=== PATIENT | female | born 1945 ===

== ENCOUNTER 2020-07-15 07:07 | Day surgery (SDC) | payer MEDICARE ==
[~2020-07-15 07:07] MED LIST: ceFAZolin/Water 2 GM/20 ML 2 GM/20 ML SYRINGE IV NR
[2020-07-15] MEDS ORDERED: PROTAMINE SULFATE 50 MG/5 ML INJ ONE (07:39)
[2020-07-15] MEDS ORDERED: SODIUM CHLORIDE 0.9% 250ML 250 ML ONE (07:39)
[2020-07-15] MEDS ORDERED: BUPIVACAINE/PF (0.5%) 5 MG/1 ML 30 ML VIAL INFILTRATI ONE ×2 (07:39→10:08)
[2020-07-15] MEDS ORDERED: HEPARIN 10,000 UNITS/10 ML VIAL ONE (07:39)
[2020-07-15] MEDS ORDERED: rifAMPin 600 MG VIAL ONE (07:39)
[2020-07-15] MEDS ORDERED: SODIUM CHLORIDE 0.9% 500 ML 500 ML ONE (07:40)
[2020-07-15] MEDS ORDERED: ONDANSETRON 4 MG/2 ML INJ ONE (07:44)
[2020-07-15] MEDS ORDERED: dexAMETHasone 20 MG/5 ML VIAL ONE (07:44)
[2020-07-15] MEDS ORDERED: PHENYLEPHRINE/NS 1,000 MCG/10 ML SYRINGE (OR USE) IV ONE (07:44)
[2020-07-15] MEDS ORDERED: SUCCINYLCHOLINE CHLORIDE 200 MG/10 ML INJ MDV ONE (07:44)
[2020-07-15] MEDS ORDERED: fentaNYL 100 MCG/2 ML INJ ONE (07:44)
[2020-07-15] MEDS ORDERED: GLYCOPYRROLATE 0.4 MG/2 ML INJ ONE (07:44)
[2020-07-15] MEDS ORDERED: LIDOCAINE MPF (2%) 20 MG/1 ML VIAL 5 ML ONE (07:44)
[2020-07-15] MEDS ORDERED: SODIUM CHLORIDE 0.9% 1000 ML 1,000 ML IV SCH (07:45)
[2020-07-15] MEDS ORDERED: propofoL 200 MG/20 ML VIAL IV ONE (07:45)
--- NOTE | 2020-07-15 08:11 | Anesthesia Consultation ---
Anesthesia Consult and Med Hx Date of service: 07/15/20 - Airway Anesthetic Teeth Evaluation: Good ROM Head & Neck: Adequate Mental/Hyoid Distance: Adequate Mallampati Class: Class II Intubation Access Assessment: Probably Good - Pre-Operative Health Status ASA Pre-Surgery Classification: ASA3 Proposed Anesthetic Plan: General - Pulmonary Hx Smoking: No Hx Asthma: No Hx Respiratory Symptoms: No SOB: No COPD: No Home Oxygen Therapy: No Hx Pneumonia: No Hx Sleep Apnea: No - Cardiovascular System Hx Hypertension: Yes Hx Coronary Artery Disease: No Hx Heart Attack/AMI: No Hx Angina: No Hx Percutaneous Transluminal Coronary Angioplasty (PTCA): No Hx Cardia Arrhythmia: No Hx Pacemaker: No Hx Internal Defibrillator: No Hx Valvular Heart Disease: No Hx Heart Murmur: No Hx Peripheral Vascular Disease: No - Central Nervous System Hx Neuromuscular Disorder: No Hx Seizures: No CVA: No Hx Back Pain: No Hx Psychiatric Problems: No - Gastrointestinal Hx Ulcer: No Hx Gastroesophageal Reflux Disease: No - Endocrine Hx Renal Disease: Yes Hx End Stage Renal Disease: Yes Hx Cirrhosis: No Hx Liver Disease: No Hx Insulin Dependent Diabetes: No Hx Non-Insulin Dependent Diabetes: No (states "was diabetic due to medication") Hx Thyroid Disease: No Hx Hypothyroidism: No Hx Hyperthyroidism: No - Hematic Hx Anemia: Yes Hx Sickle Cell Disease: No - Other Systems Hx Alcohol Use: No Hx Substance Use: No Hx Cancer: No Hx Obesity: No
--- NOTE | 2020-07-15 08:12 | Anesthesia Day of Surgery ---
Anesthesia Day of Surgery - Day of Surgery Patient Examined: Yes Patient H&P Reviewed: Yes Patient is NPO: Yes
[2020-07-15] MEDS ORDERED: MIDAZOLAM 2 MG/2 ML INJ IV SCH (08:33)
[2020-07-15] MEDS ORDERED: MIDAZOLAM 2 MG/2 ML INJ ONE (08:33)
[2020-07-15 08:40] LABS: Hematocrit 39.3 % (30.3-42.9); Hemoglobin 12.7 gm/dl (10.1-14.3); Mean Corpuscular HGB Conc 32 % (30-34); Mean Corpuscular Volume 90 fl (79-97); Platelet Count 256 K/mm3 (140-440); Red Blood Count 4.36 M/mm3 (3.65-5.03); Red Cell Distribution Width 15.4 % (13.2-15.2)
[2020-07-15] MEDS ORDERED: HEPARIN 10,000 UNITS/10 ML VIAL IV ONE ×2 (10:06)
[2020-07-15] MEDS ORDERED: rifAMPin 600 MG VIAL IV ONE (10:07)
[2020-07-15] MEDS ORDERED: SODIUM CHLORIDE 0.9% 500 ML IVPB IRRIGATION ONE (10:08)
[2020-07-15] MEDS ORDERED: SODIUM CHLORIDE 0.9% 250 ML IVPB IRRIGATION ONE (10:09)
[2020-07-15] MEDS ORDERED: SODIUM CHLORIDE 0.9% IRR 1,500 ML BOTTLE IR ONE (10:10)
--- NOTE | 2020-07-15 11:00 | Short Stay Summary ---
Short Stay Documentation Date of service: 07/15/20 Narrative H&P: See H&P - History H&P: obtained from office - Allergies and Medications Current Medications: Allergies No Known Allergies Allergy (Unverified 07/09/20 12:47) Home Medications Medication Instructions Recorded Confirmed Last Taken Type Amlodipine Besylate 5 mg PO DAILY 07/15/20 07/15/20 07/15/20 06:30 History carvediloL 6.25 mg PO BID 07/15/20 07/15/20 07/15/20 06:30 History Active Medications Cefazolin Sodium (Ancef/Sterile Water 2 Gm/20 Ml) 2 gm in 20 mls @ 80 mls/hr IV PREOP NR; Protocol Stop: 07/15/20 20:00 Sodium Chloride (Nacl 0.9% 1000 Ml) 1,000 mls @ 42 mls/hr IV DIRECT BALAJI Last Admin: 07/15/20 08:30 Dose: 42 mls/hr Documented by: Midazolam HCl (Midazolam 2 Mg/2 Ml Inj) 0.5 mg IV ONCE BALAJI Stop: 07/15/20 12:00 Last Admin: 07/15/20 08:40 Dose: 0.5 mg Documented by: - Brief post op/procedure progress note Date of procedure: 07/15/20 Pre-op diagnosis: End-Stage Renal Disease Post-op diagnosis: same Procedure: Creation of Left Brachial Artery to Left Axillary Vein Arteriovenous Graft with 5 mm Bovine Artegraft Anesthesia: GETA Surgeon: EZE GARCIA Estimated blood loss: minimal Pathology: none Condition: stable - Disposition Condition at discharge: Good Disposition: DC-01 TO HOME OR SELFCARE Short Stay Discharge Plan Activity: other (No heavy lifting with left arm for 2 weeks.) Wound: open to air, keep clean and dry, other (Okay to wash the wound with soap and water but do not soak in water for 2 weeks.) Follow up with: EZE GARCIA MD [Staff Physician] - 14 Days Prescriptions: HYDROcodone/APAP 5-325 [[place] 5/325] 1 each PO Q4HR PRN #30 tablet PRN Reason: Pain
--- NOTE | 2020-07-15 11:01 | Operative Report ---
Operative Report Operative Report: Date of procedure: 07/15/2010 Pre-operative diagnosis: End-Stage Renal Disease Post-operative diagnosis: Same Procedure(s): 1. Creation of Left Brachial Artery to Axillary Vein AV Graft with 5 mm Bovine Graft Artergraft Surgeon: Darron Gifford MD Net Sorter: None Anesthesia: General Endotracheal Anesthesia EBL: Minimal Counts: Correct Complications: None Condition: Stable Findings: Successful Creation of Left Arm AV Graft with Palpable Thrill and Palpable Radial Pulse at the Completion of the Case. Specimen: None Indication: The patient is a 74-year-old female with history of end-stage renal disease who is currently on hemodialysis through a right internal jugular permacath. She is in need of long-term dialysis access and does not have adequate vein for creation of an arteriovenous fistula so she requires creation of an arteriovenous graft. She and her son were given the risk, benefits, and alternative procedures and consented to the procedure. Description of Procedure: The patient was brought to the operating room and laid in supine position. After general endotracheal anesthesia was achieved the patient's left arm was prepped and draped in normal sterile fashion. A longitudinal incision was made on the medial aspect of the arm just proximal to the antecubital crease and carried down to the brachial artery using sharp dissection. The brachial artery was dissected out circumferentially both proximally and distally and controlled with vessel loops. A second incision was created in longitudinal fashion on the medial aspect of the arm just distal to the axillary crease and carried down to the axillary vein using sharp dissection. Axillary vein was dissected out circumferentially and controlled with a vessel loop. I then used a Isabella-Wick tunneler to tunnel from the brachial artery incision to the axillary vein incision and then put an 5 mm bovine through the tunnel. I infused with heparinized saline to ensure that it was not twisted or kinked. I put the brachial artery vessel loops on tension controlling the flow and then created an arteriotomy using an 11 blade and Hernández scissors. I beveled the graft and created an end-to-side anastomosis using 6-0 Prolene running fashion. I clamped the graft just proximal to the anastomosis and then released the vessel loops restoring flow in the brachial artery. I placed quick clot in incision to achieve hemostasis. I cut the proximal end of the graft to the appropriate length and beveled the graft in preparation for a venous anastomosis. I controlled the axillary vein a Satinsky clamp and created a venotomy using an 11 blade and Hernández scissors. I created an end to side anastomosis using a 6-0 P rolene in running fashion. Prior to completing the anastomosis I flushed the graft to ensure there was no thrombus and then completed the anastamosis. I released all clamps allowing flow into the AV graft which had an excellent thrill. I packed the wound with quick clot to achieve hemostasis. I anesthetized both wounds with 0.5% Marcaine and then closed both wounds in 2 layers using 3-0 Vicryl in running fashion in the deep dermal layer and 4-0 Monocryl in running fashion the subcuticular layer. I dressed both wounds with Dermabond. The patient tolerated the procedure well all sponge, needle, and instrument counts were correct. The patient was taken to recovery in stable condition.
--- NOTE | 2020-07-15 18:41 | Post Anesthesia Evaluation ---
- Post Anesthesia Evaluation Patient Participated: Yes Airway Patent: Yes Stable Respiratory Function: Yes Nausea/Vomiting: No Temp > 96.8F: Yes Pain Manageable: Yes Adequeate Hydration: Yes Anesthesia Complications: No Block Receding Appropriately: Not Applicable Patient on Ventilator: No
[2020-07-15 19:39] VITALS: BP 142/76
== END 2020-07-15 07:08 | disposition home or self-care (01) ==
LOC: OR 07:07
PROVIDERS: ATTEND Surgery Vascular Surgery
DX: I12.0 Hypertensive chronic kidney disease with stage 5 chronic kidney disease or end stage renal disease (principal); E11.22 Type 2 diabetes mellitus with diabetic chronic kidney disease; N18.6 End stage renal disease; E78.00 Pure hypercholesterolemia, unspecified; D64.9 Anemia, unspecified; Z94.0 Kidney transplant status; Z98.890 Other specified postprocedural states; Z79.899 Other long term (current) drug therapy
CPT/HCPCS: 36415; 36830; 80048; 82962; 85027; C1768; J0330; J0690; J1100; J1644; J2250; J2370; J2405; J2704; J3010; J3490; J7030; J7040; J7050; J2720

== ENCOUNTER 2020-11-10 04:04 | Inpatient (IN) | payer MEDICARE ==
--- NOTE | 2020-11-10 04:47 | XRay Report ---
CHEST 1 VIEW INDICATION: sob. COMPARISON: None. FINDINGS: Support devices: None. Heart: Enlarged. Lungs/Pleura: There is interstitial edema. No pleural effusion or pneumothorax. IMPRESSION: 1. Cardiomegaly with interstitial edema. Signer Name: Sharan Jamison MD Signed: 11/10/2020 4:43 AM Workstation Name: [id number]
[2020-11-10 04:53] LABS: Basophils # (Auto) 0.1 K/mm3 (0.0-0.1); Basophils % (Auto) 0.5 % (0.0-1.8); Eosinophils # (Auto) 0.5 K/mm3 (0.0-0.4); Eosinophils % (Auto) 3.6 % (0.0-4.3); Hematocrit 32.3 % (30.3-42.9); Hemoglobin 10.7 gm/dl (10.1-14.3); Lymphocytes # (Auto) 1.8 K/mm3 (1.2-5.4); Lymphocytes % (Auto) 13.4 % (13.4-35.0); Mean Corpuscular HGB Conc 33 % (30-34); Mean Corpuscular Volume 89 fl (79-97); Monocytes # (Auto) 0.9 K/mm3 (0.0-0.8); Monocytes % (Auto) 6.7 % (0.0-7.3); Platelet Count 324 K/mm3 (140-440); Red Blood Count 3.63 M/mm3 (3.65-5.03); Red Cell Distribution Width 15.7 % (13.2-15.2)
[2020-11-10 05:04] LABS: INR 1.05 (0.87-1.13)
[2020-11-10 05:05] LABS: Partial Thromboplastin Time 34.9 Sec. (24.2-36.6)
--- NOTE | 2020-11-10 05:14 | Event Note ---
ED Screening Note Date of service: 11/10/20 Time: 05:14 ED Screening Note: 75-year-old female, history of diabetes, hypertension, kidney transplant, end- stage renal disease (MWF dialysis), presents to ED with shortness of breath since 8 PM last night. Patient was recently started on dialysis in April 2020. Patient had an admission last month at [facility] for pulmonary edema. Covid test at that time was negative. Patient denies any fever, cough, known exposure to anyone who is tested positive for COVID-19. Patient was last dialyzed 3 days ago, due for dialysis again today. Patient follows with [facility]. EMS reports patient had O2 sats of 80% on room air upon their arrival. On exam, patient is tachypneic, lung auscultation reveals rales. This initial assessment/diagnostic orders/clinical plan/treatment(s) is/are subject to change based on patients health status, clinical progression and re- assessment by fellow clinical providers in the ED. Further treatment and workup at subsequent clinical providers discretion. Patient/guardian urged not to elope from the ED as their condition may be serious if not clinically assessed and managed. Initial orders include: Labs, EKG, chest x-ray, BiPAP
[2020-11-10 06:14] LABS: Chol/HDL Ratio 3.82 %
--- NOTE | 2020-11-10 07:01 | Emergency Department Report ---
ED General Adult HPI - General Chief complaint: Dyspnea/Respdistress Stated complaint: MONIQUE PUI?: No Time Seen by Provider: 11/10/20 06:22 Source: patient, family, EMS, RN notes reviewed Mode of arrival: Stretcher Limitations: Language Barrier - History of Present Illness Initial comments: The patient was evaluated in the emergency department for symptoms described in the history of present illness. He/she was evaluated in the context of the global COVID-19 pandemic, which necessitated consideration that the patient might be at risk for infection with the virus that causes COVID-19. Institutional protocols and algorithms that pertain to the evaluation of patients at risk for COVID-19 are in a state of rapid change based on information released by regulatory bodies including the CDC and federal and state organizations. These policies and algorithms were followed during the patient's care in the emergency department. Please note that these policies, procedures and recommendations changed on a rapid basis. The entire history was obtained by speaking to the patient's daughter: Naheed ([phone]) This is a 75-year-old female. She is not known to myself. Her primary manager education is Dr. Luis. She typically gets hemodialysis Tuesday, Tuesday, Tuesday. She last received hemodialysis this past Tuesday. Her daughter states that she has been compliant with her medications, and she denies diet and lifes tyle indiscretions, and also endorses medication compliance. The patient's daughter states that the patient started to have shortness of breath this morning, and thus EMS was activated. As per her daughter, no fever, no loss of taste or smell, no vomiting or diarrhea, and no exposure to Covid. The patient was admitted to [facility] few weeks ago for similar symptoms, likely secondary to patient missing hemodialysis. The patient was started on BiPAP in this emergency room, prior to my personal evaluation. The patient is currently on BiPAP, moving 4 extremities, and does not appear to be in any acute distress. -: This morning - Related Data Home Medications Medication Instructions Recorded Confirmed Last Taken Amlodipine Besylate 5 mg PO DAILY 07/15/20 11/10/20 07/15/20 06:30 carvediloL 6.25 mg PO BID 07/15/20 11/10/20 07/15/20 06:30 Previous Rx's Medication Instructions Recorded Last Taken Type HYDROcodone/APAP 5-325 [[place] 1 each PO Q4HR PRN #30 tablet 07/15/20 Unknown Rx 5/325] Allergies Allergy/AdvReac Type Severity Reaction Status Date / Time No Known Allergies Allergy Unverified 07/09/20 12:47 ED Review of Systems ROS: Stated complaint: MONIQUE Other details as noted in HPI Comment: per family Constitutional: weakness. denies: fever Respiratory: shortness of breath Cardiovascular: edema Gastrointestinal: denies: nausea, vomiting, diarrhea ED Past Medical Hx - Past Medical History Hx Hypertension: Yes Hx Heart Attack/AMI: No Hx Congestive Heart Failure: No Hx Diabetes: Yes (BORDERLINE) Hx GERD: No Hx Liver Disease: No Hx Renal Disease: Yes (Hemodialysis MWF) Hx Sickle Cell Disease: No Hx Arthritis: No Hx Headaches / Migraines: No Hx Seizures: No Hx Kidney Stones: No Hx Asthma: No Hx COPD: No Hx Tuberculosis: No Hx Dementia: No Hx HIV: No - Surgical History Hx Pacemaker: No Hx Internal Defibrillator: No - Social History Smoking Status: Never Smoker Substance Use Type: None - Medications Home Medications: Home Medications Medication Instructions Recorded Confirmed Last Taken Type Amlodipine Besylate 5 mg PO DAILY 07/15/20 11/10/20 07/15/20 06:30 History HYDROcodone/APAP 5-325 [[place] 1 each PO Q4HR PRN #30 tablet 07/15/20 11/10/20 Unknown Rx 5/325] carvediloL 6.25 mg PO BID 07/15/20 11/10/20 07/15/20 06:30 History ED Physical Exam - General Limitations: Language Barrier General appearance: alert, anxious - Head Head exam: Present: atraumatic, normocephalic - Eye Eye exam: Present: normal appearance, EOMI. Absent: nystagmus - ENT ENT exam: Present: normal exam, normal orophraynx, mucous membranes moist, normal external ear exam - Neck Neck exam: Present: normal inspection, full ROM. Absent: tenderness, meningismus - Respiratory Respiratory exam: Present: respiratory distress, rales - Cardiovascular Cardiovascular Exam: Present: regular rate, normal rhythm, normal heart sounds. Absent: bradycardia, tachycardia, irregular rhythm, systolic murmur, diastolic murmur, rubs, gallop - GI/Abdominal GI/Abdominal exam: Present: soft, normal bowel sounds. Absent: distended, tenderness, guarding, rebound, rigid, pulsatile mass - Extremities Exam Extremities exam: Present: normal inspection, full ROM, other (2+ pulses noted in the bilateral upper and lower extremities. There is no palpable cord. negative Homans sign. Muscular compartments are soft. The pelvis is stable.). Absent: pedal edema, calf tenderness - Back Exam Back exam: Present: normal inspection, full ROM. Absent: tenderness, CVA tenderness (R), CVA tenderness (L), paraspinal tenderness, vertebral tenderness - Neurological Exam Neurological exam: Present: alert, other (No facial droop. Tongue midline. Extraocular movements intact bilaterally. Facial sensation intact to light touch in V1, V2, V3 distribution bilaterally. 5 and a 5 strength in 4 extremities. Sensation intact to light touch in 4 extremities.) - Psychiatric Psychiatric exam: Present: anxious - Skin Skin exam: Present: warm, dry, intact, normal color. Absent: rash ED Course Vital Signs 11/10/20 11/10/20 11/10/20 04:19 05:13 05:28 Temperature 97.9 F Pulse Rate 85 88 86 Respiratory 22 27 H 23 Rate Blood Pressure 190/90 206/91 [Right] O2 Sat by Pulse 92 98 98 Oximetry 11/10/20 06:00 Temperature Pulse Rate 88 Respiratory 21 Rate Blood Pressure 173/142 [Right] O2 Sat by Pulse 98 Oximetry - Consultations Consultation #1: 11/10/20 10:09 I have discussed the patient's history, physical, pertinent laboratory studies and imaging findings with nephrology on-call, Dr. Fabian. He agrees with the plan of care, and his group will see the patient in consultation to follow along. We will arrange for urgent hemodialysis this morning. ED Medical Decision Making - Lab Data Result diagrams: 11/10/20 04:21 11/10/20 04:21 Vital Signs 11/10/20 11/10/20 11/10/20 04:19 05:13 05:28 Temperature 97.9 F Pulse Rate 85 88 86 Respiratory 22 27 H 23 Rate Blood Pressure 190/90 206/91 [Right] O2 Sat by Pulse 92 98 98 Oximetry 11/10/20 06:00 Temperature Pulse Rate 88 Respiratory 21 Rate Blood Pressure 173/142 [Right] O2 Sat by Pulse 98 Oximetry Lab Results 11/10/20 11/10/20 11/10/20 Range/Units 04:21 04:21 04:21 WBC 13.6 H (4.5-11.0) K/mm3 RBC 3.63 L (3.65-5.03) M/mm3 Hgb 10.7 (10.1-14.3) gm/dl Hct 32.3 (30.3-42.9) % MCV 89 (79-97) fl MCH 30 (28-32) pg MCHC 33 (30-34) % RDW 15.7 H (13.2-15.2) % Plt Count 324 (140-440) K/mm3 Lymph % (Auto) 13.4 (13.4-35.0) % [place] % (Auto) 6.7 (0.0-7.3) % Eos % (Auto) 3.6 (0.0-4.3) % Baso % (Auto) 0.5 (0.0-1.8) % Lymph # (Auto) 1.8 (1.2-5.4) K/mm3 [place] # (Auto) 0.9 H (0.0-0.8) K/mm3 Eos # (Auto) 0.5 H (0.0-0.4) K/mm3 Baso # (Auto) 0.1 (0.0-0.1) K/mm3 Seg Neutrophils % 75.8 H (40.0-70.0) % Seg Neutrophils # 10.3 H (1.8-7.7) K/mm3 PT 13.6 (12.2-14.9) Sec. INR 1.05 (0.87-1.13) APTT 34.9 (24.2-36.6) Sec. Sodium 130 L (137-145) mmol/L Potassium 5.6 H (3.6-5.0) mmol/L Chloride 89.4 L (98-107) mmol/L Carbon Dioxide 23 (22-30) mmol/L Anion Gap 23 mmol/L BUN 54 H (7-17) mg/dL Creatinine 8.4 H (0.6-1.2) mg/dL Estimated GFR 5 ml/min BUN/Creatinine Ratio 6 % Glucose 147 H (65-100) mg/dL Calcium 9.0 (8.4-10.2) mg/dL Troponin T 0.110 H* (0.00-0.029) ng/mL NT-Pro-B Natriuret Pep 63383 H (0-900) pg/mL Triglycerides 97 (2-149) mg/dL Cholesterol 180 (50-199) mg/dL LDL Cholesterol Direct 113 (50-130) mg/dL HDL Cholesterol 47 (40-59) mg/dL Cholesterol/HDL Ratio 3.82 % - EKG Data -: EKG Interpreted by Oh EKG shows normal: sinus rhythm - EKG Data When compared to previous EKG there are: previous EKG unavailable 11/10/20 07:00 EKG interpreted at 5: 00 a.m. Sinus rhythm, 88 bpm. Left axis deviation. Left anterior fascicular block. Poor R wave progression. Motion artifact. QTC prolonged, 473 ms. This is an abnormal EKG. There is no prior for comparison. This is not a STEMI - Radiology Data Radiology results: report reviewed, image reviewed CHEST 1 VIEW INDICATION: sob. COMPARISON: None. FINDINGS: Support devices: None. Heart: Enlarged. Lungs/Pleura: There is interstitial edema. No pleural effusion or pneumothorax. IMPRESSION: 1. Cardiomegaly with interstitial yovani gaines. Signer Name: Sharan Jamison MD Signed: 11/10/2020 3:43 AM Workstation Name: [id number] - Medical Decision Making Differential diagnosis, including but not limited to: Hyperkalemia, azotemia, uremia, metabolic acidosis, hypervolemic hyponatremia, hypertensive urgency/kate gency, end-stage renal disease Assessment and plan: 75-year-old female, found to be hypoxic, and rather hypertensive, appears to be presenting with acute hypervolemic hyponatremia, fluid overload, pulmonary edema, hyperkalemia, metabolic acidosis, uremia and azotemia, all which require urgent/emergent hemodialysis. She is clinically doing well on BiPAP. Have contacted nephrology on-call, Dr. Fabian, have discussed the patient's history, physical, pertinent laboratory studies and imaging findings. His group will see the patient, and arrange for urgent hemodialysis. Patient will be admitted to the medical service under the care of Dr. Amadou Billings I had extensive discussion with the patient's daughter, who denied the possibility of Covid, and/or Covid contacts. I have also discussed this plan of care with the patient's daughter, who has verbalized understanding, and who is amenable to this plan of care. Patient currently on BiPAP, clinically doing well. Critical Care Time: Yes Critical care time in (mins) excluding proc time.: 35 Critical care attestation.: If time is entered above; I have spent that time in minutes in the direct care of this critically ill patient, excluding procedure time. ED Disposition Clinical Impression: ESRD on hemodialysis, Acute pulmonary edema, Hyperkalemia, Hypertensive urgency, Metabolic acidosis, Hyponatremia Disposition: 09 OP ADMIT IP TO THIS HOSP Is pt being admited?: Yes Does the pt Need Aspirin: No Condition: Serious
[2020-11-10] MEDS ORDERED: FUROSEMIDE 40 MG/4 ML INJ IV ONE ×2 (07:09→11:00)
[2020-11-10] MEDS ORDERED: INSULIN REGULAR, HUMAN 100 UNITS/1 ML IV ONE ×2 (07:09→10:01)
[2020-11-10] MEDS ORDERED: SODIUM BICARB 8.4% 50 MEQ/50 ML SYRINGE IV ONE ×2 (07:09→09:59)
[2020-11-10] MEDS ORDERED: hydrALAZINE 20 MG/1 ML INJ IV ONE ×2 (07:09→10:02)
[2020-11-10] MEDS ORDERED: DEXTROSE 50% IN WATER (25GM) 50 ML SYRINGE IV PRN (07:09)
[2020-11-10] MEDS ORDERED: hydrALAZINE 20 MG/1 ML INJ IV PRN (07:26)
[2020-11-10] MEDS ORDERED: CALCIUM GLUCONATE 1,000 MG in SODIUM CHLORIDE 0.9% 100 ML IV ONE (07:30)
--- NOTE | 2020-11-10 07:32 | History and Physical Report ---
History of Present Illness Date of examination: 11/10/20 Date of admission: 11/10/2020 Chief complaint: Worsening shortness of breath/missed hemodialysis History of present illness: I have seen and examined the patient at the bedside in ER Patient is a poor historian, most of the history is taken from ER medical records As per ER note 75-year-old female patient with history of end-stage renal disease on hemodialysis hypertension, medical noncompliance Was brought to the emergency room with worsening shortness of breath since today morning Patient also was admitted few weeks ago with similar complaints of noncompliance with dialysis In ER patient is noted to be severely hypoxemic requiring BiPAP, with mild improvement. Initial evaluation in the ED is consistent with hyperkalemia, leukocytosis, hyponatremia Elevated BNP, chest x-ray with cardiomegaly and pulmonary edema ER physician consulted veterans contact representative Past History Past Medical History: dialysis, ESRD, hypertension, other (Malnutrition) Past Surgical History: Other (AV fistula) Social history: denies: smoking, alcohol abuse, prescription drug abuse Family history: no significant family history Medications and Allergies Allergies Allergy/AdvReac Type Severity Reaction Status Date / Time No Known Allergies Allergy Unverified 07/09/20 12:47 Home Medications Medication Instructions Recorded Confirmed Last Taken Type Amlodipine Besylate 5 mg PO DAILY 07/15/20 11/10/20 07/15/20 06:30 History HYDROcodone/APAP 5-325 [[place] 1 each PO Q4HR PRN #30 tablet 07/15/20 11/10/20 Unknown Rx 5/325] carvediloL 6.25 mg PO BID 07/15/20 11/10/20 07/15/20 06:30 History Active Meds: Active Medications Dextrose (Dextrose 50% In Water (25gm) 50 Ml Syringe) 50 ml IV Q30MIN PRN; Protocol PRN Reason: Hypoglycemia Hydralazine HCl (Hydralazine 25 Mg Tab) 50 mg PO Q8HR BALAJI Hydralazine HCl (Hydralazine 20 Mg/1 Ml Inj) 10 mg IV Q4HR PRN PRN Reason: Hypertension Calcium Gluconate 1,000 mg/ (Sodium Chloride) 110 mls @ 330 mls/hr IV ONCE ONE Stop: 11/10/20 07:49 Miscellaneous Medication (Amlodipine Besylate) 5 mg PO DAILY BALAJI Miscellaneous Medication (Carvedilol) 6.25 mg PO BID BALAJI Review of Systems ROS unobtainable: due to mental status Exam - Constitutional Vitals: Temp Pulse Resp BP Pulse Ox 97.9 F 88 21 173/142 98 11/10/20 04:19 11/10/20 06:00 11/10/20 06:00 11/10/20 06:00 11/10/20 06:00 General appearance: Present: mild distress, cachectic, other (Macerated) - EENT Eyes: Present: PERRL, EOM intact - Neck Neck: Present: supple, normal ROM - Respiratory Respiratory effort: normal Respiratory: bilateral: diminished, rales, negative: rhonchi, wheezing - Cardiovascular Rhythm: regular Heart Sounds: Present: S1 & S2 - Extremities Extremities: no ischemia, No edema - Abdominal General gastrointestinal: Present: soft, non-tender, non-distended, normal bowel sounds - Integumentary Integumentary: Present: clear, warm - Musculoskeletal Musculoskeletal: strength equal bilaterally, generalized weakness - Psychiatric Psychiatric: cooperative, other (Minimally communicative) - Neurologic Neurologic: moves all extremities, other (Minimally communicative) HEART Score - HEART Score Troponin: Troponin T 0.110 ng/mL (0.00-0.029) H* 11/10/20 04:21 Results - Labs CBC & Chem 7: 11/10/20 04:21 11/10/20 04:21 Labs: Abnormal lab results 11/10/20 11/10/20 Range/Units 04:21 04:21 WBC 13.6 H (4.5-11.0) K/mm3 RBC 3.63 L (3.65-5.03) M/mm3 RDW 15.7 H (13.2-15.2) % [place] # (Auto) 0.9 H (0.0-0.8) K/mm3 Eos # (Auto) 0.5 H (0.0-0.4) K/mm3 Seg Neutrophils % 75.8 H (40.0-70.0) % Seg Neutrophils # 10.3 H (1.8-7.7) K/mm3 Sodium 130 L (137-145) mmol/L Potassium 5.6 H (3.6-5.0) mmol/L Chloride 89.4 L (98-107) mmol/L BUN 54 H (7-17) mg/dL Creatinine 8.4 H (0.6-1.2) mg/dL Glucose 147 H (65-100) mg/dL Troponin T 0.110 H* (0.00-0.029) ng/mL NT-Pro-B Natriuret Pep 90596 H (0-900) pg/mL Assessment and Plan --Acute hypoxemic respiratory failure; requiring BiPAP Secondary to severe pulmonary edema, due to fluid overload, due to missed hemodialysis Oxygen titrate O2 sat to more than 90%,BiPAP as needed Treat the underlying cause, HD stat --Acute pulmonary edema; Secondary to fluid overload, due to end-stage renal disease Hemodialysis, diuresis, supportive care --Fluid overload; secondary to ESRD Missed hemodialysis, treat the underlying cause Nephrology consulted, HD per schedule --Hyperkalemia; Patient received calcium gluconate and Kayexalate Hemodialysis per schedule, monitor electrolytes --Hyponatremia; Due to fluid overload, HD per schedule Monitor electrolytes --Hypertension; moderate control Continue current antihypertensives, as needed medications --NSTEMI type II Probably secondary to ESRD, closely monitor If patient has chest pain or other cardiac symptoms Consult cardiology --Severe malnutrition; BMI 18.6 Nutrition supplements, nutrition consult Supportive care --DVT prophylaxis; Heparin renal dose --Full CODE STATUS Closely monitor the patient and adjust management as needed Plan of care reviewed with the patient's nurse We will try to call the family
[2020-11-10] MEDS ORDERED: NON-FORMULARY EACH (Amlodipine Besylate 5 MG) PO SCH (10:00)
[2020-11-10] MEDS ORDERED: NON-FORMULARY EACH (Carvedilol 6.25 MG) PO SCH (10:00)
[2020-11-10] MEDS ORDERED: amLODIPine 5 MG TAB PO SCH ×2 (10:00)
[2020-11-10] MEDS ORDERED: FUROSEMIDE 100 MG/10 ML INJ IV ONE (10:00)
[2020-11-10] MEDS ORDERED: DEXTROSE 50% IN WATER (25GM) 50 ML SYRINGE IV ONE (10:04)
--- NOTE | 2020-11-10 11:41 | Consultation ---
History of Present Illness - Reason for Consult Consult date: 11/10/20 end stage renal disease Requesting physician: JOSE VAZ - History of Present Illness This is a 75 yo F with past medical history of Hypertension, ESRD on MWF schedule, who presents to ER with complaints of progressive shortness of breath. In Pt was found to be hypoxic, requiring BIPAP. CXR showed cardiomegaly and evidence of pulmonary edema. Labs showed elevated BUN/Cr at 54/8.4mg/dl along with hyponatremia 130 and mild hyperkalemia with K at 5.6. Renal consult is requested for management of ESRD/HD. Past History Past Medical History: anemia, ESRD, hypertension Past Surgical History: Other (AVF) Social history: denies: smoking, alcohol abuse, prescription drug abuse, IV drug use Medications and Allergies Allergies Allergy/AdvReac Type Severity Reaction Status Date / Time No Known Allergies Allergy Unverified 07/09/20 12:47 Home Medications Medication Instructions Recorded Confirmed Last Taken Type Amlodipine Besylate 5 mg PO DAILY 07/15/20 11/10/20 07/15/20 06:30 History HYDROcodone/APAP 5-325 [[place] 1 each PO Q4HR PRN #30 tablet 07/15/20 11/10/20 Unknown Rx 5/325] carvediloL 6.25 mg PO BID 07/15/20 11/10/20 07/15/20 06:30 History Active Meds: Active Medications Amlodipine Besylate (Amlodipine 5 Mg Tab) 5 mg PO QDAY BALAJI Carvedilol (Carvedilol 6.25 Mg Tab) 6.25 mg PO BID BALAJI Dextrose (Dextrose 50% In Water (25gm) 50 Ml Syringe) 50 ml IV Q30MIN PRN; Protocol PRN Reason: Hypoglycemia Heparin Sodium (Porcine) (Heparin 5,000 Unit/1 Ml Vial) 5,000 unit SUB-Q Q12HR BALAJI Hydralazine HCl (Hydralazine 25 Mg Tab) 50 mg PO Q8HR BALAJI Hydralazine HCl (Hydralazine 20 Mg/1 Ml Inj) 10 mg IV Q4HR PRN PRN Reason: Hypertension Review of Systems All systems: negative Constitutional: fatigue, weakness, malaise Respiratory: shortness of breath, dyspnea on exertion Exam - Vital Signs Vital signs: Vital Signs Temp Pulse Resp BP Pulse Ox 97.9 F 85 22 190/90 92 11/10/20 04:19 11/10/20 04:19 11/10/20 04:19 11/10/20 04:19 11/10/20 04:19 - General Appearance General appearance: well-developed, well-nourished, appears stated age EENT: ATNC, PERRL, mucous membranes moist Neck: Present: neck supple Respiratory: Decreased Breath Sounds Heart: regular, S1S2 Gastrointestinal: Present: normoactive bowel sounds Integumentary: no rash, other (edema ) Neurologic: no focal deficit, alert and oriented x3, strength 5/5, CN 3-12 intact Psychiatric: mood/affect appropriate, cooperative Results - Lab Results 11/10/20 04:21 11/10/20 04:21 Most recent lab results Calcium 9.0 mg/dL (8.4-10.2) 11/10/20 04:21 Assessment and Plan - Patient Problems (1) Hyperkalemia Current Visit: Yes Status: Acute Plan to address problem: HD arranged for correction of hyperkalemia (2) ESRD on hemodialysis Current Visit: Yes Status: Acute Plan to address problem: Arranged HD for MWF, target UF 3L as needed for volume/BP control (3) Acute pulmonary edema Current Visit: Yes Status: Acute Plan to address problem: cont BIPAP as per ICU attending, volume control with HD. (4) Hypertensive urgency Current Visit: Yes Status: Acute Plan to address problem: resume home BP meds, target UF 3L with HD for volume and BP control. (5) Hyponatremia Current Visit: Yes Status: Acute Plan to address problem: likely 2/2 hypervolemia, expect to be corrected with HD. cont fluid restriction to 1L/day (6) Metabolic acidosis Current Visit: Yes Status: Acute Plan to address problem: to be corrected with HD
[2020-11-10 12:06] LABS: Hepatitis B Surface Antigen Non-Reactive (Negative); Hepatitis C Virus Antibody Non-Reactive (NonReactive)
--- NOTE | 2020-11-10 17:36 | Electrocardiograph Report ---
[facility] Test Date: 2020-11-10 Test Time: 04:57:56 Pat Name: LUISITO VENEGAS Department: Room: [facility] Gender: F Clinical Data Associate: FILIPE : 1945 Requested By: DANIEL MORALES Order Number: [id number] Reading MD: Arnulfo Campbell Measurements Intervals Roundup Rate: 88 P: 46 KS: 133 QRS: -21 QRSD: 86 T: 33 QT: 391 QTc: 473 Interpretive Statements Sinus rhythm Probable left atrial enlargement Left ventricular hypertrophy Anterior infarct, old No previous ECG available for comparison Electronically Signed On 11-10-2020 17:36:20 EDT by Arnulfo Campbell
[2020-11-10] MEDS: carvediloL 6.25 MG TAB PO SCH (22:50)
[2020-11-10] MEDS: HEPARIN 5,000 UNIT/1 ML VIAL SUB-Q SCH (22:50)
[2020-11-10] MEDS: hydrALAZINE 25 MG TAB PO SCH ×2 (22:50)
[2020-11-10] MEDS: NIFEdipine XL 30 MG TAB PO SCH (22:55)
[2020-11-11] MEDS: hydrALAZINE 25 MG TAB PO SCH ×3 (06:12→22:55)
[2020-11-11] MEDS: carvediloL 6.25 MG TAB PO SCH ×2 (09:19→22:55)
[2020-11-11] MEDS: NIFEdipine XL 30 MG TAB PO SCH ×2 (09:19→22:55)
[2020-11-11] MEDS: HEPARIN 5,000 UNIT/1 ML VIAL SUB-Q SCH ×2 (09:19→22:55)
--- NOTE | 2020-11-11 11:15 | Progress Note ---
Assessment and Plan Assessment and plan: --Acute hypoxemic respiratory failure; requiring BiPAP Secondary to severe pulmonary edema, due to fluid overload, due to missed hemodialysis Oxygen titrate O2 sat to more than 90%,BiPAP as needed Treat the underlying cause, HD stat --Acute pulmonary edema; Secondary to fluid overload, due to end-stage renal disease Hemodialysis, diuresis, supportive care --Fluid overload; secondary to ESRD Missed hemodialysis, treat the underlying cause Nephrology consulted, HD per schedule --Hyperkalemia; Patient received calcium gluconate and Kayexalate Hemodialysis per schedule, monitor electrolytes --Hyponatremia; Due to fluid overload, HD per schedule Monitor electrolytes --Hypertension; moderate control Continue current antihypertensives, as needed medications --NSTEMI type II Probably secondary to ESRD, closely monitor If patient has chest pain or other cardiac symptoms Consult cardiology --Severe malnutrition; BMI 18.6 Nutrition supplements, nutrition consult Supportive care --DVT prophylaxis;Heparin renal dose --Full CODE STATUS Closely monitor the patient and adjust management as needed Plan of care reviewed with the patient's nurse 11/10/2020; patient was admitted with acute pulmonary edema, acute hypoxic respiratory failure Fluid overload secondary to ESRD, received hemodialysis symptoms significantly improved 11/11/2020; patient is more alert and awake responding appropriately, no new complaints Continue hemodialysis per schedule, DC planning in 1 to 2 days Home with home health History Interval history: I have seen and examined the patient at the bedside Patient's chart and medications reviewed Patient feels slightly better today Blood pressures well controlled Patient denies any chest pain or shortness of breath Vital signs noted Hospitalist Physical - Constitutional Vitals: Temp Pulse Resp BP Pulse Ox 98.5 F 62 18 124/70 96 11/11/20 07:32 11/11/20 09:19 11/11/20 07:32 11/11/20 09:19 11/11/20 08:12 General appearance: Present: no acute distress, well-nourished - EENT Eyes: Present: PERRL, EOM intact - Neck Neck: Present: supple, normal ROM - Respiratory Respiratory effort: normal Respiratory: bilateral: diminished, negative: rales, rhonchi, wheezing - Cardiovascular Rhythm: regular Heart Sounds: Present: S1 & S2 - Extremities Extremities: no ischemia, No edema - Abdominal General gastrointestinal: soft, non-tender, non-distended, normal bowel sounds - Integumentary Integumentary: Present: clear, warm - Psychiatric Psychiatric: appropriate mood/affect, cooperative - Neurologic Neurologic: CNII-XII intact, moves all extremities HEART Score - HEART Score Troponin: Troponin T 0.110 ng/mL (0.00-0.029) H* 11/10/20 04:21 Results - Labs CBC & Chem 7: 11/10/20 04:21 11/11/20 15:05 Labs: Laboratory Last Values WBC 13.6 K/mm3 (4.5-11.0) H 11/10/20 04:21 RBC 3.63 M/mm3 (3.65-5.03) L 11/10/20 04:21 Hgb 10.7 gm/dl (10.1-14.3) 11/10/20 04:21 Hct 32.3 % (30.3-42.9) 11/10/20 04:21 MCV 89 fl (79-97) 11/10/20 04:21 MCH 30 pg (28-32) 11/10/20 04:21 MCHC 33 % (30-34) 11/10/20 04:21 RDW 15.7 % (13.2-15.2) H 11/10/20 04:21 Plt Count 324 K/mm3 (140-440) 11/10/20 04:21 Lymph % (Auto) 13.4 % (13.4-35.0) 11/10/20 04:21 [place] % (Auto) 6.7 % (0.0-7.3) 11/10/20 04:21 Eos % (Auto) 3.6 % (0.0-4.3) 11/10/20 04:21 Baso % (Auto) 0.5 % (0.0-1.8) 11/10/20 04:21 Lymph # (Auto) 1.8 K/mm3 (1.2-5.4) 11/10/20 04:21 [place] # (Auto) 0.9 K/mm3 (0.0-0.8) H 11/10/20 04:21 Eos # (Auto) 0.5 K/mm3 (0.0-0.4) H 11/10/20 04:21 Baso # (Auto) 0.1 K/mm3 (0.0-0.1) 11/10/20 04:21 Seg Neutrophils % 75.8 % (40.0-70.0) H 11/10/20 04:21 Seg Neutrophils # 10.3 K/mm3 (1.8-7.7) H 11/10/20 04:21 PT 13.6 Sec. (12.2-14.9) 11/10/20 04: INR 1.05 (0.87-1.13) 11/10/20 04:21 APTT 34.9 Sec. (24.2-36.6) 11/10/20 04:21 Sodium 130 mmol/L (137-145) L 11/10/20 04:21 Potassium 5.6 mmol/L (3.6-5.0) H 11/10/20 04:21 Chloride 89.4 mmol/L (98-107) L 11/10/20 04:21 Carbon Dioxide 23 mmol/L (22-30) 11/10/20 04: Anion Gap 23 mmol/L 11/10/20 04:21 BUN 54 mg/dL (7-17) H 11/10/20 04:21 Creatinine 8.4 mg/dL (0.6-1.2) H 11/10/20 04:21 Estimated GFR 5 ml/min 11/10/20 04: BUN/Creatinine Ratio 6 % 11/10/20 04:21 Glucose 147 mg/dL (65-100) H 11/10/20 04:21 POC Glucose 117 mg/dL (70-105) H 11/10/20 22:17 Calcium 9.0 mg/dL (8.4-10.2) 11/10/20 04:21 Troponin T 0.110 ng/mL (0.00-0.029) H* 11/10/20 04:21 NT-Pro-B Natriuret Pep 39096 pg/mL (0-900) H 11/10/20 04:21 Triglycerides 97 mg/dL (2-149) 11/10/20 04:21 Cholesterol 180 mg/dL (50-199) 11/10/20 04:21 LDL Cholesterol Direct 113 mg/dL (50-130) 11/10/20 04: HDL Cholesterol 47 mg/dL (40-59) 11/10/20 04:21 Cholesterol/HDL Ratio 3.82 % 11/10/20 04:21 Hepatitis A IgM Ab Non-reactive (NonReactive) 11/10/20 10:02 Hep Bs Antigen Non-reactive (Negative) 11/10/20 10:02 Hep B Core IgM Ab Non-reactive (NonReactive) 11/10/20 10:02 Hepatitis C Antibody Non-reactive (NonReactive) 11/10/20 10:02 Persaud/IV: Voiding Method Toilet Active Medications - Current Medications Current Medications: Generic Name Dose Route Start Last Admin Trade Name Freq PRN Reason Stop Dose Admin Carvedilol 6.25 mg 11/10/20 10:00 11/11/20 09:19 Carvedilol 6.25 Mg Tab PO 6.25 mg BID BALAJI Administration Dextrose 50 ml 11/10/20 07:09 Dextrose 50% In Water (25gm) 50 Ml Syringe IV Q30MIN PRN Hypoglycemia Protocol Heparin Sodium (Porcine) 5,000 unit 11/10/20 22:00 11/11/20 09:19 Heparin 5,000 Unit/1 Ml Vial SUB-Q 5,000 unit Q12HR BALAJI Administration Hydralazine HCl 50 mg 11/10/20 14:00 11/11/20 06:12 Hydralazine 25 Mg Tab PO 50 mg Q8HR BALAJI Administration Hydralazine HCl 10 mg 11/10/20 07:26 11/10/20 17:28 Hydralazine 20 Mg/1 Ml Inj IV 10 mg Q4HR PRN Administration Hypertension Nifedipine 30 mg 11/10/20 22:00 11/11/20 09:19 Nifedipine Xl 30 Mg Tab PO 30 mg Q12HR BALAJI Administration
--- NOTE | 2020-11-11 11:16 | Progress Note ---
Assessment and Plan - Patient Problems (1) Hyperkalemia Current Visit: Yes Status: Acute Plan to address problem: s/p HD using 2K bath yesterday for correction of hyperkalemia. repeat BMP pending, cont 2 g K renal diet (2) ESRD on hemodialysis Current Visit: Yes Status: Acute Plan to address problem: cont HD on MWF schedule (3) Acute pulmonary edema Current Visit: Yes Status: Acute Plan to address problem: cont BIPAP prn as per Pulm/CCM, volume control with HD. (4) Hypertensive urgency Current Visit: Yes Status: Acute Plan to address problem: BP improved, monitor on current meds. (5) Hyponatremia Current Visit: Yes Status: Acute Plan to address problem: likely 2/2 hypervolemia, expect to be corrected with HD. cont fluid restriction to 1L/day (6) Metabolic acidosis Current Visit: Yes Status: Acute Plan to address problem: to be corrected with HD Subjective Date of service: 11/11/20 Principal diagnosis: ESRD Interval history: Pt awake, alert, in no acute respiratory distress, currently on 2L NC, discussed with patient and daughter over the phone Objective - Vital Signs Vital signs: Vital Signs - 12hr 11/10/20 11/11/20 11/11/20 23:53 04:15 06:12 Temperature 97.8 F 99.3 F Pulse Rate 87 84 84 Respiratory 16 16 Rate Blood Pressure 158/75 137/61 132/61 O2 Sat by Pulse 96 96 Oximetry 11/11/20 11/11/20 11/11/20 07:32 08:12 09:19 Temperature 98.5 F Pulse Rate 86 62 Respiratory 18 Rate Blood Pressure 127/60 124/70 O2 Sat by Pulse 98 96 Oximetry - General Appearance General appearance: well-developed, appears stated age, chronically ill EENT: ATNC, PERRL, mucous membranes moist Neck: no JVD Respiratory: Present: Decreased Breath Sounds Cardiology: regular, S1S2 Gastrointestinal: normoactive bowel sounds Integumentary: no rash Neurologic: no focal deficit, alert and oriented x3, strength 5/5, CN 3-[address] Psychiatric: mood/affect appropriate, cooperative - Lab 11/10/20 04:21 11/10/20 04:21 Most recent lab results Calcium 9.0 mg/dL (8.4-10.2) 11/10/20 04:21 Medications & Allergies - Medications Allergies/Adverse Reactions: Allergies No Known Allergies Allergy (Unverified 07/09/20 12:47) Home Medications: Home Medications Medication Instructions Recorded Confirmed Last Taken Type Amlodipine Besylate 5 mg PO DAILY 07/15/20 11/10/20 07/15/20 06:30 History HYDROcodone/APAP 5-325 [[place] 1 each PO Q4HR PRN #30 tablet 07/15/20 11/10/20 Unknown Rx 5/325] carvediloL 6.25 mg PO BID 07/15/20 11/10/20 07/15/20 06:30 History Active Medications: Generic Name Dose Route Start Last Admin Trade Name Freq PRN Reason Stop Dose Admin Carvedilol 6.25 mg 11/10/20 10:00 11/11/20 09:19 Carvedilol 6.25 Mg Tab PO 6.25 mg BID BALAJI Administration Dextrose 50 ml 11/10/20 07:09 Dextrose 50% In Water (25gm) 50 Ml Syringe IV Q30MIN PRN Hypoglycemia Protocol Heparin Sodium (Porcine) 5,000 unit 11/10/20 22:00 11/11/20 09:19 Heparin 5,000 Unit/1 Ml Vial SUB-Q 5,000 unit Q12HR BALAJI Administration Hydralazine HCl 50 mg 11/10/20 14:00 11/11/20 06:12 Hydralazine 25 Mg Tab PO 50 mg Q8HR BALAJI Administration Hydralazine HCl 10 mg 11/10/20 07:26 11/10/20 17:28 Hydralazine 20 Mg/1 Ml Inj IV 10 mg Q4HR PRN Administration Hypertension Nifedipine 30 mg 11/10/20 22:00 11/11/20 09:19 Nifedipine Xl 30 Mg Tab PO 30 mg Q12HR BALAJI Administration
[2020-11-11 16:04] LABS: Calcium 8.6 mg/dL (8.4-10.2)
[2020-11-12] MEDS: hydrALAZINE 25 MG TAB PO SCH (06:47)
--- NOTE | 2020-11-12 10:34 | Progress Note ---
Assessment and Plan Assessment and plan: --Acute hypoxemic respiratory failure; requiring BiPAP Secondary to severe pulmonary edema, due to fluid overload, due to missed hemodialysis Oxygen titrate O2 sat to more than 90%,BiPAP as needed Treat the underlying cause, HD stat --Acute pulmonary edema; Secondary to fluid overload, due to end-stage renal disease Hemodialysis, diuresis, supportive care --Fluid overload; secondary to ESRD Missed hemodialysis, treat the underlying cause Nephrology consulted, HD per schedule --Hyperkalemia; Patient received calcium gluconate and Kayexalate Hemodialysis per schedule, monitor electrolytes --Hyponatremia; Due to fluid overload, HD per schedule Monitor electrolytes --Hypertension; moderate control Continue current antihypertensives, as needed medications --NSTEMI type II Probably secondary to ESRD, closely monitor If patient has chest pain or other cardiac symptoms Consult cardiology --Severe malnutrition; BMI 18.6 Nutrition supplements, nutrition consult Supportive care --DVT prophylaxis;Heparin renal dose --Full CODE STATUS Closely monitor the patient and adjust management as needed Plan of care reviewed with the patient's nurse 11/10/2020; patient was admitted with acute pulmonary edema, acute hypoxic respiratory failure Fluid overload secondary to ESRD, received hemodialysis symptoms significantly improved 11/11/2020; patient is more alert and awake responding appropriately, no new complaints Continue hemodialysis per schedule, DC planning in 1 to 2 days Home with home health Hospitalist Physical - Constitutional Vitals: Temp Pulse Resp BP Pulse Ox 98.4 F 91 H 18 124/53 97 11/12/20 08:14 11/12/20 08:14 11/12/20 08:14 11/12/20 08:14 11/12/20 08:14 General appearance: Present: no acute distress, well-nourished HEART Score - HEART Score Troponin: Troponin T 0.122 ng/mL (0.00-0.029) H* 11/11/20 15:05 Results - Labs CBC & Chem 7: 11/10/20 04:21 11/12/20 04:40 Labs: Laboratory Last Values WBC 13.6 K/mm3 (4.5-11.0) H 11/10/20 04:21 RBC 3.63 M/mm3 (3.65-5.03) L 11/10/20 04:21 Hgb 10.7 gm/dl (10.1-14.3) 11/10/20 04:21 Hct 32.3 % (30.3-42.9) 11/10/20 04:21 MCV 89 fl (79-97) 11/10/20 04:21 MCH 30 pg (28-32) 11/10/20 04:21 MCHC 33 % (30-34) 11/10/20 04:21 RDW 15.7 % (13.2-15.2) H 11/10/20 04:21 Plt Count 324 K/mm3 (140-440) 11/10/20 04:21 Lymph % (Auto) 13.4 % (13.4-35.0) 11/10/20 04:21 [place] % (Auto) 6.7 % (0.0-7.3) 11/10/20 04:21 Eos % (Auto) 3.6 % (0.0-4.3) 11/10/20 04:21 Baso % (Auto) 0.5 % (0.0-1.8) 11/10/20 04:21 Lymph # (Auto) 1.8 K/mm3 (1.2-5.4) 11/10/20 04:21 [place] # (Auto) 0.9 K/mm3 (0.0-0.8) H 11/10/20 04:21 Eos # (Auto) 0.5 K/mm3 (0.0-0.4) H 11/10/20 04:21 Baso # (Auto) 0.1 K/mm3 (0.0-0.1) 11/10/20 04:21 Seg Neutrophils % 75.8 % (40.0-70.0) H 11/10/20 04:21 Seg Neutrophils # 10.3 K/mm3 (1.8-7.7) H 11/10/20 04:21 PT 13.6 Sec. (12.2-14.9) 11/10/20 04:21 INR 1.05 (0.87-1.13) 11/10/20 04:21 APTT 34.9 Sec. (24.2-36.6) 11/10/20 04:21 Sodium 135 mmol/L (137-145) L 11/12/20 04:40 Potassium 4.5 mmol/L (3.6-5.0) 11/12/20 04:40 Chloride 92.3 mmol/L (98-107) L 11/12/20 04:40 Carbon Dioxide 26 mmol/L (22-30) 11/12/20 04:40 Anion Gap 21 mmol/L 11/12/20 04:40 BUN 44 mg/dL (7-17) H 11/12/20 04:40 Creatinine 7.1 mg/dL (0.6-1.2) H 11/12/20 04:40 Estimated GFR 6 ml/min 11/12/20 04:40 BUN/Creatinine Ratio 6 % 11/12/20 04:40 Glucose 63 mg/dL (65-100) L 11/12/20 04:40 POC Glucose 103 mg/dL (70-105) 11/11/20 21:46 Calcium 9.0 mg/dL (8.4-10.2) 11/12/20 04:40 Troponin T 0.122 ng/mL (0.00-0.029) H* 11/11/20 15:05 NT-Pro-B Natriuret Pep 43844 pg/mL (0-900) H 11/10/20 04:21 Triglycerides 97 mg/dL (2-149) 11/10/20 04:21 Cholesterol 180 mg/dL (50-199) 11/10/20 04:21 LDL Cholesterol Direct 113 mg/dL (50-130) 11/10/20 04:21 HDL Cholesterol 47 mg/dL (40-59) 11/10/20 04:21 Cholesterol/HDL Ratio 3.82 % 11/10/20 04:21 Nasal Screen MRSA (PCR) Negative (Negative) 11/11/20 12:21 Hepatitis A IgM Ab Non-reactive (NonReactive) 11/10/20 10:02 Hep Bs Antigen Non-reactive (Negative) 11/10/20 10:02 Hep B Core IgM Ab Non-reactive (NonReactive) 11/10/20 10:02 Hepatitis C Antibody Non-reactive (NonReactive) 11/10/20 10:02 Persaud/IV: Voiding Method Toilet Active Medications - Current Medications Current Medications: Generic Name Dose Route Start Last Admin Trade Name Freq PRN Reason Stop Dose Admin Carvedilol 6.25 mg 11/10/20 10:00 11/11/20 22:55 Carvedilol 6.25 Mg Tab PO 6.25 mg BID BALAJI Administration Dextrose 50 ml 11/10/20 07:09 Dextrose 50% In Water (25gm) 50 Ml Syringe IV Q30MIN PRN Hypoglycemia Protocol Heparin Sodium (Porcine) 5,000 unit 11/10/20 22:00 11/11/20 22:55 Heparin 5,000 Unit/1 Ml Vial SUB-Q 5,000 unit Q12HR BALAJI Administration Hydralazine HCl 50 mg 11/10/20 14:00 11/12/20 06:47 Hydralazine 25 Mg Tab PO 50 mg Q8HR BALAJI Administration Hydralazine HCl 10 mg 11/10/20 07:26 11/10/20 17:28 Hydralazine 20 Mg/1 Ml Inj IV 10 mg Q4HR PRN Administration Hypertension Nifedipine 30 mg 11/10/20 22:00 11/11/20 22:55 Nifedipine Xl 30 Mg Tab PO 30 mg Q12HR BALAJI Administration
--- NOTE | 2020-11-12 10:48 | Progress Note ---
Assessment and Plan - Patient Problems (1) Hyperkalemia Current Visit: Yes Status: Acute Plan to address problem: K corrected with HD, cont 2 g K renal diet (2) ESRD on hemodialysis Current Visit: Yes Status: Acute Plan to address problem: cont HD on MWF schedule. stable for discharge from renal stand point after HD today (3) Acute pulmonary edema Current Visit: Yes Status: Acute Plan to address problem: cont BIPAP prn as per Pulm/CCM, volume control with HD. (4) Hypertensive urgency Current Visit: Yes Status: Acute Plan to address problem: BP improved, monitor on current meds. (5) Hyponatremia Current Visit: Yes Status: Acute Plan to address problem: likely 2/2 hypervolemia, improved with HD. cont fluid restriction to 1L/day (6) Metabolic acidosis Current Visit: Yes Status: Acute Plan to address problem: corrected with HD Subjective Date of service: 11/12/20 Principal diagnosis: ESRD Interval history: Pt awake, alert, in no acute respiratory distress Objective - Vital Signs Vital signs: Vital Signs - 12hr 11/11/20 11/11/20 11/12/20 22:55 23:07 03:42 Temperature 98.6 F 98.8 F Pulse Rate 82 84 84 Respiratory 14 14 Rate Blood Pressure 132/64 138/64 140/70 O2 Sat by Pulse 98 97 Oximetry 11/12/20 11/12/20 11/12/20 03:44 06:47 08:14 Temperature 98.4 F Pulse Rate 82 82 91 H Respiratory 18 Rate Blood Pressure 140/70 124/53 O2 Sat by Pulse 97 Oximetry - General Appearance General appearance: well-developed, well-nourished, appears stated age EENT: ATNC, PERRL, mucous membranes moist Neck: no JVD Respiratory: Present: Clear to Ascultation Cardiology: regular, S1S2 Gastrointestinal: normoactive bowel sounds Integumentary: no rash, other (no edema ) Neurologic: no focal deficit, alert and oriented x3, strength 5/5, CN 3-12 intact Psychiatric: mood/affect appropriate, cooperative - Lab 11/10/20 04:21 11/12/20 04:40 Most recent lab results Calcium 9.0 mg/dL (8.4-10.2) 11/12/20 04:40 Medications & Allergies - Medications Allergies/Adverse Reactions: Allergies No Known Allergies Allergy (Unverified 12/09/20 12:47) Home Medications: Home Medications Medication Instructions Recorded Confirmed Last Taken Type Amlodipine Besylate 5 mg PO DAILY 07/15/20 11/10/20 07/15/20 06:30 History HYDROcodone/APAP 5-325 [[place] 1 each PO Q4HR PRN #30 tablet 07/15/20 11/10/20 Unknown Rx 5/325] carvediloL 6.25 mg PO BID 07/15/20 11/10/20 07/15/20 06:30 History Active Medications: Generic Name Dose Route Start Last Admin Trade Name Freq PRN Reason Stop Dose Admin Carvedilol 6.25 mg 11/10/20 10:00 11/11/20 22:55 Carvedilol 6.25 Mg Tab PO 6.25 mg BID BALAJI Administration Dextrose 50 ml 11/10/20 07:09 Dextrose 50% In Water (25gm) 50 Ml Syringe IV Q30MIN PRN Hypoglycemia Protocol Heparin Sodium (Porcine) 5,000 unit 11/10/20 22:00 11/11/20 22:55 Heparin 5,000 Unit/1 Ml Vial SUB-Q 5,000 unit Q12HR BALAJI Administration Hydralazine HCl 50 mg 11/10/20 14:00 11/12/20 06:47 Hydralazine 25 Mg Tab PO 50 mg Q8HR BALAJI Administration Hydralazine HCl 10 mg 11/10/20 07:26 11/10/20 17:28 Hydralazine 20 Mg/1 Ml Inj IV 10 mg Q4HR PRN Administration Hypertension Nifedipine 30 mg 11/10/20 22:00 11/11/20 22:55 Nifedipine Xl 30 Mg Tab PO 30 mg Q12HR BALAJI Administration
[2020-11-12] MEDS: carvediloL 6.25 MG TAB PO SCH (10:56)
[2020-11-12] MEDS: NIFEdipine XL 30 MG TAB PO SCH (10:56)
[2020-11-12] MEDS: HEPARIN 5,000 UNIT/1 ML VIAL SUB-Q SCH (10:57)
--- NOTE | 2020-11-12 12:07 | Discharge Summary ---
Providers - Providers Date of Admission: 11/10/20 11:18 Date of discharge: 11/12/20 Attending physician: MIGUEL RODRIGUEZ 11/10/20 07:09 Consult to Physician [CONS] Urgent Comment: Consulting Provider: PADMINI PORTILLO Physician Instructions: Reason For Exam: esrd Primary care physician: [employer] Hospitalization Condition: Stable Pertinent studies: Chest x-ray Hospital course: --Acute hypoxemic respiratory failure; requiring BiPAP Secondary to severe pulmonary edema, due to fluid overload, due to missed hemodialysis Oxygen titrate O2 sat to more than 90%,BiPAP as needed Treat the underlying cause, HD stat --Acute pulmonary edema; Secondary to fluid overload, due to end-stage renal disease Hemodialysis, diuresis, supportive care --Fluid overload; secondary to ESRD Missed hemodialysis, treat the underlying cause Nephrology consulted, HD per schedule --Hyperkalemia; Patient received calcium gluconate and Kayexalate Hemodialysis per schedule, monitor electrolytes --Hyponatremia; Due to fluid overload, HD per schedule Monitor electrolytes --Hypertension; moderate control Continue current antihypertensives, as needed medications --NSTEMI type II Probably secondary to ESRD, closely monitor If patient has chest pain or other cardiac symptoms Consult cardiology --Severe malnutrition; BMI 18.6 Nutrition supplements, nutrition consult Supportive care --DVT prophylaxis;Heparin renal dose --Full CODE STATUS Disposition: [id number] HOME UNDER HOME [facility] Final Discharge Diagnosis (Prints w/discharge instructions): Acute hypoxemic respiratory failure. Acute pulmonary edema. Fluid overload. Hyperkalemia. Hyponatremia. Hypertension. Non-ST elevation [place] type II. Severe malnutrition Time spent for discharge: 35 min Core Measure Documentation - Palliative Care Palliative Care/ Comfort Measures: Not Applicable - Core Measures Any of the following diagnoses?: none Exam - Constitutional Vitals: Temp Pulse Resp BP Pulse Ox 98.4 F 91 H 18 124/53 97 11/12/20 08:14 11/12/20 10:56 11/12/20 08:14 11/12/20 10:56 11/12/20 08:14 General appearance: Present: no acute distress, well-nourished - EENT Eyes: Present: PERRL, EOM intact - Neck Neck: Present: supple, normal ROM - Respiratory Respiratory effort: normal - Cardiovascular Rhythm: regular Heart Sounds: Present: S1 & S2 - Extremities Extremities: no ischemia, No edema - Abdominal General gastrointestinal: Present: soft, non-tender, non-distended, normal bowel sounds - Integumentary Integumentary: Present: clear, warm - Musculoskeletal Musculoskeletal: strength equal bilaterally - Psychiatric Psychiatric: appropriate mood/affect, cooperative - Neurologic Neurologic: CNII-XII intact, moves all extremities Plan Activity: advance as tolerated, fall precautions Diet: renal Additional Instructions: Follow renal, hemodialysis per schedule MWF. If you have worsening symptoms contact MD or go to the nearest emergency room [facility] Follow up with: PRIMARY MD EDU [Primary Care Provider] - 3-5 Days PADMINI PORTILLO MD [Staff Physician] - 7 Days Prescriptions: hydrALAZINE [Apresoline TAB] 25 mg PO Q8HR #90 tab carvediloL [Coreg] 6.25 mg PO BID #60 tablet NIFEdipine XL [Procardia Xl] 30 mg PO QDAY #30 tablet
[2020-11-13 00:26] VITALS: BP 155/74
== END 2020-11-12 18:47 | disposition home or self-care (01) | DRG 640 ==
LOC: ED 04:04 → IMCU 07:16 → OBSVTOIN 11:18 → 4A 20:05
PROVIDERS: ADMIT Internal Medicine; ATTEND Internal Medicine
PROC: 5A09357 Assistance with Respiratory Ventilation, Less than 24 Consecutive Hours, Continuous Positive Airway Pressure (ICD-10-PCS; principal; 2020-11-10)
PROC: 5A1D70Z Performance of Urinary Filtration, Intermittent, Less than 6 Hours Per Day (ICD-10-PCS; 2020-11-10)
PROC: 5A1D70Z Performance of Urinary Filtration, Intermittent, Less than 6 Hours Per Day (ICD-10-PCS; 2020-11-12)
DX: E87.70 Fluid overload, unspecified (principal); I21.A1 Myocardial infarction type 2; J96.01 Acute respiratory failure with hypoxia; J81.0 Acute pulmonary edema; E43 Unspecified severe protein-calorie malnutrition; I12.0 Hypertensive chronic kidney disease with stage 5 chronic kidney disease or end stage renal disease; Z68.1 Body mass index [BMI] 19.9 or less, adult; E87.1 Hypo-osmolality and hyponatremia; E87.2 Acidosis; I16.0 Hypertensive urgency; E11.22 Type 2 diabetes mellitus with diabetic chronic kidney disease; E86.1 Hypovolemia; D72.829 Elevated white blood cell count, unspecified; E87.5 Hyperkalemia; Z99.2 Dependence on renal dialysis; Z79.899 Other long term (current) drug therapy; Z79.891 Long term (current) use of opiate analgesic; Z79.01 Long term (current) use of anticoagulants; Z91.15 Patient's noncompliance with renal dialysis
CPT/HCPCS: 36415; 71045; 80048; 80061; 80074; 82962; 83880; 84484; 85025; 85610; 85730; 87641; 93005; 96374; G0378; J0360; J0610; J1644; J1815; J1940

== ENCOUNTER 2021-02-25 15:59 | Emergency (ER) | payer MEDICARE ==
--- NOTE | 2021-02-25 16:42 | Emergency Department Report ---
ED General Adult HPI - General Stated complaint: FISTULA BLEEDING Time Seen by Provider: 02/25/21 16:28 Source: EMS - History of Present Illness Initial comments: Patient is 75 years old female with history of end-stage renal disease. Patient brought to the emergency room via EMS from her dialysis center after patient started bleeding from her left arm fistula. According to the EMS report patient finished her dialysis. Patient denied any dizziness, chest pain or shortness of breath. - Related Data Previous Rx's Medication Instructions Recorded Last Taken Type HYDROcodone/APAP 5-325 [[place] 1 each PO Q4HR PRN #30 tablet 07/15/20 Unknown Rx 5-325 mg TAB] NIFEdipine XL [Procardia Xl] 30 mg PO QDAY #30 tablet 11/12/20 Unknown Rx carvediloL [Coreg] 6.25 mg PO BID #60 tablet 11/12/20 Unknown Rx hydrALAZINE [Apresoline TAB] 25 mg PO Q8HR #90 tab 11/12/20 Unknown Rx Allergies Allergy/AdvReac Type Severity Reaction Status Date / Time No Known Allergies Allergy Unverified 07/09/20 12:47 ED Review of Systems ROS: Stated complaint: FISTULA BLEEDING Other details as noted in HPI Comment: All other systems reviewed and negative Constitutional: denies: chills, fever Respiratory: denies: cough, shortness of breath Cardiovascular: denies: chest pain Gastrointestinal: denies: abdominal pain, nausea, vomiting Musculoskeletal: denies: back pain ED Past Medical Hx - Past Medical History Hx Hypertension: Yes Hx Heart Attack/AMI: No Hx Congestive Heart Failure: No Hx Diabetes: Yes (BORDERLINE) Hx GERD: No Hx Liver Disease: No Hx Renal Disease: Yes (Hemodialysis MWF) Hx Sickle Cell Disease: No Hx Arthritis: No Hx Headaches / Migraines: No Hx Seizures: No Hx Kidney Stones: No Hx Asthma: No Hx COPD: No Hx Tuberculosis: No Hx Dementia: No Hx HIV: No - Surgical History Hx Pacemaker: No Hx Internal Defibrillator: No - Social History Smoking Status: Never Smoker - Medications Home Medications: Home Medications Medication Instructions Recorded Confirmed Last Taken Type HYDROcodone/APAP 5-325 [[place] 1 each PO Q4HR PRN #30 tablet 07/15/20 11/10/20 Unknown Rx 5-325 mg TAB] NIFEdipine XL [Procardia Xl] 30 mg PO QDAY #30 tablet 11/12/20 Unknown Rx carvediloL [Coreg] 6.25 mg PO BID #60 tablet 11/12/20 Unknown Rx hydrALAZINE [Apresoline TAB] 25 mg PO Q8HR #90 tab 11/12/20 Unknown Rx ED Physical Exam - General General appearance: alert, in no apparent distress - Head Head exam: Present: atraumatic, normocephalic, normal inspection - Eye Eye exam: Present: normal appearance, PERRL - ENT ENT exam: Present: normal exam, normal orophraynx, mucous membranes moist - Neck Neck exam: Present: normal inspection, full ROM. Absent: tenderness, meningismus - Respiratory Respiratory exam: Present: normal lung sounds bilaterally - Cardiovascular Cardiovascular Exam: Present: regular rate, normal rhythm, normal heart sounds - GI/Abdominal GI/Abdominal exam: Present: soft, normal bowel sounds. Absent: distended, tenderness, guarding, rebound, rigid, organomegaly, mass, bruit, pulsatile mass - Extremities Exam Extremities exam: Present: other (Left arm fistula bleeding. Pressure dressing applied.) - Back Exam Back exam: Present: normal inspection, full ROM. Absent: CVA tenderness (R), CVA tenderness (L) - Neurological Exam Neurological exam: Present: alert, oriented X3, CN II-XII intact - Psychiatric Psychiatric exam: Present: normal mood - Skin Skin exam: Present: warm, intact, normal color (For the people already vaccinated) ED Course Vital Signs 02/25/21 02/25/21 16:53 17:16 Temperature 98 F Pulse Rate 85 Respiratory 18 Rate Blood Pressure 182/89 [Right] O2 Sat by Pulse 97 98 Oximetry - Reevaluation(s) Reevaluation #1: 02/25/21 17:22 Pressure dressing applied. We will continue to monitor. Reevaluation #2: 02/25/21 19:33 Pressure dressing removed, no bleeding. We will continue to monitor and obser ve. Reevaluation #3: 02/25/21 20:59 Patient remained stable. No bleeding or observed. ED Medical Decision Making - Lab Data Result diagrams: 02/25/21 16:44 02/25/21 16:44 - Medical Decision Making Patient is 75 years old female with history of end-stage renal disease. Patient brought to the emergency room via EMS from her dialysis center after patient started bleeding from her left arm fistula. According to the EMS report patient finished her dialysis. Patient denied any dizziness, chest pain or shortness of breath. Labs reviewed and is unremarkable except for chronic elevation of creatinine and BUN. Pressure dressing applied for approximately 2 hours and then removed and patient observed for another 2 hours and there is no bleeding. Patient advised to follow-up with her primary care physician in the next 2 to 3 days and to return to the ER if she started bleeding again or if she develop any new symptoms. Critical Care Time: Yes Critical care time in (mins) excluding proc time.: 30 Critical care attestation.: If time is entered above; I have spent that time in minutes in the direct care of this critically ill patient, excluding procedure time. ED Disposition Clinical Impression: ESRD on hemodialysis, Hemorrhage of arteriovenous fistula Disposition: - TO HOME OR SELFCARE Is pt being admited?: No Condition: Stable Instructions: Dialysis Vascular Access Malfunction Referrals: PADMINI PORTILLO MD [Staff Physician] - 3-5 Days
[2021-02-25 16:55] VITALS: BP 182/89
[2021-02-25 17:04] LABS: Hemoglobin 12.6 gm/dl (10.1-14.3); Mean Corpuscular HGB Conc 33 % (30-34); Mean Corpuscular Volume 87 fl (79-97); Platelet Count 208 K/mm3 (140-440); Red Blood Count 4.35 M/mm3 (3.65-5.03); Red Cell Distribution Width 16.5 % (13.2-15.2)
[2021-02-25 17:10] LABS: Basophils % (Auto) 0.7 % (0.0-1.8); Eosinophils % (Auto) 3.2 % (0.0-4.3); Lymphocytes # (Auto) 1.9 K/mm3 (1.2-5.4); Lymphocytes % (Auto) 24.5 % (13.4-35.0); Monocytes # (Auto) 1.1 K/mm3 (0.0-0.8); Monocytes % (Auto) 14.9 % (0.0-7.3)
[2021-02-25 17:11] LABS: Basophils # (Auto) 0.1 K/mm3 (0.0-0.1); Eosinophils # (Auto) 0.2 K/mm3 (0.0-0.4)
[2021-02-25 17:14] LABS: INR 0.87 (0.87-1.13)
[2021-02-25 17:16] LABS: Partial Thromboplastin Time 41.1 Sec. (24.2-36.6)
[2021-02-25 17:17] LABS: Calcium 8.8 mg/dL (8.4-10.2)
== END 2021-02-25 21:47 | disposition home or self-care (01) ==
LOC: ED 15:59
DX: T82.838A Hemorrhage due to vascular prosthetic devices, implants and grafts, initial encounter (principal); I12.0 Hypertensive chronic kidney disease with stage 5 chronic kidney disease or end stage renal disease; N18.6 End stage renal disease; Z79.899 Other long term (current) drug therapy; Y92.89 Other specified places as the place of occurrence of the external cause
CPT/HCPCS: 36415; 80048; 85025; 85610; 85730

== ENCOUNTER 2021-03-09 03:02 | Inpatient (IN) | payer MEDICARE ==
[2021-03-09] MEDS ORDERED: NITROGLYCERIN DRIP 50 MG/250 ML BOTTLE IV ONE (03:25)
--- NOTE | 2021-03-09 03:48 | Emergency Department Report ---
ED Shortness of Breath HPI - General Stated Complaint: SOB Time Seen by Provider: 03/09/21 03:13 Source: family, EMS, RN notes reviewed, old records reviewed Mode of arrival: Stretcher Limitations: Language Barrier - History of Present Illness Initial Comments: 75-year-old [place] female with a past medical history of end-stage renal disease currently on dialysis Tuesday, Tuesday, and Tuesday status post failed renal transplant presents to the hospital with complaints of shortness of breath. Daughter expressed that patient might not have had enough fluid taken off on Tuesday dialysis. EMS reports a O2 sat of 68% on room air at the scene with improvement of O2 sat to 98% on nonrebreather. As per medical record her food and beverage lead is Dr. Luis. Patient has a history of fluid overload/pulmonary edema requiring BiPAP in the past as per medical record review. Collateral information obtained from patient's daughter. Patient shortness of breath began around dinnertime around 6 PM. Patient has had similar symptoms in the past despite compliance with dialysis however, when additional fluid is taken off during dialysis she tends to have less admissions. Daughter denies acute complaints of loss of sense of taste or smell, fever, cough, and denies Covid contacts. - Related Data Previous Rx's Medication Instructions Recorded Last Taken Type HYDROcodone/APAP 5-325 [[place] 1 each PO Q4HR PRN #30 tablet 07/15/20 Unknown Rx 5-325 mg TAB] NIFEdipine XL [Procardia Xl] 30 mg PO QDAY #30 tablet 11/12/20 Unknown Rx carvediloL [Coreg] 6.25 mg PO BID #60 tablet 11/12/20 Unknown Rx hydrALAZINE [Apresoline TAB] 25 mg PO Q8HR #90 tab 11/12/20 Unknown Rx Allergies Allergy/AdvReac Type Severity Reaction Status Date / Time No Known Allergies Allergy Unverified 07/09/20 12:47 ED Review of Systems ROS: Stated complaint: SOB Other details as noted in HPI ED Past Medical Hx - Past Medical History Hx Hypertension: Yes Hx Heart Attack/AMI: No Hx Congestive Heart Failure: No Hx Diabetes: Yes (BORDERLINE) Hx GERD: No Hx Liver Disease: No Hx Renal Disease: Yes (Hemodialysis MWF) Hx Sickle Cell Disease: No Hx Arthritis: No Hx Headaches / Migraines: No Hx Seizures: No Hx Kidney Stones: No Hx Asthma: No Hx COPD: No Hx Tuberculosis: No Hx Dementia: No Hx HIV: No - Surgical History Hx Pacemaker: No Hx Internal Defibrillator: No - Social History Smoking Status: Never Smoker - Medications Home Medications: Home Medications Medication Instructions Recorded Confirmed Last Taken Type HYDROcodone/APAP 5-325 [[place] 1 each PO Q4HR PRN #30 tablet 07/15/20 11/10/20 Unknown Rx 5-325 mg TAB] NIFEdipine XL [Procardia Xl] 30 mg PO QDAY #30 tablet 11/12/20 Unknown Rx carvediloL [Coreg] 6.25 mg PO BID #60 tablet 11/12/20 Unknown Rx hydrALAZINE [Apresoline TAB] 25 mg PO Q8HR #90 tab 11/12/20 Unknown Rx ED Physical Exam - Other Other exam information: General: No respiratory distress Head: Atraumatic Eyes: normal appearance ENT: Moist mucous membranes Neck: Normal appearance, no midline tenderness Chest: Tachypnea, mild excessive muscle use, bilateral crackles CV: Regular rate and rhythm Abdomen: Soft, normal bowel sounds, nontender, nondistended, no rebound or guarding Back: Normal inspection Extremity: Mild lower extremity edema Neuro: Alert, no facial asymmetry, no gross motor sensory deficit Psych: Appropriate behavior Skin: No rash ED Course Vital Signs 03/09/21 03/09/21 03/09/21 03:05 03:16 03:30 Temperature 98.5 F Pulse Rate 101 H 101 H Pulse Rate [ Bilateral] Respiratory 24 25 H Rate Respiratory Rate [Bilateral ] Blood Pressure 199/108 Blood Pressure 221/107 [Right] O2 Sat by Pulse 99 98 98 Oximetry O2 Sat by Pulse Oximetry [ Bilateral] 03/09/21 03/09/21 03/09/21 03:46 03:49 04:00 Temperature Pulse Rate 96 H 95 H 98 H Pulse Rate [ Bilateral] Respiratory 19 25 H 22 Rate Respiratory Rate [Bilateral ] Blood Pressure 207/101 205/105 198/100 Blood Pressure [Right] O2 Sat by Pulse 97 97 98 Oximetry O2 Sat by Pulse Oximetry [ Bilateral] 03/09/21 03/09/21 03/09/21 04:16 04:20 04:26 Temperature Pulse Rate 97 H 91 H 94 H Pulse Rate [ Bilateral] Respiratory 15 24 17 Rate Respiratory Rate [Bilateral ] Blood Pressure 206/101 198/101 202/102 Blood Pressure [Right] O2 Sat by Pulse 98 98 98 Oximetry O2 Sat by Pulse Oximetry [ Bilateral] 03/09/21 03/09/21 03/09/21 04:30 04:36 04:40 Temperature Pulse Rate 87 95 H 94 H Pulse Rate [ Bilateral] Respiratory 15 22 20 Rate Respiratory Rate [Bilateral ] Blood Pressure 195/99 204/102 204/102 Blood Pressure [Right] O2 Sat by Pulse 98 97 97 Oximetry O2 Sat by Pulse Oximetry [ Bilateral] 03/09/21 03/09/21 03/09/21 04:46 04:50 04:55 Temperature Pulse Rate 92 H 94 H 90 Pulse Rate [ Bilateral] Respiratory 18 18 18 Rate Respiratory Rate [Bilateral ] Blood Pressure 204/102 204/102 209/109 Blood Pressure [Right] O2 Sat by Pulse 97 98 98 Oximetry O2 Sat by Pulse Oximetry [ Bilateral] 03/09/21 03/09/21 03/09/21 05:00 05:06 05:10 Temperature Pulse Rate 92 H 89 92 H Pulse Rate [ Bilateral] Respiratory 15 19 17 Rate Respiratory Rate [Bilateral ] Blood Pressure 209/109 209/109 209/109 Blood Pressure [Right] O2 Sat by Pulse 99 99 99 Oximetry O2 Sat by Pulse Oximetry [ Bilateral] 03/09/21 03/09/21 03/09/21 05:11 05:16 05:20 Temperature Pulse Rate 91 H 92 H Pulse Rate [ 90 Bilateral] Respiratory 20 19 Rate Respiratory 20 Rate [Bilateral ] Blood Pressure 209/109 195/97 Blood Pressure [Right] O2 Sat by Pulse 99 99 Oximetry O2 Sat by Pulse Oximetry [ Bilateral] 03/09/21 03/09/21 03/09/21 05:26 05:30 05:36 Temperature Pulse Rate 95 H 99 H 101 H Pulse Rate [ Bilateral] Respiratory 13 15 Rate Respiratory Rate [Bilateral ] Blood Pressure 195/93 201/99 198/98 Blood Pressure [Right] O2 Sat by Pulse 98 99 100 Oximetry O2 Sat by Pulse Oximetry [ Bilateral] 03/09/21 03/09/21 03/09/21 05:40 05:46 05:50 Temperature Pulse Rate 109 H 105 H 104 H Pulse Rate [ Bilateral] Respiratory 15 13 11 L Rate Respiratory Rate [Bilateral ] Blood Pressure 201/101 205/101 197/99 Blood Pressure [Right] O2 Sat by Pulse 98 99 100 Oximetry O2 Sat by Pulse Oximetry [ Bilateral] 03/09/21 03/09/21 03/09/21 05:56 06:00 06:06 Temperature Pulse Rate 105 H 105 H 105 H Pulse Rate [ Bilateral] Respiratory 18 17 12 Rate Respiratory Rate [Bilateral ] Blood Pressure 190/92 181/94 185/88 Blood Pressure [Right] O2 Sat by Pulse 100 100 100 Oximetry O2 Sat by Pulse Oximetry [ Bilateral] 03/09/21 03/09/21 03/09/21 06:10 06:16 06:20 Temperature Pulse Rate 108 H 104 H 96 H Pulse Rate [ Bilateral] Respiratory 12 14 13 Rate Respiratory Rate [Bilateral ] Blood Pressure 191/96 187/95 174/86 Blood Pressure [Right] O2 Sat by Pulse 100 100 100 Oximetry O2 Sat by Pulse Oximetry [ Bilateral] 03/09/21 03/09/21 03/09/21 06:26 06:30 06:45 Temperature 98.5 F Pulse Rate 97 H 101 H 101 H Pulse Rate [ Bilateral] Respiratory 12 14 16 Rate Respiratory Rate [Bilateral ] Blood Pressure 168/89 179/86 186/93 Blood Pressure [Right] O2 Sat by Pulse 100 100 Oximetry O2 Sat by Pulse 100 Oximetry [ Bilateral] 03/09/21 03/09/21 03/09/21 06:50 07:00 07:15 Temperature Pulse Rate 94 H 93 H 87 Pulse Rate [ Bilateral] Respiratory Rate Respiratory Rate [Bilateral ] Blood Pressure 192/89 189/91 181/86 Blood Pressure [Right] O2 Sat by Pulse Oximetry O2 Sat by Pulse Oximetry [ Bilateral] 03/09/21 03/09/21 03/09/21 07:28 07:30 07:45 Temperature Pulse Rate 89 89 94 H Pulse Rate [ Bilateral] Respiratory 19 18 Rate Respiratory Rate [Bilateral ] Blood Pressure 158/86 158/86 Blood Pressure 180/88 [Right] O2 Sat by Pulse 99 100 Oximetry O2 Sat by Pulse Oximetry [ Bilateral] 03/09/21 03/09/21 03/09/21 08:00 08:15 08:30 Temperature Pulse Rate 100 H 99 H 96 H Pulse Rate [ Bilateral] Respiratory Rate Respiratory Rate [Bilateral ] Blood Pressure 151/82 138/83 149/87 Blood Pressure [Right] O2 Sat by Pulse Oximetry O2 Sat by Pulse Oximetry [ Bilateral] 03/09/21 03/09/21 03/09/21 08:45 09:00 09:15 Temperature Pulse Rate 99 H 99 H 97 H Pulse Rate [ Bilateral] Respiratory Rate Respiratory Rate [Bilateral ] Blood Pressure 172/89 155/88 169/94 Blood Pressure [Right] O2 Sat by Pulse Oximetry O2 Sat by Pulse Oximetry [ Bilateral] 03/09/21 03/09/21 03/09/21 09:30 09:50 10:25 Temperature Pulse Rate 108 H 106 H 99 H Pulse Rate [ Bilateral] Respiratory 19 Rate Respiratory Rate [Bilateral ] Blood Pressure 132/86 129/87 Blood Pressure 145/84 [Right] O2 Sat by Pulse 99 Oximetry O2 Sat by Pulse Oximetry [ Bilateral] 03/09/21 03/09/21 03/09/21 10:30 11:12 11:19 Temperature 98.5 F Pulse Rate 95 H 99 H Pulse Rate [ Bilateral] Respiratory 16 19 Rate Respiratory Rate [Bilateral ] Blood Pressure 145/84 150/89 Blood Pressure [Right] O2 Sat by Pulse 99 Oximetry O2 Sat by Pulse 100 Oximetry [ Bilateral] 03/09/21 03/09/21 03/09/21 11:22 12:21 14:03 Temperature 98.8 F Pulse Rate 97 H 89 Pulse Rate [ Bilateral] Respiratory 19 19 Rate Respiratory Rate [Bilateral ] Blood Pressure Blood Pressure 160/90 155/91 [Right] O2 Sat by Pulse 99 100 99 Oximetry O2 Sat by Pulse Oximetry [ Bilateral] 03/09/21 03/09/21 03/09/21 14:49 16:52 19:50 Temperature 99.2 F Pulse Rate 89 89 98 H Pulse Rate [ Bilateral] Respiratory 19 15 Rate Respiratory Rate [Bilateral ] Blood Pressure 162/87 Blood Pressure 155/99 162/87 [Right] O2 Sat by Pulse 97 98 Oximetry O2 Sat by Pulse Oximetry [ Bilateral] - Consultations Consultation #1: 03/09/21 4:30 AM Case discussed with Dr. Perez on-call food and beverage lead who will manage patient's dialysis and call and dialysis nurse. - EJ/Peripheral Line Neck R Time Out Performed: Yes Indications: nurses unable to establis Skin Cleansed in Sterile Fashion: Yes Size: 20 Dressing Placed: Tegaderm Patient Tolerated Procedure: well, no complications ED Medical Decision Making - Lab Data Result diagrams: 03/09/21 03:34 03/09/21 14:21 Lab Results 08/04/2103/09/21 03/09/21 Range/Units 03:34 03:34 03:34 WBC 20.7 H (4.5-11.0) K/mm3 RBC 3.57 L (3.65-5.03) M/mm3 Hgb 10.5 (10.1-14.3) gm/dl Hct 31.8 (30.3-42.9) % MCV 89 (79-97) fl MCH 30 (28-32) pg MCHC 33 (30-34) % RDW 16.5 H (13.2-15.2) % Plt Count 207 (140-440) K/mm3 PT 12.9 (12.2-14.9) Sec. INR 0.92 (0.87-1.13) APTT 33.2 (24.2-36.6) Sec. Sodium 133 L (137-145) mmol/L Potassium 6.1 H* (3.6-5.0) mmol/L Chloride 93.6 L (98-107) mmol/L Carbon Dioxide 25 (22-30) mmol/L Anion Gap 21 mmol/L BUN 62 H (7-17) mg/dL Creatinine 8.2 H (0.6-1.2) mg/dL Estimated GFR 5 ml/min BUN/Creatinine Ratio 8 % Glucose 137 H (65-100) mg/dL Calcium 9.6 (8.4-10.2) mg/dL Troponin T (0.00-0.029) ng/mL Triglycerides (2-149) mg/dL Cholesterol (50-199) mg/dL LDL Cholesterol Direct (50-130) mg/dL HDL Cholesterol (40-59) mg/dL Cholesterol/HDL Ratio % 03/09/21 Range/Units 03:34 WBC (4.5-11.0) K/mm3 RBC (3.65-5.03) M/mm3 Hgb (10.1-14.3) gm/dl Hct (30.3-42.9) % MCV (79-97) fl MCH (28-32) pg MCHC (30-34) % RDW (13.2-15.2) % Plt Count (140-440) K/mm3 PT (12.2-14.9) Sec. INR (0.87-1.13) APTT (24.2-36.6) Sec. Sodium (137-145) mmol/L Potassium (3.6-5.0) mmol/L Chloride (98-107) mmol/L Carbon Dioxide (22-30) mmol/L Anion Gap mmol/L BUN (7-17) mg/dL Creatinine (0.6-1.2) mg/dL Estimated GFR ml/min BUN/Creatinine Ratio % Glucose (65-100) mg/dL Calcium (8.4-10.2) mg/dL Troponin T 0.123 H* (0.00-0.029) ng/mL Triglycerides 133 (2-149) mg/dL Cholesterol 158 (50-199) mg/dL LDL Cholesterol Direct 105 (50-130) mg/dL HDL Cholesterol 37 L (40-59) mg/dL Cholesterol/HDL Ratio 4.27 % - EKG Data -: EKG Interpreted by Wy EKG shows normal: sinus rhythm, ST-T waves (No STEMI) Rate: normal (99) - EKG Data When compared to previous EKG there are: no significant change - Radiology Data Radiology results: report reviewed CHEST 1 VIEW INDICATION: sob. COMPARISON: 11/10/2020 FINDINGS: SUPPORT DEVICES: None. HEART: Mild cardiomegaly. LUNGS/PLEURA: Mild patchy multifocal airspace disease. ADDITIONAL FINDINGS: None. IMPRESSION: 1. Pulmonary findings as above. - Medical Decision Making 75-year-old female with shortness of breath likely secondary to pulmonary edema. X-ray read as multifocal disease therefore cannot rule out pneumonia especially in the setting of leukocytosis. Patient meets sepsis criteria and therefore sepsis protocol initiated. Patient also placed in isolation until Covid can be ruled out and Decadron provided. Patient did not receive 30 mL/kg bolus of normal saline due to symptoms of volume overload. Patient is due for dialysis today and emergent dialysis will be performed given current symptoms and hyperkalemia. Patient received IV medications and albuterol for hyperkalemia, place a nitroglycerin drip for uncontrolled hypertension/pulmonary edema, and received IV Lasix. Elevated troponin noted and is unchanged from previous and EKG is unchanged. Hospitalist to admit Critical Care Time: Yes Critical care time in (mins) excluding proc time.: 35 Critical care attestation.: If time is entered above; I have spent that time in minutes in the direct care of this critically ill patient, excluding procedure time. ED Disposition Clinical Impression: Acute pulmonary edema, Sepsis, Hypertensive emergency, Hyperkalemia, ESRD needing dialysis Disposition: OP ADMIT IP TO THIS HOSP Is pt being admited?: Yes Condition: Stable Time of Disposition: 05:24 (Dr Potter, hospitalist)
[2021-03-09 04:10] LABS: Hematocrit 31.8 % (30.3-42.9); Hemoglobin 10.5 gm/dl (10.1-14.3); Mean Corpuscular HGB Conc 33 % (30-34); Mean Corpuscular Volume 89 fl (79-97); Platelet Count 207 K/mm3 (140-440); Red Blood Count 3.57 M/mm3 (3.65-5.03); Red Cell Distribution Width 16.5 % (13.2-15.2)
[2021-03-09 04:17] LABS: Calcium 9.6 mg/dL (8.4-10.2)
[2021-03-09] MEDS ORDERED: FUROSEMIDE 40 MG/4 ML INJ IV ONE (04:22)
[2021-03-09] MEDS ORDERED: ALBUTEROL 2.5 MG/3 ML NEBU IH ONE (04:36)
[2021-03-09] MEDS ORDERED: DEXTROSE 50% IN WATER (25GM) 50 ML SYRINGE IV ONE (04:37)
[2021-03-09] MEDS ORDERED: INSULIN REGULAR, HUMAN 100 UNITS/1 ML IV ONE (04:37)
[2021-03-09] MEDS ORDERED: SODIUM BICARB 8.4% 50 MEQ/50 ML SYRINGE IV ONE (04:38)
[2021-03-09 04:40] LABS: Chol/HDL Ratio 4.27 %
--- NOTE | 2021-03-09 04:42 | XRay Report ---
CHEST 1 VIEW INDICATION: sob. COMPARISON: 11/10/2020 FINDINGS: SUPPORT DEVICES: None. HEART: Mild cardiomegaly. LUNGS/PLEURA: Mild patchy multifocal airspace disease. ADDITIONAL FINDINGS: None. IMPRESSION: 1. Pulmonary findings as above. Signer Name: Danilo Marshall MD Signed: 03/09/2021 4:38 AM Workstation Name: [id number]
[2021-03-09] MEDS ORDERED: VANCOMYCIN 1,000 MG in SODIUM CHLORIDE 0.9% 500 ML 500 ML IV ONE (04:47)
[2021-03-09] MEDS ORDERED: CEFEPIME/NS 2 GM/100 ML 2 GM/100 ML BAG IV ONE (04:47)
[2021-03-09] MEDS ORDERED: SODIUM CHLORIDE 0.9% 100 ML IV PRN (04:50)
--- NOTE | 2021-03-09 04:55 | Event Note ---
Date: 03/09/[address] Kaur Patient is in pulmonary edema and respiratory distress . Currently on BIPAP mask K is 6.1 . She has a functional AVG Needs urgent dialysis . Stat dialysis orders written freight caller dialysis nurse to be notified by the ER
[2021-03-09] MEDS ORDERED: CALCIUM GLUCONATE 1,000 MG in SODIUM CHLORIDE 0.9% 100 ML IV ONE (04:56)
[2021-03-09 05:03] LABS: INR 0.92 (0.87-1.13)
[2021-03-09 05:04] LABS: Partial Thromboplastin Time 33.2 Sec. (24.2-36.6)
[2021-03-09] MEDS ORDERED: dexAMETHasone 4 MG/ML VIAL IV ONE (05:43)
[2021-03-09] MEDS ORDERED: MORPHINE 4 MG/1 ML INJ IV PRN (05:56)
[2021-03-09] MEDS ORDERED: MAGNESIUM HYDROXIDE (MOM) ORAL LIQD UDC PO PRN (05:56)
[2021-03-09] MEDS ORDERED: MORPHINE 2 MG/1 ML INJ IV PRN (05:56)
[2021-03-09] MEDS ORDERED: ACETAMINOPHEN 325 MG TAB PO PRN (05:56)
[2021-03-09] MEDS ORDERED: VANCOMYCIN/NS 1 GM/250 ML 1 GM/250 ML BAG IV ONE (06:00)
[2021-03-09] MEDS ORDERED: VANCOMYCIN PHARMACY TO DOSE IV SCH (06:00)
--- NOTE | 2021-03-09 06:21 | History and Physical Report ---
History of Present Illness Date of examination: 03/09/21 Date of admission: 03/09/21 05:25 Chief complaint: Shortness of breath History of present illness: 75-year-old female with known history of hypertension, end-stage renal disease on dialysis Mondays, Wednesdays and Fridays and also status post field renal transplant presents to the emergency room via EMS today complaining of shortness of breath. Daughter indicates that patient may not have had enough fluid taken off during dialysis on Tuesday. There has been no fever or chills, no nausea or vomiting, no abdominal pain, no headache or dizziness, no loss of taste or smell, no recent travel, no sick contacts and no contact with anyone with COVID-19. Upon arrival of EMS patient oxygen saturation was about 68% on room air and patient was placed on nonrebreather on the scene with improvement of oxygen sa turation to about 98%. Patient follows up with Dr. Luis with her water quality specialist. She has been admitted in the past before for fluid overload requiring BiPAP. Most of the history has been gotten from daughter as patient does not speak Greek. Upon arrival in the emergency room patient was quite hypertensive with systolic in the 200s and diastolic in the low 100s. Patient subsequently started on a nitroglycerin drip. Work-up in the emergency room today, chest x-ray shows mild patchy multifocal airspace disease. Labs reveals leukocytosis of 20.7, hyperkalemia of 6.1. Troponin was slightly elevated at 0.123 Import Dispatcher on-call Dr. Peerz was consulted by the ER physician. Patient will be promptly given dialysis. Patient has had nebulizer treatment, insulin and glucose for the hyperkalemia. She is also started on empiric IV antibiotics for sepsis. Past History Past Medical History: diabetes (Borderline), dialysis, ESRD, hypertension Past Surgical History: No surgical history Social history: no significant social history Family history: no significant family history Medications and Allergies Allergies Allergy/AdvReac Type Severity Reaction Status Date / Time No Known Allergies Allergy Unverified 07/09/20 12:47 Home Medications Medication Instructions Recorded Confirmed Last Taken Type HYDROcodone/APAP 5-325 [[place] 1 each PO Q4HR PRN #30 tablet 07/15/20 11/10/20 Unknown Rx 5-325 mg TAB] NIFEdipine XL [Procardia Xl] 30 mg PO QDAY #30 tablet 11/12/20 Unknown Rx carvediloL [Coreg] 6.25 mg PO BID #60 tablet 11/12/20 Unknown Rx hydrALAZINE [Apresoline TAB] 25 mg PO Q8HR #90 tab 11/12/20 Unknown Rx Active Meds: Active Medications Acetaminophen (Acetaminophen 325 Mg Tab) 650 mg PO Q6H PRN PRN Reason: Pain MILD(1-3)/Fever >100.5/ALMODOVAR Dexamethasone (Dexamethasone 4 Mg/Ml Vial) 6 mg IV Q24HR BALAJI Heparin Sodium (Porcine) (Heparin 5,000 Unit/1 Ml Vial) 5,000 unit SUB-Q Q8HR BALAJI Nitroglycerin/Dextrose (Tridil Drip 50mg/250ml) 50 mg in 250 mls @ 3 mls/hr IV TITR ONE; Protocol Stop: 03/12/21 14:44 Last Titration: 03/09/21 06:00 Dose: 70 mcg/min, 21 mls/hr Documented by: Sodium Chloride (Nacl 0.9%) 100 mls @ 999 mls/hr IV FLAKO PRN PRN Reason: Hypotension Vancomycin HCl (Vancomycin/Ns 1 Gm/250 Ml) 1 gm in 250 mls @ 250 mls/hr IV ONCE ONE Stop: 03/09/21 06:59 Last Admin: 03/09/21 05:55 Dose: 250 mls/hr Documented by: Cefepime HCl (Cefepime/Ns 2 Gm/100 Ml) 2 gm in 100 mls @ 200 mls/hr IV Q8H BALAJI; Protocol Magnesium Hydroxide (Magnesium Hydroxide (Mom) Oral Liqd Udc) 30 ml PO Q4H PRN PRN Reason: Constipation Morphine Sulfate (Morphine 2 Mg/1 Ml Inj) 2 mg IV Q4H PRN PRN Reason: Pain, Moderate (4-6) Morphine Sulfate (Morphine 4 Mg/1 Ml Inj) 4 mg IV Q4H PRN PRN Reason: Pain , Severe (7-10) Sodium Chloride (Sodium Chloride 0.9% 10 Ml Flush Syringe) 10 ml IV BID BALAJI Sodium Chloride (Sodium Chloride 0.9% 10 Ml Flush Syringe) 10 ml IV PRN PRN PRN Reason: LINE FLUSH Review of Systems Constitutional: no fever, no chills Ears, nose, mouth and throat: no nasal congestion, no sore throat Cardiovascular: no chest pain, no palpitations Respiratory: shortness of breath, no cough Gastrointestinal: no abdominal pain, no nausea, no vomiting, no diarrhea Genitourinary Female: no pelvic pain, no flank pain, no dysuria, no hematuria Musculoskeletal: no neck pain, no low back pain Integumentary: no rash, no pruritis Neurological: no headaches, no confusion Psychiatric: no anxiety, no depression Endocrine: no polyphagia, no polydipsia, no polyuria, no nocturia Exam - Constitutional Vitals: Temp Pulse Resp BP Pulse Ox 98.5 F 105 H 18 190/92 100 03/09/21 03:05 03/09/21 05:56 03/09/21 05:56 03/09/21 05:56 03/09/21 05:56 General appearance: Present: mild distress, well-nourished - EENT Eyes: Present: PERRL, EOM intact. Absent: scleral icterus ENT: hearing intact, clear oral mucosa, dentition normal - Neck Neck: Present: supple, normal ROM - Respiratory Respiratory effort: labored Respiratory: bilateral: rales - Cardiovascular Rhythm: regular Heart Sounds: Present: S1 & S2. Absent: gallop, systolic murmur, diastolic murmur, rub - Extremities Extremities: no ischemia, pulses intact, pulses symmetrical, No edema, normal temperature, normal color, Full ROM Peripheral Pulses: within normal limits - Abdominal General gastrointestinal: Present: soft, non-tender, non-distended, normal bowel sounds. Absent: mass - Integumentary Integumentary: Present: clear, warm, dry. Absent: rash - Musculoskeletal Musculoskeletal: strength equal bilaterally - Psychiatric Psychiatric: appropriate mood/affect, intact judgment & insight, memory intact, cooperative - Neurologic Neurologic: CNII-XII intact, no focal deficits, moves all extremities HEART Score - HEART Score Troponin: Troponin T 0.123 ng/mL (0.00-0.029) H* 03/09/21 03:34 Results - Labs CBC & Chem 7: 03/09/21 03:34 03/09/21 03:34 Labs: Abnormal lab results 03/09/21 03/09/21 03/09/21 Range/Units 03:34 03:34 03:34 WBC 20.7 H (4.5-11.0) K/mm3 RBC 3.57 L (3.65-5.03) M/mm3 RDW 16.5 H (13.2-15.2) % D-Dimer (0-234) ng/mlDDU Sodium 133 L (137-145) mmol/L Potassium 6.1 H* (3.6-5.0) mmol/L Chloride 93.6 L (98-107) mmol/L BUN 62 H (7-17) mg/dL Creatinine 8.2 H (0.6-1.2) mg/dL Glucose 137 H (65-100) mg/dL Troponin T 0.123 H* (0.00-0.029) ng/mL HDL Cholesterol 37 L (40-59) mg/dL 03/09/21 Range/Units 05:17 WBC (4.5-11.0) K/mm3 RBC (3.65-5.03) M/mm3 RDW (13.2-15.2) % D-Dimer 1098.77 H (0-234) ng/mlDDU Sodium (137-145) mmol/L Potassium (3.6-5.0) mmol/L Chloride (98-107) mmol/L BUN (7-17) mg/dL Creatinine (0.6-1.2) mg/dL Glucose (65-100) mg/dL Troponin T (0.00-0.029) ng/mL HDL Cholesterol (40-59) mg/dL Assessment and Plan - Patient Problems (1) Hypertensive emergency Current Visit: Yes Status: Acute Plan to address problem: Patient has been admitted into the intensive care unit and started on nitro drip. We will monitor vital signs closely. (2) Acute pulmonary edema Current Visit: Yes Status: Acute Plan to address problem: Patient is being scheduled for immediate dialysis. She had a dose of IV Lasix in the emergency room. (3) ESRD needing dialysis Current Visit: Yes Status: Acute Plan to address problem: Import Dispatcher Dr. Perez has been consulted by the ER physician. Patient will be undergoing urgent dialysis. (4) Hyperkalemia Current Visit: Yes Status: Acute Plan to address problem: Patient has received insulin and glucose, calcium chloride, sodium bicarbonate has been given in the emergency room. Will monitor potassium levels. (5) Sepsis Current Visit: Yes Status: Acute Plan to address problem: Possibly from an underlying pneumonia. . Consult placed to infectious disease for evaluation. We will await culture results. (6) Person under investigation for COVID-19 Current Visit: Yes Status: Acute Plan to address problem: Patient placed on isolation precautions. Will await COVID-19 testing. Meanwhile patient placed on IV steroid. Will request infectious disease evaluation. (7) DVT prophylaxis Current Visit: Yes Status: Acute Plan to address problem: Patient placed on subcutaneous heparin. (8) Full code status Current Visit: Yes Status: Acute Plan to address problem: Patient is full code.
[2021-03-09 06:26] LABS: C-Reactive Protein 1.1 mg/dL (0.00-1.30)
[2021-03-09 07:46] LABS: Anisocytosis Few; Band Neutrophils # (Manual) 0.8 K/mm3; Hypochromasia 1+; Platelet Estimate Consistent w Auto; Total Cells Counted 100
[2021-03-09 08:18] LABS: Hepatitis C Virus Antibody Non-Reactive (NonReactive)
[2021-03-09 08:21] LABS: Hepatitis B Surface Antigen Nonreactive (Negative)
[2021-03-09] MEDS ORDERED: dexAMETHasone 4 MG/ML VIAL IV SCH (10:00)
[2021-03-09] MEDS ORDERED: CEFEPIME/NS 2 GM/100 ML 2 GM/100 ML BAG IV SCH (10:00)
[2021-03-09] MEDS: carvediloL 6.25 MG TAB PO SCH ×2 (11:12→22:10)
[2021-03-09] MEDS: NIFEdipine XL 30 MG TAB PO SCH (11:13)
[2021-03-09 11:42] LABS: Creatine Kinase MB 2.3 ng/mL (0.0-4.0)
--- NOTE | 2021-03-09 11:44 | Consultation ---
History of Present Illness Consult date: 03/09/21 History of present illness: PULMONARY/CCM CONSULT NOTE (Full dictation # ) Please see dictated notes for full details Past History Past Medical History: diabetes (Borderline), dialysis, ESRD, hypertension Past Surgical History: No surgical history Social history: no significant social history Family history: no significant family history Medications and Allergies Allergies Allergy/AdvReac Type Severity Reaction Status Date / Time No Known Allergies Allergy Unverified 07/09/20 12:47 Home Medications Medication Instructions Recorded Confirmed Last Taken Type HYDROcodone/APAP 5-325 [[place] 1 each PO Q4HR PRN #30 tablet 07/15/20 11/10/20 Unknown Rx 5-325 mg TAB] NIFEdipine XL [Procardia Xl] 30 mg PO QDAY #30 tablet 11/12/20 Unknown Rx carvediloL [Coreg] 6.25 mg PO BID #60 tablet 11/12/20 Unknown Rx hydrALAZINE [Apresoline TAB] 25 mg PO Q8HR #90 tab 11/12/20 Unknown Rx Active Meds: Active Medications Acetaminophen (Acetaminophen 325 Mg Tab) 650 mg PO Q6H PRN PRN Reason: Pain MILD(1-3)/Fever >100.5/ALMODOVAR Carvedilol (Carvedilol 6.25 Mg Tab) 6.25 mg PO BID [facility] Last Admin: 03/09/21 11:12 Dose: 6.25 mg Documented by: Dexamethasone (Dexamethasone 4 Mg/Ml Vial) 6 mg IV Q24HR [facility]AJI Last Admin: 03/09/21 11:12 Dose: 6 mg Documented by: Heparin Sodium (Porcine) (Heparin 5,000 Unit/1 Ml Vial) 5,000 unit SUB-Q Q8HR [facility] Hydralazine HCl (Hydralazine 25 Mg Tab) 25 mg PO Q8HR [facility] Sodium Chloride (Nacl 0.9%) 100 mls @ 999 mls/hr IV FLAKO PRN PRN Reason: Hypotension Cefepime HCl (Cefepime/Ns 2 Gm/100 Ml) 2 gm in 100 mls @ 200 mls/hr IV Q24HR [facility]; Protocol Last Admin: 03/09/21 11:12 Dose: 200 mls/hr Documented by: Magnesium Hydroxide (Magnesium Hydroxide (Mom) Oral Liqd Udc) 30 ml PO Q4H PRN PRN Reason: Constipation Morphine Sulfate (Morphine 2 Mg/1 Ml Inj) 2 mg IV Q4H PRN PRN Reason: Pain, Moderate (4-6) Morphine Sulfate (Morphine 4 Mg/1 Ml Inj) 4 mg IV Q4H PRN PRN Reason: Pain , Severe (7-10) Nifedipine (Nifedipine Xl 30 Mg Tab) 30 mg PO QDAY [facility] Last Admin: 03/09/21 11:13 Dose: 30 mg Documented by: Sodium Chloride (Sodium Chloride 0.9% 10 Ml Flush Syringe) 10 ml IV BID [facility] Last Admin: 03/09/21 11:13 Dose: 10 ml Documented by: Sodium Chloride (Sodium Chloride 0.9% 10 Ml Flush Syringe) 10 ml IV PRN PRN PRN Reason: LINE FLUSH Physical Examination Vital signs: Vital Signs Temp Pulse Resp BP Pulse Ox 98.5 F 101 H 24 221/107 98 03/09/21 03:05 03/09/21 03:05 03/09/21 03:05 03/09/21 03:05 03/09/21 03:05 Results - Laboratory Findings CBC and BMP: 03/09/21 03:34 03/09/21 05:17 PT/INR, D-dimer PT 12.9 Sec. (12.2-14.9) 03/09/21 03:34 INR 0.92 (0.87-1.13) 03/09/21 03:34 D-Dimer 1098.77 ng/mlDDU (0-234) H 03/09/21 05:17 Abnormal lab findings: Abnormal Labs 03/09/21 03/09/21 03/09/21 03:34 03:34 03:34 WBC 20.7 H RBC 3.57 L RDW 16.5 H Seg Neuts % (Manual) 84.0 H Lymphocytes % (Manual) 6.0 L Seg Neutrophils # Man 17.4 H D-Dimer Sodium 133 L Potassium 6.1 H* Chloride 93.6 L BUN 62 H Creatinine 8.2 H Glucose 137 H Ferritin Lactate Dehydrogenase Troponin T 0.123 H* HDL Cholesterol 37 L 03/09/21 03/09/21 03/09/21 05:17 05:17 05:17 WBC RBC RDW Seg Neuts % (Manual) Lymphocytes % (Manual) Seg Neutrophils # Man D-Dimer 1098.77 H Sodium Potassium Chloride BUN Creatinine Glucose 123 H Ferritin Lactate Dehydrogenase 300 H Troponin T 0.129 H* HDL Cholesterol 03/09/21 05:17 WBC RBC RDW Seg Neuts % (Manual) Lymphocytes % (Manual) Seg Neutrophils # Man D-Dimer Sodium Potassium Chloride BUN Creatinine Glucose Ferritin 2210.0 H Lactate Dehydrogenase Troponin T HDL Cholesterol
--- NOTE | 2021-03-09 12:42 | Vascular Lab Report ---
DUPLEX DOPPLER LOWER EXTREMITY VEINS, BILATERAL INDICATION: r/o dvt. TECHNIQUE: Duplex doppler imaging was performed through the veins of both lower extremities using ve nous compression and other maneuvers. COMPARISON: No relevant prior imaging study available. FINDINGS: Right Common femoral vein: Negative. Right Superficial femoral vein: Negative. Right Popliteal vein: Negative. Right Calf veins: Negative. Left Common femoral vein: Negative. Left Superficial femoral vein: Negative. Left Popliteal vein: Negative. Left Calf veins: Negative. Additional findings: None. IMPRESSION: No sonographic evidence for DVT in either lower extremity. Signer Name: Robert Oneil Jr, MD Signed: 03/09/2021 12:37 PM Workstation Name: [id number]
--- NOTE | 2021-03-09 12:51 | Consultation ---
History of Present Illness - Reason for Consult Consult date: 03/09/21 end stage renal disease - History of Present Illness 75-year-old woman with known history of hypertension, end-stage renal disease on dialysis Mondays, Wednesdays and Fridays and also status post renal transplant presents to the emergency room via EMS complaining of shortness of breath. Daughter indicates that patient may not have had enough fluid taken off during dialysis on Tuesday. There has been no fever or chills, no nausea or vomiting, no abdominal pain, no headache or dizziness, no loss of taste or smell, no re cent travel, no sick contacts and no contact with anyone with COVID-[address]. [address] Luis as her guest services officer, with last HD on Tuesday 03/06. Due to respiratory distress in ED, she was placed on Bipap and noted to have high BPs requiring nitro gtt. K also 6.1, so stat HD orders placed. At time of consult, patient remains on Bipap but oxygenation improving with HD and fluid removal. Past History Past Medical History: diabetes (Borderline), dialysis, ESRD, hypertension Past Surgical History: No surgical history Social history: no significant social history Family history: no significant family history Medications and Allergies Allergies Allergy/AdvReac Type Severity Reaction Status Date / Time No Known Allergies Allergy Unverified 07/09/20 12:47 Home Medications Medication Instructions Recorded Confirmed Last Taken Type HYDROcodone/APAP 5-325 [[place] 1 each PO Q4HR PRN #30 tablet 07/15/20 11/10/20 Unknown Rx 5-325 mg TAB] NIFEdipine XL [Procardia Xl] 30 mg PO QDAY #30 tablet 11/12/20 Unknown Rx carvediloL [Coreg] 6.25 mg PO BID #60 tablet 11/12/20 Unknown Rx hydrALAZINE [Apresoline TAB] 25 mg PO Q8HR #90 tab 11/12/20 Unknown Rx Active Meds: Active Medications Acetaminophen (Acetaminophen 325 Mg Tab) 650 mg PO Q6H PRN PRN Reason: Pain MILD(1-3)/Fever >100.5/ALMODOVAR Carvedilol (Carvedilol 6.25 Mg Tab) 6.25 mg PO BID [facility] Last Admin: 03/09/21 11:12 Dose: 6.25 mg Documented by: Dexamethasone (Dexamethasone 4 Mg/Ml Vial) 6 mg IV Q24HR [facility] Last Admin: 03/09/21 11:12 Dose: 6 mg Documented by: Heparin Sodium (Porcine) (Heparin 5,000 Unit/1 Ml Vial) 5,000 unit SUB-Q Q8HR [facility] Hydralazine HCl (Hydralazine 25 Mg Tab) 25 mg PO Q8HR [facility] Sodium Chloride (Nacl 0.9%) 100 mls @ 999 mls/hr IV FLAKO PRN PRN Reason: Hypotension Cefepime HCl (Cefepime/Ns 2 Gm/100 Ml) 2 gm in 100 mls @ 200 mls/hr IV Q24HR [facility]; Protocol Last Admin: 03/09/21 11:12 Dose: 200 mls/hr Documented by: Magnesium Hydroxide (Magnesium Hydroxide (Mom) Oral Liqd Udc) 30 ml PO Q4H PRN PRN Reason: Constipation Morphine Sulfate (Morphine 2 Mg/1 Ml Inj) 2 mg IV Q4H PRN PRN Reason: Pain, Moderate (4-6) Morphine Sulfate (Morphine 4 Mg/1 Ml Inj) 4 mg IV Q4H PRN PRN Reason: Pain , Severe (7-10) Nifedipine (Nifedipine Xl 30 Mg Tab) 30 mg PO QDAY [facility] Last Admin: 03/09/21 11:13 Dose: 30 mg Documented by: Sodium Chloride (Sodium Chloride 0.9% 10 Ml Flush Syringe) 10 ml IV BID [facility] Last Admin: 03/09/21 11:13 Dose: 10 ml Documented by: Sodium Chloride (Sodium Chloride 0.9% 10 Ml Flush Syringe) 10 ml IV PRN PRN PRN Reason: LINE FLUSH Review of Systems ROS unobtainable: due to endotracheal tube (on Bipap) Exam - Vital Signs Vital signs: Vital Signs Temp Pulse Resp BP Pulse Ox 98.5 F 101 H 24 221/107 98 03/09/21 03:05 03/09/21 03:05 03/09/21 03:05 03/09/21 03:05 03/09/21 03:05 - General Appearance General appearance: moderate distress, other (on bipap) EENT: ATNC, PERRL Neck: Present: neck supple Respiratory: Decreased Breath Sounds Heart: regular, S1S2 Gastrointestinal: Present: normoactive bowel sounds Integumentary: no rash, warm and dry Neurologic: no focal deficit Results - Lab Results 03/09/21 03:34 03/09/21 05:17 Most recent lab results Calcium 9.6 mg/dL (8.4-10.2) 03/09/21 03:34 Assessment and Plan # ESRD: HD stat today for volume overload with patient needing Bipap, and hyperkalemia - continue HD MWF or prn - avoid nephrotoxins - renally dose meds - daily renal labs # HTN: BP very high initially, s/p nitro gtt with improvement. UF as tolerated with HD, back on home antihypertensives now # Anemia in CKD: hemoglobin at goal for ESRD, no indication for ESAs acutely # Secondary Hyperparathyroidism: continue home phos binders if applicable # Respiratory Distress: improving, likely due to pulmonary edema for ESRD. COVID-19 rule out pending
--- NOTE | 2021-03-09 13:06 | Event Note ---
Date: 03/09/21 This is a 75-year-old female with ESRD on HD (MWF) s/p failed renal transplant, HTN, volume overload, pulmonary edema, DM who presented to emergency department on 03/09 with complaints of shortness of breath and per EMS report SPO2 of 68% on room air with improvement to SPO2 to 98% on nonrebreather. Upon presentation emergency department patient was tachycardic to 101, hypertensive to 221/107, CXR showed multifocal disease, patient has leukocytosis meeting criteria for sepsis. Patient received Lasix, albuterol, calcium gluconate, D50, bicarb and insulin for hyperkalemia. She received empiric antibiotics in the ED. Patient was admitted to the hospital service with consult to nephrology, CCM, infectious disease as a COVID-19 PUI with electrolyte imbalances. 03/09: Received hemodialysis today and was able to be weaned off of BiPAP to nasal cannula. Patient has been downgraded from ICU to the medical floor as a COVID- 19 PUI. Patient has been titrated off of nitroglycerin drip and started on home p.o. antihypertensives. Neuro: NAD -Reorientation as needed -Aspiration/fall precautions -Avoid delirium using nursing intervention to maintain sleep/ wake schedule Cardio: Hypertensive emergency, elevated troponins -S/p nitroglycerin drip, restarted home Coreg, hydralazine, Procardia -Hydralazine as needed -Blood pressure monitoring per protocol -CC/renal diet -Echocardiogram pending -CK-MB within normal limits -Remote telemetry Respiratory: Acute hypoxic respiratory failure, acute pulmonary edema -S/p Lasix in the ED -S/p emergent dialysis -S/p BiPAP and now weaned to nasal cannula -Pulmonary hygiene -CCM consulted, appreciate recommendations GI: NAD -CC cardiac renal diet -Senokot : Hyperkalemia ESRD on HD, hyponatremia, hypochloremia -Nephrology consulted, appreciate recommendations -Hyperkalemia treated medically in ED with insulin/glucose/calcium/sodium bicarbonate -HD 03/09 -HD per nephrology -Daily weights -Avoid nephrotoxic medications -Renally dose medications Endo: " Borderline" diabetes -Hemoglobin A1c pending -Accu-Cheks AC -SSI if needed -Avoid hypoglycemia Heme: Elevated D-dimer -Presented with H/H of 10.5/31.8 -Transfuse for hemoglobin less than 7 -Heparin subcu -Bilateral lower extremity Doppler ultrasound shows no evidence of DVT -SCDs to bilateral lower extremities while in bed ID: Sepsis, COVID-19 PUI, leukocytosis -Presented with acute hypoxic respiratory failure, leukocytosis, tachycardia possible pneumonia on CXR -Infectious disease consulted, appreciate recommendations -CXR shows multifocal airspace disease -Steroids 03/09-03/19 -COVID-19 PCR pending -Cefepime -Contact/droplet isolation -Pulmonary hygiene -Trend COVID inflammatory markers -Anticoagulation per protocol -Bilateral lower extremity Dopplers are pending The high probability of a clinically significant, sudden or life threatening deterioration of the [resp/cardio] system(s) required my full and direct attenti on, intervention and personal management. The aggregate critical care time was [60] minutes. This time is in addition to time spent performing reported procedures but includes the following: [x] Data Review and interpretation [x] Patient assessment and monitoring of vital signs [x] Documentation [x] Medication orders and management
--- NOTE | 2021-03-09 13:22 | Progress Note ---
Assessment and Plan - Patient Problems (1) Acute pulmonary edema Current Visit: Yes Status: Acute (2) ESRD needing dialysis Current Visit: Yes Status: Acute (3) Hypertensive emergency Current Visit: Yes Status: Acute (4) Person under investigation for COVID-19 Current Visit: Yes Status: Acute (5) Sepsis Current Visit: Yes Status: Acute (6) Hemorrhage of arteriovenous fistula Current Visit: No Status: Acute (7) Hyponatremia Current Visit: No Status: Acute (8) Metabolic acidosis Current Visit: No Status: Acute Subjective Date of service: 03/09/21 Objective Vital Signs - 12hr 03/09/21 03/09/21 03/09/21 03:05 03:16 03:30 Temperature 98.5 F Pulse Rate 101 H 101 H Pulse Rate [ Bilateral] Respiratory 24 25 H Rate Respiratory Rate [Bilateral ] Blood Pressure 199/108 Blood Pressure 221/107 [Right] O2 Sat by Pulse 99 98 98 Oximetry O2 Sat by Pulse Oximetry [ Bilateral] 03/09/21 03/09/21 03/09/21 03:46 03:49 04:00 Temperature Pulse Rate 96 H 95 H 98 H Pulse Rate [ Bilateral] Respiratory 19 25 H 22 Rate Respiratory Rate [Bilateral ] Blood Pressure 207/101 205/105 198/100 Blood Pressure [Right] O2 Sat by Pulse 97 97 98 Oximetry O2 Sat by Pulse Oximetry [ Bilateral] 03/09/21 03/09/21 03/09/21 04:16 04:20 04:26 Temperature Pulse Rate 97 H 91 H 94 H Pulse Rate [ Bilateral] Respiratory 15 24 17 Rate Respiratory Rate [Bilateral ] Blood Pressure 206/101 198/101 202/102 Blood Pressure [Right] O2 Sat by Pulse 98 98 98 Oximetry O2 Sat by Pulse Oximetry [ Bilateral] 03/09/21 03/09/21 03/09/21 04:30 04:36 04:40 Temperature Pulse Rate 87 95 H 94 H Pulse Rate [ Bilateral] Respiratory 15 22 20 Rate Respiratory Rate [Bilateral ] Blood Pressure 195/99 204/102 204/102 Blood Pressure [Right] O2 Sat by Pulse 98 97 97 Oximetry O2 Sat by Pulse Oximetry [ Bilateral] 03/09/21 03/09/21 03/09/21 04:46 04:50 04:55 Temperature Pulse Rate 92 H 94 H 90 Pulse Rate [ Bilateral] Respiratory 18 18 18 Rate Respiratory Rate [Bilateral ] Blood Pressure 204/102 204/102 209/109 Blood Pressure [Right] O2 Sat by Pulse 97 98 98 Oximetry O2 Sat by Pulse Oximetry [ Bilateral] 03/09/21 03/09/21 03/09/21 05:00 05:06 05:10 Temperature Pulse Rate 92 H 89 92 H Pulse Rate [ Bilateral] Respiratory 15 19 17 Rate Respiratory Rate [Bilateral ] Blood Pressure 209/109 209/109 209/109 Blood Pressure [Right] O2 Sat by Pulse 99 99 99 Oximetry O2 Sat by Pulse Oximetry [ Bilateral] 03/09/21 03/09/21 03/09/21 05:11 05:16 05:20 Temperature Pulse Rate 91 H 92 H Pulse Rate [ 90 Bilateral] Respiratory 20 19 Rate Respiratory 20 Rate [Bilateral ] Blood Pressure 209/109 195/97 Blood Pressure [Right] O2 Sat by Pulse 99 99 Oximetry O2 Sat by Pulse Oximetry [ Bilateral] 03/09/21 03/09/21 03/09/21 05:26 05:30 05:36 Temperature Pulse Rate 95 H 99 H 101 H Pulse Rate [ Bilateral] Respiratory 13 15 Rate Respiratory Rate [Bilateral ] Blood Pressure 195/93 201/99 198/98 Blood Pressure [Right] O2 Sat by Pulse 98 99 100 Oximetry O2 Sat by Pulse Oximetry [ Bilateral] 03/09/21 03/09/21 03/09/21 05:40 05:46 05:50 Temperature Pulse Rate 109 H 105 H 104 H Pulse Rate [ Bilateral] Respiratory 15 13 11 L Rate Respiratory Rate [Bilateral ] Blood Pressure 201/101 205/101 197/99 Blood Pressure [Right] O2 Sat by Pulse 98 99 100 Oximetry O2 Sat by Pulse Oximetry [ Bilateral] 03/09/21 03/09/21 03/09/21 05:56 06:00 06:06 Temperature Pulse Rate 105 H 105 H 105 H Pulse Rate [ Bilateral] Respiratory 18 17 12 Rate Respiratory Rate [Bilateral ] Blood Pressure 190/92 181/94 185/88 Blood Pressure [Right] O2 Sat by Pulse 100 100 100 Oximetry O2 Sat by Pulse Oximetry [ Bilateral] 03/09/21 03/09/21 03/09/21 06:10 06:16 06:20 Temperature Pulse Rate 108 H 104 H 96 H Pulse Rate [ Bilateral] Respiratory 12 14 13 Rate Respiratory Rate [Bilateral ] Blood Pressure 191/96 187/95 174/86 Blood Pressure [Right] O2 Sat by Pulse 100 100 100 Oximetry O2 Sat by Pulse Oximetry [ Bilateral] 03/09/21 03/09/21 03/09/21 06:26 06:30 06:45 Temperature 98.5 F Pulse Rate 97 H 101 H 101 H Pulse Rate [ Bilateral] Respiratory 12 14 16 Rate Respiratory Rate [Bilateral ] Blood Pressure 168/89 179/86 186/93 Blood Pressure [Right] O2 Sat by Pulse 100 100 Oximetry O2 Sat by Pulse 100 Oximetry [ Bilateral] 03/09/21 03/09/21 03/09/21 06:50 07:00 07:15 Temperature Pulse Rate 94 H 93 H 87 Pulse Rate [ Bilateral] Respiratory Rate Respiratory Rate [Bilateral ] Blood Pressure 192/89 189/91 181/86 Blood Pressure [Right] O2 Sat by Pulse Oximetry O2 Sat by Pulse Oximetry [ Bilateral] 03/09/21 03/09/21 03/09/21 07:28 07:30 07:45 Temperature Pulse Rate 89 89 94 H Pulse Rate [ Bilateral] Respiratory 19 18 Rate Respiratory Rate [Bilateral ] Blood Pressure 158/86 158/86 Blood Pressure 180/88 [Right] O2 Sat by Pulse 99 100 Oximetry O2 Sat by Pulse Oximetry [ Bilateral] 03/09/21 03/09/21 03/09/21 08:00 08:15 08:30 Temperature Pulse Rate 100 H 99 H 96 H Pulse Rate [ Bilateral] Respiratory Rate Respiratory Rate [Bilateral ] Blood Pressure 151/82 138/83 149/87 Blood Pressure [Right] O2 Sat by Pulse Oximetry O2 Sat by Pulse Oximetry [ Bilateral] 03/09/21 03/09/21 03/09/21 08:45 09:00 09:15 Temperature Pulse Rate 99 H 99 H 97 H Pulse Rate [ Bilateral] Respiratory Rate Respiratory Rate [Bilateral ] Blood Pressure 172/89 155/88 169/94 Blood Pressure [Right] O2 Sat by Pulse Oximetry O2 Sat by Pulse Oximetry [ Bilateral] 03/09/21 03/09/21 03/09/21 09:30 09:50 10:25 Temperature Pulse Rate 108 H 106 H 99 H Pulse Rate [ Bilateral] Respiratory 19 Rate Respiratory Rate [Bilateral ] Blood Pressure 132/86 129/87 Blood Pressure 145/84 [Right] O2 Sat by Pulse 99 Oximetry O2 Sat by Pulse Oximetry [ Bilateral] 03/09/21 03/09/21 03/09/21 10:30 11:12 11:19 Temperature 98.5 F Pulse Rate 95 H 99 H Pulse Rate [ Bilateral] Respiratory 16 19 Rate Respiratory Rate [Bilateral ] Blood Pressure 145/84 150/89 Blood Pressure [Right] O2 Sat by Pulse 99 Oximetry O2 Sat by Pulse 100 Oximetry [ Bilateral] 03/09/21 03/09/21 11:22 12:21 Temperature 98.8 F Pulse Rate 97 H 89 Pulse Rate [ Bilateral] Respiratory 19 19 Rate Respiratory Rate [Bilateral ] Blood Pressure Blood Pressure 160/90 155/91 [Right] O2 Sat by Pulse 99 100 Oximetry O2 Sat by Pulse Oximetry [ Bilateral] CBC and BMP: 03/09/21 03:34 03/09/21 05:17 ABG, PT/INR, D-dimer: PT/INR, D-dimer PT 12.9 Sec. (12.2-14.9) 03/09/21 03:34 INR 0.92 (0.87-1.13) 03/09/21 03:34 D-Dimer 1098.77 ng/mlDDU (0-234) H 03/09/21 05:17 Abnormal lab findings: Abnormal Labs 03/09/21 03/09/21 03/09/21 03:34 03:34 03:34 WBC 20.7 H RBC 3.57 L RDW 16.5 H Seg Neuts % (Manual) 84.0 H Lymphocytes % (Manual) 6.0 L Seg Neutrophils # Man 17.4 H D-Dimer Sodium 133 L Potassium 6.1 H* Chloride 93.6 L BUN 62 H Creatinine 8.2 H Glucose 137 H Ferritin Lactate Dehydrogenase Troponin T 0.123 H* HDL Cholesterol 37 L 03/09/21 03/09/21 03/09/21 05:17 05:17 05:17 WBC RBC RDW Seg Neuts % (Manual) Lymphocytes % (Manual) Seg Neutrophils # Man D-Dimer 1098.77 H Sodium Potassium Chloride BUN Creatinine Glucose 123 H Ferritin Lactate Dehydrogenase 300 H Troponin T 0.129 H* HDL Cholesterol 03/09/21 05:17 WBC RBC RDW Seg Neuts % (Manual) Lymphocytes % (Manual) Seg Neutrophils # Man D-Dimer Sodium Potassium Chloride BUN Creatinine Glucose Ferritin 2210.0 H Lactate Dehydrogenase Troponin T HDL Cholesterol Chest x-ray: report reviewed, image reviewed Prior PFT's, U/S of legs: report reviewed, image reviewed Additional Studies: CHEST 1 VIEW 03/09/21 INDICATION: sob. COMPARISON: 11/10/2020 FINDINGS: SUPPORT DEVICES: None. HEART: Mild cardiomegaly. LUNGS/PLEURA: Mild patchy multifocal airspace disease. ADDITIONAL FINDINGS: None. IMPRESSION: 1. Pulmonary findings as above. DUPLEX DOPPLER LOWER EXTREMITY VEINS, BILATERAL 03/09/21 INDICATION: r/o dvt. TECHNIQUE: Duplex doppler imaging was performed through the veins of both lower extremities using venous compression and other maneuvers. COMPARISON: No relevant prior imaging study available. FINDINGS: Right Common femoral vein: Negative. Right Superficial femoral vein: Negative. Right Popliteal vein: Negative. Right Calf veins: Negative. Left Common femoral vein: Negative. Left Superficial femoral vein: Negative. Left Popliteal vein: Negative. Left Calf veins: Negative. Additional findings: None. IMPRESSION: No sonographic evidence for DVT in either lower extremity.
--- NOTE | 2021-03-09 14:08 | Consultation ---
History of Present Illness - Reason for Consult Consult date: 03/09/21 - History of Present Illness 75-year-old female past medical history hypertension, ESRD on HD presented to the hospital complaining of shortness of breath. There was concern about no fluid was taken off during her most recent dialysis session. She otherwise complained of no other symptoms. She is found to be hypoxic at 68% on admission, and was placed on nonrebreather. Of note the patient does have a history of failed renal transplant. Afebrile, white count 20.7. Blood cultures no growth so far. Currently on re gisselle dosed cefepime. Currently on BiPAP. Covid negative. Imaging personally reviewed: Chest x-ray: Mild patchy multifocal airspace disease. Review of Systems: Bold if positive, otherwise negative General: fevers, chills, rigors HEENT: visual disturbance, diplopia, eye pain Respiratory: cough, sputum, hemoptysis, shortness of breath Cardiovascular: chest pain, syncope Gastrointestinal: nausea, vomiting, diarrhea, abdominal pain Genitourinary: dysuria, hematuria, flank pain Musculoskeletal: neck pain, back pain, joint pain, edema Neurologic: headaches, seizures Hematologic: easy bruising or bleeding Endocrine: night sweats, acute weight loss Skin: rash, jaundice, redness Psychiatric: suicidal, homicidal ideation Past History Past Medical History: diabetes (Borderline), dialysis, ESRD, hypertension Past Surgical History: No surgical history Social history: no significant social history Family history: no significant family history Medications and Allergies Allergies Allergy/AdvReac Type Severity Reaction Status Date / Time No Known Allergies Allergy Unverified 07/09/20 12:47 Home Medications Medication Instructions Recorded Confirmed Last Taken Type HYDROcodone/APAP 5-325 [[place] 1 each PO Q4HR PRN #30 tablet 07/15/20 11/10/20 Unknown Rx 5-325 mg TAB] NIFEdipine XL [Procardia Xl] 30 mg PO QDAY #30 tablet 11/12/20 Unknown Rx carvediloL [Coreg] 6.25 mg PO BID #60 tablet 11/12/20 Unknown Rx hydrALAZINE [Apresoline TAB] 25 mg PO Q8HR #90 tab 11/12/20 Unknown Rx Active Meds: Active Medications Acetaminophen (Acetaminophen 325 Mg Tab) 650 mg PO Q6H PRN PRN Reason: Pain MILD(1-3)/Fever >100.5/ALMODOVAR Carvedilol (Carvedilol 6.25 Mg Tab) 6.25 mg PO BID [facility] Last Admin: 03/09/21 11:12 Dose: 6.25 mg Documented by: Dexamethasone (Dexamethasone 4 Mg/Ml Vial) 6 mg IV Q24HR [facility] Last Admin: 03/09/21 11:12 Dose: 6 mg Documented by: Heparin Sodium (Porcine) (Heparin 5,000 Unit/1 Ml Vial) 5,000 unit SUB-Q Q8HR [facility] Hydralazine HCl (Hydralazine 25 Mg Tab) 25 mg PO Q8HR [facility] Sodium Chloride (Nacl 0.9%) 100 mls @ 999 mls/hr IV FLAKO PRN PRN Reason: Hypotension Cefepime HCl (Cefepime/Ns 2 Gm/100 Ml) 2 gm in 100 mls @ 200 mls/hr IV Q24HR [facility]; Protocol Last Admin: 03/09/21 11:12 Dose: 200 mls/hr Documented by: Magnesium Hydroxide (Magnesium Hydroxide (Mom) Oral Liqd Udc) 30 ml PO Q4H PRN PRN Reason: Constipation Morphine Sulfate (Morphine 2 Mg/1 Ml Inj) 2 mg IV Q4H PRN PRN Reason: Pain, Moderate (4-6) Morphine Sulfate (Morphine 4 Mg/1 Ml Inj) 4 mg IV Q4H PRN PRN Reason: Pain , Severe (7-10) Nifedipine (Nifedipine Xl 30 Mg Tab) 30 mg PO QDAY [facility] Last Admin: 03/09/21 11:13 Dose: 30 mg Documented by: Senna (Sennosides 8.6 Mg Tab) 17.2 mg PO QHS [facility] Sodium Chloride (Sodium Chloride 0.9% 10 Ml Flush Syringe) 10 ml IV BID [facility] Last Admin: 03/09/21 11:13 Dose: 10 ml Documented by: Sodium Chloride (Sodium Chloride 0.9% 10 Ml Flush Syringe) 10 ml IV PRN PRN PRN Reason: LINE FLUSH Physical Examination - Physical Exam Narrative exam: Physical Exam: Constitutional: Alert, cooperative. No acute distress Head, Ears, Nose: Normocephalic, atraumatic. External ears, nose normal Eyes: Conjunctivae/corneas clear. No icterus. No ptosis. Neck: Supple, no meningeal signs Oral: dentition fair, no thrush Cardiovascular: S1, S2 normal. Respiratory: Good air entry, clear to auscultation bilaterally GI: Soft, non-tender; bowel sounds normal. No peritoneal signs. Musculoskeletal: No pedal edema, no cyanosis. Skin: No rash or abscess Hem/Lymphatic: No palpable cervical or supraclavicular nodes. No lymphangitis Psych: Mood ok. Affect normal Neurological: Awake, alert, oriented. No gross abnormality - Constitutional Vitals: Vital Signs Temp Pulse Resp BP Pulse Ox 98.8 F 89 19 155/91 100 03/09/21 12:21 03/09/21 12:21 03/09/21 12:21 03/09/21 12:21 03/09/21 12:21 Temperature -Last 24 Hours Temperature 98.8 F Temperature 98.5 F Temperature 98.5 F Temperature 98.5 F Results - Labs CBC & Chem 7: 03/09/21 03:34 03/09/21 05:17 Labs: Abnormal lab results 03/09/21 03/09/21 03/09/21 Range/Units 03:34 03:34 03:34 WBC 20.7 H (4.5-11.0) K/mm3 RBC 3.57 L (3.65-5.03) M/mm3 RDW 16.5 H (13.2-15.2) % Seg Neuts % (Manual) 84.0 H (40.0-70.0) % Lymphocytes % (Manual) 6.0 L (13.4-35.0) % Seg Neutrophils # Man 17.4 H (1.8-7.7) K/mm3 D-Dimer (0-234) ng/mlDDU Sodium 133 L (137-145) mmol/L Potassium 6.1 H* (3.6-5.0) mmol/L Chloride 93.6 L (98-107) mmol/L BUN 62 H (7-17) mg/dL Creatinine 8.2 H (0.6-1.2) mg/dL Glucose 137 H (65-100) mg/dL Ferritin (10.0-200.0) ng/mL Lactate Dehydrogenase (91-180) units/L Troponin T 0.123 H* (0.00-0.029) ng/mL HDL Cholesterol 37 L (40-59) mg/dL 03/09/21 03/09/21 03/09/21 Range/Units 05:17 05:17 05:17 WBC (4.5-11.0) K/mm3 RBC (3.65-5.03) M/mm3 RDW (13.2-15.2) % Seg Neuts % (Manual) (40.0-70.0) % Lymphocytes % (Manual) (13.4-35.0) % Seg Neutrophils # Man (1.8-7.7) K/mm3 D-Dimer 1098.77 H (0-234) ng/mlDDU Sodium (137-145) mmol/L Potassium (3.6-5.0) mmol/L Chloride (98-107) mmol/L BUN (7-17) mg/dL Creatinine (0.6-1.2) mg/dL Glucose 123 H (65-100) mg/dL Ferritin (10.0-200.0) ng/mL Lactate Dehydrogenase 300 H (91-180) units/L Troponin T 0.129 H* (0.00-0.029) ng/mL HDL Cholesterol (40-59) mg/dL 03/09/21 Range/Units 05:17 WBC (4.5-11.0) K/mm3 RBC (3.65-5.03) M/mm3 RDW (13.2-15.2) % Seg Neuts % (Manual) (40.0-70.0) % Lymphocytes % (Manual) (13.4-35.0) % Seg Neutrophils # Man (1.8-7.7) K/mm3 D-Dimer (0-234) ng/mlDDU Sodium (137-145) mmol/L Potassium (3.6-5.0) mmol/L Chloride (98-107) mmol/L BUN (7-17) mg/dL Creatinine (0.6-1.2) mg/dL Glucose (65-100) mg/dL Ferritin 2210.0 H (10.0-200.0) ng/mL Lactate Dehydrogenase (91-180) units/L Troponin T (0.00-0.029) ng/mL HDL Cholesterol (40-59) mg/dL Assessment and Plan Cultures: Blood culture no growth so far A/P: 75-year-old female past medical history hypertension, ESRD on HD admitted with pneumonia #Multifocal pneumonia: Covid negative, elevated procalcitonin in setting of ESRD. Continue empiric antibiotics. #ESRD on HD: Renally dose medications. #Acute sepsis: Present with leukocytosis and tachycardia. Likely secondary to pneumonia. Recs: -Continue renally dosed cefepime -Stop vanomycin tomorrow if cultures remain negative. -Follow up blood cultures -Anticipate discharge with cefepime with HD whe improved. Thank you for the consult, we will continue to follow. Poly Eduardo MD [facility] ([facility] O: [phone] F: [phone]
[2021-03-09] MEDS: HEPARIN 5,000 UNIT/1 ML VIAL SUB-Q SCH ×2 (14:49→22:14)
[2021-03-09] MEDS: hydrALAZINE 25 MG TAB PO SCH ×2 (14:49→22:09)
[2021-03-09 15:10] LABS: Calcium 9.1 mg/dL (8.4-10.2)
[2021-03-09] MEDS: INSULIN REGULAR, HUMAN 100 UNITS/1 ML SUB-Q SCH ×2 (17:49→22:15)
[2021-03-09] MEDS: SENNOSIDES 8.6 MG TAB PO SCH (22:10)
--- NOTE | 2021-03-09 23:14 | Consultation ---
History of Present Illness Consult date: 03/09/21 Reason for consult: dyspnea History of present illness: 75-year-old female with known history of hypertension, end-stage renal disease on dialysis Mondays, Wednesdays and Fridays and also status post field renal transplant presents to the emergency room via EMS today complaining of shortness of breath. Daughter indicates that patient may not have had enough fluid taken off during dialysis on Tuesday. There has been no fever or chills, no nausea or vomiting, no abdominal pain, no headache or dizziness, no loss of taste or smell, no recent travel, no sick contacts and no contact with anyone with COVID-19. Upon arrival of EMS patient oxygen saturation was about 68% on room air and patient was placed on nonrebreather on the scene with improvement of oxygen saturation to about 98%. Patient follows up with Dr. Luis with her review coordinator. She has been admitted in the past before for fluid overload requiring BiPAP. Most of the history has been gotten from daughter as patient does not speak Greek. Upon arrival in the emergency room patient was quite hypertensive with systolic in the 200s and diastolic in the low 100s. Patient subsequently started on a nitroglycerin drip.. Patient awake. Patient speaks only [place]. Unable to get history from her. Most of the history obtained from the chart. Patient resting on room air at this time. O2 saturation 96%. No acute respiratory distress. BIPAP stand by in the room. Blood pressure 139/71. Pulse 85 chest x-ray showed mild patchy multifocal airspace disease. Labs reveals leukocytosis of 20.7, hyperkalemia of 6.1. Troponin was slightly elevated at 0.123 [employer] on-call was consulted . Patient promptly given dialysis. Patient has had nebulizer treatment, insulin and glucose for the hyperkalemia. She is also started on empiric IV antibiotics for sepsis. Patient is on cefepime. Patient is on S/C Heparin for DVT prophylaxis. Past History Past Medical History: diabetes (Borderline), dialysis, ESRD, hypertension Past Surgical History: No surgical history Social history: no significant social history Family history: no significant family history Medications and Allergies Allergies Allergy/AdvReac Type Severity Reaction Status Date / Time No Known Allergies Allergy Unverified 07/09/20 12:47 Home Medications Medication Instructions Recorded Confirmed Last Taken Type HYDROcodone/APAP 5-325 [[place] 1 each PO Q4HR PRN #30 tablet 07/15/20 11/10/20 Unknown Rx 5-325 mg TAB] NIFEdipine XL [Procardia Xl] 30 mg PO QDAY #30 tablet 11/12/20 Unknown Rx carvediloL [Coreg] 6.25 mg PO BID #60 tablet 11/12/20 Unknown Rx hydrALAZINE [Apresoline TAB] 25 mg PO Q8HR #90 tab 11/12/20 Unknown Rx Active Meds: Active Medications Acetaminophen (Acetaminophen 325 Mg Tab) 650 mg PO Q6H PRN PRN Reason: Pain MILD(1-3)/Fever >100.5/ALMODOVAR Carvedilol (Carvedilol 6.25 Mg Tab) 6.25 mg PO BID [facility] Last Admin: 03/09/21 22:10 Dose: 6.25 mg Documented by: Heparin Sodium (Porcine) (Heparin 5,000 Unit/1 Ml Vial) 5,000 unit SUB-Q Q8HR [facility] Last Admin: 03/09/21 22:14 Dose: 5,000 unit Documented by: Hydralazine HCl (Hydralazine 25 Mg Tab) 25 mg PO Q8HR [facility] Last Admin: 03/09/21 22:09 Dose: 25 mg Documented by: Sodium Chloride (Nacl 0.9%) 100 mls @ 999 mls/hr IV FLAKO PRN PRN Reason: Hypotension Cefepime HCl (Cefepime/Ns 2 Gm/100 Ml) 2 gm in 100 mls @ 200 mls/hr IV Q24HR [facility]; Protocol Last Admin: 03/09/21 11:12 Dose: 200 mls/hr Documented by: Insulin Human Regular (Insulin Regular, Human 100 Units/1 Ml) 0 units SUB-Q ACHS [facility]; Protocol Last Admin: 03/09/21 22:15 Dose: Not Given Documented by: Magnesium Hydroxide (Magnesium Hydroxide (Mom) Oral Liqd Udc) 30 ml PO Q4H PRN PRN Reason: Constipation Morphine Sulfate (Morphine 2 Mg/1 Ml Inj) 2 mg IV Q4H PRN PRN Reason: Pain, Moderate (4-6) Morphine Sulfate (Morphine 4 Mg/1 Ml Inj) 4 mg IV Q4H PRN PRN Reason: Pain , Severe (7-10) Nifedipine (Nifedipine Xl 30 Mg Tab) 30 mg PO QDAY [facility] Last Admin: 03/09/21 11:13 Dose: 30 mg Documented by: Senna (Sennosides 8.6 Mg Tab) 17.2 mg PO QHS [facility] Last Admin: 03/09/21 22:10 Dose: 17.2 mg Documented by: Sodium Chloride (Sodium Chloride 0.9% 10 Ml Flush Syringe) 10 ml IV BID [facility] Last Admin: 03/09/21 22:15 Dose: 10 ml Documented by: Sodium Chloride (Sodium Chloride 0.9% 10 Ml Flush Syringe) 10 ml IV PRN PRN PRN Reason: LINE FLUSH Review of Systems All systems: negative Physical Examination Vital signs: Vital Signs Temp Pulse Resp BP Pulse Ox 98.5 F 101 H 24 221/107 98 03/09/21 03:05 03/09/21 03:05 03/09/21 03:05 03/09/21 03:05 03/09/21 03:05 General appearance: no acute distress, alert Eyes: non-icteric ENT: oropharynx moist Neck: supple, no lymphadenopathy Effort: normal Ascultation: Bilateral: diminished breath sounds Cardiovascular: regular rate and rhythm Gastrointestinal: normoactive bowel sounds, soft, non-tender Integumentary: normal Extremities: no cyanosis, no edema Musculoskeletal: no deformities Gait: other (Patient resting in bed at this time.) non-focal exam, pupils equal and round other (Patient speaks only [place]. Can not asses mood or effect.) Results - Laboratory Findings CBC and BMP: 03/10/21 04:49 03/10/21 04:49 PT/INR, D-dimer PT 12.9 Sec. (12.2-14.9) 03/09/21 03:34 INR 0.92 (0.87-1.13) 03/09/21 03:34 D-Dimer 1098.77 ng/mlDDU (0-234) H 03/09/21 05:17 Abnormal lab findings: Abnormal Labs 03/09/21 03/09/21 03/09/21 03:34 03:34 03:34 WBC 20.7 H RBC 3.57 L RDW 16.5 H Seg Neuts % (Manual) 84.0 H Lymphocytes % (Manual) 6.0 L Seg Neutrophils # Man 17.4 H D-Dimer Sodium 133 L Potassium 6.1 H* Chloride 93.6 L BUN 62 H Creatinine 8.2 H Glucose 137 H POC Glucose Ferritin Lactate Dehydrogenase Troponin T 0.123 H* HDL Cholesterol 37 L 03/09/21 03/09/21 03/09/21 05:17 05:17 05:17 WBC RBC RDW Seg Neuts % (Manual) Lymphocytes % (Manual) Seg Neutrophils # [place] D-Dimer 1098.77 H Sodium Potassium Chloride BUN Creatinine Glucose 123 H POC Glucose Ferritin Lactate Dehydrogenase 300 H Troponin T 0.129 H* HDL Cholesterol 03/09/21 03/09/21 03/09/21 05:17 14:21 17:01 WBC RBC RDW Seg Neuts % (Manual) Lymphocytes % (Manual) Seg Neutrophils # Man D-Dimer Sodium 133 L Potassium 5.2 H Chloride 94.3 L BUN 23 H Creatinine 4.3 H Glucose 246 H POC Glucose 201 H Ferritin 2210.0 H Lactate Dehydrogenase Troponin T HDL Cholesterol 03/09/21 22:07 WBC RBC RDW Seg Neuts % (Manual) Lymphocytes % (Manual) Seg Neutrophils # Man D-Dimer Sodium Potassium Chloride BUN Creatinine Glucose POC Glucose 128 H Ferritin Lactate Dehydrogenase Troponin T HDL Cholesterol - Diagnostic Findings Chest x-ray: report reviewed, image reviewed Additional studies: CHEST 1 VIEW 03/09/21 INDICATION: sob. COMPARISON: 11/10/2020 FINDINGS: SUPPORT DEVICES: None. HEART: Mild cardiomegaly. LUNGS/PLEURA: Mild patchy multifocal airspace disease. ADDITIONAL FINDINGS: None. IMPRESSION: 1. Pulmonary findings as above. DUPLEX DOPPLER LOWER EXTREMITY VEINS, BILATERAL 03/09/21 INDICATION: r/o dvt. TECHNIQUE: Duplex doppler imaging was performed through the veins of both lower extremities using venous compression and other maneuvers. COMPARISON: No relevant prior imaging study available. FINDINGS: Right Common femoral vein: Negative. Right Superficial femoral vein: Negative. Right Popliteal vein: Negative. Right Calf veins: Negative. Left Common femoral vein: Negative. Left Superficial femoral vein: Negative. Left Popliteal vein: Negative. Left Calf veins: Negative. Additional findings: None. IMPRESSION: No sonographic evidence for DVT in either lower extremity. Assessment and Plan 75-year-old female with known history of hypertension, end-stage renal disease on dialysis Mondays, Wednesdays and Fridays and also status post field renal transplant presents to the emergency room via EMS today complaining of shortness of breath. Daughter indicates that patient may not have had enough fluid taken off during dialysis on Tuesday. There has been no fever or chills, no nausea or vomiting, no abdominal pain, no headache or dizziness, no loss of taste or smell, no recent travel, no sick contacts and no contact with anyone with COVID-19. Upon arrival of EMS patient oxygen saturation was about 68% on room air and patient was placed on nonrebreather on the scene with improvement of oxygen saturation to about 98%. Patient follows up with Dr. Luis with her review coordinator. She has been admitted in the past before for fluid overload requiring BiPAP. Most of the history has been gotten from daughter as patient does not speak Greek. Upon arrival in the emergency room patient was quite hypertensive with systolic in the 200s and diastolic in the low 100s. Patient subsequently started on a nitroglycerin drip.. Patient awake. Patient speaks only [place]. Unable to get history from her. Most of the history obtained from the chart. Patient resting on room air at this time. O2 saturation 96%. No acute respiratory distress. BIPAP stand by in the r oom. Blood pressure 139/71. Pulse 85 chest x-ray showed mild patchy multifocal airspace disease. Labs reveals leukocytosis of 20.7, hyperkalemia of 6.1. Troponin was slightly elevated at 0.123 [employer] on-call was consulted . Patient promptly given dialysis. Patient has had nebulizer treatment, insulin and glucose for the hyperkalemia. She is also started on empiric IV antibiotics for sepsis. Patient is on cefepime. Patient is on S/C Heparin for DVT prophylaxis. Patient was seen in the emergency room. I spent critical care time of 45 minutes, reviewing the chart, examine the patient, review the x rays and Labs, talking to the nursing staff and work out plan of tratment in this critically ill patient. - Patient Problems (1) Acute pulmonary edema Current Visit: Yes Status: Acute Plan to address problem: Patient is on dialysis. (2) ESRD needing dialysis Current Visit: Yes Status: Acute Plan to address problem: Management as per nephrology. (3) Hypertensive emergency Current Visit: Yes Status: Acute Plan to address problem: Managent as per primary care. (4) Person under investigation for COVID-19 Current Visit: Yes Status: Acute Plan to address problem: Patients Rick virus PCR negative. (5) Sepsis Current Visit: Yes Status: Acute Plan to address problem: Patient is on cefepime. (6) Hemorrhage of arteriovenous fistula Current Visit: No Status: Acute Plan to address problem: Consult vascular surgery. (7) Hyponatremia Current Visit: No Status: Acute Plan to address problem: Na+ level 133 (8) Metabolic acidosis Current Visit: No Status: Acute Plan to address problem: Anion gap 19. Could be secondary to renal failure.
[2021-03-10 05:22] LABS: Basophils % (Auto) 0.2 % (0.0-1.8); Hemoglobin 10.5 gm/dl (10.1-14.3); Lymphocytes # (Auto) 2.1 K/mm3 (1.2-5.4); Lymphocytes % (Auto) 23.3 % (13.4-35.0); Mean Corpuscular HGB Conc 34 % (30-34); Mean Corpuscular Volume 88 fl (79-97); Monocytes % (Auto) 11.4 % (0.0-7.3); Platelet Count 224 K/mm3 (140-440); Red Blood Count 3.54 M/mm3 (3.65-5.03); Red Cell Distribution Width 16.4 % (13.2-15.2)
[2021-03-10 05:30] LABS: Calcium 9.6 mg/dL (8.4-10.2)
[2021-03-10 05:31] LABS: INR 0.99 (0.87-1.13)
[2021-03-10] MEDS: hydrALAZINE 25 MG TAB PO SCH ×3 (05:59→23:00)
[2021-03-10] MEDS: HEPARIN 5,000 UNIT/1 ML VIAL SUB-Q SCH ×3 (05:59→23:00)
[2021-03-10] MEDS: INSULIN REGULAR, HUMAN 100 UNITS/1 ML SUB-Q SCH ×4 (07:46→23:00)
--- NOTE | 2021-03-10 07:52 | Cat Scan Report ---
CT HEAD WITHOUT CONTRAST INDICATION / CLINICAL INFORMATION: Altered mental status. TECHNIQUE: Axial imaging performed from the skull apex through the skull base without the use of cont rast. Sagittal and coronal reformatted images. All CT scans at this location are performed using CT dose reduction for ALARA by means of automated exposure control. COMPARISON: None available. FINDINGS: CEREBRAL PARENCHYMA: No significant abnormality. No acute territorial infarct. Mild age-appropriate v olume loss and chronic white matter changes are noted. No chronic infarct. HEMORRHAGE: None. EXTRA-AXIAL SPACES: Normal in size and morphology for the patient's age. VENTRICULAR SYSTEM: Normal in size and morphology for the patient's age. MIDLINE SHIFT OR HERNIATION: None. CEREBELLUM / BRAINSTEM: No significant abnormality. CALVARIUM: No significant abnormality. ORBITS: Normal as visualized. PARANASAL SINUSES / MASTOID AIR CELLS: Normal as visualized. SOFT TISSUES of HEAD: No significant abnormality. ADDITIONAL FINDINGS: None. IMPRESSION: No acute intracranial abnormality. Signer Name: Robert Oneil Jr, MD Signed: 03/10/2021 7:48 AM Workstation Name: [id number]
--- NOTE | 2021-03-10 09:16 | Progress Note ---
Assessment and Plan # ESRD: HD stat yesterday for volume overload with patient needing Bipap, and hyperkalemia; plan to continue HD MWF per outpatient, no indication for extra HD today - continue HD MWF or prn - avoid nephrotoxins - renally dose meds - daily renal labs # HTN: BP very high initially, s/p nitro gtt with improvement. UF as tolerated with HD, back on home antihypertensives now # Anemia in CKD: hemoglobin at goal for ESRD, no indication for ESAs acutely # Secondary Hyperparathyroidism: continue home phos binders if applicable # Respiratory Distress: improving, likely due to pulmonary edema for ESRD, pneumonia. COVID-19 rule out negative Subjective Date of service: 03/10/21 Interval history: Resting this AM, remains in ED. Off Bipap, on NC Objective - Exam Narrative Exam: General appearance: no distress, on NC EENT: ATNC, PERRL Neck: Present: neck supple Respiratory: Decreased Breath Sounds Heart: regular, S1S2 Gastrointestinal: Present: normoactive bowel sounds Integumentary: no rash, warm and dry Neurologic: no focal deficit - Vital Signs Vital signs: Vital Signs - 12hr 03/09/21 03/09/21 03/09/21 21:48 22:01 22:09 Temperature Pulse Rate 96 H Respiratory Rate Blood Pressure 145/81 157/82 Blood Pressure [Right] O2 Sat by Pulse 97 100 Oximetry 03/09/21 03/09/21 03/09/21 22:10 22:15 22:31 Temperature Pulse Rate 96 H 99 H 100 H Respiratory 14 21 Rate Blood Pressure 157/82 157/82 145/81 Blood Pressure [Right] O2 Sat by Pulse 99 98 Oximetry 03/09/21 03/09/21 03/09/21 22:45 23:01 23:15 Temperature Pulse Rate 91 H 93 H 88 Respiratory 20 13 Rate Blood Pressure 154/83 142/72 136/70 Blood Pressure [Right] O2 Sat by Pulse 100 95 96 Oximetry 03/09/21 03/09/21 03/10/21 23:31 23:45 00:01 Temperature Pulse Rate 91 H 89 88 Respiratory 20 21 22 Rate Blood Pressure 139/71 146/77 140/69 Blood Pressure [Right] O2 Sat by Pulse 93 94 96 Oximetry 03/10/21 03/10/21 03/10/21 00:07 00:15 00:31 Temperature Pulse Rate 90 90 91 H Respiratory 12 16 Rate Blood Pressure 140/69 147/70 141/70 Blood Pressure [Right] O2 Sat by Pulse 94 95 97 Oximetry 03/10/21 03/10/21 03/10/21 00:45 01:01 01:15 Temperature Pulse Rate 91 H 94 H 93 H Respiratory 13 14 14 Rate Blood Pressure 141/66 148/70 152/74 Blood Pressure [Right] O2 Sat by Pulse 98 98 99 Oximetry 03/10/21 03/10/21 03/10/21 01:31 01:45 02:01 Temperature Pulse Rate 94 H 95 H 95 H Respiratory 17 16 18 Rate Blood Pressure 157/85 161/85 162/83 Blood Pressure [Right] O2 Sat by Pulse 99 99 98 Oximetry 03/10/21 03/10/21 03/10/21 02:15 02:31 02:45 Temperature Pulse Rate 96 H 99 H 97 H Respiratory 18 23 Rate Blood Pressure 161/83 160/79 168/77 Blood Pressure [Right] O2 Sat by Pulse 98 98 98 Oximetry 03/10/21 03/10/21 03/10/21 03:01 03:15 03:31 Temperature Pulse Rate 95 H 97 H 94 H Respiratory 13 14 Rate Blood Pressure 164/85 160/87 161/85 Blood Pressure [Right] O2 Sat by Pulse 99 99 99 Oximetry 03/10/21 03/10/21 03/10/21 03:45 04:15 04:31 Temperature Pulse Rate 97 H 93 H 95 H Respiratory 19 12 Rate Blood Pressure 163/82 163/87 175/82 Blood Pressure [Right] O2 Sat by Pulse 99 99 98 Oximetry 03/10/21 03/10/21 03/10/21 04:45 05:01 05:15 Temperature Pulse Rate 98 H 94 H 94 H Respiratory 15 13 12 Rate Blood Pressure 176/84 176/84 176/84 Blood Pressure [Right] O2 Sat by Pulse 98 98 98 Oximetry 03/10/21 03/10/21 03/10/21 05:31 05:45 05:59 Temperature Pulse Rate 93 H 93 H 94 H Respiratory 12 14 Rate Blood Pressure 176/84 176/84 154/81 Blood Pressure [Right] O2 Sat by Pulse 98 99 Oximetry 03/10/21 03/10/21 03/10/21 06:01 06:15 06:31 Temperature Pulse Rate 92 H 93 H 94 H Respiratory 13 17 Rate Blood Pressure 154/81 149/100 168/93 Blood Pressure [Right] O2 Sat by Pulse 100 99 100 Oximetry 03/10/21 03/10/21 03/10/21 06:45 07:00 09:06 Temperature 98.5 F Pulse Rate 96 H 94 H Respiratory 15 19 19 Rate Blood Pressure 168/93 Blood Pressure 147/89 [Right] O2 Sat by Pulse 100 100 100 Oximetry - Lab 03/10/21 04:49 03/10/21 04:49 Most recent lab results Calcium 9.6 mg/dL (8.4-10.2) 03/10/21 04:49 Medications & Allergies - Medications Allergies/Adverse Reactions: Allergies No Known Allergies Allergy (Unverified 07/09/20 12:47) Home Medications: Home Medications Medication Instructions Recorded Confirmed Last Taken Type HYDROcodone/APAP 5-325 [[place] 1 each PO Q4HR PRN #30 tablet 07/15/20 11/10/20 Unknown Rx 5-325 mg TAB] NIFEdipine XL [Procardia Xl] 30 mg PO QDAY #30 tablet 11/12/20 Unknown Rx carvediloL [Coreg] 6.25 mg PO BID #60 tablet 11/12/20 Unknown Rx hydrALAZINE [Apresoline TAB] 25 mg PO Q8HR #90 tab 11/12/20 Unknown Rx Active Medications: Generic Name Dose Route Start Last Admin Trade Name Freq PRN Reason Stop Dose Admin Acetaminophen 650 mg 03/09/21 05:56 Acetaminophen 325 Mg Tab PO Q6H PRN Pain MILD(1-3)/Fever >100.5/ALMODOVAR Carvedilol 6.25 mg 03/09/21 10:00 03/09/21 22:10 Carvedilol 6.25 Mg Tab PO 6.25 mg BID BALAJI Administration Heparin Sodium (Porcine) 5,000 unit 03/09/21 14:00 03/10/21 05:59 Heparin 5,000 Unit/1 Ml Vial SUB-Q 5,000 unit Q8HR BALAJI Administration Hydralazine HCl 25 mg 03/09/21 14:00 03/10/21 05:59 Hydralazine 25 Mg Tab PO 25 mg Q8HR BALAJI Administration Sodium Chloride 100 mls @ 999 mls/hr 03/09/21 04:50 Nacl 0.9% IV FLAKO PRN Hypotension Cefepime HCl 1 gm in 100 mls @ 200 mls/hr 03/10/21 18:00 Cefepime/Ns 1 Gm/100 Ml IV QPM [facility] Insulin Human Regular 0 units 03/09/21 18:00 03/10/21 07:46 Insulin Regular, Human 100 Units/1 Ml SUB-Q Not Given ACHS [facility] Protocol Magnesium Hydroxide 30 ml 03/09/21 05:56 Magnesium Hydroxide (Mom) Oral Liqd Udc PO Q4H PRN Constipation Morphine Sulfate 2 mg 03/09/21 05:56 Morphine 2 Mg/1 Ml Inj IV Q4H PRN Pain, Moderate (4-6) Morphine Sulfate 4 mg 03/09/21 05:56 Morphine 4 Mg/1 Ml Inj IV Q4H PRN Pain , Severe (7-10) Nifedipine 30 mg 03/09/21 10:00 03/09/21 11:13 Nifedipine Xl 30 Mg Tab PO 30 mg QDAY BALAJI Administration Senna 17.2 mg 03/09/21 22:00 03/09/21 22:10 Sennosides 8.6 Mg Tab PO 17.2 mg QHS BALAJI Administration Sodium Chloride 10 ml 03/09/21 10:00 03/09/21 22:15 Sodium Chloride 0.9% 10 Ml Flush Syringe IV 10 ml BID BALAJI Administration Sodium Chloride 10 ml 03/09/21 05:56 Sodium Chloride 0.9% 10 Ml Flush Syringe IV PRN PRN LINE FLUSH
--- NOTE | 2021-03-10 09:44 | Progress Note ---
Assessment and Plan Assessment and plan: 1. Sepsis -Leukocytosis, tachycardia secondary to pneumonia WBC 20.7 on admission Covid PCR negative Blood culture positive 1 out of 2 bottles CXR on admission: Mild patchy multifocal airspace disease. Vancomycin IV, cefepime IV Infectious disease following 2. Multifocal pneumonia Covid negative, elevated procalcitonin -Currently on nasal cannula NC 1L , will wean as tolerated Antibiotics as above Pulmonology following 3. Metabolic encephalopathy Confusion on a.m. encounter of 03/10, this is new per RN who stated the patient was more conversational yesterday Suspect in the setting of uremia versus underlying infection. Discussed with nephrology today regarding extra hemodialysis treatment, follow- up after hemodialysis today 4. GPC bacteremia 1 out of 4 bottles, contaminant suspected. Follow for speciation and sensitivities Antibiotics as above for now Infectious disease following 5. ESRD on HD On HD Avoid nephrotoxic agents Renally adjust medications (Vanc/Cefepime) Nephrology following 6. Hypertensive emergency - 221/107 on admission, repeat today 135/87 Resume home hydralazine, carvedilol, Procardia XL 7. Persons under investigation for COVID-19 8. Secondary hyperparathyroidism Continue phosphate binders 9. Anemia of CKD - continue to monitor H/H 10. Hyponatremia - monitor Na 11. Hyperkalemia - monitor K, last 5.2 - correct with HD History Interval history: Paged by ED RN regarding patient mental status change. Per RN, exam yesterday demonstrated alert and talkative patient yesterday who was able to communicated, via production planner service. Today patient is alert, protecting airway, however, she appears more confused. She does not acknowledge medical staff in room but does not attempt to communicate or respond or follow commands when spoken to. stat CT brain was ordered which was negative. Hospitalist Physical - Physical exam Narrative exam: Physical Exam: Constitutional: Alert, confused. No acute distress, thin elderly [place] female. Head, Ears, Nose: Normocephalic, atraumatic. External ears, nose normal Eyes: Conjunctivae/corneas clear. No icterus. No ptosis. Neck: Supple, no meningeal signs Oral: dentition fair, no thrush Cardiovascular: S1, S2 normal. Respiratory: Good air entry, clear to auscultation bilaterally GI: Soft, non-tender; bowel sounds normal. No peritoneal signs. Musculoskeletal: No pedal edema, no cyanosis. Skin: No rash or abscess Hem/Lymphatic: No palpable cervical or supraclavicular nodes. No lymphangitis Psych: Affect normal, however not tracking with medical staff, appears confused. Neurological: Awake, alert, not oriented. . No gross abnormality - Constitutional Vitals: Temp Pulse Resp BP Pulse Ox 98.5 F 94 H 19 147/89 100 03/10/21 07:00 03/10/21 07:00 03/10/21 09:06 03/10/21 07:00 03/10/21 09:06 General appearance: Present: mild distress, well-nourished HEART Score - HEART Score Troponin: Troponin T 0.129 ng/mL (0.00-0.029) H* 03/09/21 05:17 Results - Labs CBC & Chem 7: 03/10/21 04:49 03/10/21 04:49 Labs: Laboratory Last Values WBC 8.9 K/mm3 (4.5-11.0) 03/10/21 04:49 RBC 3.54 M/mm3 (3.65-5.03) L 03/10/21 04:49 Hgb 10.5 gm/dl (10.1-14.3) 03/10/21 04:49 Hct 31.0 % (30.3-42.9) 03/10/21 04:49 MCV 88 fl (79-97) 03/10/21 04:49 MCH 30 pg (28-32) 03/10/21 04:49 MCHC 34 % (30-34) 03/10/21 04:49 RDW 16.4 % (13.2-15.2) H 03/10/21 04:49 Plt Count 224 K/mm3 (140-440) 03/10/21 04:49 Lymph % (Auto) 23.3 % (13.4-35.0) 03/10/21 04:49 [place] % (Auto) 11.4 % (0.0-7.3) H 03/10/21 04:49 Eos % (Auto) 0.0 % (0.0-4.3) 03/10/21 04:49 Baso % (Auto) 0.2 % (0.0-1.8) 03/10/21 04:49 Lymph # (Auto) 2.1 K/mm3 (1.2-5.4) 03/10/21 04:49 Reagan # (Auto) 1.0 K/mm3 (0.0-0.8) H 03/10/21 04:49 Eos # (Auto) 0.0 K/mm3 (0.0-0.4) 03/10/21 04:49 Baso # (Auto) 0.0 K/mm3 (0.0-0.1) 03/10/21 04:49 Add Manual Diff Complete 03/09/21 03:34 Total Counted 100 03/09/21 03:34 Seg Neutrophils % 65.1 % (40.0-70.0) 03/10/21 04:49 Seg Neuts % (Manual) 84.0 % (40.0-70.0) H 03/09/21 03:34 Band Neutrophils % 4.0 % 03/09/21 03:34 Lymphocytes % (Manual) 6.0 % (13.4-35.0) L 03/09/21 03:34 Monocytes % (Manual) 3.0 % (0.0-7.3) 03/09/21 03:34 Eosinophils % (Manual) 2.0 % (0.0-4.3) 03/09/21 03:34 Metamyelocytes % 1.0 % 03/09/21 03:34 Nucleated RBC % Not Reportable 03/09/21 03:34 Seg Neutrophils # 5.8 K/mm3 (1.8-7.7) 03/10/21 04:49 Seg Neutrophils # Man 17.4 K/mm3 (1.8-7.7) H 03/09/21 03:34 Band Neutrophils # 0.8 K/mm3 03/09/21 03:34 Lymphocytes # (Manual) 1.2 K/mm3 (1.2-5.4) 03/09/21 03:34 Abs React Lymphs (Man) 0.0 K/mm3 03/09/21 03:34 Monocytes # (Manual) 0.6 K/mm3 (0.0-0.8) 03/09/21 03:34 Eosinophils # (Manual) 0.4 K/mm3 (0.0-0.4) 03/09/21 03:34 Basophils # (Manual) 0.0 K/mm3 (0.0-0.1) 03/09/21 03:34 Metamyelocytes # 0.2 K/mm3 03/09/21 03:34 Myelocytes # 0.0 K/mm3 03/09/21 03:34 Promyelocytes # 0.0 K/mm3 03/09/21 03:34 Blast Cells # 0.0 K/mm3 03/09/21 03:34 WBC Morphology Not Reportable 03/09/21 03:34 Hypersegmented Neuts Not Reportable 03/09/21 03:34 Hyposegmented Neuts Not Reportable 03/09/21 03:34 Hypogranular Neuts Not Reportable 03/09/21 03:34 Smudge Cells Not Reportable 03/09/21 03:34 Toxic Granulation Not Reportable 03/09/21 03:34 Toxic Vacuolation Not Reportable 03/09/21 03:34 Dohle Bodies Not Reportable 03/09/21 03:34 Pelger-Huet Anomaly Not Reportable 03/09/21 03:34 Kecia Rods Not Reportable 03/09/21 03:34 Platelet Estimate Consistent w auto 03/09/21 03:34 Clumped Platelets Not Reportable 03/09/21 03:34 Plt Clumps, EDTA Not Reportable 03/09/21 03:34 Large Platelets Not Reportable 03/09/21 03:34 Giant Platelets Not Reportable 03/09/21 03:34 Platelet Satelliting Not Reportable 03/09/21 03:34 Plt Morphology Comment Not Reportable 03/09/21 03:34 RBC Morphology Not Reportable 03/09/21 03:34 Dimorphic RBCs Not Reportable 03/09/21 03:34 Polychromasia Not Reportable 03/09/21 03:34 Hypochromasia 1+ 03/09/21 03:34 Poikilocytosis Not Reportable 03/09/21 03:34 Anisocytosis Few 03/09/21 03:34 Microcytosis Not Reportable 03/09/21 03:34 Macrocytosis Not Reportable 03/09/21 03:34 Spherocytes Not Reportable 03/09/21 03:34 Pappenheimer Bodies Not Reportable 03/09/21 03:34 Sickle Cells Not Reportable 03/09/21 03:34 Target Cells Not Reportable 03/09/21 03:34 Tear Drop Cells Not Reportable 03/09/21 03:34 Ovalocytes Not Reportable 03/09/21 03:34 Helmet Cells Not Reportable 03/09/21 03:34 [place] Bodies Not Reportable 03/09/21 03:34 [place] Rings Not Reportable 03/09/21 03:34 [place] Cells Not Reportable 03/09/21 03:34 Bite Cells Not Reportable 03/09/21 03:34 Crenated Cell Not Reportable 03/09/21 03:34 Elliptocytes Not Reportable 03/09/21 03:34 Acanthocytes (Spur) Not Reportable 03/09/21 03:34 Rouleaux Not Reportable 03/09/21 03:34 Hemoglobin C Crystals Not Reportable 03/09/21 03:34 Schistocytes Not Reportable 03/09/21 03:34 Malaria parasites Not Reportable 03/09/21 03:34 Ren Bodies Not Reportable 03/09/21 03:34 Hem Pathologist Commnt No 03/09/21 03:34 PT 13.6 Sec. (12.2-14.9) 03/10/21 04:49 INR 0.99 (0.87-1.13) 03/10/21 04:49 APTT 33.2 Sec. (24.2-36.6) 03/09/21 03:34 D-Dimer 1098.77 ng/mlDDU (0-234) H 03/09/21 05:17 Sodium 134 mmol/L (137-145) L 03/10/21 04:49 Potassium 5.2 mmol/L (3.6-5.0) H 03/10/21 04:49 Chloride 93.0 mmol/L (98-107) L 03/10/21 04:49 Carbon Dioxide 26 mmol/L (22-30) 03/10/21 04:49 Anion Gap 20 mmol/L 03/10/21 04:49 BUN 45 mg/dL (7-17) H 03/10/21 04:49 Creatinine 5.9 mg/dL (0.6-1.2) H 03/10/21 04:49 Estimated GFR 7 ml/min 03/10/21 04:49 BUN/Creatinine Ratio 8 % 03/10/21 04:49 Glucose 112 mg/dL (65-100) H 03/10/21 04:49 POC Glucose 100 mg/dL (70-105) 03/10/21 07:25 Hemoglobin A1c 5.1 % (4-6) 03/09/21 10:43 Lactic Acid 1.20 mmol/L (0.7-2.0) 03/09/21 07:37 Calcium 9.6 mg/dL (8.4-10.2) 03/10/21 04:49 Ferritin 2210.0 ng/mL (10.0-200.0) H 03/09/21 05:17 Lactate Dehydrogenase 300 units/L (91-180) H 03/09/21 05:17 Total Creatine Kinase 57 units/L (30-135) 03/09/21 10:43 CK-MB (CK-2) 2.3 ng/mL (0.0-4.0) 03/09/21 10:43 CK-MB (CK-2) Rel Index 4.0 (0-4) 03/09/21 10:43 Troponin T 0.129 ng/mL (0.00-0.029) H* 03/09/21 05:17 C-Reactive Protein 1.10 mg/dL (0.00-1.30) 03/09/21 05:17 Triglycerides 133 mg/dL (2-149) 03/09/21 03:34 Cholesterol 158 mg/dL (50-199) 03/09/21 03:34 LDL Cholesterol Direct 105 mg/dL (50-130) 03/09/21 03:34 HDL Cholesterol 37 mg/dL (40-59) L 03/09/21 03:34 Cholesterol/HDL Ratio 4.27 % 03/09/21 03:34 Procalcitonin 0.71 ng/mL (<0.15) 03/09/21 05:17 Random Vancomycin 12.5 ug/mL (0-40.0) 03/10/21 04:49 Coronavirus (PCR) Negative (Negative) 03/09/21 08:40 Hepatitis A IgM Ab Non-reactive (NonReactive) 03/09/21 07:37 Hep Bs Antigen Nonreactive (Negative) 03/09/21 07:37 Hep B Core IgM Ab Non-reactive (NonReactive) 03/09/21 07:37 Hepatitis C Antibody Non-reactive (NonReactive) 03/09/21 07:37 Microbiology: Microbiology 03/09/21 05:17 Peripheral/Venous Blood Culture - Preliminary NO GROWTH AFTER 24 HOURS 03/09/21 06:06 Peripheral/Venous Blood Culture - Preliminary NO GROWTH AFTER 24 HOURS Active Medications - Current Medications Current Medications: Generic Name Dose Route Start Last Admin Trade Name Freq PRN Reason Stop Dose Admin Acetaminophen 650 mg 03/09/21 05:56 Acetaminophen 325 Mg Tab PO Q6H PRN Pain MILD(1-3)/Fever >100.5/ALMODOVAR Carvedilol 6.25 mg 03/09/21 10:00 03/09/21 22:10 Carvedilol 6.25 Mg Tab PO 6.25 mg BID BALAJI Administration Heparin Sodium (Porcine) 5,000 unit 03/09/21 14:00 03/10/21 05:59 Heparin 5,000 Unit/1 Ml Vial SUB-Q 5,000 unit Q8HR BALAJI Administration Hydralazine HCl 25 mg 03/09/21 14:00 03/10/21 05:59 Hydralazine 25 Mg Tab PO 25 mg Q8HR BALAJI Administration Sodium Chloride 100 mls @ 999 mls/hr 03/09/21 04:50 Nacl 0.9% IV FLAKO PRN Hypotension Cefepime HCl 1 gm in 100 mls @ 200 mls/hr 03/10/21 18:00 Cefepime/Ns 1 Gm/100 Ml IV QPM BALAJI Insulin Human Regular 0 units 03/09/21 18:00 03/10/21 07:46 Insulin Regular, Human 100 Units/1 Ml SUB-Q Not Given ACHS [facility] Protocol Magnesium Hydroxide 30 ml 03/09/21 05:56 Magnesium Hydroxide (Mom) Oral Liqd Udc PO Q4H PRN Constipation Nifedipine 30 mg 03/09/21 10:00 03/09/21 11:13 Nifedipine Xl 30 Mg Tab PO 30 mg QDAY BALAJI Administration Senna 17.2 mg 03/09/21 22:00 03/09/21 22:10 Sennosides 8.6 Mg Tab PO 17.2 mg QHS BALAJI Administration Sodium Chloride 10 ml 03/09/21 10:00 03/09/21 22:15 Sodium Chloride 0.9% 10 Ml Flush Syringe IV 10 ml BID BALAJI Administration Sodium Chloride 10 ml 03/09/21 05:56 Sodium Chloride 0.9% 10 Ml Flush Syringe IV PRN PRN LINE FLUSH Nutrition/Malnutrition Assess - Dietary Evaluation Nutrition/Malnutrition Findings: Nutrition Notes Start: 03/09/21 07:41 Freq: Status: Active Protocol: Document 03/09/21 07:41 (Rec: 03/09/21 07:43 MK [id number]) Nutrition Notes Need for Assessment generated from: MD Order Initial or Follow up Brief Note Current Diagnosis CKD (stage V CKD),Sepsis, Hypertension Other Pertinent Diagnosis COVID PUI, on HD (MWF), s/p renal transplant Current Diet Cardiac Subjective/Other Information MD consult for diet education. Pt on hold in ED. Nutrition Intervention Change Diet Order: add renal Follow-Up By: 03/11/21 Additional Comments F/u: diet education needs
[2021-03-10] MEDS: carvediloL 6.25 MG TAB PO SCH ×2 (10:00→23:00)
[2021-03-10] MEDS: NIFEdipine XL 30 MG TAB PO SCH (10:00)
--- NOTE | 2021-03-10 10:08 | Electrocardiograph Report ---
[facility] Test Date: 2021-03-09 Test Time: 03:42:47 Pat Name: LUISITO VENEGAS Department: Room: A370 Gender: F [employer] Worker: NIKITA Tobar : 1945 Requested By: NANCY VYAS Order Number: [id number] Reading MD: Gualberto Mackenzie Measurements Intervals [place] Rate: 99 P: 56 HI: 156 QRS: -30 QRSD: 89 T: 73 QT: 378 QTc: 486 Interpretive Statements Sinus rhythm Left ventricular hypertrophy nonspecific st-t Compared to ECG 11/10/2020 04:57:56 Electronically Signed On 03-10-2021 10:07:36 EDT by Gualberto Mackenzie
--- NOTE | 2021-03-10 10:16 | Progress Note ---
Assessment and Plan 75-year-old female with known history of hypertension, end-stage renal disease on dialysis Mondays, Wednesdays and Fridays and also status post field renal transplant presents to the emergency room via EMS today complaining of shortness of breath. Daughter indicates that patient may not have had enough fluid taken off during dialysis on Tuesday. There has been no fever or chills, no nausea or vomiting, no abdominal pain, no headache or dizziness, no loss of taste or smell, no recent travel, no sick contacts and no contact with anyone with COVID-19. Upon arrival of EMS patient oxygen saturation was about 68% on room air and patient was placed on nonrebreather on the scene with improvement of oxygen saturation to about 98%. Patient follows up with Dr. Luis with her career development coordinator/teacher. She has been admitted in the past before for fluid overload requiring BiPAP. Most of the history has been gotten from daughter as patient does not speak Kazakh. Upon arrival in the emergency room patient was quite hypertensive with systolic in the 200s and diastolic in the low 100s. Patient subsequently started on a nitroglycerin drip. Alteration Specialist on-call was consulted . Patient promptly given dialysis. Patient has had nebulizer treatment, insulin and glucose for the hyperkalemia. She is also started on empiric IV antibiotics for sepsis. Today, patient awake, alert. Patient speaks only [place]. Unable to get history from her. Most of the history obtained from the chart. Patient resting on room air at this time. O2 saturation 100%. No acute respiratory distress.Patient is afebrile. BP 154/90. HR: 99. Labs reveals No leukocytosis, hyperkalemia of 5.2. Troponin was slightly elevated at 0.123. COVID negative. chest x-ray (03/09/21) showed mild patchy multifocal airspace disease. Patient is currently on Cefepime and S/C heparin. Patient was seen in the emergency room. I spent critical care time of 35 minutes, reviewing the chart, examine the patient, review the x rays and Labs, talking to the nursing staff and work out plan of treatment in this critically ill patient. - Patient Problems (1) Acute pulmonary edema Current Visit: Yes Status: Acute Plan to address problem: Patient is on dialysis. (2) ESRD needing dialysis Current Visit: Yes Status: Acute Plan to address problem: Management as per nephrology. (3) Hypertensive emergency Current Visit: Yes Status: Acute Plan to address problem: Managent as per primary care. (4) Person under investigation for COVID-19 Current Visit: Yes Status: Acute Plan to address problem: Patients Rick virus PCR negative. (5) Sepsis Current Visit: Yes Status: Acute Plan to address problem: Patient is on cefepime. (6) Hemorrhage of arteriovenous fistula Current Visit: No Status: Acute Plan to address problem: Consult vascular surgery. (7) Hyponatremia Current Visit: No Status: Acute Plan to address problem: Na+ level 134 (8) Metabolic acidosis Current Visit: No Status: Acute Plan to address problem: Anion gap 20. Could be secondary to renal failure. Subjective Date of service: 03/10/21 Interval history: 75-year-old female with known history of hypertension, end-stage renal disease on dialysis Mondays, Wednesdays and Fridays and also status post field renal transplant presents to the emergency room via EMS today complaining of shortness of breath. Daughter indicates that patient may not have had enough fluid taken off during dialysis on Tuesday. There has been no fever or chills, no nausea or vomiting, no abdominal pain, no headache or dizziness, no loss of taste or smell, no recent travel, no sick contacts and no contact with anyone with COVID-19. Upon arrival of EMS patient oxygen saturation was about 68% on room air and patient was placed on nonrebreather on the scene with improvement of oxygen saturation to about 98%. Patient follows up with Dr. Luis with her career development coordinator/teacher. She has been admitted in the past before for fluid overload requiring BiPAP. Most of the history has been gotten from daughter as patient does not speak Kazakh. Upon arrival in the emergency room patient was quite hypertensive with systolic in the 200s and diastolic in the low 100s. Patient subsequently started on a nitroglycerin drip. Alteration Specialist on-call was consulted . Patient promptly given dialysis. Patient has had nebulizer treatment, insulin and glucose for the hyperkalemia. She is also started on empiric IV antibiotics for sepsis. Today, patient awake, alert. Patient speaks only [place]. Unable to get history from her. Most of the history obtained from the chart. Patient resting on room air at this time. O2 saturation 100%. No acute respiratory distress.Patient is afebrile. BP 154/90. HR: 99. Labs reveals No leukocytosis, hyperkalemia of 5.2. Troponin was slightly elevated at 0.123. COVID negative. chest x-ray (03/09/21) showed mild patchy multifocal airspace disease. Patient is currently on Cefepime and S/C heparin. Objective Vital Signs - 12hr 03/09/21 03/09/21 03/09/21 22:31 22:45 23:01 Temperature Pulse Rate 100 H 91 H 93 H Respiratory 21 20 13 Rate Blood Pressure 145/81 154/83 142/72 Blood Pressure [Right] O2 Sat by Pulse 98 100 95 Oximetry 03/09/21 03/09/21 03/09/21 23:15 23:31 23:45 Temperature Pulse Rate 88 91 H 89 Respiratory 20 21 Rate Blood Pressure 136/70 139/71 146/77 Blood Pressure [Right] O2 Sat by Pulse 96 93 94 Oximetry 03/10/21 03/10/21 03/10/21 00:01 00:07 00:15 Temperature Pulse Rate 88 90 90 Respiratory 22 12 16 Rate Blood Pressure 140/69 140/69 147/70 Blood Pressure [Right] O2 Sat by Pulse 96 94 95 Oximetry 03/10/21 03/10/21 03/10/21 00:31 00:45 01:01 Temperature Pulse Rate 91 H 91 H 94 H Respiratory 13 14 Rate Blood Pressure 141/70 141/66 148/70 Blood Pressure [Right] O2 Sat by Pulse 97 98 98 Oximetry 03/10/21 03/10/21 03/10/21 01:15 01:31 01:45 Temperature Pulse Rate 93 H 94 H 95 H Respiratory 14 17 16 Rate Blood Pressure 152/74 157/85 161/85 Blood Pressure [Right] O2 Sat by Pulse 99 99 99 Oximetry 03/10/21 03/10/21 03/10/21 02:01 02:15 02:31 Temperature Pulse Rate 95 H 96 H 99 H Respiratory 18 18 23 Rate Blood Pressure 162/83 161/83 160/79 Blood Pressure [Right] O2 Sat by Pulse 98 98 98 Oximetry 03/10/21 03/10/21 03/10/21 02:45 03:01 03:15 Temperature Pulse Rate 97 H 95 H 97 H Respiratory 13 14 Rate Blood Pressure 168/77 164/85 160/87 Blood Pressure [Right] O2 Sat by Pulse 98 99 99 Oximetry 03/10/21 03/10/21 03/10/21 03:31 03:45 04:15 Temperature Pulse Rate 94 H 97 H 93 H Respiratory 19 12 Rate Blood Pressure 161/85 163/82 163/87 Blood Pressure [Right] O2 Sat by Pulse 99 99 99 Oximetry 03/10/21 03/10/21 03/10/21 04:31 04:45 05:01 Temperature Pulse Rate 95 H 98 H 94 H Respiratory 15 13 Rate Blood Pressure 175/82 176/84 176/84 Blood Pressure [Right] O2 Sat by Pulse 98 98 98 Oximetry 03/10/21 03/10/21 03/10/21 05:15 05:31 05:45 Temperature Pulse Rate 94 H 93 H 93 H Respiratory 12 12 14 Rate Blood Pressure 176/84 176/84 176/84 Blood Pressure [Right] O2 Sat by Pulse 98 98 99 Oximetry 03/10/21 03/10/21 03/10/21 05:59 06:01 06:15 Temperature Pulse Rate 94 H 92 H 93 H Respiratory 13 Rate Blood Pressure 154/81 154/81 149/100 Blood Pressure [Right] O2 Sat by Pulse 100 99 Oximetry 03/10/21 03/10/21 03/10/21 06:31 06:45 07:00 Temperature 98.5 F Pulse Rate 94 H 96 H 94 H Respiratory 17 15 19 Rate Blood Pressure 168/93 168/93 Blood Pressure 147/89 [Right] O2 Sat by Pulse 100 100 100 Oximetry 03/10/21 03/10/21 03/10/21 09:06 10:00 10:01 Temperature 98.3 F Pulse Rate 98 H Respiratory 19 19 Rate Blood Pressure Blood Pressure 135/87 [Right] O2 Sat by Pulse 100 94 99 Oximetry 03/10/21 10:08 Temperature Pulse Rate Respiratory Rate Blood Pressure Blood Pressure [Right] O2 Sat by Pulse 93 Oximetry Constitutional: no acute distress, alert Eyes: non-icteric ENT: oropharynx moist Neck: supple, no lymphadenopathy Effort: normal Ascultation: Bilateral: diminished breath sounds Cardiovascular: regular rate and rhythm Gastrointestinal: normoactive bowel sounds, soft, non-tender Integumentary: normal Extremities: no cyanosis, no edema Neurologic: non-focal exam, pupils equal and round Psychiatric: other (Patient speaks only vitnam. Can not asses mood or effect.) CBC and BMP: 03/11/21 08:41 03/11/21 08:41 ABG, PT/INR, D-dimer: PT/INR, D-dimer PT 13.6 Sec. (12.2-14.9) 03/10/21 04:49 INR 0.99 (0.87-1.13) 03/10/21 04:49 D-Dimer 1098.77 ng/mlDDU (0-234) H 03/09/21 05:17 Abnormal lab findings: Abnormal Labs 03/09/21 03/09/21 03/09/21 03:34 03:34 03:34 WBC 20.7 H RBC 3.57 L RDW 16.5 H [place] % (Auto) [place] # (Auto) Seg Neuts % (Manual) 84.0 H Lymphocytes % (Manual) 6.0 L Seg Neutrophils # Man 17.4 H D-Dimer Sodium 133 L Potassium 6.1 H* Chloride 93.6 L BUN 62 H Creatinine 8.2 H Glucose 137 H POC Glucose Ferritin Lactate Dehydrogenase Troponin T 0.123 H* HDL Cholesterol 37 L 03/09/21 03/09/21 03/09/21 05:17 05:17 05:17 WBC RBC RDW [place] % (Auto) [place] # (Auto) Seg Neuts % (Manual) Lymphocytes % (Manual) Seg Neutrophils # Man D-Dimer 1098.77 H Sodium Potassium Chloride BUN Creatinine Glucose 123 H POC Glucose Ferritin Lactate Dehydrogenase 300 H Troponin T 0.129 H* HDL Cholesterol 03/09/21 03/09/21 03/09/21 05:17 14:21 17:01 WBC RBC RDW [place] % (Auto) [place] # (Auto) Seg Neuts % (Manual) Lymphocytes % (Manual) Seg Neutrophils # Man D-Dimer Sodium 133 L Potassium 5.2 H Chloride 94.3 L BUN 23 H Creatinine 4.3 H Glucose 246 H POC Glucose 201 H Ferritin 2210.0 H Lactate Dehydrogenase Troponin T HDL Cholesterol 03/09/21 03/10/21 03/10/21 22:07 04:49 04:49 WBC RBC 3.54 L RDW 16.4 H [place] % (Auto) 11.4 H [place] # (Auto) 1.0 H Seg Neuts % (Manual) Lymphocytes % (Manual) Seg Neutrophils # Man D-Dimer Sodium 134 L Potassium 5.2 H Chloride 93.0 L BUN 45 H Creatinine 5.9 H Glucose 112 H POC Glucose 128 H Ferritin Lactate Dehydrogenase Troponin T HDL Cholesterol
--- NOTE | 2021-03-10 12:50 | Progress Note ---
Assessment and Plan Cultures: Blood culture GPC 1/4 bottles A/P: 75-year-old female past medical history hypertension, ESRD on HD admitted with pneumonia #Multifocal pneumonia: Covid negative, elevated procalcitonin in setting of ESRD. Continue empiric antibiotics. #GPC bacteremia: 1 of 4 bottles, possible contaminant. #ESRD on HD: Renally dose medications. #Acute sepsis: Present with leukocytosis and tachycardia. Likely secondary to pneumonia. Recs: -Continue renally dosed cefepime -Continue vancomycin pending finalization of blood cultures. -Follow up blood cultures -Anticipate discharge with cefepime with HD when improved. Thank you for the consult, we will continue to follow. Poly Eduardo MD [facility] O: [phone] F: [phone] Subjective Date of service: 03/10/21 Interval history: Afebrile, normal white count. On 1 L nasal cannula. Imaging personally viewed: Head CT: No abnormality. Objective - Exam Narrative Exam: Physical Exam: Constitutional: Alert, cooperative. No acute distress Head, Ears, Nose: Normocephalic, atraumatic. External ears, nose normal Eyes: Conjunctivae/corneas clear. No icterus. No ptosis. Neck: Supple, no meningeal signs Oral: dentition fair, no thrush Cardiovascular: S1, S2 normal. Respiratory: Good air entry, clear to auscultation bilaterally GI: Soft, non-tender; bowel sounds normal. No peritoneal signs. Musculoskeletal: No pedal edema, no cyanosis. Skin: No rash or abscess Hem/Lymphatic: No palpable cervical or supraclavicular nodes. No lymphangitis Psych: Mood ok. Affect normal Neurological: Awake, alert, oriented. No gross abnormality - Constitutional Vitals: Vital Signs Temp Pulse Resp BP Pulse Ox 98.3 F 98 H 19 135/87 97 03/10/21 10:01 03/10/21 10:01 03/10/21 10:01 03/10/21 10:01 03/10/21 10:08 Temperature -Last 24 Hours Temperature 98.3 F Temperature 98.5 F Temperature 99.2 F - Labs CBC & Chem 7: 03/10/21 04:49 03/10/21 04:49 Labs: Abnormal lab results 03/09/21 03/09/21 03/09/21 Range/Units 14:21 17:01 22:07 RBC (3.65-5.03) M/mm3 RDW (13.2-15.2) % [place] % (Auto) (0.0-7.3) % [place] # (Auto) (0.0-0.8) K/mm3 Sodium 133 L (137-145) mmol/L Potassium 5.2 H (3.6-5.0) mmol/L Chloride 94.3 L (98-107) mmol/L BUN 23 H (7-17) mg/dL Creatinine 4.3 H (0.6-1.2) mg/dL Glucose 246 H (65-100) mg/dL POC Glucose 201 H 128 H (70-105) mg/dL 03/10/21 03/10/21 Range/Units 04:49 04:49 RBC 3.54 L (3.65-5.03) M/mm3 RDW 16.4 H (13.2-15.2) % [place] % (Auto) 11.4 H (0.0-7.3) % [place] # (Auto) 1.0 H (0.0-0.8) K/mm3 Sodium 134 L (137-145) mmol/L Potassium 5.2 H (3.6-5.0) mmol/L Chloride 93.0 L (98-107) mmol/L BUN 45 H (7-17) mg/dL Creatinine 5.9 H (0.6-1.2) mg/dL Glucose 112 H (65-100) mg/dL POC Glucose (70-105) mg/dL
[2021-03-10] MEDS: CEFEPIME/NS 1 GM/100 ML 1 GM/100 ML BAG IV SCH (20:03)
[2021-03-10] MEDS ORDERED: DEXTROSE 50% IN WATER (25GM) 50 ML SYRINGE IV ONE (22:40)
[2021-03-10] MEDS: SENNOSIDES 8.6 MG TAB PO SCH (23:00)
[2021-03-11] MEDS: D5W/0.45% NACL 1,000 ML IV SCH ×3 (00:25→19:52)
[2021-03-11] MEDS: hydrALAZINE 20 MG/1 ML INJ IV PRN ×2 (05:55→22:45)
[2021-03-11] MEDS: HEPARIN 5,000 UNIT/1 ML VIAL SUB-Q SCH ×3 (05:55→22:48)
[2021-03-11] MEDS: hydrALAZINE 25 MG TAB PO SCH ×2 (06:55→17:15)
--- NOTE | 2021-03-11 07:30 | Progress Note ---
Assessment and Plan Assessment and plan: 1. Sepsis -Leukocytosis, tachycardia secondary to pneumonia WBC 20.7 on admission Covid PCR negative Blood culture positive 1 out of 2 bottles CXR on admission: Mild patchy multifocal airspace disease. Vancomycin IV, cefepime IV Infectious disease following 2. Multifocal pneumonia Covid negative, elevated procalcitonin -Currently on nasal cannula NC 1L , will wean as tolerated Antibiotics as above Pulmonology following 3. Metabolic encephalopathy Confusion on a.m. encounter of 03/10, this is new per RN who stated the patient was more conversational yesterday Suspect in the setting of uremia versus underlying infection. Discussed with nephrology today regarding extra hemodialysis treatment, follow- up after hemodialysis today 4. GPC bacteremia 1 out of 4 bottles, contaminant suspected. Follow for speciation and sensitivities Antibiotics as above for now Infectious disease following 5. ESRD on HD On HD Avoid nephrotoxic agents Renally adjust medications (Vanc/Cefepime) Nephrology following 6. Hypertensive emergency - 221/107 on admission, repeat today 135/87 Resume home hydralazine, carvedilol, Procardia XL 7. Persons under investigation for COVID-19 8. Secondary hyperparathyroidism Continue phosphate binders 9. Anemia of CKD - continue to monitor H/H 10. Hyponatremia - monitor Na 11. Hyperkalemia - monitor K, last 5.2 - correct with HD Hospitalist Physical - Physical exam Narrative exam: Physical Exam: Constitutional: Alert, confused. No acute distress, thin elderly [place] female. Head, Ears, Nose: Normocephalic, atraumatic. External ears, nose normal Eyes: Conjunctivae/corneas clear. No icterus. No ptosis. Neck: Supple, no meningeal signs Oral: dentition fair, no thrush Cardiovascular: S1, S2 normal. Respiratory: Good air entry, clear to auscultation bilaterally GI: Soft, non-tender; bowel sounds normal. No peritoneal signs. Musculoskeletal: No pedal edema, no cyanosis. Skin: No rash or abscess Hem/Lymphatic: No palpable cervical or supraclavicular nodes. No lymphangitis Psych: Affect normal, however not tracking with medical staff, appears confused. Neurological: Awake, alert, not oriented. . No gross abnormality - Constitutional Vitals: Temp Pulse Resp BP Pulse Ox 98.8 F 102 H 16 149/86 100 03/10/21 21:47 03/10/21 21:47 03/10/21 21:47 03/11/21 05:55 03/10/21 21:47 General appearance: Present: mild distress, well-nourished HEART Score - HEART Score Troponin: Troponin T 0.129 ng/mL (0.00-0.029) H* 03/09/21 05:17 Results - Labs CBC & Chem 7: 03/10/21 04:49 03/10/21 04:49 Labs: Laboratory Last Values WBC 8.9 K/mm3 (4.5-11.0) 03/10/21 04:49 RBC 3.54 M/mm3 (3.65-5.03) L 03/10/21 04:49 Hgb 10.5 gm/dl (10.1-14.3) 03/10/21 04:49 Hct 31.0 % (30.3-42.9) 03/10/21 04:49 MCV 88 fl (79-97) 03/10/21 04:49 MCH 30 pg (28-32) 03/10/21 04:49 MCHC 34 % (30-34) 03/10/21 04:49 RDW 16.4 % (13.2-15.2) H 03/10/21 04:49 Plt Count 224 K/mm3 (140-440) 03/10/21 04:49 Lymph % (Auto) 23.3 % (13.4-35.0) 03/10/21 04:49 [place] % (Auto) 11.4 % (0.0-7.3) H 03/10/21 04:49 Eos % (Auto) 0.0 % (0.0-4.3) 03/10/21 04:49 Baso % (Auto) 0.2 % (0.0-1.8) 03/10/21 04:49 Lymph # (Auto) 2.1 K/mm3 (1.2-5.4) 03/10/21 04:49 [place] # (Auto) 1.0 K/mm3 (0.0-0.8) H 03/10/21 04:49 Eos # (Auto) 0.0 K/mm3 (0.0-0.4) 03/10/21 04:49 Baso # (Auto) 0.0 K/mm3 (0.0-0.1) 03/10/21 04:49 Add Manual Diff Complete 03/09/21 03:34 Total Counted 100 03/09/21 03:34 Seg Neutrophils % 65.1 % (40.0-70.0) 03/10/21 04:49 Seg Neuts % (Manual) 84.0 % (40.0-70.0) H 03/09/21 03:34 Band Neutrophils % 4.0 % 03/09/21 03:34 Lymphocytes % (Manual) 6.0 % (13.4-35.0) L 03/09/21 03:34 Monocytes % (Manual) 3.0 % (0.0-7.3) 03/09/21 03:34 Eosinophils % (Manual) 2.0 % (0.0-4.3) 03/09/21 03:34 Metamyelocytes % 1.0 % 03/09/21 03:34 Nucleated RBC % Not Reportable 03/09/21 03:34 Seg Neutrophils # 5.8 K/mm3 (1.8-7.7) 03/10/21 04:49 Seg Neutrophils # Man 17.4 K/mm3 (1.8-7.7) H 03/09/21 03:34 Band Neutrophils # 0.8 K/mm3 03/09/21 03:34 Lymphocytes # (Manual) 1.2 K/mm3 (1.2-5.4) 03/09/21 03:34 Abs React Lymphs (Man) 0.0 K/mm3 03/09/21 03:34 Monocytes # (Manual) 0.6 K/mm3 (0.0-0.8) 03/09/21 03:34 Eosinophils # (Manual) 0.4 K/mm3 (0.0-0.4) 03/09/21 03:34 Basophils # (Manual) 0.0 K/mm3 (0.0-0.1) 03/09/21 03:34 Metamyelocytes # 0.2 K/mm3 03/09/21 03:34 Myelocytes # 0.0 K/mm3 03/09/21 03:34 Promyelocytes # 0.0 K/mm3 03/09/21 03:34 Blast Cells # 0.0 K/mm3 03/09/21 03:34 WBC Morphology Not Reportable 03/09/21 03:34 Hypersegmented Neuts Not Reportable 03/09/21 03:34 Hyposegmented Neuts Not Reportable 03/09/21 03:34 Hypogranular Neuts Not Reportable 03/09/21 03:34 Smudge Cells Not Reportable 03/09/21 03:34 Toxic Granulation Not Reportable 03/09/21 03:34 Toxic Vacuolation Not Reportable 03/09/21 03:34 Dohle Bodies Not Reportable 03/09/21 03:34 Pelger-Huet Anomaly Not Reportable 03/09/21 03:34 Kecia Rods Not Reportable 03/09/21 03:34 Platelet Estimate Consistent w auto 03/09/21 03:34 Clumped Platelets Not Reportable 03/09/21 03:34 Plt Clumps, EDTA Not Reportable 03/09/21 03:34 Large Platelets Not Reportable 03/09/21 03:34 Giant Platelets Not Reportable 03/09/21 03:34 Platelet Satelliting Not Reportable 03/09/21 03:34 Plt Morphology Comment Not Reportable 03/09/21 03:34 RBC Morphology Not Reportable 03/09/21 03:34 Dimorphic RBCs Not Reportable 03/09/21 03:34 Polychromasia Not Reportable 03/09/21 03:34 Hypochromasia 1+ 03/09/21 03:34 Poikilocytosis Not Reportable 03/09/21 03:34 Anisocytosis Few 03/09/21 03:34 Microcytosis Not Reportable 03/09/21 03:34 Macrocytosis Not Reportable 03/09/21 03:34 Spherocytes Not Reportable 03/09/21 03:34 Pappenheimer Bodies Not Reportable 03/09/21 03:34 Sickle Cells Not Reportable 03/09/21 03:34 Target Cells Not Reportable 03/09/21 03:34 Tear Drop Cells Not Reportable 03/09/21 03:34 Ovalocytes Not Reportable 03/09/21 03:34 Helmet Cells Not Reportable 03/09/21 03:34 [place] Bodies Not Reportable 03/09/21 03:34 [place] Rings Not Reportable 03/09/21 03:34 [place] Cells Not Reportable 03/09/21 03:34 Bite Cells Not Reportable 03/09/21 03:34 Crenated Cell Not Reportable 03/09/21 03:34 Elliptocytes Not Reportable 03/09/21 03:34 Acanthocytes (Spur) Not Reportable 03/09/21 03:34 Rouleaux Not Reportable 03/09/21 03:34 Hemoglobin C Crystals Not Reportable 03/09/21 03:34 Schistocytes Not Reportable 03/09/21 03:34 Malaria parasites Not Reportable 03/09/21 03:34 Ren Bodies Not Reportable 03/09/21 03:34 Hem Pathologist Commnt No 03/09/21 03:34 PT 13.6 Sec. (12.2-14.9) 03/10/21 04:49 INR 0.99 (0.87-1.13) 03/10/21 04:49 APTT 33.2 Sec. (24.2-36.6) 03/09/21 03:34 D-Dimer 1098.77 ng/mlDDU (0-234) H 03/09/21 05:17 Sodium 134 mmol/L (137-145) L 03/10/21 04:49 Potassium 5.2 mmol/L (3.6-5.0) H 03/10/21 04:49 Chloride 93.0 mmol/L (98-107) L 03/10/21 04:49 Carbon Dioxide 26 mmol/L (22-30) 03/10/21 04:49 Anion Gap 20 mmol/L 03/10/21 04:49 BUN 45 mg/dL (7-17) H 03/10/21 04:49 Creatinine 5.9 mg/dL (0.6-1.2) H 03/10/21 04:49 Estimated GFR 7 ml/min 03/10/21 04:49 BUN/Creatinine Ratio 8 % 03/10/21 04:49 Glucose 112 mg/dL (65-100) H 03/10/21 04:49 POC Glucose 100 mg/dL (70-105) 03/11/21 05:53 Hemoglobin A1c 5.1 % (4-6) 03/09/21 10:43 Lactic Acid 1.20 mmol/L (0.7-2.0) 03/09/21 07:37 Calcium 9.6 mg/dL (8.4-10.2) 03/10/21 04:49 Ferritin 2210.0 ng/mL (10.0-200.0) H 03/09/21 05:17 Lactate Dehydrogenase 300 units/L (91-180) H 03/09/21 05:17 Total Creatine Kinase 57 units/L (30-135) 03/09/21 10:43 CK-MB (CK-2) 2.3 ng/mL (0.0-4.0) 03/09/21 10:43 CK-MB (CK-2) Rel Index 4.0 (0-4) 03/09/21 10:43 Troponin T 0.129 ng/mL (0.00-0.029) H* 03/09/21 05:17 C-Reactive Protein 1.10 mg/dL (0.00-1.30) 03/09/21 05:17 Triglycerides 133 mg/dL (2-149) 03/09/21 03:34 Cholesterol 158 mg/dL (50-199) 03/09/21 03:34 LDL Cholesterol Direct 105 mg/dL (50-130) 03/09/21 03:34 HDL Cholesterol 37 mg/dL (40-59) L 03/09/21 03:34 Cholesterol/HDL Ratio 4.27 % 03/09/21 03:34 Procalcitonin 0.71 ng/mL (<0.15) 03/09/21 05:17 Random Vancomycin 12.5 ug/mL (0-40.0) 03/10/21 04:49 Coronavirus (PCR) Negative (Negative) 03/09/21 08:40 Hepatitis A IgM Ab Non-reactive (NonReactive) 03/09/21 07:37 Hep Bs Antigen Nonreactive (Negative) 03/09/21 07:37 Hep B Core IgM Ab Non-reactive (NonReactive) 03/09/21 07:37 Hepatitis C Antibody Non-reactive (NonReactive) 03/09/21 07:37 Microbiology: Microbiology 03/09/21 06:06 Peripheral/Venous Blood Culture - Preliminary 03/09/21 05:17 Peripheral/Venous Blood Culture - Preliminary NO GROWTH AFTER 24 HOURS Persaud/IV: Voiding Method Incontinent Active Medications - Current Medications Current Medications: Generic Name Dose Route Start Last Admin Trade Name Freq PRN Reason Stop Dose Admin Acetaminophen 650 mg 03/09/21 05:56 Acetaminophen 325 Mg Tab PO Q6H PRN Pain MILD(1-3)/Fever >100.5/ALMODOVAR Carvedilol 6.25 mg 03/09/21 10:00 03/10/21 23:00 Carvedilol 6.25 Mg Tab PO Not Given BID BALAJI Heparin Sodium (Porcine) 5,000 unit 03/09/21 14:00 03/11/21 05:55 Heparin 5,000 Unit/1 Ml Vial SUB-Q 5,000 unit Q8HR BALAJI Administration Hydralazine HCl 25 mg 03/09/21 14:00 03/11/21 06:55 Hydralazine 25 Mg Tab PO Not Given Q8HR BALAJI Hydralazine HCl 10 mg 03/10/21 23:06 03/11/21 05:55 Hydralazine 20 Mg/1 Ml Inj IV 10 mg Q6HR PRN Administration Hypertension Sodium Chloride 100 mls @ 999 mls/hr 03/09/21 04:50 Nacl 0.9% IV FLAKO PRN Hypotension Cefepime HCl 1 gm in 100 mls @ 200 mls/hr 03/10/21 18:00 03/10/21 20:03 Cefepime/Ns 1 Gm/100 Ml IV 200 mls/hr QPM BALAJI Administration Dextrose/Sodium Chloride 1,000 mls @ 75 mls/hr 03/10/21 23:45 03/11/21 00:25 D5/0.45ns IV 75 mls/hr DIRECT BALAJI Administration Insulin Human Regular 0 units 03/09/21 18:00 03/10/21 23:00 Insulin Regular, Human 100 Units/1 Ml SUB-Q Not Given [facility] Protocol Magnesium Hydroxide 30 ml 03/09/21 05:56 Magnesium Hydroxide (Mom) Oral Liqd Udc PO Q4H PRN Constipation Nifedipine 30 mg 03/09/21 10:00 03/10/21 10:00 Nifedipine Xl 30 Mg Tab PO Not Given QDAY BALAJI Senna 17.2 mg 03/09/21 22:00 03/10/21 23:00 Sennosides 8.6 Mg Tab PO Not Given QHS BALAJI Sodium Chloride 10 ml 03/09/21 10:00 03/10/21 23:00 Sodium Chloride 0.9% 10 Ml Flush Syringe IV 10 ml BID BALAJI Administration Sodium Chloride 10 ml 03/09/21 05:56 03/11/21 05:56 Sodium Chloride 0.9% 10 Ml Flush Syringe IV 10 ml PRN PRN Administration LINE FLUSH Nutrition/Malnutrition Assess - Dietary Evaluation Nutrition/Malnutrition Findings: Nutrition Notes Start: 03/09/21 07:41 Freq: Status: Active Protocol: Document 03/09/21 07:41 (Rec: 03/09/21 07:43 MK [id number]) Nutrition Notes Need for Assessment generated from: MD Order Initial or Follow up Brief Note Current Diagnosis CKD (stage V CKD),Sepsis, Hypertension Other Pertinent Diagnosis COVID PUI, on HD (MWF), s/p renal transplant Current Diet Cardiac Subjective/Other Information MD consult for diet education. Pt on hold in ED. Nutrition Intervention Change Diet Order: add renal Follow-Up By: 03/11/21 Additional Comments F/u: diet education needs
[2021-03-11] MEDS: INSULIN REGULAR, HUMAN 100 UNITS/1 ML SUB-Q SCH ×3 (07:55→16:30)
[2021-03-11 09:05] LABS: Basophils % (Auto) 0.3 % (0.0-1.8); Eosinophils # (Auto) 0.1 K/mm3 (0.0-0.4); Eosinophils % (Auto) 0.6 % (0.0-4.3); Hematocrit 34.9 % (30.3-42.9); Hemoglobin 11.6 gm/dl (10.1-14.3); Lymphocytes # (Auto) 2.5 K/mm3 (1.2-5.4); Lymphocytes % (Auto) 20.9 % (13.4-35.0); Mean Corpuscular HGB Conc 33 % (30-34); Mean Corpuscular Volume 89 fl (79-97); Monocytes # (Auto) 1.8 K/mm3 (0.0-0.8); Monocytes % (Auto) 15.3 % (0.0-7.3); Platelet Count 249 K/mm3 (140-440); Red Blood Count 3.94 M/mm3 (3.65-5.03); Red Cell Distribution Width 15.6 % (13.2-15.2)
[2021-03-11 09:29] LABS: Calcium 9.1 mg/dL (8.4-10.2)
--- NOTE | 2021-03-11 09:53 | Progress Note ---
Assessment and Plan # ESRD: HD stat 03/09 for volume overload with patient needing Bipap, and hyperkalemia; also had HD yesterday for additional solute removal. plan to continue HD MWF per outpatient, due today - continue HD MWF or prn - avoid nephrotoxins - renally dose meds - daily renal labs # HTN: BP very high initially, s/p nitro gtt with improvement. UF as tolerated with HD, back on home antihypertensives now # Anemia in CKD: hemoglobin at goal for ESRD, no indication for ESAs acutely # Secondary Hyperparathyroidism: continue home phos binders if applicable # Respiratory Distress: improving, likely due to pulmonary edema for ESRD, pneumonia. COVID-19 rule out negative Subjective Date of service: 03/11/21 Interval history: Resting this AM, had HD yesterday for altered mentation, does appear to be somewhat restless this AM as well Objective - Exam Narrative Exam: General appearance: no distress, on NC EENT: ATNC, PERRL Neck: Present: neck supple Respiratory: Decreased Breath Sounds Heart: regular, S1S2 Gastrointestinal: Present: normoactive bowel sounds Integumentary: no rash, warm and dry Neurologic: no focal deficit - Vital Signs Vital signs: Vital Signs - 12hr 03/11/21 03/11/21 05:55 09:12 Blood Pressure 149/86 O2 Sat by Pulse 96 Oximetry - Lab 03/11/21 08:41 03/11/21 08:41 Most recent lab results Calcium 9.1 mg/dL (8.4-10.2) 03/11/21 08:41 Medications & Allergies - Medications Allergies/Adverse Reactions: Allergies No Known Allergies Allergy (Unverified 07/09/20 12:47) Home Medications: Home Medications Medication Instructions Recorded Confirmed Last Taken Type HYDROcodone/APAP 5-325 [[place] 1 each PO Q4HR PRN #30 tablet 07/15/20 11/10/20 Unknown Rx 5-325 mg TAB] NIFEdipine XL [Procardia Xl] 30 mg PO QDAY #30 tablet 11/12/20 Unknown Rx carvediloL [Coreg] 6.25 mg PO BID #60 tablet 11/12/20 Unknown Rx hydrALAZINE [Apresoline TAB] 25 mg PO Q8HR #90 tab 11/12/20 Unknown Rx Active Medications: Generic Name Dose Route Start Last Admin Trade Name Freq PRN Reason Stop Dose Admin Acetaminophen 650 mg 03/09/21 05:56 Acetaminophen 325 Mg Tab PO Q6H PRN Pain MILD(1-3)/Fever >100.5/ALMODOVAR Carvedilol 6.25 mg 03/09/21 10:00 03/10/21 23:00 Carvedilol 6.25 Mg Tab PO Not Given BID BALAJI Heparin Sodium (Porcine) 5,000 unit 03/09/21 14:00 03/11/21 05:55 Heparin 5,000 Unit/1 Ml Vial SUB-Q 5,000 unit Q8HR BALAJI Administration Hydralazine HCl 25 mg 03/09/21 14:00 03/11/21 06:55 Hydralazine 25 Mg Tab PO Not Given Q8HR BALAJI Hydralazine HCl 10 mg 03/10/21 23:06 03/11/21 05:55 Hydralazine 20 Mg/1 Ml Inj IV 10 mg Q6HR PRN Administration Hypertension Sodium Chloride 100 mls @ 999 mls/hr 03/09/21 04:50 Nacl 0.9% IV FLAKO PRN Hypotension Cefepime HCl 1 gm in 100 mls @ 200 mls/hr 03/10/21 18:00 03/10/21 20:03 Cefepime/Ns 1 Gm/100 Ml IV 200 mls/hr QPM BALAJI Administration Dextrose/Sodium Chloride 1,000 mls @ 75 mls/hr 03/10/21 23:45 03/11/21 00:25 D5/0.45ns IV 75 mls/hr DIRECT BALAJI Administration Vancomycin HCl 1 gm in 250 mls @ 167.007 mls/hr 03/11/21 10:00 Vancomycin/Ns 1 Gm/250 Ml IV 03/11/21 11:29 ONCE ONE Insulin Human Regular 0 units 03/09/21 18:00 03/11/21 07:55 Insulin Regular, Human 100 Units/1 Ml SUB-Q Not Given ACHS BALAJI Protocol Magnesium Hydroxide 30 ml 03/09/21 05:56 Magnesium Hydroxide (Mom) Oral Liqd Udc PO Q4H PRN Constipation Nifedipine 30 mg 03/09/21 10:00 03/10/21 10:00 Nifedipine Xl 30 Mg Tab PO Not Given QDAY BALAJI Senna 17.2 mg 03/09/21 22:00 03/10/21 23:00 Sennosides 8.6 Mg Tab PO Not Given QHS BALAJI Sodium Chloride 10 ml 03/09/21 10:00 03/10/21 23:00 Sodium Chloride 0.9% 10 Ml Flush Syringe IV 10 ml BID BALAJI Administration Sodium Chloride 10 ml 03/09/21 05:56 03/11/21 05:56 Sodium Chloride 0.9% 10 Ml Flush Syringe IV 10 ml PRN PRN Administration LINE FLUSH
[2021-03-11] MEDS ORDERED: VANCOMYCIN/NS 1 GM/250 ML 1 GM/250 ML BAG IV ONE ×2 (10:00→14:30)
[2021-03-11] MEDS: carvediloL 6.25 MG TAB PO SCH (10:05)
--- NOTE | 2021-03-11 10:18 | Consultation ---
History of Present Illness Consult date: 03/11/21 Reason for Consult: Encephalopathy Chief complaint: Encephalopathy History of present illness: Patient is at MRI during rounds. Past History Past Medical History: diabetes (Borderline), dialysis, ESRD, hypertension Past Surgical History: No surgical history Social history: no significant social history Family history: no significant family history Medications and Allergies Allergies Allergy/AdvReac Type Severity Reaction Status Date / Time No Known Allergies Allergy Unverified 07/09/20 12:47 Home Medications Medication Instructions Recorded Confirmed Last Taken Type HYDROcodone/APAP 5-325 [[place] 1 each PO Q4HR PRN #30 tablet 07/15/20 11/10/20 Unknown Rx 5-325 mg TAB] NIFEdipine XL [Procardia Xl] 30 mg PO QDAY #30 tablet 11/12/20 Unknown Rx carvediloL [Coreg] 6.25 mg PO BID #60 tablet 11/12/20 Unknown Rx hydrALAZINE [Apresoline TAB] 25 mg PO Q8HR #90 tab 11/12/20 Unknown Rx Active Meds: Active Medications Acetaminophen (Acetaminophen 325 Mg Tab) 650 mg PO Q6H PRN PRN Reason: Pain MILD(1-3)/Fever >100.5/ALMODOVAR Carvedilol (Carvedilol 6.25 Mg Tab) 6.25 mg PO BID [facility] Last Admin: 03/10/21 23:00 Dose: Not Given Documented by: Heparin Sodium (Porcine) (Heparin 5,000 Unit/1 Ml Vial) 5,000 unit SUB-Q Q8HR [facility] Last Admin: 03/11/21 05:55 Dose: 5,000 unit Documented by: Hydralazine HCl (Hydralazine 25 Mg Tab) 25 mg PO Q8HR [facility] Last Admin: 03/11/21 06:55 Dose: Not Given Documented by: Hydralazine HCl (Hydralazine 20 Mg/1 Ml Inj) 10 mg IV Q6HR PRN PRN Reason: Hypertension Last Admin: 03/11/21 05:55 Dose: 10 mg Documented by: Sodium Chloride (Nacl 0.9%) 100 mls @ 999 mls/hr IV FLAKO PRN PRN Reason: Hypotension Cefepime HCl (Cefepime/Ns 1 Gm/100 Ml) 1 gm in 100 mls @ 200 mls/hr IV QPM [facility] Last Admin: 03/10/21 20:03 Dose: 200 mls/hr Documented by: Dextrose/Sodium Chloride (D5/0.45ns) 1,000 mls @ 75 mls/hr IV DIRECT [facility] Last Admin: 03/11/21 00:25 Dose: 75 mls/hr Documented by: Vancomycin HCl (Vancomycin/Ns 1 Gm/250 Ml) 1 gm in 250 mls @ 167.007 mls/hr IV ONCE ONE Stop: 03/11/21 11:29 Insulin Human Regular (Insulin Regular, Human 100 Units/1 Ml) 0 units SUB-Q ACHS BALAJI; Protocol Last Admin: 03/11/21 07:55 Dose: Not Given Documented by: Magnesium Hydroxide (Magnesium Hydroxide (Mom) Oral Liqd Udc) 30 ml PO Q4H PRN PRN Reason: Constipation Nifedipine (Nifedipine Xl 30 Mg Tab) 30 mg PO QDAY [facility] Last Admin: 03/10/21 10:00 Dose: Not Given Documented by: Senna (Sennosides 8.6 Mg Tab) 17.2 mg PO QHS [facility] Last Admin: 03/10/21 23:00 Dose: Not Given Documented by: Sodium Chloride (Sodium Chloride 0.9% 10 Ml Flush Syringe) 10 ml IV BID BALAJI Last Admin: 03/10/21 23:00 Dose: 10 ml Documented by: Sodium Chloride (Sodium Chloride 0.9% 10 Ml Flush Syringe) 10 ml IV PRN PRN PRN Reason: LINE FLUSH Last Admin: 03/11/21 05:56 Dose: 10 ml Documented by: Physical Examination - Vital Signs Vital Signs: Vital Signs Temp Pulse Resp BP Pulse Ox 98.5 F 101 H 24 221/107 98 03/09/21 03:05 03/09/21 03:05 03/09/21 03:05 03/09/21 03:05 03/09/21 03:05 Results - Laboratory Findings CBC and BMP: 03/11/21 08:41 03/11/21 08:41 Abnormal Lab Findings: Abnormal Labs 03/09/21 03/09/21 03/09/21 03:34 03:34 03:34 WBC 20.7 H RBC 3.57 L RDW 16.5 H Sac % (Auto) Sac # (Auto) Seg Neuts % (Manual) 84.0 H Lymphocytes % (Manual) 6.0 L Seg Neutrophils # Man 17.4 H D-Dimer Sodium 133 L Potassium 6.1 H* Chloride 93.6 L BUN 62 H Creatinine 8.2 H Glucose 137 H POC Glucose Ferritin Lactate Dehydrogenase Troponin T 0.123 H* Total Protein HDL Cholesterol 37 L 03/09/21 03/09/21 03/09/21 05:17 05:17 05:17 WBC RBC RDW Sac % (Auto) Sac # (Auto) Seg Neuts % (Manual) Lymphocytes % (Manual) Seg Neutrophils # Man D-Dimer 1098.77 H Sodium Potassium Chloride BUN Creatinine Glucose 123 H POC Glucose Ferritin Lactate Dehydrogenase 300 H Troponin T 0.129 H* Total Protein HDL Cholesterol 03/09/21 03/09/21 03/09/21 05:17 14:21 17:01 WBC RBC RDW Sac % (Auto) Sac # (Auto) Seg Neuts % (Manual) Lymphocytes % (Manual) Seg Neutrophils # Man D-Dimer Sodium 133 L Potassium 5.2 H Chloride 94.3 L BUN 23 H Creatinine 4.3 H Glucose 246 H POC Glucose 201 H Ferritin 2210.0 H Lactate Dehydrogenase Troponin T Total Protein HDL Cholesterol 03/09/21 03/10/21 03/10/21 22:07 04:49 04:49 WBC RBC 3.54 L RDW 16.4 H Sac % (Auto) 11.4 H Sac # (Auto) 1.0 H Seg Neuts % (Manual) Lymphocytes % (Manual) Seg Neutrophils # Man D-Dimer Sodium 134 L Potassium 5.2 H Chloride 93.0 L BUN 45 H Creatinine 5.9 H Glucose 112 H POC Glucose 128 H Ferritin Lactate Dehydrogenase Troponin T Total Protein HDL Cholesterol 03/10/21 03/11/21 03/11/21 23:24 08:41 08:41 WBC 12.0 H RBC RDW 15.6 H Sac % (Auto) 15.3 H Sac # (Auto) 1.8 H Seg Neuts % (Manual) Lymphocytes % (Manual) Seg Neutrophils # Man D-Dimer Sodium 134 L Potassium Chloride 91.6 L BUN 32 H Creatinine 4.8 H Glucose 119 H POC Glucose 284 H Ferritin Lactate Dehydrogenase Troponin T Total Protein 9.1 H HDL Cholesterol Assessment and Plan Patient is at MRI during rounds. Sudarshan Buck MD Neurology (No charge)
[2021-03-11] MEDS ORDERED: LORazepam 2 MG/ML VIAL IV NR (10:48)
--- NOTE | 2021-03-11 14:00 | Progress Note ---
Assessment and Plan Assessment and plan: 1. Metabolic encephalopathy Confusion on a.m. encounter of 03/10, this is new per RN who stated the patient was more conversational yesterday Suspect in the setting of uremia versus underlying infection. Discussed with nephrology 03/10 regarding extra hemodialysis treatment, follow- up after hemodialysis today -No improvement post HD -ordered MRI brain, EEG, neurology consultation 2. Sepsis -Leukocytosis, tachycardia secondary to pneumonia WBC 20.7 on admission Covid PCR negative Blood culture positive 1 out of 2 bottles CXR on admission: Mild patchy multifocal airspace disease. Vancomycin IV, cefepime IV Infectious disease following 3. Multifocal pneumonia Covid negative, elevated procalcitonin -Currently on nasal cannula NC 1L , will wean as tolerated Antibiotics as above Pulmonology following 4. GPC bacteremia 1 out of 4 bottles, contaminant suspected. Follow for speciation and sensitivities Antibiotics as above for now Infectious disease following 5. ESRD on HD On HD Avoid nephrotoxic agents Renally adjust medications (Vanc/Cefepime) Nephrology following 6. Hypertensive emergency - 221/107 on admission, repeat today 135/87 Resume home hydralazine, carvedilol, Procardia XL 7. Persons under investigation for COVID-19 8. Secondary hyperparathyroidism Continue phosphate binders 9. Anemia of CKD - continue to monitor H/H 10. Hyponatremia - monitor Na 11. Hyperkalemia - monitor K, last 5.2 - correct with HD Hospital Course to date 03/10: Paged by ED RN regarding patient mental status change. 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 Today patient is alert, protecting airway, however, she appears more confused. She does not acknowledge medical staff in room but does not attempt to communicate or respond or follow commands when spoken to. stat CT brain was ordered which was negative. 03/11: Recieved HD yesterday, no improvement in mentation on Am encounter. Will order MRI brain, EEG, neurology consultation. History Interval history: Remains confused. Hospitalist Physical - Physical exam Narrative exam: Physical Exam: Constitutional: Alert, confused. No acute distress, thin elderly Palestinian female. Head, Ears, Nose: Normocephalic, atraumatic. External ears, nose normal Eyes: Conjunctivae/corneas clear. No icterus. No ptosis. Neck: Supple, no meningeal signs Oral: dentition fair, no thrush Cardiovascular: S1, S2 normal. Respiratory: Good air entry, clear to auscultation bilaterally GI: Soft, non-tender; bowel sounds normal. No peritoneal signs. Musculoskeletal: No pedal edema, no cyanosis. Skin: No rash or abscess Hem/Lymphatic: No palpable cervical or supraclavicular nodes. No lymphangitis Psych: Affect normal, however not tracking with medical staff, appears confused. Neurological: Awake, alert, not oriented. . No gross abnormality - Constitutional Vitals: Temp Pulse Resp BP Pulse Ox 98.8 F 102 H 16 149/86 100 03/10/21 21:47 03/10/21 21:47 03/10/21 21:47 03/11/21 05:55 03/11/21 10:10 General appearance: Present: mild distress, well-nourished HEART Score - HEART Score Troponin: Troponin T 0.129 ng/mL (0.00-0.029) H* 03/09/21 05:17 Results - Labs CBC & Chem 7: 03/11/21 08:41 03/11/21 08:41 Labs: Laboratory Last Values WBC 12.0 K/mm3 (4.5-11.0) H 03/11/21 08:41 RBC 3.94 M/mm3 (3.65-5.03) 03/11/21 08:41 Hgb 11.6 gm/dl (10.1-14.3) 03/11/21 08:41 Hct 34.9 % (30.3-42.9) 03/11/21 08:41 MCV 89 fl (79-97) 03/11/21 08:41 MCH 29 pg (28-32) 03/11/21 08:41 MCHC 33 % (30-34) 03/11/21 08:41 RDW 15.6 % (13.2-15.2) H 03/11/21 08:41 Plt Count 249 K/mm3 (140-440) 03/11/21 08:41 Lymph % (Auto) 20.9 % (13.4-35.0) 03/11/21 08:41 Dundy % (Auto) 15.3 % (0.0-7.3) H 03/11/21 08:41 Eos % (Auto) 0.6 % (0.0-4.3) 03/11/21 08:41 Baso % (Auto) 0.3 % (0.0-1.8) 03/11/21 08:41 Lymph # (Auto) 2.5 K/mm3 (1.2-5.4) 03/11/21 08:41 Dundy # (Auto) 1.8 K/mm3 (0.0-0.8) H 03/11/21 08:41 Eos # (Auto) 0.1 K/mm3 (0.0-0.4) 03/11/21 08:41 Baso # (Auto) 0.0 K/mm3 (0.0-0.1) 03/11/21 08:41 Add Manual Diff Complete 03/09/21 03:34 Total Counted 100 03/09/21 03:34 Seg Neutrophils % 62.9 % (40.0-70.0) 03/11/21 08:41 Seg Neuts % (Manual) 84.0 % (40.0-70.0) H 03/09/21 03:34 Band Neutrophils % 4.0 % 03/09/21 03:34 Lymphocytes % (Manual) 6.0 % (13.4-35.0) L 03/09/21 03:34 Monocytes % (Manual) 3.0 % (0.0-7.3) 03/09/21 03:34 Eosinophils % (Manual) 2.0 % (0.0-4.3) 03/09/21 03:34 Metamyelocytes % 1.0 % 03/09/21 03:34 Nucleated RBC % Not Reportable 03/09/21 03:34 Seg Neutrophils # 7.5 K/mm3 (1.8-7.7) 03/11/21 08:41 Seg Neutrophils # Man 17.4 K/mm3 (1.8-7.7) H 03/09/21 03:34 Band Neutrophils # 0.8 K/mm3 03/09/21 03:34 Lymphocytes # (Manual) 1.2 K/mm3 (1.2-5.4) 03/09/21 03:34 Abs React Lymphs (Man) 0.0 K/mm3 03/09/21 03:34 Monocytes # (Manual) 0.6 K/mm3 (0.0-0.8) 03/09/21 03:34 Eosinophils # (Manual) 0.4 K/mm3 (0.0-0.4) 03/09/21 03:34 Basophils # (Manual) 0.0 K/mm3 (0.0-0.1) 03/09/21 03:34 Metamyelocytes # 0.2 K/mm3 03/09/21 03:34 Myelocytes # 0.0 K/mm3 03/09/21 03:34 Promyelocytes # 0.0 K/mm3 03/09/21 03:34 Blast Cells # 0.0 K/mm3 03/09/21 03:34 WBC Morphology Not Reportable 03/09/21 03:34 Hypersegmented Neuts Not Reportable 03/09/21 03:34 Hyposegmented Neuts Not Reportable 03/09/21 03:34 Hypogranular Neuts Not Reportable 03/09/21 03:34 Smudge Cells Not Reportable 03/09/21 03:34 Toxic Granulation Not Reportable 03/09/21 03:34 Toxic Vacuolation Not Reportable 03/09/21 03:34 Dohle Bodies Not Reportable 03/09/21 03:34 Pelger-Huet Anomaly Not Reportable 03/09/21 03:34 Kecia Rods Not Reportable 03/09/21 03:34 Platelet Estimate Consistent w auto 03/09/21 03:34 Clumped Platelets Not Reportable 03/09/21 03:34 Plt Clumps, EDTA Not Reportable 03/09/21 03:34 Large Platelets Not Reportable 03/09/21 03:34 Giant Platelets Not Reportable 03/09/21 03:34 Platelet Satelliting Not Reportable 03/09/21 03:34 Plt Morphology Comment Not Reportable 03/09/21 03:34 RBC Morphology Not Reportable 03/09/21 03:34 Dimorphic RBCs Not Reportable 03/09/21 03:34 Polychromasia Not Reportable 03/09/21 03:34 Hypochromasia 1+ 03/09/21 03:34 Poikilocytosis Not Reportable 03/09/21 03:34 Anisocytosis Few 03/09/21 03:34 Microcytosis Not Reportable 03/09/21 03:34 Macrocytosis Not Reportable 03/09/21 03:34 Spherocytes Not Reportable 03/09/21 03:34 Pappenheimer Bodies Not Reportable 03/09/21 03:34 Sickle Cells Not Reportable 03/09/21 03:34 Target Cells Not Reportable 03/09/21 03:34 Tear Drop Cells Not Reportable 03/09/21 03:34 Ovalocytes Not Reportable 03/09/21 03:34 Helmet Cells Not Reportable 03/09/21 03:34 [place]kee[place]-Arial Bodies Not Reportable 03/09/21 03:34 Brisbin Rings Not Reportable 03/09/21 03:34 Maria De Jesus Cells Not Reportable 03/09/21 03:34 Bite Cells Not Reportable 03/09/21 03:34 Crenated Cell Not Reportable 03/09/21 03:34 Elliptocytes Not Reportable 03/09/21 03:34 Acanthocytes (Spur) Not Reportable 03/09/21 03:34 Rouleaux Not Reportable 03/09/21 03:34 Hemoglobin C Crystals Not Reportable 03/09/21 03:34 Schistocytes Not Reportable 03/09/21 03:34 Malaria parasites Not Reportable 03/09/21 03:34 Ren Bodies Not Reportable 03/09/21 03:34 Hem Pathologist Commnt No 03/09/21 03:34 PT 13.6 Sec. (12.2-14.9) 03/10/21 04:49 INR 0.99 (0.87-1.13) 03/10/21 04:49 APTT 33.2 Sec. (24.2-36.6) 03/09/21 03:34 D-Dimer 1098.77 ng/mlDDU (0-234) H 03/09/21 05:17 Sodium 134 mmol/L (137-145) L 03/11/21 08:41 Potassium 4.0 mmol/L (3.6-5.0) D 03/11/21 08:41 Chloride 91.6 mmol/L (98-107) L 03/11/21 08:41 Carbon Dioxide 26 mmol/L (22-30) 03/11/21 08:41 Anion Gap 20 mmol/L 03/11/21 08:41 BUN 32 mg/dL (7-17) H 03/11/21 08:41 Creatinine 4.8 mg/dL (0.6-1.2) H 03/11/21 08:41 Estimated GFR 9 ml/min 03/11/21 08:41 BUN/Creatinine Ratio 7 % 03/11/21 08:41 Glucose 119 mg/dL (65-100) H 03/11/21 08:41 POC Glucose 100 mg/dL (70-105) 03/11/21 05:53 Hemoglobin A1c 5.1 % (4-6) 03/09/21 10:43 Lactic Acid 1.20 mmol/L (0.7-2.0) 03/09/21 07:37 Calcium 9.1 mg/dL (8.4-10.2) 03/11/21 08:41 Ferritin 2210.0 ng/mL (10.0-200.0) H 03/09/21 05:17 Total Bilirubin 0.50 mg/dL (0.1-1.2) 03/11/21 08:41 AST 15 units/L (5-40) 03/11/21 08:41 ALT 9 units/L (7-56) 03/11/21 08:41 Alkaline Phosphatase 79 units/L (35-129) 03/11/21 08:41 Lactate Dehydrogenase 300 units/L (91-180) H 03/09/21 05:17 Total Creatine Kinase 57 units/L (30-135) 03/09/21 10:43 CK-MB (CK-2) 2.3 ng/mL (0.0-4.0) 03/09/21 10:43 CK-MB (CK-2) Rel Index 4.0 (0-4) 03/09/21 10:43 Troponin T 0.129 ng/mL (0.00-0.029) H* 03/09/21 05:17 C-Reactive Protein 1.10 mg/dL (0.00-1.30) 03/09/21 05:17 Total Protein 9.1 g/dL (6.3-8.2) H 03/11/21 08:41 Albumin 4.0 g/dL (3.9-5) 03/11/21 08:41 Albumin/Globulin Ratio 0.8 % 03/11/21 08:41 Triglycerides 133 mg/dL (2-149) 03/09/21 03:34 Cholesterol 158 mg/dL (50-199) 03/09/21 03:34 LDL Cholesterol Direct 105 mg/dL (50-130) 03/09/21 03:34 HDL Cholesterol 37 mg/dL (40-59) L 03/09/21 03:34 Cholesterol/HDL Ratio 4.27 % 03/09/21 03:34 Procalcitonin 0.71 ng/mL (<0.15) 03/09/21 05:17 Random Vancomycin 12.5 ug/mL (0-40.0) 03/10/21 04:49 Coronavirus (PCR) Negative (Negative) 03/09/21 08:40 Hepatitis A IgM Ab Non-reactive (NonReactive) 03/09/21 07:37 Hep Bs Antigen Nonreactive (Negative) 03/09/21 07:37 Hep B Core IgM Ab Non-reactive (NonReactive) 03/09/21 07:37 Hepatitis C Antibody Non-reactive (NonReactive) 03/09/21 07:37 Microbiology: Microbiology 03/09/21 05:17 Peripheral/Venous Blood Culture - Preliminary NO GROWTH AFTER 48 HOURS 03/09/21 06:06 Peripheral/Venous Blood Culture - Preliminary Persaud/IV: Voiding Method Incontinent Active Medications - Current Medications Current Medications: Generic Name Dose Route Start Last Admin Trade Name Freq PRN Reason Stop Dose Admin Acetaminophen 650 mg 03/09/21 05:56 Acetaminophen 325 Mg Tab PO Q6H PRN Pain MILD(1-3)/Fever >100.5/ALMODOVAR Carvedilol 6.25 mg 03/09/21 10:00 03/10/21 23:00 Carvedilol 6.25 Mg Tab PO Not Given BID BALAJI Heparin Sodium (Porcine) 5,000 unit 03/09/21 14:00 03/11/21 05:55 Heparin 5,000 Unit/1 Ml Vial SUB-Q 5,000 unit Q8HR BALAJI Administration Hydralazine HCl 25 mg 03/09/21 14:00 03/11/21 06:55 Hydralazine 25 Mg Tab PO Not Given Q8HR BALAJI Hydralazine HCl 10 mg 03/10/21 23:06 03/11/21 05:55 Hydralazine 20 Mg/1 Ml Inj IV 10 mg Q6HR PRN Administration Hypertension Sodium Chloride 100 mls @ 999 mls/hr 03/09/21 04:50 Nacl 0.9% IV FLAKO PRN Hypotension Cefepime HCl 1 gm in 100 mls @ 200 mls/hr 03/10/21 18:00 03/10/21 20:03 Cefepime/Ns 1 Gm/100 Ml IV 200 mls/hr QPM BALAJI Administration Dextrose/Sodium Chloride 1,000 mls @ 75 mls/hr 03/10/21 23:45 03/11/21 00:25 D5/0.45ns IV 75 mls/hr DIRECT BALAJI Administration Insulin Human Regular 0 units 03/09/21 18:00 03/11/21 07:55 Insulin Regular, Human 100 Units/1 Ml SUB-Q Not Given ACHS BALAJI Protocol Lorazepam 1 mg 03/11/21 10:48 Lorazepam 2 Mg/Ml Vial IV 03/11/21 20:00 EXHIBIT BUILDER NR Magnesium Hydroxide 30 ml 03/09/21 05:56 Magnesium Hydroxide (Mom) Oral Liqd Udc PO Q4H PRN Constipation Nifedipine 30 mg 03/09/21 10:00 03/10/21 10:00 Nifedipine Xl 30 Mg Tab PO Not Given QDAY BALAJI Senna 17.2 mg 03/09/21 22:00 03/10/21 23:00 Sennosides 8.6 Mg Tab PO Not Given QHS BALAJI Sodium Chloride 10 ml 03/09/21 10:00 03/10/21 23:00 Sodium Chloride 0.9% 10 Ml Flush Syringe IV 10 ml BID BALAJI Administration Sodium Chloride 10 ml 03/09/21 05:56 03/11/21 05:56 Sodium Chloride 0.9% 10 Ml Flush Syringe IV 10 ml PRN PRN Administration LINE FLUSH Nutrition/Malnutrition Assess - Dietary Evaluation Nutrition/Malnutrition Findings: Nutrition Notes Start: 03/09/21 07:41 Freq: Status: Active Protocol: Document 03/09/21 07:41 (Rec: 03/09/21 07:43 [email or web address]) Nutrition Notes Need for Assessment generated from: MD Order Initial or Follow up Brief Note Current Diagnosis CKD (stage V CKD),Sepsis, Hypertension Other Pertinent Diagnosis COVID PUI, on HD (MWF), s/p renal transplant Current Diet Cardiac Subjective/Other Information MD consult for diet education. Pt on hold in ED. Nutrition Intervention Change Diet Order: add renal Follow-Up By: 03/12/21 Additional Comments F/u: diet education needs
--- NOTE | 2021-03-11 16:50 | Progress Note ---
Assessment and Plan Cultures: Blood culture Staph species 1/4 bottles A/P: 75-year-old female past medical history hypertension, ESRD on HD admitted with pneumonia #Multifocal pneumonia: Covid negative, elevated procalcitonin in setting of ESRD. Continue empiric antibiotics. #GPC bacteremia: 1 of 4 bottles, possible contaminant. #ESRD on HD: Renally dose medications. #Acute sepsis: Present with leukocytosis and tachycardia. Likely secondary to pneumonia. Recs: -Continue renally dosed cefepime -Continue vancomycin pending finalization of blood cultures. -Follow up blood cultures -Anticipate discharge with cefepime with HD when improved. Thank you for the consult, we will continue to follow. Poly Eduardo MD [facility] O: [phone] F: [phone] Subjective Date of service: 03/11/21 Interval history: Afebrile, white count 12. Blood culture with staph species, awaiting finalization. Objective - Exam Narrative Exam: Physical Exam: Constitutional: Alert, cooperative. No acute distress Head, Ears, Nose: Normocephalic, atraumatic. External ears, nose normal Eyes: Conjunctivae/corneas clear. No icterus. No ptosis. Neck: Supple, no meningeal signs Oral: dentition fair, no thrush Cardiovascular: S1, S2 normal. Respiratory: Good air entry, clear to auscultation bilaterally GI: Soft, non-tender; bowel sounds normal. No peritoneal signs. Musculoskeletal: No pedal edema, no cyanosis. Skin: No rash or abscess Hem/Lymphatic: No palpable cervical or supraclavicular nodes. No lymphangitis Psych: Mood ok. Affect normal Neurological: Awake, alert, oriented. No gross abnormality - Constitutional Vitals: Vital Signs Temp Pulse Resp BP Pulse Ox 98.2 F 109 H 16 134/89 99 03/11/21 14:40 03/11/21 14:40 03/11/21 14:40 03/11/21 14:40 03/11/21 14:40 Temperature -Last 24 Hours Temperature 98.2 F Temperature 98.0 F Temperature 98.8 F Temperature 98.2 F - Labs CBC & Chem 7: 03/11/21 08:41 03/11/21 08:41 Labs: Abnormal lab results 03/10/21 03/11/2103/11/21 Range/Units 23:24 08:41 08:41 WBC 12.0 H (4.5-11.0) K/mm3 RDW 15.6 H (13.2-15.2) % [place] % (Auto) 15.3 H (0.0-7.3) % [place] # (Auto) 1.8 H (0.0-0.8) K/mm3 Sodium 134 L (137-145) mmol/L Chloride 91.6 L (98-107) mmol/L BUN 32 H (7-17) mg/dL Creatinine 4.8 H (0.6-1.2) mg/dL Glucose 119 H (65-100) mg/dL POC Glucose 284 H (70-105) mg/dL Total Protein 9.1 H (6.3-8.2) g/dL
[2021-03-11] MEDS: NIFEdipine XL 30 MG TAB PO SCH (17:14)
[2021-03-11] MEDS: CEFEPIME/NS 1 GM/100 ML 1 GM/100 ML BAG IV SCH (17:23)
--- NOTE | 2021-03-11 20:37 | Progress Note ---
Assessment and Plan 75-year-old female with known history of hypertension, end-stage renal disease on dialysis Mondays, Wednesdays and Fridays and also status post field renal transplant presents to the emergency room via EMS today complaining of shortness of breath. Daughter indicates that patient may not have had enough fluid taken off during dialysis on Tuesday. There has been no fever or chills, no nausea or vomiting, no abdominal pain, no headache or dizziness, no loss of taste or smell, no recent travel, no sick contacts and no contact with anyone with COVID-19. Upon arrival of EMS patient oxygen saturation was about 68% on room air and patient was placed on nonrebreather on the scene with improvement of oxygen saturation to about 98%. 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 She has been admitted in the past before for fluid overload requiring BiPAP. Most of the history has been gotten from daughter as patient does not speak Indian. Upon arrival in the emergency room patient was quite hypertensive with systolic in the 200s and diastolic in the low 100s. Patient subsequently started on a nitroglycerin drip. Job Setter Honing on-call was consulted . Patient promptly given dialysis. Patient has had nebulizer treatment, insulin and glucose for the hyperkalemia. She is also started on empiric IV antibiotics for sepsis. atient sleeping . O2 litres O2. O2 saturation 97%. No acute respiratory distress. Patient speaks only [place]. Unable to get history from her. Most of the history obtained from the chart. Patient is afebrile. BP 162/85. HR: 87. Patient afebrile. No leukocytosis, K+ 4.0. Troponin was slightly elevated at 0.123. COVID negative. chest x-ray (03/09/21) showed mild patchy multifocal airspace disease. Patient is currently on Cefepime and S/C heparin. - Patient Problems (1) Acute pulmonary edema Current Visit: Yes Status: Acute Plan to address problem: Patient is on dialysis. (2) ESRD needing dialysis Current Visit: Yes Status: Acute Plan to address problem: Management as per nephrology. (3) Hypertensive emergency Current Visit: Yes Status: Acute Plan to address problem: Managent as per primary care. (4) Person under investigation for COVID-19 Current Visit: Yes Status: Acute Plan to address problem: Patients Rick virus PCR negative. (5) Sepsis Current Visit: Yes Status: Acute Plan to address problem: Patient is on cefepime. (6) Hyponatremia Current Visit: No Status: Acute Plan to address problem: Na+ level 134 (7) Metabolic acidosis Current Visit: No Status: Acute Plan to address problem: Anion gap 20. Could be secondary to renal failure. Subjective Date of service: 03/11/21 Interval history: 75-year-old female with known history of hypertension, end-stage renal disease on dialysis Mondays, Wednesdays and Fridays and also status post field renal transplant presents to the emergency room via EMS today complaining of shortness of breath. Daughter indicates that patient may not have had enough fluid taken off during d ialysis on Tuesday. There has been no fever or chills, no nausea or vomiting, no abdominal pain, no headache or dizziness, no loss of taste or smell, no recent travel, no sick contacts and no contact with anyone with COVID-19. Upon arrival of EMS patient oxygen saturation was about 68% on room air and patient was placed on nonrebreather on the scene with improvement of oxygen saturation to about 98%. 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 She has been admitted in the past before for fluid overload requiring BiPAP. Most of the history has been gotten from daughter as patient does not speak Indian. Upon arrival in the emergency room patient was quite hypertensive with systolic in the 200s and diastolic in the low 100s. Patient subsequently started on a nitroglycerin drip. Job Setter Honing on-call was consulted . Patient promptly given dialysis. Patient has had nebulizer treatment, insulin and glucose for the hyperkalemia. She is also started on empiric IV antibiotics for sepsis. Patient sleeping . O2 litres O2. O2 saturation 97%. No acute respiratory distress. Patient speaks only [place]. Unable to get history from her. Most of the history obtained from the chart. Patient is afebrile. BP 162/85. HR: 87. Patient afebrile. No leukocytosis, K+ 4.0. Troponin was slightly elevated at 0.123. COVID negative. chest x-ray (03/09/21) showed mild patchy multifocal airspace disease. Patient is currently on Cefepime and S/C heparin. Objective Vital Signs - 12hr 03/11/21 03/11/21 03/11/21 09:12 10:10 11:00 Temperature 98.0 F Pulse Rate 103 H Respiratory 18 Rate Blood Pressure 159/93 Blood Pressure [Right] O2 Sat by Pulse 96 100 Oximetry O2 Sat by Pulse 100 Oximetry [ Bilateral] 03/11/21 03/11/21 03/11/21 11:15 11:30 11:45 Temperature Pulse Rate 112 H 114 H 115 H Respiratory Rate Blood Pressure 168/94 162/87 119/66 Blood Pressure [Right] O2 Sat by Pulse Oximetry O2 Sat by Pulse Oximetry [ Bilateral] 03/11/21 03/11/21 03/11/21 11:50 12:00 12:15 Temperature Pulse Rate 108 H 105 H 110 H Respiratory Rate Blood Pressure 154/72 149/84 150/86 Blood Pressure [Right] O2 Sat by Pulse Oximetry O2 Sat by Pulse Oximetry [ Bilateral] 03/11/21 03/11/21 03/11/21 12:30 12:45 13:00 Temperature Pulse Rate 106 H 112 H 85 Respiratory Rate Blood Pressure 149/72 104/53 54/21 Blood Pressure [Right] O2 Sat by Pulse Oximetry O2 Sat by Pulse Oximetry [ Bilateral] 03/11/21 03/11/21 03/11/21 14:32 14:40 15:00 Temperature 98.2 F 98.0 F Pulse Rate 109 H 87 Respiratory 16 18 Rate Blood Pressure 162/85 Blood Pressure 134/89 [Right] O2 Sat by Pulse 99 99 Oximetry O2 Sat by Pulse 100 Oximetry [ Bilateral] Constitutional: no acute distress, alert Eyes: non-icteric ENT: oropharynx moist Neck: supple, no lymphadenopathy Effort: normal Ascultation: Bilateral: diminished breath sounds Cardiovascular: regular rate and rhythm Gastrointestinal: normoactive bowel sounds, soft, non-tender Integumentary: normal Extremities: no cyanosis, no edema Neurologic: non-focal exam, pupils equal and round Psychiatric: other (Patient speaks only vitnam. Can not asses mood or effect.) CBC and BMP: 03/12/21 06:30 03/12/21 13:44 ABG, PT/INR, D-dimer: PT/INR, D-dimer PT 13.6 Sec. (12.2-14.9) 03/10/21 04:49 INR 0.99 (0.87-1.13) 03/10/21 04:49 D-Dimer 1098.77 ng/mlDDU (0-234) H 03/09/21 05:17 Abnormal lab findings: Abnormal Labs 03/09/21 03/09/21 03/09/21 03:34 03:34 03:34 WBC 20.7 H RBC 3.57 L RDW 16.5 H [place] % (Auto) [place] # (Auto) Seg Neuts % (Manual) 84.0 H Lymphocytes % (Manual) 6.0 L Seg Neutrophils # Man 17.4 H D-Dimer Sodium 133 L Potassium 6.1 H* Chloride 93.6 L BUN 62 H Creatinine 8.2 H Glucose 137 H POC Glucose Ferritin Lactate Dehydrogenase Troponin T 0.123 H* Total Protein HDL Cholesterol 37 L 03/09/21 03/09/21 03/09/21 05:17 05:17 05:17 WBC RBC RDW [place] % (Auto) [place] # (Auto) Seg Neuts % (Manual) Lymphocytes % (Manual) Seg Neutrophils # Man D-Dimer 1098.77 H Sodium Potassium Chloride BUN Creatinine Glucose 123 H POC Glucose Ferritin Lactate Dehydrogenase 300 H Troponin T 0.129 H* Total Protein HDL Cholesterol 03/09/21 03/09/21 03/09/21 05:17 14:21 17:01 WBC RBC RDW [place] % (Auto) [place] # (Auto) Seg Neuts % (Manual) Lymphocytes % (Manual) Seg Neutrophils # Man D-Dimer Sodium 133 L Potassium 5.2 H Chloride 94.3 L BUN 23 H Creatinine 4.3 H Glucose 246 H POC Glucose 201 H Ferritin 2210.0 H Lactate Dehydrogenase Troponin T Total Protein HDL Cholesterol 03/09/21 03/10/21 03/10/21 22:07 04:49 04:49 WBC RBC 3.54 L RDW 16.4 H [place] % (Auto) 11.4 H [place] # (Auto) 1.0 H Seg Neuts % (Manual) Lymphocytes % (Manual) Seg Neutrophils # Man D-Dimer Sodium 134 L Potassium 5.2 H Chloride 93.0 L BUN 45 H Creatinine 5.9 H Glucose 112 H POC Glucose 128 H Ferritin Lactate Dehydrogenase Troponin T Total Protein HDL Cholesterol 03/10/21 03/11/21 03/11/21 23:24 08:41 08:41 WBC 12.0 H RBC RDW 15.6 H [place] % (Auto) 15.3 H [place] # (Auto) 1.8 H Seg Neuts % (Manual) Lymphocytes % (Manual) Seg Neutrophils # Man D-Dimer Sodium 134 L Potassium Chloride 91.6 L BUN 32 H Creatinine 4.8 H Glucose 119 H POC Glucose 284 H Ferritin Lactate Dehydrogenase Troponin T Total Protein 9.1 H HDL Cholesterol
[2021-03-12] MEDS: INSULIN REGULAR, HUMAN 100 UNITS/1 ML SUB-Q SCH ×4 (02:33→17:41)
[2021-03-12] MEDS: hydrALAZINE 25 MG TAB PO SCH ×2 (02:33→14:00)
[2021-03-12] MEDS: carvediloL 6.25 MG TAB PO SCH ×2 (02:33→11:23)
[2021-03-12] MEDS: SENNOSIDES 8.6 MG TAB PO SCH (02:33)
[2021-03-12] MEDS: hydrALAZINE 20 MG/1 ML INJ IV PRN ×3 (06:22→21:54)
[2021-03-12] MEDS: HEPARIN 5,000 UNIT/1 ML VIAL SUB-Q SCH ×3 (06:22→21:54)
[2021-03-12 07:01] LABS: Alanine Aminotransferase 22 units/L (7-56); Albumin 2.3 g/dL (3.9-5); BUN/Creatinine Ratio 59; Blood Urea Nitrogen 47 mg/dL (7-17); Calcium 9.7 mg/dL (8.4-10.2); Hemolysis Index 5
[2021-03-12 07:06] LABS: Basophils # (Auto) 0.1 K/mm3 (0.0-0.1); Basophils % (Auto) 0.7 % (0.0-1.8); Eosinophils # (Auto) 0.1 K/mm3 (0.0-0.4); Eosinophils % (Auto) 1.2 % (0.0-4.3); Hematocrit 26.7 % (30.3-42.9); Hemoglobin 8.3 gm/dl (10.1-14.3); Lymphocytes # (Auto) 0.8 K/mm3 (1.2-5.4); Mean Corpuscular HGB Conc 31 % (30-34); Mean Corpuscular Volume 78 fl (79-97); Monocytes # (Auto) 0.2 K/mm3 (0.0-0.8); Monocytes % (Auto) 1.8 % (0.0-7.3); Red Blood Count 3.44 M/mm3 (3.65-5.03); Red Cell Distribution Width 19.1 % (13.2-15.2)
--- NOTE | 2021-03-12 09:44 | Progress Note ---
Assessment and Plan Assessment and plan: 1. Metabolic encephalopathy Confusion on a.m. encounter of 03/10, this is new per RN who stated the patient was more conversational yesterday Etiology unclear. Differential includes infectious versus neurological. Discussed with nephrology 03/10 regarding extra hemodialysis treatment, follow- up after hemodialysis today -CT brain on 03/10: Negative Ammonia level: Nonelevated -No improvement post HD. Discontinue all sedating medication and opioid narcotics -ordered MRI brain, EEG, neurology consultation 2. Sepsis -Leukocytosis, tachycardia secondary to pneumonia WBC 20.7 on admission Covid PCR negative Blood culture positive 1 out of 2 bottles CXR on admission: Mild patchy multifocal airspace disease. Vancomycin IV, cefepime IV Infectious disease following 3. Multifocal pneumonia Covid negative, elevated procalcitonin -Currently on nasal cannula NC 1L , will wean as tolerated Antibiotics as above Pulmonology following 4. GPC bacteremia 1 out of 4 bottles, staph species isolated. Still suspect contaminant. Follow for speciation and sensitivities Antibiotics as above for now Infectious disease following 5. ESRD on HD On HD Avoid nephrotoxic agents Renally adjust medications (Vanc/Cefepime) Nephrology following 6. Hypertensive emergency - 221/107 on admission, repeat today 135/87 Resume home hydralazine, carvedilol, Procardia XL 7. Persons under investigation for COVID-19 -Negative PCR 8. Secondary hyperparathyroidism Continue phosphate binders 9. Anemia of CKD - continue to monitor H/H 10. Hyponatremia - monitor Na 11. Hyperkalemia - monitor K, last 5.2 - correct with HD Hospital Course to date 03/10: Paged by ED RN regarding patient mental status change. Per RN, exam yesterday demonstrated alert and talkative patient yesterday who was able to communicated, via phone specialist service. Today patient is alert, protecting airway, however, she appears more confused. She does not acknowledge medical staff in room but does not attempt to communicate or respond or follow commands when spoken to. stat CT brain was ordered which was negative. 03/11: Recieved HD yesterday, no improvement in mentation on Am encounter. Will order MRI brain, EEG, neurology consultation. 03/12: Could not have MRI completed yesterday due to movement in MRI scanner. We will coordinate with medical staff physician to complete today with on-call Ativan on board. EEG pending. Pending full neuro evaluation underway. Will call daughter Naheed today ([phone]). History Interval history: Continues to be confused on a.m. assessment. Not responding to name, appears somnolent, opens eyes/withdraws to painful stimuli. Hospitalist Physical - Physical exam Narrative exam: Physical Exam: Constitutional: Alert, confused. No acute distress, thin elderly Yi female. Head, Ears, Nose: Normocephalic, atraumatic. External ears, nose normal Eyes: Conjunctivae/corneas clear. No icterus. No ptosis. Neck: Supple, no meningeal signs Oral: dentition fair, no thrush Cardiovascular: S1, S2 normal. Respiratory: Good air entry, clear to auscultation bilaterally, protecting airway GI: Soft, non-tender; bowel sounds normal. No peritoneal signs. Musculoskeletal: No pedal edema, no cyanosis. Skin: No rash or abscess Hem/Lymphatic: No palpable cervical or supraclavicular nodes. No lymphangitis Psych: Affect normal, however not tracking with medical staff, appears confused. Neurological: Somnolent, not oriented, withdraws to painful stimuli. - Constitutional Vitals: Temp Pulse Resp BP Pulse Ox 98.9 F 108 H 20 184/91 99 03/11/21 22:23 03/12/21 05:17 03/12/21 05:17 03/12/21 05:17 03/12/21 05:17 General appearance: Present: mild distress, well-nourished HEART Score - HEART Score Troponin: Troponin T 0.129 ng/mL (0.00-0.029) H* 03/09/21 05:17 Results - Labs CBC & Chem 7: 03/12/21 06:30 03/12/21 06:30 Labs: Laboratory Last Values WBC 11.3 K/mm3 (4.5-11.0) H 03/12/21 06:30 RBC 3.44 M/mm3 (3.65-5.03) L 03/12/21 06:30 Hgb 8.3 gm/dl (10.1-14.3) L D 03/12/21 06:30 Hct 26.7 % (30.3-42.9) L D 03/12/21 06:30 MCV 78 fl (79-97) L 03/12/21 06:30 MCH 24 pg (28-32) L 03/12/21 06:30 MCHC 31 % (30-34) 03/12/21 06:30 RDW 19.1 % (13.2-15.2) H 03/12/21 06:30 Plt Count 249 K/mm3 (140-440) 03/11/21 08:41 Lymph % (Auto) 7.0 % (13.4-35.0) L 03/12/21 06:30 [place] % (Auto) 1.8 % (0.0-7.3) 03/12/21 06:30 Eos % (Auto) 1.2 % (0.0-4.3) 03/12/21 06:30 Baso % (Auto) 0.7 % (0.0-1.8) 03/12/21 06:30 Lymph # (Auto) 0.8 K/mm3 (1.2-5.4) L 03/12/21 06:30 [place] # (Auto) 0.2 K/mm3 (0.0-0.8) 03/12/21 06:30 Eos # (Auto) 0.1 K/mm3 (0.0-0.4) 03/12/21 06:30 Baso # (Auto) 0.1 K/mm3 (0.0-0.1) 03/12/21 06:30 Add Manual Diff Complete 03/09/21 03:34 Total Counted 100 03/09/21 03:34 Seg Neutrophils % 89.3 % (40.0-70.0) H 03/12/21 06:30 Seg Neuts % (Manual) 84.0 % (40.0-70.0) H 03/09/21 03:34 Band Neutrophils % 4.0 % 03/09/21 03:34 Lymphocytes % (Manual) 6.0 % (13.4-35.0) L 03/09/21 03:34 Monocytes % (Manual) 3.0 % (0.0-7.3) 03/09/21 03:34 Eosinophils % (Manual) 2.0 % (0.0-4.3) 03/09/21 03:34 Metamyelocytes % 1.0 % 03/09/21 03:34 Nucleated RBC % Not Reportable 03/09/21 03:34 Seg Neutrophils # 10.1 K/mm3 (1.8-7.7) H 03/12/21 06:30 Seg Neutrophils # Man 17.4 K/mm3 (1.8-7.7) H 03/09/21 03:34 Band Neutrophils # 0.8 K/mm3 03/09/21 03:34 Lymphocytes # (Manual) 1.2 K/mm3 (1.2-5.4) 03/09/21 03:34 Abs React Lymphs (Man) 0.0 K/mm3 03/09/21 03:34 Monocytes # (Manual) 0.6 K/mm3 (0.0-0.8) 03/09/21 03:34 Eosinophils # (Manual) 0.4 K/mm3 (0.0-0.4) 03/09/21 03:34 Basophils # (Manual) 0.0 K/mm3 (0.0-0.1) 03/09/21 03:34 Metamyelocytes # 0.2 K/mm3 03/09/21 03:34 Myelocytes # 0.0 K/mm3 03/09/21 03:34 Promyelocytes # 0.0 K/mm3 03/09/21 03:34 Blast Cells # 0.0 K/mm3 03/09/21 03:34 WBC Morphology Not Reportable 03/09/21 03:34 Hypersegmented Neuts Not Reportable 03/09/21 03:34 Hyposegmented Neuts Not Reportable 03/09/21 03:34 Hypogranular Neuts Not Reportable 03/09/21 03:34 Smudge Cells Not Reportable 03/09/21 03:34 Toxic Granulation Not Reportable 03/09/21 03:34 Toxic Vacuolation Not Reportable 03/09/21 03:34 Dohle Bodies Not Reportable 03/09/21 03:34 Pelger-Huet Anomaly Not Reportable 03/09/21 03:34 Kecia Rods Not Reportable 03/09/21 03:34 Platelet Estimate Consistent w auto 03/09/21 03:34 Clumped Platelets Not Reportable 03/09/21 03:34 Plt Clumps, EDTA Not Reportable 03/09/21 03:34 Large Platelets Not Reportable 03/09/21 03:34 Giant Platelets Not Reportable 03/09/21 03:34 Platelet Satelliting Not Reportable 03/09/21 03:34 Plt Morphology Comment Not Reportable 03/09/21 03:34 RBC Morphology Not Reportable 03/09/21 03:34 Dimorphic RBCs Not Reportable 03/09/21 03:34 Polychromasia Not Reportable 03/09/21 03:34 Hypochromasia 1+ 03/09/21 03:34 Poikilocytosis Not Reportable 03/09/21 03:34 Anisocytosis Few 03/09/21 03:34 Microcytosis Not Reportable 03/09/21 03:34 Macrocytosis Not Reportable 03/09/21 03:34 Spherocytes Not Reportable 03/09/21 03:34 Pappenheimer Bodies Not Reportable 03/09/21 03:34 Sickle Cells Not Reportable 03/09/21 03:34 Target Cells Not Reportable 03/09/21 03:34 Tear Drop Cells Not Reportable 03/09/21 03:34 Ovalocytes Not Reportable 03/09/21 03:34 Helmet Cells Not Reportable 03/09/21 03:34 [place] Bodies Not Reportable 03/09/21 03:34 [place] Rings Not Reportable 03/09/21 03:34 Maria De Jesus Cells Not Reportable 03/09/21 03:34 Bite Cells Not Reportable 03/09/21 03:34 Crenated Cell Not Reportable 03/09/21 03:34 Elliptocytes Not Reportable 03/09/21 03:34 Acanthocytes (Spur) Not Reportable 03/09/21 03:34 Rouleaux Not Reportable 03/09/21 03:34 Hemoglobin C Crystals Not Reportable 03/09/21 03:34 Schistocytes Not Reportable 03/09/21 03:34 Malaria parasites Not Reportable 03/09/21 03:34 Ren Bodies Not Reportable 03/09/21 03:34 Hem Pathologist Commnt No 03/09/21 03:34 PT 13.6 Sec. (12.2-14.9) 03/10/21 04:49 INR 0.99 (0.87-1.13) 03/10/21 04:49 APTT 33.2 Sec. (24.2-36.6) 03/09/21 03:34 D-Dimer 1098.77 ng/mlDDU (0-234) H 03/09/21 05:17 Sodium 138 mmol/L (137-145) 03/12/21 06:30 Potassium 5.2 mmol/L (3.6-5.0) H D 03/12/21 06:30 Chloride 106.1 mmol/L (98-107) 03/12/21 06:30 Carbon Dioxide 22 mmol/L (22-30) 03/12/21 06:30 Anion Gap 15 mmol/L 03/12/21 06:30 BUN 47 mg/dL (7-17) H 03/12/21 06:30 Creatinine 0.8 mg/dL (0.6-1.2) D 03/12/21 06:30 Estimated GFR > 60 ml/min 03/12/21 06:30 BUN/Creatinine Ratio 59 % 03/12/21 06:30 Glucose 339 mg/dL (65-100) H 03/12/21 06:30 POC Glucose 108 mg/dL (70-105) H 03/12/21 08:21 Hemoglobin A1c 5.1 % (4-6) 03/09/21 10:43 Lactic Acid 1.20 mmol/L (0.7-2.0) 03/09/21 07:37 Calcium 9.7 mg/dL (8.4-10.2) 03/12/21 06:30 Ferritin 2210.0 ng/mL (10.0-200.0) H 03/09/21 05:17 Total Bilirubin 0.20 mg/dL (0.1-1.2) 03/12/21 06:30 AST 13 units/L (5-40) 03/12/21 06:30 ALT 22 units/L (7-56) 03/12/21 06:30 Alkaline Phosphatase 72 units/L (35-129) 03/12/21 06:30 Ammonia 20.0 umol/L (25-60) L 03/12/21 07:54 Lactate Dehydrogenase 300 units/L (91-180) H 03/09/21 05:17 Total Creatine Kinase 57 units/L (30-135) 03/09/21 10:43 CK-MB (CK-2) 2.3 ng/mL (0.0-4.0) 03/09/21 10:43 CK-MB (CK-2) Rel Index 4.0 (0-4) 03/09/21 10:43 Troponin T 0.129 ng/mL (0.00-0.029) H* 03/09/21 05:17 C-Reactive Protein 1.10 mg/dL (0.00-1.30) 03/09/21 05:17 Total Protein 5.7 g/dL (6.3-8.2) L D 03/12/21 06:30 Albumin 2.3 g/dL (3.9-5) L 03/12/21 06:30 Albumin/Globulin Ratio 0.7 % 03/12/21 06:30 Triglycerides 133 mg/dL (2-149) 03/09/21 03:34 Cholesterol 158 mg/dL (50-199) 03/09/21 03:34 LDL Cholesterol Direct 105 mg/dL (50-130) 03/09/21 03:34 HDL Cholesterol 37 mg/dL (40-59) L 03/09/21 03:34 Cholesterol/HDL Ratio 4.27 % 03/09/21 03:34 Procalcitonin 0.71 ng/mL (<0.15) 03/09/21 05:17 Random Vancomycin 4.0 ug/mL (0-40.0) 03/12/21 06:30 Coronavirus (PCR) Negative (Negative) 03/09/21 08:40 Hepatitis A IgM Ab Non-reactive (NonReactive) 03/09/21 07:37 Hep Bs Antigen Nonreactive (Negative) 03/09/21 07:37 Hep B Core IgM Ab Non-reactive (NonReactive) 03/09/21 07:37 Hepatitis C Antibody Non-reactive (NonReactive) 03/09/21 07:37 Microbiology: Microbiology 03/09/21 05:17 Peripheral/Venous Blood Culture - Preliminary NO GROWTH AFTER 72 HOURS 03/09/21 06:06 Peripheral/Venous Blood Culture - Preliminary Staphylococcus Species Persaud/IV: Voiding Method Incontinent Active Medications - Current Medications Current Medications: Generic Name Dose Route Start Last Admin Trade Name Freq PRN Reason Stop Dose Admin Acetaminophen 650 mg 03/09/21 05:56 Acetaminophen 325 Mg Tab PO Q6H PRN Pain MILD(1-3)/Fever >100.5/ALMODOVAR Carvedilol 6.25 mg 03/09/21 10:00 03/12/21 02:33 Carvedilol 6.25 Mg Tab PO Not Given BID BALAJI Heparin Sodium (Porcine) 5,000 unit 03/09/21 14:00 03/12/21 06:22 Heparin 5,000 Unit/1 Ml Vial SUB-Q 5,000 unit Q8HR BALAJI Administration Hydralazine HCl 25 mg 03/09/21 14:00 03/12/21 02:33 Hydralazine 25 Mg Tab PO Not Given Q8HR BALAJI Hydralazine HCl 10 mg 03/10/21 23:06 03/12/21 06:22 Hydralazine 20 Mg/1 Ml Inj IV 10 mg Q6HR PRN Administration Hypertension Sodium Chloride 100 mls @ 999 mls/hr 03/09/21 04:50 Nacl 0.9% IV FLAKO PRN Hypotension Cefepime HCl 1 gm in 100 mls @ 200 mls/hr 03/10/21 18:00 03/11/21 17:23 Cefepime/Ns 1 Gm/100 Ml IV 200 mls/hr QPM BALAJI Administration Dextrose/Sodium Chloride 1,000 mls @ 75 mls/hr 03/10/21 23:45 03/11/21 19:52 D5/0.45ns IV 75 mls/hr DIRECT BALAJI Administration Insulin Human Regular 0 units 03/09/21 18:00 03/12/21 08:42 Insulin Regular, Human 100 Units/1 Ml SUB-Q Not Given ACHS [facility] Protocol Magnesium Hydroxide 30 ml 03/09/21 05:56 Magnesium Hydroxide (Mom) Oral Liqd Udc PO Q4H PRN Constipation Nifedipine 30 mg 03/09/21 10:00 03/11/21 17:14 Nifedipine Xl 30 Mg Tab PO Not Given QDAY BALAJI Senna 17.2 mg 03/09/21 22:00 03/12/21 02:33 Sennosides 8.6 Mg Tab PO Not Given QHS BALAJI Sodium Chloride 10 ml 03/09/21 10:00 03/11/21 22:46 Sodium Chloride 0.9% 10 Ml Flush Syringe IV 10 ml BID BALAJI Administration Sodium Chloride 10 ml 03/09/21 05:56 03/11/21 05:56 Sodium Chloride 0.9% 10 Ml Flush Syringe IV 10 ml PRN PRN Administration LINE FLUSH Nutrition/Malnutrition Assess - Dietary Evaluation Nutrition/Malnutrition Findings: Nutrition Notes Start: 03/09/21 07:41 Freq: Status: Active Protocol: Document 03/09/21 07:41 (Rec: 03/09/21 07:43 BERNADETTE [id number]) Nutrition Notes Need for Assessment generated from: MD Order Initial or Follow up Brief Note Current Diagnosis CKD (stage V CKD),Sepsis, Hypertension Other Pertinent Diagnosis COVID PUI, on HD (MWF), s/p renal transplant Current Diet Cardiac Subjective/Other Information MD consult for diet education. Pt on hold in ED. Nutrition Intervention Change Diet Order: add renal Follow-Up By: 03/12/21 Additional Comments F/u: diet education needs
[2021-03-12] MEDS ORDERED: VANCOMYCIN/NS 1 GM/250 ML 1 GM/250 ML BAG IV ONE (10:00)
[2021-03-12] MEDS: NIFEdipine XL 30 MG TAB PO SCH (11:23)
[2021-03-12 12:22] LABS: Platelet Count 243 K/mm3 (140-440)
[2021-03-12] MEDS ORDERED: LORazepam 2 MG/ML VIAL IV NR (13:25)
--- NOTE | 2021-03-12 13:33 | Progress Note ---
Assessment and Plan # ESRD: HD stat 03/09 for volume overload with patient needing Bipap, and hyperkalemia; s/p HD yesterday, no indication for HD today - continue HD MWF or prn - avoid nephrotoxins - renally dose meds - daily renal labs # HTN: BP very high initially, s/p nitro gtt with improvement. UF as tolerated with HD, back on home antihypertensives now. BP high today, may be related to agitation, will increase nifedipine to 60mg # Anemia in CKD: hemoglobin at goal for ESRD, no indication for ESAs acutely # Secondary Hyperparathyroidism: continue home phos binders if applicable # Respiratory Distress: improving, likely due to pulmonary edema for ESRD, pneumonia. COVID-19 rule out negative # AMS: neurology consult noted, MRI pending, EEG pending Subjective Date of service: 03/12/21 Interval history: Resting this AM, had HD yesterday, was unable to tolerate full treatment due to hypotension. Does appear to be somewhat restless this AM as well Objective - Exam Narrative Exam: General appearance: no distress, on NC EENT: ATNC, PERRL Neck: Present: neck supple Respiratory: Decreased Breath Sounds Heart: regular, S1S2 Gastrointestinal: Present: normoactive bowel sounds Integumentary: no rash, warm and dry Neurologic: no focal deficit - Vital Signs Vital signs: Vital Signs - 12hr 03/12/21 03/12/21 03/12/21 05:17 10:00 11:25 Temperature 98.1 F Pulse Rate 108 H 107 H Respiratory 20 17 Rate Blood Pressure 184/91 189/93 O2 Sat by Pulse 99 95 96 Oximetry - Lab 03/12/21 06:30 03/12/21 06:30 Most recent lab results Calcium 9.7 mg/dL (8.4-10.2) 03/12/21 06:30 Medications & Allergies - Medications Allergies/Adverse Reactions: Allergies No Known Allergies Allergy (Unverified 07/09/20 12:47) Home Medications: Home Medications Medication Instructions Recorded Confirmed Last Taken Type HYDROcodone/APAP 5-325 [[place] 1 each PO Q4HR PRN #30 tablet 07/15/20 11/10/20 Unknown Rx 5-325 mg TAB] NIFEdipine XL [Procardia Xl] 30 mg PO QDAY #30 tablet 11/12/20 Unknown Rx carvediloL [Coreg] 6.25 mg PO BID #60 tablet 11/12/20 Unknown Rx hydrALAZINE [Apresoline TAB] 25 mg PO Q8HR #90 tab 11/12/20 Unknown Rx Active Medications: Generic Name Dose Route Start Last Admin Trade Name Freq PRN Reason Stop Dose Admin Acetaminophen 650 mg 03/09/21 05:56 Acetaminophen 325 Mg Tab PO Q6H PRN Pain MILD(1-3)/Fever >100.5/ALMODOVAR Carvedilol 6.25 mg 03/09/21 10:00 03/12/21 11:23 Carvedilol 6.25 Mg Tab PO Not Given BID BALAJI Heparin Sodium (Porcine) 5,000 unit 03/09/21 14:00 03/12/21 06:22 Heparin 5,000 Unit/1 Ml Vial SUB-Q 5,000 unit Q8HR BALAJI Administration Hydralazine HCl 25 mg 03/09/21 14:00 03/12/21 02:33 Hydralazine 25 Mg Tab PO Not Given Q8HR BALAJI Hydralazine HCl 10 mg 03/10/21 23:06 03/12/21 11:28 Hydralazine 20 Mg/1 Ml Inj IV 10 mg Q6HR PRN Administration Hypertension Sodium Chloride 100 mls @ 999 mls/hr 03/09/21 04:50 Nacl 0.9% IV FLAKO PRN Hypotension Cefepime HCl 1 gm in 100 mls @ 200 mls/hr 03/10/21 18:00 03/11/21 17:23 Cefepime/Ns 1 Gm/100 Ml IV 200 mls/hr QPM BALAJI Administration Dextrose/Sodium Chloride 1,000 mls @ 75 mls/hr 03/10/21 23:45 03/11/21 19:52 D5/0.45ns IV 75 mls/hr DIRECT BALAJI Administration Insulin Human Regular 0 units 03/09/21 18:00 03/12/21 08:42 Insulin Regular, Human 100 Units/1 Ml SUB-Q Not Given ACHS [facility] Protocol Lorazepam 2 mg 03/12/21 13:25 Lorazepam 2 Mg/Ml Vial IV 03/12/21 23:59 MODELING DIRECTOR NR Magnesium Hydroxide 30 ml 03/09/21 05:56 Magnesium Hydroxide (Mom) Oral Liqd Udc PO Q4H PRN Constipation Nifedipine 30 mg 03/09/21 10:00 03/12/21 11:23 Nifedipine Xl 30 Mg Tab PO Not Given QDAY [facility] Senna 17.2 mg 03/09/21 22:00 03/12/21 02:33 Sennosides 8.6 Mg Tab PO Not Given QHS [facility] Sodium Chloride 10 ml 03/09/21 10:00 03/12/21 11:23 Sodium Chloride 0.9% 10 Ml Flush Syringe IV Not Given BID BALAJI Sodium Chloride 10 ml 03/09/21 05:56 03/11/21 05:56 Sodium Chloride 0.9% 10 Ml Flush Syringe IV 10 ml PRN PRN Administration LINE FLUSH
--- NOTE | 2021-03-12 14:09 | Progress Note ---
Assessment and Plan Acute Hypoxemic Respiratory Failuire Hypertensive emergency Acute pulmonary edema ESRD needing dialysis Person under investigation for COVID-19 Sepsis Hemorrhage of arteriovenous fistula Hyponatremia Metabolic acidosis - neurology evaluation ongoing - continue to wean supplemental oxygen to keep O2 sats > 90% - continue bronchodilators (ERUM ) with pulm hygiene per RT - continue HD/UF per nephrology prescription for toxin and volume clearance - adjust oral antihypertensives for target BP - continue to avoid nephrotoxins, renally dose all medications - continue mobility protocols to prevent pressure ulcers - PT/OT as tolerated - Wound care per RN/WCT - continue accuchecks with glycemic control per SSI for target blood glucose < 180 mg/dL - home oxygen evaluation at discharge - GI & VTE prophylaxis - Flu & pneumovax per protocol - Pulmonary out patient follow up for PFTs and optimization of respiratory status - continue other care per attending / other consultants - prn analgesia per pain score ... re-evaluate in am & prn Subjective Date of service: 03/12/21 Principal diagnosis: HTNsive Emergency; bacteremia; Ac Hypoxemic Resp Failure; AV-fistula malfxn Interval history: Patient is seen today for: Hypertensive Emergency; gm +ve bacteremia; Acute Hypoxemic Respiratory Failuire; ESRD; Hemorrhage of AV-fistula Seen and examined at bedside; 24hour events reviewed; nursing and respiratory care staff consulted; no adverse overnight events reported to me; resting in bed; still with encephalopathy; no emesis or overt aspiration and no high grade fevers Objective Vital Signs - 12hr 03/12/21 03/12/21 03/12/21 05:17 10:00 11:25 Temperature 98.1 F Pulse Rate 108 H 107 H Respiratory 20 17 Rate Blood Pressure 184/91 189/93 O2 Sat by Pulse 99 95 96 Oximetry Constitutional: no acute distress, other (elderly thin male with normal respiratory effort at rest) Eyes: non-icteric ENT: oropharynx moist Neck: supple, no lymphadenopathy Effort: normal Ascultation: Bilateral: diminished breath sounds Percussion: Bilateral: not dull Cardiovascular: regular rate and rhythm Gastrointestinal: normoactive bowel sounds, soft, non-tender, non-distended Integumentary: normal Extremities: no cyanosis, no edema, pink and warm, pulses normal Neurologic: non-focal exam (grossly), pupils equal and round, unable to assess Psychiatric: other (Patient speaks only vitnam. Can not asses mood or effect.) CBC and BMP: 03/13/21 07:44 03/13/21 07:44 ABG, PT/INR, D-dimer: PT/INR, D-dimer PT 13.6 Sec. (12.2-14.9) 03/10/21 04:49 INR 0.99 (0.87-1.13) 03/10/21 04:49 D-Dimer 1098.77 ng/mlDDU (0-234) H 03/09/21 05:17 Abnormal lab findings: Abnormal Labs 03/09/21 03/09/21 03/09/21 03:34 03:34 03:34 WBC 20.7 H RBC 3.57 L Hgb Hct MCV MCH RDW 16.5 H Lymph % (Auto) [place] % (Auto) Lymph # (Auto) [place] # (Auto) Seg Neutrophils % Seg Neuts % (Manual) 84.0 H Lymphocytes % (Manual) 6.0 L Seg Neutrophils # Seg Neutrophils # Man 17.4 H D-Dimer Sodium 133 L Potassium 6.1 H* Chloride 93.6 L BUN 62 H Creatinine 8.2 H Glucose 137 H POC Glucose Ferritin Ammonia Lactate Dehydrogenase Troponin T 0.123 H* Total Protein Albumin HDL Cholesterol 37 L 03/09/21 03/09/21 03/09/21 05:17 05:17 05:17 WBC RBC Hgb Hct MCV MCH RDW Lymph % (Auto) [place] % (Auto) Lymph # (Auto) [place] # (Auto) Seg Neutrophils % Seg Neuts % (Manual) Lymphocytes % (Manual) Seg Neutrophils # Seg Neutrophils # Man D-Dimer 1098.77 H Sodium Potassium Chloride BUN Creatinine Glucose 123 H POC Glucose Ferritin Ammonia Lactate Dehydrogenase 300 H Troponin T 0.129 H* Total Protein Albumin HDL Cholesterol 03/09/21 03/09/21 03/09/21 05:17 14:21 17:01 WBC RBC Hgb Hct MCV MCH RDW Lymph % (Auto) [place] % (Auto) Lymph # (Auto) [place] # (Auto) Seg Neutrophils % Seg Neuts % (Manual) Lymphocytes % (Manual) Seg Neutrophils # Seg Neutrophils # Man D-Dimer Sodium 133 L Potassium 5.2 H Chloride 94.3 L BUN 23 H Creatinine 4.3 H Glucose 246 H POC Glucose 201 H Ferritin 2210.0 H Ammonia Lactate Dehydrogenase Troponin T Total Protein Albumin HDL Cholesterol 03/09/21 03/10/21 03/10/21 22:07 04:49 04:49 WBC RBC 3.54 L Hgb Hct MCV MCH RDW 16.4 H Lymph % (Auto) [place] % (Auto) 11.4 H Lymph # (Auto) [place] # (Auto) 1.0 H Seg Neutrophils % Seg Neuts % (Manual) Lymphocytes % (Manual) Seg Neutrophils # Seg Neutrophils # Man D-Dimer Sodium 134 L Potassium 5.2 H Chloride 93.0 L BUN 45 H Creatinine 5.9 H Glucose 112 H POC Glucose 128 H Ferritin Ammonia Lactate Dehydrogenase Troponin T Total Protein Albumin HDL Cholesterol 03/10/21 03/11/21 03/11/21 23:24 08:41 08:41 WBC 12.0 H RBC Hgb Hct MCV MCH RDW 15.6 H Lymph % (Auto) [place] % (Auto) 15.3 H Lymph # (Auto) [place] # (Auto) 1.8 H Seg Neutrophils % Seg Neuts % (Manual) Lymphocytes % (Manual) Seg Neutrophils # Seg Neutrophils # Man D-Dimer Sodium 134 L Potassium Chloride 91.6 L BUN 32 H Creatinine 4.8 H Glucose 119 H POC Glucose 284 H Ferritin Ammonia Lactate Dehydrogenase Troponin T Total Protein 9.1 H Albumin HDL Cholesterol 03/12/21 03/12/21 03/12/21 06:30 06:30 07:54 WBC 11.3 H RBC 3.44 L Hgb 8.3 L D Hct 26.7 L D MCV 78 L MCH 24 L RDW 19.1 H Lymph % (Auto) 7.0 L [place] % (Auto) Lymph # (Auto) 0.8 L [place] # (Auto) Seg Neutrophils % 89.3 H Seg Neuts % (Manual) Lymphocytes % (Manual) Seg Neutrophils # 10.1 H Seg Neutrophils # Man D-Dimer Sodium Potassium 5.2 H D Chloride BUN 47 H Creatinine Glucose 339 H POC Glucose Ferritin Ammonia 20.0 L Lactate Dehydrogenase Troponin T Total Protein 5.7 L D Albumin 2.3 L HDL Cholesterol 03/12/21 03/12/21 08:21 11:28 WBC RBC Hgb Hct MCV MCH RDW Lymph % (Auto) [place] % (Auto) Lymph # (Auto) [place] # (Auto) Seg Neutrophils % Seg Neuts % (Manual) Lymphocytes % (Manual) Seg Neutrophils # Seg Neutrophils # Man D-Dimer Sodium Potassium Chloride BUN Creatinine Glucose POC Glucose 108 H 108 H Ferritin Ammonia Lactate Dehydrogenase Troponin T Total Protein Albumin HDL Cholesterol Allied health notes reviewed: nursing
--- NOTE | 2021-03-12 14:28 | Consultation ---
History of Present Illness Consult date: 03/12/21 Reason for Consult: Encephalopathy Chief complaint: Encephalopathy History of present illness: 75 yo female with htn, dm, esrdx, p/w encephalopathy in the setting of SIRS/Sepsis. No clinical seizure activity noted. Noted today with significant drowsiness. Attempted MRI twice yesterday but unsuccessful due to lack of cooperation. Patient is not able to provide any clninical history. Past History Past Medical History: diabetes (Borderline), dialysis, ESRD, hypertension Past Surgical History: No surgical history Social history: no significant social history Family history: no significant family history Medications and Allergies Allergies Allergy/AdvReac Type Severity Reaction Status Date / Time No Known Allergies Allergy Unverified 07/09/20 12:47 Home Medications Medication Instructions Recorded Confirmed Last Taken Type HYDROcodone/APAP 5-325 [[place] 1 each PO Q4HR PRN #30 tablet 07/15/20 11/10/20 Unknown Rx 5-325 mg TAB] NIFEdipine XL [Procardia Xl] 30 mg PO QDAY #30 tablet 11/12/20 Unknown Rx carvediloL [Coreg] 6.25 mg PO BID #60 tablet 11/12/20 Unknown Rx hydrALAZINE [Apresoline TAB] 25 mg PO Q8HR #90 tab 11/12/20 Unknown Rx Active Meds: Active Medications Acetaminophen (Acetaminophen 325 Mg Tab) 650 mg PO Q6H PRN PRN Reason: Pain MILD(1-3)/Fever >100.5/ALMODOVAR Carvedilol (Carvedilol 6.25 Mg Tab) 6.25 mg PO BID [facility] Last Admin: 03/12/21 11:23 Dose: Not Given Documented by: Heparin Sodium (Porcine) (Heparin 5,000 Unit/1 Ml Vial) 5,000 unit SUB-Q Q8HR BALAJI Last Admin: 03/12/21 14:02 Dose: 5,000 unit Documented by: Hydralazine HCl (Hydralazine 25 Mg Tab) 25 mg PO Q8HR [facility] Last Admin: 03/12/21 14:00 Dose: Not Given Documented by: Hydralazine HCl (Hydralazine 20 Mg/1 Ml Inj) 10 mg IV Q6HR PRN PRN Reason: Hypertension Last Admin: 03/12/21 11:28 Dose: 10 mg Documented by: Sodium Chloride (Nacl 0.9%) 100 mls @ 999 mls/hr IV FLAKO PRN PRN Reason: Hypotension Cefepime HCl (Cefepime/Ns 1 Gm/100 Ml) 1 gm in 100 mls @ 200 mls/hr IV QPM [facility] Last Admin: 03/11/21 17:23 Dose: 200 mls/hr Documented by: Insulin Human Regular (Insulin Regular, Human 100 Units/1 Ml) 0 units SUB-Q ACHS [facility]; Protocol Last Admin: 03/12/21 14:00 Dose: Not Given Documented by: Lorazepam (Lorazepam 2 Mg/Ml Vial) 2 mg IV [facility]URSING [employer] TUTOR NR Stop: 03/12/21 23:59 Magnesium Hydroxide (Magnesium Hydroxide (Mom) Oral Liqd Udc) 30 ml PO Q4H PRN PRN Reason: Constipation Nifedipine (Nifedipine Xl 60 Mg Tab) 60 mg PO QDAY [facility] Senna (Sennosides 8.6 Mg Tab) 17.2 mg PO QHS [facility] Last Admin: 03/12/21 02:33 Dose: Not Given Documented by: Sodium Chloride (Sodium Chloride 0.9% 10 Ml Flush Syringe) 10 ml IV BID [facility] Last Admin: 03/12/21 11:23 Dose: Not Given Documented by: Sodium Chloride (Sodium Chloride 0.9% 10 Ml Flush Syringe) 10 ml IV PRN PRN PRN Reason: LINE FLUSH Last Admin: 03/11/21 05:56 Dose: 10 ml Documented by: Review of Systems ROS unobtainable: due to mental status Physical Examination - Vital Signs Vital Signs: Vital Signs Temp Pulse Resp BP Pulse Ox 98.5 F 101 H 24 221/107 98 03/09/21 03:05 03/09/21 03:05 03/09/21 03:05 03/09/21 03:05 03/09/21 03:05 - Physical Exam Narrative exam: Gen: nad, well-nourished; Head: normocephalic; Eyes: no gaze deviation; no ptosis; ENT: no vocalization; CVS: warm and well-perfused; Pulm: no respiratory distress; GI: appears non-distended, non-protuberant; Ext: no cyanosis at distal extremities; Skin: no acute rash at distal extremities; Heme: no pathologic bruising or ecchymosis at distal extremities; Neuro: stuporous, aphasia, mute CN 2 - no anisocoria; visual [place] - pt is not visually tracking, CN 3, 4, 6 - no observed gaze deviation CN 5/7 - opens / closes eyes to tactile stimuli only; CN 8 - hearing grossly intact, CN 9, 10, 11, 12 - unable to cooperate secondary to LOC; Motor - at least 1/5 at right exts and at least 2+/5 at left exts; Sensory - moves all exts to tactile stimuli;, Cerebellar - pt cannot cooperate, Gait - pt cannot cooperate secondary to LOC; NIHSS (1a.) Level of Consciousness:1 (1b.) LOC Questions:2 (1c.) LOC Commands:2 (2.) Best Gaze:0 (3.) Visual:1 (4.) Facial Palsy:0 (5a.) Motor Arm, Left:2 (5b.) Motor Arm, Right:3 (6a.) Motor Leg, Left:2 (6b.) Motor Leg, Right:3 (7.) Limb Ataxia:0 (8.) Sensory:0 (9.) Best Language:3 (10.) Dysarthria:2 (11.) Extinction and Inattention:2 NIHSS Total Score: 23 Results - Laboratory Findings CBC and BMP: 03/12/21 06:30 03/12/21 13:44 Abnormal Lab Findings: Abnormal Labs 03/09/21 03/09/21 03/09/21 03:34 03:34 03:34 WBC 20.7 H RBC 3.57 L Hgb Hct MCV MCH RDW 16.5 H Lymph % (Auto) [place] % (Auto) Lymph # (Auto) [place] # (Auto) Seg Neutrophils % Seg Neuts % (Manual) 84.0 H Lymphocytes % (Manual) 6.0 L Seg Neutrophils # Seg Neutrophils # Man 17.4 H D-Dimer Sodium 133 L Potassium 6.1 H* Chloride 93.6 L BUN 62 H Creatinine 8.2 H Glucose 137 H POC Glucose Ferritin Ammonia Lactate Dehydrogenase Troponin T 0.123 H* Total Protein Albumin HDL Cholesterol 37 L 03/09/21 03/09/21 03/09/21 05:17 05:17 05:17 WBC RBC Hgb Hct MCV MCH RDW Lymph % (Auto) [place] % (Auto) Lymph # (Auto) [place] # (Auto) Seg Neutrophils % Seg Neuts % (Manual) Lymphocytes % (Manual) Seg Neutrophils # Seg Neutrophils # Man D-Dimer 1098.77 H Sodium Potassium Chloride BUN Creatinine Glucose 123 H POC Glucose Ferritin Ammonia Lactate Dehydrogenase 300 H Troponin T 0.129 H* Total Protein Albumin HDL Cholesterol 03/09/21 03/09/21 03/09/21 05:17 14:21 17:01 WBC RBC Hgb Hct MCV MCH RDW Lymph % (Auto) [place] % (Auto) Lymph # (Auto) [place] # (Auto) Seg Neutrophils % Seg Neuts % (Manual) Lymphocytes % (Manual) Seg Neutrophils # Seg Neutrophils # Man D-Dimer Sodium 133 L Potassium 5.2 H Chloride 94.3 L BUN 23 H Creatinine 4.3 H Glucose 246 H POC Glucose 201 H Ferritin 2210.0 H Ammonia Lactate Dehydrogenase Troponin T Total Protein Albumin HDL Cholesterol 03/09/21 03/10/21 03/10/21 22:07 04:49 04:49 WBC RBC 3.54 L Hgb Hct MCV MCH RDW 16.4 H Lymph % (Auto) [place] % (Auto) 11.4 H Lymph # (Auto) [place] # (Auto) 1.0 H Seg Neutrophils % Seg Neuts % (Manual) Lymphocytes % (Manual) Seg Neutrophils # Seg Neutrophils # Man D-Dimer Sodium 134 L Potassium 5.2 H Chloride 93.0 L BUN 45 H Creatinine 5.9 H Glucose 112 H POC Glucose 128 H Ferritin Ammonia Lactate Dehydrogenase Troponin T Total Protein Albumin HDL Cholesterol 03/10/21 03/11/21 03/11/21 23:24 08:41 08:41 WBC 12.0 H RBC Hgb Hct MCV MCH RDW 15.6 H Lymph % (Auto) [place] % (Auto) 15.3 H Lymph # (Auto) [place] # (Auto) 1.8 H Seg Neutrophils % Seg Neuts % (Manual) Lymphocytes % (Manual) Seg Neutrophils # Seg Neutrophils # Man D-Dimer Sodium 134 L Potassium Chloride 91.6 L BUN 32 H Creatinine 4.8 H Glucose 119 H POC Glucose 284 H Ferritin Ammonia Lactate Dehydrogenase Troponin T Total Protein 9.1 H Albumin HDL Cholesterol 03/12/21 03/12/21 03/12/21 06:30 06:30 07:54 WBC 11.3 H RBC 3.44 L Hgb 8.3 L D Hct 26.7 L D MCV 78 L MCH 24 L RDW 19.1 H Lymph % (Auto) 7.0 L [place] % (Auto) Lymph # (Auto) 0.8 L [place] # (Auto) Seg Neutrophils % 89.3 H Seg Neuts % (Manual) Lymphocytes % (Manual) Seg Neutrophils # 10.1 H Seg Neutrophils # Man D-Dimer Sodium Potassium 5.2 H D Chloride BUN 47 H Creatinine Glucose 339 H POC Glucose Ferritin Ammonia 20.0 L Lactate Dehydrogenase Troponin T Total Protein 5.7 L D Albumin 2.3 L HDL Cholesterol 03/12/21 03/12/21 03/12/21 08:21 11:28 13:44 WBC RBC Hgb Hct MCV MCH RDW Lymph % (Auto) [place] % (Auto) Lymph # (Auto) [place] # (Auto) Seg Neutrophils % Seg Neuts % (Manual) Lymphocytes % (Manual) Seg Neutrophils # Seg Neutrophils # Man D-Dimer Sodium Potassium Chloride BUN Creatinine 5.0 H D Glucose POC Glucose 108 H 108 H Ferritin Ammonia Lactate Dehydrogenase Troponin T Total Protein Albumin HDL Cholesterol Assessment and Plan 75 yo female with htn, dm, esrdx, p/w encephalopathy in the setting of SIRS/Seps is. No clinical seizure activity noted. Noted today with significant drowsiness. Attempted MRI twice yesterday but unsuccessful due to lack of cooperation. Patient is not able to provide any clinical history. 1. Acute Metablic Encephalopathy - in the setting of underlying infection; awaiting MR Brain wo contrast. 2. Acute Ischemic Stroke - awaiting MR Brain w/o contrast; aspirin 81 mg po q day or asa 300 mg pr qday; statin therapy for a goal ldl of 70; further workup (TTE) based on MR findings; confirm tsh/ldl/a1c; pt/ot/st/swallow evaluation/monitoring. 3. Seizure - confirm no evidence of underlying or subclinical seizure(s) w/ EEG. 4. Toxic Encephalopathy - s/p ativan. 5. Sepsis / SIRS - treatment per primary team. Sudarshan Buck MD Neurology [id number]
--- NOTE | 2021-03-12 16:02 | Progress Note ---
Assessment and Plan Cultures: Blood culture Staph species 1/4 bottles A/P: 75-year-old female past medical history hypertension, ESRD on HD admitted with pneumonia #Multifocal pneumonia: Covid negative, elevated procalcitonin in setting of ESRD. Continue empiric antibiotics. #Staph bacteremia: 1 of 4 bottles, possible contaminant. #ESRD on HD: Renally dose medications. #Acute sepsis: Present with leukocytosis and tachycardia. Likely secondary to pneumonia. Recs: -Continue renally dosed cefepime, complete 8 days. -Continue vancomycin pending finalization of blood cultures. -Follow up blood cultures Thank you for the consult, we will continue to follow. Poly Eduardo MD [facility] ([facility] O: [phone] F: [phone] Subjective Date of service: 03/12/21 Principal diagnosis: HTNsive Emergency; bacteremia; Ac Hypoxemic Resp Failure; AV-fistula malfxn Interval history: Afebrile, white count 11.3. Still awaiting blood culture finalization. Has been unable to get MRI due to lack of cooperation. Objective - Exam Narrative Exam: Physical Exam: Constitutional: Alert, cooperative. No acute distress Head, Ears, Nose: Normocephalic, atraumatic. External ears, nose normal Eyes: Conjunctivae/corneas clear. No icterus. No ptosis. Neck: Supple, no meningeal signs Oral: dentition fair, no thrush Cardiovascular: S1, S2 normal. Respiratory: Good air entry, clear to auscultation bilaterally GI: Soft, non-tender; bowel sounds normal. No peritoneal signs. Musculoskeletal: No pedal edema, no cyanosis. Skin: No rash or abscess Hem/Lymphatic: No palpable cervical or supraclavicular nodes. No lymphangitis Psych: Mood ok. Affect normal Neurological: Awake, alert, oriented. No gross abnormality - Constitutional Vitals: Vital Signs Temp Pulse Resp BP Pulse Ox 98.1 F 107 H 17 165/84 96 03/12/21 11:25 03/12/21 11:25 03/12/21 11:25 03/12/21 14:08 03/12/21 11:25 Temperature -Last 24 Hours Temperature 98.1 F Temperature 98.9 F - Labs CBC & Chem 7: 03/12/21 06:30 03/12/21 13:44 Labs: Abnormal lab results 03/12/21 03/12/21 03/12/21 Range/Units 06:30 06:30 07:54 WBC 11.3 H (4.5-11.0) K/mm3 RBC 3.44 L (3.65-5.03) M/mm3 Hgb 8.3 L D (10.1-14.3) gm/dl Hct 26.7 L D (30.3-42.9) % MCV 78 L (79-97) fl MCH 24 L (28-32) pg RDW 19.1 H (13.2-15.2) % Lymph % (Auto) 7.0 L (13.4-35.0) % Lymph # (Auto) 0.8 L (1.2-5.4) K/mm3 Seg Neutrophils % 89.3 H (40.0-70.0) % Seg Neutrophils # 10.1 H (1.8-7.7) K/mm3 Potassium 5.2 H D (3.6-5.0) mmol/L BUN 47 H (7-17) mg/dL Creatinine (0.6-1.2) mg/dL Glucose 339 H (65-100) mg/dL POC Glucose (70-105) mg/dL Ammonia 20.0 L (25-60) umol/L Total Protein 5.7 L D (6.3-8.2) g/dL Albumin 2.3 L (3.9-5) g/dL 03/12/21 03/12/21 03/12/21 Range/Units 08:21 11:28 13:44 WBC (4.5-11.0) K/mm3 RBC (3.65-5.03) M/mm3 Hgb (10.1-14.3) gm/dl Hct (30.3-42.9) % MCV (79-97) fl MCH (28-32) pg RDW (13.2-15.2) % Lymph % (Auto) (13.4-35.0) % Lymph # (Auto) (1.2-5.4) K/mm3 Seg Neutrophils % (40.0-70.0) % Seg Neutrophils # (1.8-7.7) K/mm3 Potassium (3.6-5.0) mmol/L BUN (7-17) mg/dL Creatinine 5.0 H D (0.6-1.2) mg/dL Glucose (65-100) mg/dL POC Glucose 108 H 108 H (70-105) mg/dL Ammonia (25-60) umol/L Total Protein (6.3-8.2) g/dL Albumin (3.9-5) g/dL
--- NOTE | 2021-03-12 17:07 | Magnetic Resonance Report ---
NONENHANCED MR SCAN OF THE BRAIN: INDICATION / CLINICAL INFORMATION: encephalopathy. TECHNIQUE: Multiplanar, multisequence MR images of the brain obtained. Limited MRI scan; motion related artifact s; 2 mg of Ativan prior to MRI scan; some of these images were repeated COMPARISON: None available. FINDINGS: BRAIN / INTRACRANIAL CONTENTS: Compared to reconstruction artifacts in the diffusion-weighted images; no definite territorial infarction; gradient echo images, focal areas of susceptibility change in th e right medial globus pallidus; CT in the CT scan obtained 2 days ago no definite calcified lesion; t his could be focal area of chronic hemorrhage. In the limited T2 and STIR images, no midline shift or space taking lesion; subtle periventricular an d deep hemispheric white matter lesions due to chronic small vessel disease CRANIOCERVICAL JUNCTION: No significant abnormality. VASCULAR FLOW-VOIDS: No significant abnormality. ORBITS: No significant abnormality of visualized orbits. SINUSES / MASTOIDS: Mucosal thickening in the right mastoid air cells ADDITIONAL FINDINGS: None. IMPRESSION: Limited MRI scan; I could exclude subacute territorial infarction or large space taking lesion or mid line shift Signer Name: Abdelrahman Aceves MD Signed: 03/12/2021 5:02 PM Workstation Name: [id number]
[2021-03-12] MEDS: CEFEPIME/NS 1 GM/100 ML 1 GM/100 ML BAG IV SCH (17:44)
[2021-03-13] MEDS: INSULIN REGULAR, HUMAN 100 UNITS/1 ML SUB-Q SCH ×4 (06:33→17:43)
[2021-03-13] MEDS: carvediloL 6.25 MG TAB PO SCH ×2 (06:33→16:09)
[2021-03-13] MEDS: hydrALAZINE 25 MG TAB PO SCH ×3 (06:33→16:10)
[2021-03-13] MEDS: hydrALAZINE 20 MG/1 ML INJ IV PRN (06:34)
[2021-03-13] MEDS: SENNOSIDES 8.6 MG TAB PO SCH (06:34)
[2021-03-13] MEDS: HEPARIN 5,000 UNIT/1 ML VIAL SUB-Q SCH ×2 (06:42→16:11)
[2021-03-13 08:16] LABS: Hematocrit 32.8 % (30.3-42.9); Hemoglobin 11.1 gm/dl (10.1-14.3); Mean Corpuscular HGB Conc 34 % (30-34); Mean Corpuscular Volume 88 fl (79-97); Platelet Count 187 K/mm3 (140-440); Red Blood Count 3.73 M/mm3 (3.65-5.03); Red Cell Distribution Width 15.8 % (13.2-15.2)
[2021-03-13 08:41] LABS: Albumin 3.2 g/dL (3.9-5); Calcium 9.6 mg/dL (8.4-10.2)
[2021-03-13] MEDS ORDERED: NIFEdipine XL 60 MG TAB PO SCH (10:00)
--- NOTE | 2021-03-13 10:31 | Progress Note ---
Subjective Principal diagnosis: HTNsive Emergency; bacteremia; Ac Hypoxemic Resp Failure; AV-fistula malfxn Interval history: Patient was seen today for follow-up of multiple renal related issues, , receiving dialysis today No complaints of any chest pain pressure or shortness of breath Interdisciplinary notes that also reviewed Events of 24 hours vitals labs intake output medications were reviewed Past medical history: Reviewed Family history: Reviewed Social history: Reviewed Allergies: Reviewed Physical examination: Vitals: Reviewed HEENT: No pallor or icterus oral mucosa moist Neck: Supple no JVD no thyromegaly Chest: Bilateral clear to auscultation anteriorly Heart: Regular rate and rhythm S1-S2 heard no S3-S4 Abdomen: Soft nontender no voluntary guarding rigidity rebound Extremity: Dry skin less than 1+ peripheral edema Psychiatric: No evidence of agitation and aggression noted Dermatology: No petechial rashes Labs and x-rays: Reviewed from today Assessment and plan #End-stage renal disease: Patient is currently on maintenance hemodialysis on Tuesday and as needed, schedule Will monitor dialysis-related labs periodically. Hemodialysis nurse to ultrafiltrate as tolerated, systolic blood pressure must be kept above 100, heart rate below 100 #Electrolyte and volume: To monitor and follow #Dialysis Access: Working well no issues per patient #Anemia in ESRD: to monitor hemoglobin and hematocrit periodically erythropoietin as needed, #Bone mineral disorder and secondary hyperparathyroidism: Monitor phosphorus and PTH level periodically, #Cardiovascular: Blood pressure is much improved, adjust medications periodically doubtful compliance Patient likely has secondary hypertension Need to add losartan 100 mg once a day #Diet and nutrition: Multivitamin, fluid restriction, protein supplement #Counseling: Was done regarding all the issues related to end-stage kidney disease care at length regarding diet lifestyle changes fluid restriction sodium restriction and blood pressure monitoring from home #Admitted with pneumonia, Covid negative We'll continue to follow and make recommendation for renal standpoint Objective - Vital Signs Vital signs: Vital Signs - 12hr 03/12/21 03/13/21 03/13/21 23:16 06:31 09:30 Temperature 98.9 F Pulse Rate 109 H 107 H Respiratory 18 18 Rate Blood Pressure 163/76 184/82 194/91 O2 Sat by Pulse 99 Oximetry O2 Sat by Pulse 100 Oximetry [ Bilateral] 03/13/21 03/13/21 09:45 10:00 Temperature Pulse Rate 107 H 113 H Respiratory Rate Blood Pressure 190/90 188/88 O2 Sat by Pulse Oximetry O2 Sat by Pulse Oximetry [ Bilateral] - Lab 03/15/21 06:31 03/15/21 06:31 Most recent lab results Calcium 9.6 mg/dL (8.4-10.2) 03/13/21 07:44 Medications & Allergies - Medications Allergies/Adverse Reactions: Allergies No Known Allergies Allergy (Unverified 07/09/20 12:47) Home Medications: Home Medications Medication Instructions Recorded Confirmed Last Taken Type NIFEdipine XL [Procardia Xl] 30 mg PO QDAY #30 tablet 11/12/20 03/13/21 Unknown Rx carvediloL [Coreg] 6.25 mg PO BID #60 tablet 11/12/20 03/13/21 Unknown Rx hydrALAZINE [Apresoline TAB] 25 mg PO Q8HR #90 tab 11/12/20 03/13/21 Unknown Rx Active Medications: Generic Name Dose Route Start Last Admin Trade Name Freq PRN Reason Stop Dose Admin Acetaminophen 650 mg 03/09/21 05:56 Acetaminophen 325 Mg Tab PO Q6H PRN Pain MILD(1-3)/Fever >100.5/ALMODOVAR Carvedilol 6.25 mg 03/09/21 10:00 03/13/21 06:33 Carvedilol 6.25 Mg Tab PO Not Given BID [facility] Heparin Sodium (Porcine) 5,000 unit 03/09/21 14:00 03/13/21 06:42 Heparin 5,000 Unit/1 Ml Vial SUB-Q Not Given Q8HR [facility] Hydralazine HCl 25 mg 03/09/21 14:00 03/13/21 06:42 Hydralazine 25 Mg Tab PO Not Given Q8HR [facility] Hydralazine HCl 10 mg 03/10/21 23:06 03/13/21 06:34 Hydralazine 20 Mg/1 Ml Inj IV 10 mg Q6HR PRN Administration Hypertension Sodium Chloride 100 mls @ 999 mls/hr 03/09/21 04:50 Nacl 0.9% IV FLAKO PRN Hypotension Cefepime HCl 1 gm in 100 mls @ 200 mls/hr 03/10/21 18:00 03/12/21 17:44 Cefepime/Ns 1 Gm/100 Ml IV 03/15/21 18:29 200 mls/hr QPM BALAJI Administration Insulin Human Regular 0 units 03/09/21 18:00 03/13/21 08:51 Insulin Regular, Human 100 Units/1 Ml SUB-Q Not Given ACHS [facility] Protocol Losartan Potassium 100 mg 03/14/21 10:00 Losartan 50 Mg Tab PO QDAY [facility] Magnesium Hydroxide 30 ml 03/09/21 05:56 Magnesium Hydroxide (Mom) Oral Liqd Udc PO Q4H PRN Constipation Nifedipine 60 mg 03/13/21 10:00 Nifedipine Xl 60 Mg Tab PO QDAY [facility] Senna 17.2 mg 03/09/21 22:00 03/13/21 06:34 Sennosides 8.6 Mg Tab PO Not Given QHS BALAJI Sodium Chloride 10 ml 03/09/21 10:00 03/12/21 21:54 Sodium Chloride 0.9% 10 Ml Flush Syringe IV 10 ml BID BALAJI Administration Sodium Chloride 10 ml 03/09/21 05:56 03/11/21 05:56 Sodium Chloride 0.9% 10 Ml Flush Syringe IV 10 ml PRN PRN Administration LINE FLUSH
[2021-03-13 10:53] LABS: Platelet Estimate Consistent w Auto; RBC Morphology Normal; Total Cells Counted 100
--- NOTE | 2021-03-13 14:25 | Progress Note ---
Assessment and Plan Cultures: Blood culture coag negative staph A/P: 75-year-old female past medical history hypertension, ESRD on HD admitted with pneumonia #Multifocal pneumonia: Covid negative, elevated procalcitonin in setting of ESRD. Continue empiric antibiotics. #Coag negative Staph bacteremia: 1 of 4 bottles, probable contaminant. #ESRD on HD: Renally dose medications. #Acute sepsis: Present with leukocytosis and tachycardia. Likely secondary to pneumonia. Recs: -Continue renally dosed cefepime, complete 8 days. -If discharging prior to completion cefepime, please send with Levaquin 250 mg every 24 hours to complete the above course. -Stop vancomycin Thank you for the consult, we will sign off. Please call questions. Poly Eduardo MD [facility] O: [phone] F: [phone] Subjective Date of service: 03/13/21 Principal diagnosis: HTNsive Emergency; bacteremia; Ac Hypoxemic Resp Failure; AV-fistula malfxn Interval history: Afebrile, normal white count now blood cultures with coag negative staph. Objective - Exam Narrative Exam: Physical Exam: Constitutional: Alert, cooperative. No acute distress Head, Ears, Nose: Normocephalic, atraumatic. External ears, nose normal Eyes: Conjunctivae/corneas clear. No icterus. No ptosis. Neck: Supple, no meningeal signs Oral: dentition fair, no thrush Cardiovascular: S1, S2 normal. Respiratory: Good air entry, clear to auscultation bilaterally GI: Soft, non-tender; bowel sounds normal. No peritoneal signs. Musculoskeletal: No pedal edema, no cyanosis. Skin: No rash or abscess Hem/Lymphatic: No palpable cervical or supraclavicular nodes. No lymphangitis Psych: Mood ok. Affect normal Neurological: Awake, alert, oriented. No gross abnormality - Constitutional Vitals: Vital Signs Temp Pulse Resp BP Pulse Ox 98.9 F 113 H 18 188/88 100 03/13/21 09:30 03/13/21 10:00 03/13/21 09:30 03/13/21 10:00 03/13/21 09:30 Temperature -Last 24 Hours Temperature 98.9 F Temperature 98.9 F - Labs CBC & Chem 7: 03/13/21 07:44 03/13/21 07:44 Labs: Abnormal lab results 03/12/21 03/13/21 03/13/21 Range/Units 21:17 07:44 07:44 RDW 15.8 H (13.2-15.2) % Seg Neuts % (Manual) 74.0 H (40.0-70.0) % Lymphocytes % (Manual) 12.0 L (13.4-35.0) % Monocytes % (Manual) 12.0 H (0.0-7.3) % Monocytes # (Manual) 1.2 H (0.0-0.8) K/mm3 Sodium 133 L (137-145) mmol/L Chloride 94.4 L (98-107) mmol/L Carbon Dioxide 20 L (22-30) mmol/L BUN 42 H (7-17) mg/dL Creatinine 6.8 H (0.6-1.2) mg/dL POC Glucose 110 H (70-105) mg/dL Albumin 3.2 L (3.9-5) g/dL
[2021-03-13] MEDS ORDERED: LORazepam 2 MG/ML VIAL IV NR (14:30)
--- NOTE | 2021-03-13 14:56 | Progress Note ---
Assessment and Plan Acute Hypoxemic Respiratory Failuire Hypertensive emergency Acute pulmonary edema ESRD needing dialysis Person under investigation for COVID-19 Sepsis Hemorrhage of arteriovenous fistula Hyponatremia Metabolic acidosis - neurology evaluation ongoing - continue to wean supplemental oxygen to keep O2 sats > 90% - continue bronchodilators (ERUM ) with pulm hygiene per RT - continue HD/UF per nephrology prescription for toxin and volume clearance - adjust oral antihypertensives for target BP - continue to avoid nephrotoxins, renally dose all medications - continue mobility protocols to prevent pressure ulcers - PT/OT as tolerated - Wound care per RN/WCT - continue accuchecks with glycemic control per SSI for target blood glucose < 180 mg/dL - home oxygen evaluation at discharge - GI & VTE prophylaxis - Flu & pneumovax per protocol - Pulmonary out patient follow up for PFTs and optimization of respiratory status - continue other care per attending / other consultants - prn analgesia per pain score ... re-evaluate in am & prn Subjective Date of service: 03/13/21 Principal diagnosis: HTNsive Emergency; bacteremia; Ac Hypoxemic Resp Failure; AV-fistula malfxn Interval history: Patient is seen today for: Hypertensive Emergency; gm +ve bacteremia; Acute Hypoxemic Respiratory Failu[place]; ESRD; Hemorrhage of AV-fistula Seen and examined at bedside; 24hour events reviewed; nursing and respiratory care staff consulted; no adverse overnight events reported to me; resting in bed; doing better; no N/V/F/C Objective Vital Signs - 12hr 03/13/21 03/13/21 03/13/21 06:31 09:30 09:45 Temperature 98.9 F Pulse Rate 109 H 107 H 107 H Respiratory 18 18 Rate Blood Pressure 184/82 194/91 190/90 O2 Sat by Pulse 99 Oximetry O2 Sat by Pulse 100 Oximetry [ Bilateral] 03/13/21 10:00 Temperature Pulse Rate 113 H Respiratory Rate Blood Pressure 188/88 O2 Sat by Pulse Oximetry O2 Sat by Pulse Oximetry [ Bilateral] Constitutional: no acute distress, other (elderly thin male with normal respiratory effort at rest) Eyes: non-icteric ENT: oropharynx moist Neck: supple, no lymphadenopathy Effort: normal Ascultation: Bilateral: diminished breath sounds Percussion: Bilateral: not dull Cardiovascular: regular rate and rhythm Gastrointestinal: normoactive bowel sounds, soft, non-tender, non-distended Integumentary: normal Extremities: no cyanosis, no edema, pink and warm, pulses normal Neurologic: non-focal exam (grossly), pupils equal and round, unable to assess Psychiatric: other (Patient speaks only vitnam. Can not asses mood or effect.) CBC and BMP: 03/18/21 21:22 03/18/21 21:22 ABG, PT/INR, D-dimer: PT/INR, D-dimer PT 13.6 Sec. (12.2-14.9) 03/10/21 04:49 INR 0.99 (0.87-1.13) 03/10/21 04:49 D-Dimer 1098.77 ng/mlDDU (0-234) H 03/09/21 05:17 Abnormal lab findings: Abnormal Labs 03/09/21 03/09/21 03/09/21 03:34 03:34 03:34 WBC 20.7 H RBC 3.57 L Hgb Hct MCV MCH RDW 16.5 H Lymph % (Auto) [place] % (Auto) Lymph # (Auto) [place] # (Auto) Seg Neutrophils % Seg Neuts % (Manual) 84.0 H Lymphocytes % (Manual) 6.0 L Monocytes % (Manual) Seg Neutrophils # Seg Neutrophils # Man 17.4 H Monocytes # (Manual) D-Dimer Sodium 133 L Potassium 6.1 H* Chloride 93.6 L Carbon Dioxide BUN 62 H Creatinine 8.2 H Glucose 137 H POC Glucose Ferritin Ammonia Lactate Dehydrogenase Troponin T 0.123 H* Total Protein Albumin HDL Cholesterol 37 L 03/09/21 03/09/21 03/09/21 05:17 05:17 05:17 WBC RBC Hgb Hct MCV MCH RDW Lymph % (Auto) [place] % (Auto) Lymph # (Auto) [place] # (Auto) Seg Neutrophils % Seg Neuts % (Manual) Lymphocytes % (Manual) Monocytes % (Manual) Seg Neutrophils # Seg Neutrophils # Man Monocytes # (Manual) D-Dimer 1098.77 H Sodium Potassium Chloride Carbon Dioxide BUN Creatinine Glucose 123 H POC Glucose Ferritin Ammonia Lactate Dehydrogenase 300 H Troponin T 0.129 H* Total Protein Albumin HDL Cholesterol 03/09/21 03/09/21 03/09/21 05:17 14:21 17:01 WBC RBC Hgb Hct MCV MCH RDW Lymph % (Auto) [place] % (Auto) Lymph # (Auto) [place] # (Auto) Seg Neutrophils % Seg Neuts % (Manual) Lymphocytes % (Manual) Monocytes % (Manual) Seg Neutrophils # Seg Neutrophils # Man Monocytes # (Manual) D-Dimer Sodium 133 L Potassium 5.2 H Chloride 94.3 L Carbon Dioxide BUN 23 H Creatinine 4.3 H Glucose 246 H POC Glucose 201 H Ferritin 2210.0 H Ammonia Lactate Dehydrogenase Troponin T Total Protein Albumin HDL Cholesterol 03/09/21 03/10/21 03/10/21 22:07 04:49 04:49 WBC RBC 3.54 L Hgb Hct MCV MCH RDW 16.4 H Lymph % (Auto) [place] % (Auto) 11.4 H Lymph # (Auto) [place] # (Auto) 1.0 H Seg Neutrophils % Seg Neuts % (Manual) Lymphocytes % (Manual) Monocytes % (Manual) Seg Neutrophils # Seg Neutrophils # Man Monocytes # (Manual) D-Dimer Sodium 134 L Potassium 5.2 H Chloride 93.0 L Carbon Dioxide BUN 45 H Creatinine 5.9 H Glucose 112 H POC Glucose 128 H Ferritin Ammonia Lactate Dehydrogenase Troponin T Total Protein Albumin HDL Cholesterol 03/10/21 03/11/21 03/11/21 23:24 08:41 08:41 WBC 12.0 H RBC Hgb Hct MCV MCH RDW 15.6 H Lymph % (Auto) [place] % (Auto) 15.3 H Lymph # (Auto) [place] # (Auto) 1.8 H Seg Neutrophils % Seg Neuts % (Manual) Lymphocytes % (Manual) Monocytes % (Manual) Seg Neutrophils # Seg Neutrophils # Man Monocytes # (Manual) D-Dimer Sodium 134 L Potassium Chloride 91.6 L Carbon Dioxide BUN 32 H Creatinine 4.8 H Glucose 119 H POC Glucose 284 H Ferritin Ammonia Lactate Dehydrogenase Troponin T Total Protein 9.1 H Albumin HDL Cholesterol 03/12/21 03/12/21 03/12/21 06:30 06:30 07:54 WBC 11.3 H RBC 3.44 L Hgb 8.3 L D Hct 26.7 L D MCV 78 L MCH 24 L RDW 19.1 H Lymph % (Auto) 7.0 L [place] % (Auto) Lymph # (Auto) 0.8 L [place] # (Auto) Seg Neutrophils % 89.3 H Seg Neuts % (Manual) Lymphocytes % (Manual) Monocytes % (Manual) Seg Neutrophils # 10.1 H Seg Neutrophils # Man Monocytes # (Manual) D-Dimer Sodium Potassium 5.2 H D Chloride Carbon Dioxide BUN 47 H Creatinine Glucose 339 H POC Glucose Ferritin Ammonia 20.0 L Lactate Dehydrogenase Troponin T Total Protein 5.7 L D Albumin 2.3 L HDL Cholesterol 03/12/21 03/12/21 03/12/21 08:21 11:28 13:44 WBC RBC Hgb Hct MCV MCH RDW Lymph % (Auto) [place] % (Auto) Lymph # (Auto) [place] # (Auto) Seg Neutrophils % Seg Neuts % (Manual) Lymphocytes % (Manual) Monocytes % (Manual) Seg Neutrophils # Seg Neutrophils # Man Monocytes # (Manual) D-Dimer Sodium Potassium Chloride Carbon Dioxide BUN Creatinine 5.0 H D Glucose POC Glucose 108 H 108 H Ferritin Ammonia Lactate Dehydrogenase Troponin T Total Protein Albumin HDL Cholesterol 03/12/21 03/13/21 03/13/21 21:17 07:44 07:44 WBC RBC Hgb Hct MCV MCH RDW 15.8 H Lymph % (Auto) [place] % (Auto) Lymph # (Auto) [place] # (Auto) Seg Neutrophils % Seg Neuts % (Manual) 74.0 H Lymphocytes % (Manual) 12.0 L Monocytes % (Manual) 12.0 H Seg Neutrophils # Seg Neutrophils # Man Monocytes # (Manual) 1.2 H D-Dimer Sodium 133 L Potassium Chloride 94.4 L Carbon Dioxide 20 L BUN 42 H Creatinine 6.8 H Glucose POC Glucose 110 H Ferritin Ammonia Lactate Dehydrogenase Troponin T Total Protein Albumin 3.2 L HDL Cholesterol Allied health notes reviewed: nursing
--- NOTE | 2021-03-13 15:06 | Progress Note ---
Assessment and Plan Assessment and plan: 1. Metabolic encephalopathy Confusion on a.m. encounter of 03/10, this is new per RN who stated the patient was more conversational yesterday Etiology unclear. Differential includes infectious versus neurological. Discussed with nephrology 03/10 regarding extra hemodialysis treatment, follow- up after hemodialysis today -CT brain on 03/10: Negative Ammonia level: Nonelevated -No improvement post HD. Discontinue all sedating medication and opioid narcotics -ordered MRI brain, EEG, neurology consultation 2. Sepsis -Leukocytosis, tachycardia secondary to pneumonia WBC 20.7 on admission Covid PCR negative Blood culture positive 1 out of 2 bottles CXR on admission: Mild patchy multifocal airspace disease. Vancomycin IV now dc, cefepime IV x 8 days (renally adjusted) per ID. Infectious disease following 3. Multifocal pneumonia Covid negative, elevated procalcitonin -Currently on nasal cannula NC 1L , will wean as tolerated Antibiotics as above Pulmonology following 4. GPC bacteremia 1 out of 4 bottles, staph species isolated. Still suspect contaminant. Follow for speciation and sensitivities Antibiotics as above for now Infectious disease following 5. ESRD on HD On HD Avoid nephrotoxic agents Renally adjust medications (Vanc/Cefepime) Nephrology following 6. Hypertensive emergency - 221/107 on admission, repeat today 135/87 Resume home hydralazine, carvedilol, Procardia XL 7. Persons under investigation for COVID-19 -Negative PCR 8. Secondary hyperparathyroidism Continue phosphate binders 9. Anemia of CKD - continue to monitor H/H 10. Hyponatremia - monitor Na 11. Hyperkalemia - monitor K, last 5.2 - correct with HD Hospital Course to date 03/10: Paged by ED RN regarding patient mental status change. Per RN, exam yesterday demonstrated alert and talkative patient yesterday who was able to communicated, via permaculture designer service. Today patient is alert, protecting airway, however, she appears more confused. She does not acknowledge medical staff in room but does not attempt to communicate or respond or follow commands when spoken to. stat CT brain was ordered which was negative. 03/11: Recieved HD yesterday, no improvement in mentation on Am encounter. Will order MRI brain, EEG, neurology consultation. 03/12: Could not have MRI completed yesterday due to movement in MRI scanner. We will coordinate with engineer technical staff to complete today with on-call Ativan on board. EEG pending. Pending full neuro evaluation underway. Will call daughter Naheed today ([phone]). 03/13: MRI completed- appears to be inconclusive. Will await neuro input. LP was unable to be completed. Plan for tuesday. EEG pending. D/c vancomycin, only cefe pime IV x 8 days per ID. History Interval history: Continues to be confused on a.m. assessment Went for dialysis today. Not responding to name, appears somnolent, opens eyes/withdraws to painful stimuli. Hospitalist Physical - Physical exam Narrative exam: Physical Exam: Constitutional: Alert, confused. No acute distress, thin elderly Malagasy female. Head, Ears, Nose: Normocephalic, atraumatic. External ears, nose normal Eyes: Conjunctivae/corneas clear. No icterus. No ptosis. Neck: Supple, no meningeal signs Oral: dentition fair, no thrush Cardiovascular: S1, S2 normal. Respiratory: Good air entry, clear to auscultation bilaterally, protecting airway GI: Soft, non-tender; bowel sounds normal. No peritoneal signs. Musculoskeletal: No pedal edema, no cyanosis. Skin: No rash or abscess Hem/Lymphatic: No palpable cervical or supraclavicular nodes. No lymphangitis Psych: Affect normal, however not tracking with medical staff, appears confused. Neurological: Somnolent, not oriented, withdraws to painful stimuli. - Constitutional Vitals: Temp Pulse Resp BP Pulse Ox 98.9 F 113 H 18 188/88 100 03/13/21 09:30 03/13/21 10:00 03/13/21 09:30 03/13/21 10:00 03/13/21 09:30 General appearance: Present: mild distress, well-nourished HEART Score - HEART Score Troponin: Troponin T 0.129 ng/mL (0.00-0.029) H* 03/09/21 05:17 Results - Labs CBC & Chem 7: 03/13/21 07:44 03/13/21 07:44 Labs: Laboratory Last Values WBC 10.2 K/mm3 (4.5-11.0) 03/13/21 07:44 RBC 3.73 M/mm3 (3.65-5.03) 03/13/21 07:44 Hgb 11.1 gm/dl (10.1-14.3) 03/13/21 07:44 Hct 32.8 % (30.3-42.9) D 03/13/21 07:44 MCV 88 fl (79-97) 03/13/21 07:44 MCH 30 pg (28-32) 03/13/21 07:44 MCHC 34 % (30-34) 03/13/21 07:44 RDW 15.8 % (13.2-15.2) H 03/13/21 07:44 Plt Count 187 K/mm3 (140-440) 03/13/21 07:44 Lymph % (Auto) 7.0 % (13.4-35.0) L 03/12/21 06:30 [place] % (Auto) [employer] Extension Worker 03/13/21 07:44 Eos % (Auto) 1.2 % (0.0-4.3) 03/12/21 06:30 Baso % (Auto) 0.7 % (0.0-1.8) 03/12/21 06:30 Lymph # (Auto) 0.8 K/mm3 (1.2-5.4) L 03/12/21 06:30 [place] # (Auto) 0.2 K/mm3 (0.0-0.8) 03/12/21 06:30 Eos # (Auto) 0.1 K/mm3 (0.0-0.4) 03/12/21 06:30 Baso # (Auto) 0.1 K/mm3 (0.0-0.1) 03/12/21 06:30 Add Manual Diff Complete 03/13/21 07:44 Total Counted 100 03/13/21 07:44 Seg Neutrophils % 89.3 % (40.0-70.0) H 03/12/21 06:30 Seg Neuts % (Manual) 74.0 % (40.0-70.0) H 03/13/21 07:44 Band Neutrophils % 4.0 % 03/09/21 03:34 Lymphocytes % (Manual) 12.0 % (13.4-35.0) L 03/13/21 07:44 Monocytes % (Manual) 12.0 % (0.0-7.3) H 03/13/21 07:44 Eosinophils % (Manual) 2.0 % (0.0-4.3) 03/13/21 07:44 Metamyelocytes % 1.0 % 03/09/21 03:34 Nucleated RBC % Not Reportable 03/13/21 07:44 Seg Neutrophils # 10.1 K/mm3 (1.8-7.7) H 03/12/21 06:30 Seg Neutrophils # Man 7.5 K/mm3 (1.8-7.7) 03/13/21 07:44 Band Neutrophils # 0.0 K/mm3 03/13/21 07:44 Lymphocytes # (Manual) 1.2 K/mm3 (1.2-5.4) 03/13/21 07:44 Abs React Lymphs (Man) 0.0 K/mm3 03/13/21 07:44 Monocytes # (Manual) 1.2 K/mm3 (0.0-0.8) H 03/13/21 07:44 Eosinophils # (Manual) 0.2 K/mm3 (0.0-0.4) 03/13/21 07:44 Basophils # (Manual) 0.0 K/mm3 (0.0-0.1) 03/13/21 07:44 Metamyelocytes # 0.0 K/mm3 03/13/21 07:44 Myelocytes # 0.0 K/mm3 03/13/21 07:44 Promyelocytes # 0.0 K/mm3 03/13/21 07:44 Blast Cells # 0.0 K/mm3 03/13/21 07:44 WBC Morphology Not Reportable 03/13/21 07:44 Hypersegmented Neuts Not Reportable 03/13/21 07:44 Hyposegmented Neuts Not Reportable 03/13/21 07:44 Hypogranular Neuts Not Reportable 03/13/21 07:44 Smudge Cells Not Reportable 03/13/21 07:44 Toxic Granulation Not Reportable 03/13/21 07:44 Toxic Vacuolation Not Reportable 03/13/21 07:44 Dohle Bodies Not Reportable 03/13/21 07:44 Pelger-Huet Anomaly Not Reportable 03/13/21 07:44 Kecia Rods Not Reportable 03/13/21 07:44 Platelet Estimate Consistent w auto 03/13/21 07:44 Clumped Platelets Not Reportable 03/13/21 07:44 Plt Clumps, EDTA Not Reportable 03/13/21 07:44 Large Platelets Not Reportable 03/13/21 07:44 Giant Platelets Not Reportable 03/13/21 07:44 Platelet Satelliting Not Reportable 03/13/21 07:44 Plt Morphology Comment Not Reportable 03/13/21 07:44 RBC Morphology Normal 03/13/21 07:44 Dimorphic RBCs Not Reportable 03/13/21 07:44 Polychromasia Not Reportable 03/13/21 07:44 Hypochromasia Not Reportable 03/13/21 07:44 Poikilocytosis Not Reportable 03/13/21 07:44 Anisocytosis Not Reportable 03/13/21 07:44 Microcytosis Not Reportable 03/13/21 07:44 Macrocytosis Not Reportable 03/13/21 07:44 Spherocytes Not Reportable 03/13/21 07:44 Pappenheimer Bodies Not Reportable 03/13/21 07:44 Sickle Cells Not Reportable 03/13/21 07:44 Target Cells Not Reportable 03/13/21 07:44 Tear Drop Cells Not Reportable 03/13/21 07:44 Ovalocytes Not Reportable 03/13/21 07:44 Helmet Cells Not Reportable 03/13/21 07:44 [place] Bodies Not Reportable 03/13/21 07:44 [place] Rings Not Reportable 03/13/21 07:44 [place] Cells Not Reportable 03/13/21 07:44 Bite Cells Not Reportable 03/13/21 07:44 Crenated Cell Not Reportable 03/13/21 07:44 Elliptocytes Not Reportable 03/13/21 07:44 Acanthocytes (Spur) Not Reportable 03/13/21 07:44 Rouleaux Not Reportable 03/13/21 07:44 Hemoglobin C Crystals Not Reportable 03/13/21 07:44 Schistocytes Not Reportable 03/13/21 07:44 Malaria parasites Not Reportable 03/13/21 07:44 Ren Bodies Not Reportable 03/13/21 07:44 Hem Pathologist Commnt No 03/13/21 07:44 PT 13.6 Sec. (12.2-14.9) 03/10/21 04:49 INR 0.99 (0.87-1.13) 03/10/21 04:49 APTT 33.2 Sec. (24.2-36.6) 03/09/21 03:34 D-Dimer 1098.77 ng/mlDDU (0-234) H 03/09/21 05:17 Sodium 133 mmol/L (137-145) L 03/13/21 07:44 Potassium 4.1 mmol/L (3.6-5.0) D 03/13/21 07:44 Chloride 94.4 mmol/L (98-107) L 03/13/21 07:44 Carbon Dioxide 20 mmol/L (22-30) L 03/13/21 07:44 Anion Gap 23 mmol/L 03/13/21 07:44 BUN 42 mg/dL (7-17) H 03/13/21 07:44 Creatinine 6.8 mg/dL (0.6-1.2) H 03/13/21 07:44 Estimated GFR 6 ml/min 03/13/21 07:44 BUN/Creatinine Ratio 6 % 03/13/21 07:44 Glucose 92 mg/dL (65-100) 03/13/21 07:44 POC Glucose 98 mg/dL (70-105) 03/13/21 08:11 Hemoglobin A1c 5.1 % (4-6) 03/09/21 10:43 Lactic Acid 1.20 mmol/L (0.7-2.0) 03/09/21 07:37 Calcium 9.6 mg/dL (8.4-10.2) 03/13/21 07:44 Ferritin 2210.0 ng/mL (10.0-200.0) H 03/09/21 05:17 Total Bilirubin 0.40 mg/dL (0.1-1.2) 03/13/21 07:44 AST 20 units/L (5-40) 03/13/21 07:44 ALT 9 units/L (7-56) 03/13/21 07:44 Alkaline Phosphatase 66 units/L (35-129) 03/13/21 07:44 Ammonia 20.0 umol/L (25-60) L 03/12/21 07:54 Lactate Dehydrogenase 300 units/L (91-180) H 03/09/21 05:17 Total Creatine Kinase 57 units/L (30-135) 03/09/21 10:43 CK-MB (CK-2) 2.3 ng/mL (0.0-4.0) 03/09/21 10:43 CK-MB (CK-2) Rel Index 4.0 (0-4) 03/09/21 10:43 Troponin T 0.129 ng/mL (0.00-0.029) H* 03/09/21 05:17 C-Reactive Protein 1.10 mg/dL (0.00-1.30) 03/09/21 05:17 Total Protein 8.0 g/dL (6.3-8.2) D 03/13/21 07:44 Albumin 3.2 g/dL (3.9-5) L 03/13/21 07:44 Albumin/Globulin Ratio 0.7 % 03/13/21 07:44 Triglycerides 133 mg/dL (2-149) 03/09/21 03:34 Cholesterol 158 mg/dL (50-199) 03/09/21 03:34 LDL Cholesterol Direct 105 mg/dL (50-130) 03/09/21 03:34 HDL Cholesterol 37 mg/dL (40-59) L 03/09/21 03:34 Cholesterol/HDL Ratio 4.27 % 03/09/21 03:34 Procalcitonin 0.71 ng/mL (<0.15) 03/09/21 05:17 Random Vancomycin 25.0 ug/mL (0-40.0) 03/12/21 13:44 Coronavirus (PCR) Negative (Negative) 03/09/21 08:40 Hepatitis A IgM Ab Non-reactive (NonReactive) 03/09/21 07:37 Hep Bs Antigen Nonreactive (Negative) 03/09/21 07:37 Hep B Core IgM Ab Non-reactive (NonReactive) 03/09/21 07:37 Hepatitis C Antibody Non-reactive (NonReactive) 03/09/21 07:37 Microbiology: Microbiology 03/09/21 06:06 Peripheral/Venous Blood Culture - Preliminary Coag Negative Staphylococcus 03/09/21 05:17 Peripheral/Venous Blood Culture - Preliminary NO GROWTH AFTER 4 DAYS [place]/IV: Voiding Method Incontinent Active Medications - Current Medications Current Medications: Generic Name Dose Route Start Last Admin Trade Name Freq PRN Reason Stop Dose Admin Acetaminophen 650 mg 03/09/21 05:56 Acetaminophen 325 Mg Tab PO Q6H PRN Pain MILD(1-3)/Fever >100.5/ALMODOVAR Carvedilol 6.25 mg 03/09/21 10:00 03/13/21 06:33 Carvedilol 6.25 Mg Tab PO Not Given BID [facility] Heparin Sodium (Porcine) 5,000 unit 03/09/21 14:00 03/13/21 06:42 Heparin 5,000 Unit/1 Ml Vial SUB-Q Not Given Q8HR [facility] Hydralazine HCl 25 mg 03/09/21 14:00 03/13/21 06:42 Hydralazine 25 Mg Tab PO Not Given Q8HR [facility] Hydralazine HCl 10 mg 03/10/21 23:06 03/13/21 06:34 Hydralazine 20 Mg/1 Ml Inj IV 10 mg Q6HR PRN Administration Hypertension Sodium Chloride 100 mls @ 999 mls/hr 03/09/21 04:50 Nacl 0.9% IV FLAKO PRN Hypotension Cefepime HCl 1 gm in 100 mls @ 200 mls/hr 03/10/21 18:00 03/12/21 17:44 Cefepime/Ns 1 Gm/100 Ml IV 03/15/21 18:29 200 mls/hr QPM [facility] Administration Insulin Human Regular 0 units 03/09/21 18:00 03/13/21 14:12 Insulin Regular, Human 100 Units/1 Ml SUB-Q Not Given ACHS [facility] Protocol Lorazepam 2 mg 03/13/21 14:30 Lorazepam 2 Mg/Ml Vial IV 03/13/21 21:00 TRANSFORMATION ARCHITECT NR Losartan Potassium 100 mg 03/14/21 10:00 Losartan 50 Mg Tab PO QDAY [facility] Magnesium Hydroxide 30 ml 03/09/21 05:56 Magnesium Hydroxide (Mom) Oral Liqd Udc PO Q4H PRN Constipation Nifedipine 60 mg 03/13/21 10:00 Nifedipine Xl 60 Mg Tab PO QDAY [facility] Senna 17.2 mg 03/09/21 22:00 03/13/21 06:34 Sennosides 8.6 Mg Tab PO Not Given QHS [facility] Sodium Chloride 10 ml 03/09/21 10:00 03/12/21 21:54 Sodium Chloride 0.9% 10 Ml Flush Syringe IV 10 ml BID BALAJI Administration Sodium Chloride 10 ml 03/09/21 05:56 03/11/21 05:56 Sodium Chloride 0.9% 10 Ml Flush Syringe IV 10 ml PRN PRN Administration LINE FLUSH Nutrition/Malnutrition Assess - Dietary Evaluation Nutrition/Malnutrition Findings: Nutrition Notes Start: 03/09/21 07:41 Freq: Status: Active Protocol: Document 03/12/21 14:45 MK (Rec: 03/12/21 14:50 MK [id number]) Nutrition Notes Initial or Follow up Assessment Current Diagnosis CKD (stage V CKD),Sepsis, Hypertension Other Pertinent Diagnosis COVID PUI, on HD (MWF), s/p renal transplant Current Diet Cardiac, Renal, Consistent CHO Labs/Tests K 5.2 BUN 47 Cr 5 Pertinent Medications reviewed Height 5 ft Weight 44.452 kg [place] Body Weight (kg) 45.45 BMI 19.1 Weight Status Underweight Subjective/Other Information Pt ate 0% of breakfast. Unable to wake pt. Per chart, pt refusing PO. Burn Absent Trauma Absent Current % PO Negligible Minimum of two criteria No physical signs of malnutrition #1 Nutrition Diagnosis Inadequate oral intake Etiology advanced age As Evidenced by Signs and Symptoms pt refusing meals Is patient on ventilator? No Is Patient Ambulatory and/or Out of Bed No REE-([facility]-confined to bed) 1039.896 Kcal/Kg value to use for calculation 31 Approximate Energy Requirements Using 1378 kcal/Kg Calculation Used for Recommendations Kcal/kg Additional Notes Protein: (>1.2 g/kg) >53g Fluid: 1 ml/kcal or per MD Nutrition Intervention Change Diet Order: Continue Add Supplement/Snack (indicate name/kcal [place] BID /protein ) Provides kCal: 850 Provides Protein (gm) 38 Goal #1 Meet at least 75% of energy and protein needs via PO and ONS Goal #2 Weight gain/maintenance Anticipated Discharge Needs: Renal, consistent CHO Follow-Up By: 03/17/21 Additional Comments FU for intakes and ONS tolerance
[2021-03-14] MEDS: carvediloL 6.25 MG TAB PO SCH (03:11)
[2021-03-14] MEDS: hydrALAZINE 25 MG TAB PO SCH ×3 (03:11→20:03)
[2021-03-14] MEDS: INSULIN REGULAR, HUMAN 100 UNITS/1 ML SUB-Q SCH ×4 (03:12→17:34)
[2021-03-14] MEDS: HEPARIN 5,000 UNIT/1 ML VIAL SUB-Q SCH ×3 (03:12→16:23)
[2021-03-14] MEDS: SENNOSIDES 8.6 MG TAB PO SCH (03:13)
[2021-03-14] MEDS ORDERED: SODIUM BICARBONATE 325 MG TAB FEEDTUBE PRN ×2 (09:27→11:12)
[2021-03-14] MEDS ORDERED: SIMPLE SYRUP 15 ML FEEDTUBE PRN ×4 (09:27→11:12)
[2021-03-14] MEDS ORDERED: LIPASE 10,500/PROTEASE 25,000/AMYLASE 43,750 (UNITS) DR CAP FEEDTUBE PRN ×2 (09:27→11:12)
[2021-03-14] MEDS ORDERED: carvediloL 6.25 MG TAB PO SCH (10:04)
[2021-03-14] MEDS ORDERED: NIFEdipine XL 60 MG TAB PO SCH (10:05)
--- NOTE | 2021-03-14 10:05 | Progress Note ---
Subjective Principal diagnosis: HTNsive Emergency; bacteremia; Ac Hypoxemic Resp Failure; AV-fistula malfxn Interval history: Patient was seen today for follow-up of multiple renal related issues No complaints of any chest pain pressure or shortness of breath Patient has had hemodialysis treatment yesterday Interdisciplinary notes that also reviewed Events of 24 hours vitals labs intake output medications were reviewed Past medical history: Reviewed Family history: Reviewed Social history: Reviewed Allergies: Reviewed Physical examination: Vitals: Reviewed HEENT: No pallor or icterus oral mucosa moist Neck: Supple no JVD no thyromegaly Chest: Bilateral clear to auscultation anteriorly Heart: Regular rate and rhythm S1-S2 heard no S3-S4 Abdomen: Soft nontender no voluntary guarding rigidity rebound Extremity: Dry skin less than 1+ peripheral edema Psychiatric: No evidence of agitation and aggression noted Dermatology: No petechial rashes Labs and x-rays: Reviewed from today Assessment and plan ESRD currently maintenance him dialysis patient has mild tachycardic heart rate 113 blood pressure 147/78, labs yesterday shows a potassium of 4.1, albumin 3.2 no any labs today Patient will continue with him dialysis treatment on Tuesday and Tuesday schedule #Multifocal pneumonia Covid negative, currently being followed by infectious disease, coagulase negative staph bacteremia 1 out of 4 likely contaminant #Mild tachycardia, reduce nifedipine, discontinue hydralazine Increase carvedilol and maximize the dose if needed Patient was adequately counseled and educated regarding all the renal related issues Laboratory studies, have been explained to the patient All questions were answered and simple [place] We'll continue to follow and make recommendation for renal standpoint Objective - Vital Signs Vital signs: Vital Signs - 12hr 03/14/21 03:11 Pulse Rate 113 H Blood Pressure 147/78 - Lab 03/13/21 07:44 03/13/21 07:44 Most recent lab results Calcium 9.6 mg/dL (8.4-10.2) 03/13/21 07:44 Medications & Allergies - Medications Allergies/Adverse Reactions: Allergies No Known Allergies Allergy (Unverified 07/09/20 12:47) Home Medications: Home Medications Medication Instructions Recorded Confirmed Last Taken Type NIFEdipine XL [Procardia Xl] 30 mg PO QDAY #30 tablet 11/12/20 03/13/21 Unknown Rx carvediloL [Coreg] 6.25 mg PO BID #60 tablet 11/12/20 03/13/21 Unknown Rx hydrALAZINE [Apresoline TAB] 25 mg PO Q8HR #90 tab 11/12/20 03/13/21 Unknown Rx Active Medications: Generic Name Dose Route Start Last Admin Trade Name Freq PRN Reason Stop Dose Admin Acetaminophen 650 mg 03/09/21 05:56 Acetaminophen 325 Mg Tab PO Q6H PRN Pain MILD(1-3)/Fever >100.5/ALMODOVAR Lipase/Protease/Amylase 1 each 03/14/21 09:27 Lipase 10,500/Protease 25,000/Amylase 43,750 (Units) Dr [place] FEEDTUBE PRN PRN For Clogged Feeding Tube Carvedilol 6.25 mg 03/09/21 10:00 03/14/21 03:11 Carvedilol 6.25 Mg Tab PO 6.25 mg BID BALAJI Administration Heparin Sodium (Porcine) 5,000 unit 03/09/21 14:00 03/14/21 07:08 Heparin 5,000 Unit/1 Ml Vial SUB-Q 5,000 unit Q8HR BALAJI Administration Hydralazine HCl 25 mg 03/09/21 14:00 03/14/21 03:11 Hydralazine 25 Mg Tab PO 25 mg Q8HR BALAJI Administration Hydralazine HCl 10 mg 03/10/21 23:06 03/13/21 06:34 Hydralazine 20 Mg/1 Ml Inj IV 10 mg Q6HR PRN Administration Hypertension Sodium Chloride 100 mls @ 999 mls/hr 03/09/21 04:50 Nacl 0.9% IV FLAKO PRN Hypotension Cefepime HCl 1 gm in 100 mls @ 200 mls/hr 03/10/21 18:00 03/12/21 17:44 Cefepime/Ns 1 Gm/100 Ml IV 03/15/21 18:29 200 mls/hr QPM BALAJI Administration Insulin Human Regular 0 units 03/09/21 18:00 03/14/21 08:06 Insulin Regular, Human 100 Units/1 Ml SUB-Q Not Given ACHS [facility] Protocol Losartan Potassium 100 mg 03/14/21 10:00 Losartan 50 Mg Tab PO QDAY BALAJI Magnesium Hydroxide 30 ml 03/09/21 05:56 Magnesium Hydroxide (Mom) Oral Liqd Udc PO Q4H PRN Constipation Nifedipine 60 mg 03/13/21 10:00 03/13/21 16:09 Nifedipine Xl 60 Mg Tab PO Not Given QDAY BALAJI Senna 17.2 mg 03/09/21 22:00 03/14/21 03:13 Sennosides 8.6 Mg Tab PO 17.2 mg QHS BALAJI Administration Simple Syrup 15 ml 03/14/21 09:27 Simple Syrup 15 Ml FEEDTUBE PRN PRN Hypoglycemia Simple Syrup 30 ml 03/14/21 09:27 Simple Syrup 15 Ml FEEDTUBE PRN PRN Hypoglycemia Sodium Bicarbonate 325 mg 03/14/21 09:27 Sodium Bicarbonate 325 Mg Tab FEEDTUBE PRN PRN For Clogged Feeding Tube Sodium Chloride 10 ml 03/09/21 10:00 03/14/21 03:13 Sodium Chloride 0.9% 10 Ml Flush Syringe IV 10 ml BID BALAJI Administration Sodium Chloride 10 ml 03/09/21 05:56 03/11/21 05:56 Sodium Chloride 0.9% 10 Ml Flush Syringe IV 10 ml PRN PRN Administration LINE FLUSH
[2021-03-14] MEDS: LOSARTAN 50 MG TAB PO SCH (10:22)
[2021-03-14 11:33] LABS: Hematocrit 33.6 % (30.3-42.9); Mean Corpuscular HGB Conc 33 % (30-34); Mean Corpuscular Volume 89 fl (79-97); Platelet Count 230 K/mm3 (140-440); Red Blood Count 3.79 M/mm3 (3.65-5.03); Red Cell Distribution Width 16.2 % (13.2-15.2)
--- NOTE | 2021-03-14 11:50 | XRay Report ---
ABDOMEN 1 VIEW INDICATION / CLINICAL INFORMATION: verify feeding tube placement. COMPARISON: None available. FINDINGS: TUBES / LINES: Weighted feeding tube tip projects over the proximal stomach BOWEL GAS PATTERN: No significant abnormality. FREE AIR / EXTRALUMINAL GAS: None seen. ADDITIONAL FINDINGS: The thoracic aorta is calcified and tortuous. IMPRESSION: 1. Feeding tube tip projects over the stomach but is not transpyloric. Recommend advancing with repea t radiograph.. Signer Name: Zay Mason MD Signed: 03/14/2021 11:45 AM Workstation Name: [id number]
[2021-03-14 11:58] LABS: Albumin 3.8 g/dL (3.9-5); Calcium 9.5 mg/dL (8.4-10.2)
[2021-03-14] MEDS ORDERED: NIFEdipine XL 30 MG TAB PO SCH (12:00)
--- NOTE | 2021-03-14 12:48 | Progress Note ---
Assessment and Plan Assessment and plan: 1. Metabolic encephalopathy Confusion on a.m. encounter of 03/10, this is new per RN who stated the patient was more conversational yesterday Etiology unclear. Differential includes infectious versus neurological. Discussed with nephrology 03/10 regarding extra hemodialysis treatment, follow- up after hemodialysis today -CT brain on 03/10: Negative Ammonia level: Nonelevated -No improvement post HD. Discontinue all sedating medication and opioid narcotics Several days of altered mentation. Will place NG to give patient nutrition -MRI brain, EEG, neurology consultation 2. Sepsis -Leukocytosis, tachycardia secondary to pneumonia WBC 20.7 on admission Covid PCR negative Blood culture positive 1 out of 2 bottles CXR on admission: Mild patchy multifocal airspace disease. Vancomycin IV now dc, cefepime IV x 8 days (renally adjusted) per ID. Infectious disease following 3. Multifocal pneumonia Covid negative, elevated procalcitonin -Currently on nasal cannula NC 1L , will wean as tolerated Antibiotics as above Pulmonology following 4. GPC bacteremia 1 out of 4 bottles, staph species isolated. Still suspect contaminant. Follow for speciation and sensitivities Antibiotics as above for now Infectious disease following 5. ESRD on HD On HD Avoid nephrotoxic agents Renally adjust medications (Vanc/Cefepime) Nephrology following 6. Hypertensive emergency - 221/107 on admission, repeat today 135/87 Resume home hydralazine, carvedilol, Procardia XL 7. Persons under investigation for COVID-19 -Negative PCR 8. Secondary hyperparathyroidism Continue phosphate binders 9. Anemia of CKD - continue to monitor H/H 10. Hyponatremia - monitor Na 11. Hyperkalemia - monitor K, last 5.2 - correct with HD Hospital Course to date 03/10: Paged by ED RN regarding patient mental status change. Per RN, exam yesterday demonstrated alert and talkative patient yesterday who was able to communicated, via short order fry cook service. Today patient is alert, protecting airway, however, she appears more confused. She does not acknowledge medical staff in room but does not attempt to communicate or respond or follow commands when spoken to. stat CT brain was ordered which was negative. 03/11: Recieved HD yesterday, no improvement in mentation on Am encounter. Will order MRI brain, EEG, neurology consultation. 03/12: Could not have MRI completed yesterday due to movement in MRI scanner. We will coordinate with director of staff development to complete today with on-call Ativan on board. EEG pending. Pending full neuro evaluation underway. Will call daughter Naheed today ([phone]). 03/13: MRI completed- appears to be inconclusive. Will await neuro input. LP was unable to be completed. Plan for tuesday. EEG pending. D/c vancomycin, only cefepime IV x 8 days per ID. 03/14: Patient will need nutrition however due to mental status will need to insert NG tube. She can be started on Nepro tube goal 25 cc/h feeds with free water flushes 100 cc every 4 hours. Start Pepcid 20 twice daily EEG is still pending and LP will be completed Tuesday. History Interval history: On a.m. assessment patient was more alert today. She responds to her name being called and to speaking to her in general. However she does not attempt to phonate any words. I attempted to bring up her daughter's name and patient did not respond to this. Mentation still appears to be fluctuating but this is an improvement from yesterday's encounter. Hospitalist Physical - Physical exam Narrative exam: Physical Exam: Constitutional: Alert, confused. No acute distress, thin elderly Guyanese female. Head, Ears, Nose: Normocephalic, atraumatic. External ears, nose normal Eyes: Conjunctivae/corneas clear. No icterus. No ptosis. Neck: Supple, no meningeal signs Oral: dentition fair, no thrush Cardiovascular: S1, S2 normal. Respiratory: Good air entry, clear to auscultation bilaterally, protecting airway GI: Soft, non-tender; bowel sounds normal. No peritoneal signs. Musculoskeletal: No pedal edema, no cyanosis. Skin: No rash or abscess Hem/Lymphatic: No palpable cervical or supraclavicular nodes. No lymphangitis Psych: Affect normal, however not tracking with medical staff, appears confused. Neurological: More alert however remains not oriented, withdraws to painful stimuli. - Constitutional Vitals: Temp Pulse Resp BP Pulse Ox 99.3 F 113 H 18 147/78 96 03/13/21 21:49 03/14/21 10:22 03/13/21 21:49 03/14/21 10:22 03/13/21 22:00 General appearance: Present: mild distress, well-nourished HEART Score - HEART Score Troponin: Troponin T 0.129 ng/mL (0.00-0.029) H* 03/09/21 05:17 Results - Labs CBC & Chem 7: 03/14/21 10:22 03/14/21 10:22 Labs: Laboratory Last Values WBC 12.6 K/mm3 (4.5-11.0) H 03/14/21 10:22 RBC 3.79 M/mm3 (3.65-5.03) 03/14/21 10:22 Hgb 11.0 gm/dl (10.1-14.3) 03/14/21 10:22 Hct 33.6 % (30.3-42.9) 03/14/21 10:22 MCV 89 fl (79-97) 03/14/21 10:22 MCH 29 pg (28-32) 03/14/21 10:22 MCHC 33 % (30-34) 03/14/21 10:22 RDW 16.2 % (13.2-15.2) H 03/14/21 10:22 Plt Count 230 K/mm3 (140-440) 03/14/21 10:22 Lymph % (Auto) 7.0 % (13.4-35.0) L 03/12/21 06:30 Ballard % (Auto) Pull Up Hand 03/14/21 10:22 Eos % (Auto) 1.2 % (0.0-4.3) 03/12/21 06:30 Baso % (Auto) 0.7 % (0.0-1.8) 03/12/21 06:30 Lymph # (Auto) 0.8 K/mm3 (1.2-5.4) L 03/12/21 06:30 Ballard # (Auto) 0.2 K/mm3 (0.0-0.8) 03/12/21 06:30 Eos # (Auto) 0.1 K/mm3 (0.0-0.4) 03/12/21 06:30 Baso # (Auto) 0.1 K/mm3 (0.0-0.1) 03/12/21 06:30 Add Manual Diff Complete 03/13/21 07:44 Total Counted 100 03/13/21 07:44 Seg Neutrophils % 89.3 % (40.0-70.0) H 03/12/21 06:30 Seg Neuts % (Manual) 74.0 % (40.0-70.0) H 03/13/21 07:44 Band Neutrophils % 4.0 % 03/09/21 03:34 Lymphocytes % (Manual) 12.0 % (13.4-35.0) L 03/13/21 07:44 Monocytes % (Manual) 12.0 % (0.0-7.3) H 03/13/21 07:44 Eosinophils % (Manual) 2.0 % (0.0-4.3) 03/13/21 07:44 Metamyelocytes % 1.0 % 03/09/21 03:34 Nucleated RBC % Not Reportable 03/13/21 07:44 Seg Neutrophils # 10.1 K/mm3 (1.8-7.7) H 03/12/21 06:30 Seg Neutrophils # Man 7.5 K/mm3 (1.8-7.7) 03/13/21 07:44 Band Neutrophils # 0.0 K/mm3 03/13/21 07:44 Lymphocytes # (Manual) 1.2 K/mm3 (1.2-5.4) 03/13/21 07:44 Abs React Lymphs (Man) 0.0 K/mm3 03/13/21 07:44 Monocytes # (Manual) 1.2 K/mm3 (0.0-0.8) H 03/13/21 07:44 Eosinophils # (Manual) 0.2 K/mm3 (0.0-0.4) 03/13/21 07:44 Basophils # (Manual) 0.0 K/mm3 (0.0-0.1) 03/13/21 07:44 Metamyelocytes # 0.0 K/mm3 03/13/21 07:44 Myelocytes # 0.0 K/mm3 03/13/21 07:44 Promyelocytes # 0.0 K/mm3 03/13/21 07:44 Blast Cells # 0.0 K/mm3 03/13/21 07:44 WBC Morphology Not Reportable 03/13/21 07:44 Hypersegmented Neuts Not Reportable 03/13/21 07:44 Hyposegmented Neuts Not Reportable 03/13/21 07:44 Hypogranular Neuts Not Reportable 03/13/21 07:44 Smudge Cells Not Reportable 03/13/21 07:44 Toxic Granulation Not Reportable 03/13/21 07:44 Toxic Vacuolation Not Reportable 03/13/21 07:44 Dohle Bodies Not Reportable 03/13/21 07:44 Pelger-Huet Anomaly Not Reportable 03/13/21 07:44 Kecia Rods Not Reportable 03/13/21 07:44 Platelet Estimate Consistent w auto 03/13/21 07:44 Clumped Platelets Not Reportable 03/13/21 07:44 Plt Clumps, EDTA Not Reportable 03/13/21 07:44 Large Platelets Not Reportable 03/13/21 07:44 Giant Platelets Not Reportable 03/13/21 07:44 Platelet Satelliting Not Reportable 03/13/21 07:44 Plt Morphology Comment Not Reportable 03/13/21 07:44 RBC Morphology Normal 03/13/21 07:44 Dimorphic RBCs Not Reportable 03/13/21 07:44 Polychromasia Not Reportable 03/13/21 07:44 Hypochromasia Not Reportable 03/13/21 07:44 Poikilocytosis Not Reportable 03/13/21 07:44 Anisocytosis Not Reportable 03/13/21 07:44 Microcytosis Not Reportable 03/13/21 07:44 Macrocytosis Not Reportable 03/13/21 07:44 Spherocytes Not Reportable 03/13/21 07:44 Pappenheimer Bodies Not Reportable 03/13/21 07:44 Sickle Cells Not Reportable 03/13/21 07:44 Target Cells Not Reportable 03/13/21 07:44 Tear Drop Cells Not Reportable 03/13/21 07:44 Ovalocytes Not Reportable 03/13/21 07:44 Helmet Cells Not Reportable 03/13/21 07:44 [place] Bodies Not Reportable 03/13/21 07:44 Colon Rings Not Reportable 03/13/21 07:44 Maria De Jesus Cells Not Reportable 03/13/21 07:44 Bite Cells Not Reportable 03/13/21 07:44 Crenated Cell Not Reportable 03/13/21 07:44 Elliptocytes Not Reportable 03/13/21 07:44 Acanthocytes (Spur) Not Reportable 03/13/21 07:44 Rouleaux Not Reportable 03/13/21 07:44 Hemoglobin C Crystals Not Reportable 03/13/21 07:44 Schistocytes Not Reportable 03/13/21 07:44 Malaria parasites Not Reportable 03/13/21 07:44 Ren Bodies Not Reportable 03/13/21 07:44 Hem Pathologist Commnt No 03/13/21 07:44 PT 13.6 Sec. (12.2-14.9) 03/10/21 04:49 INR 0.99 (0.87-1.13) 03/10/21 04:49 APTT 33.2 Sec. (24.2-36.6) 03/09/21 03:34 D-Dimer 1098.77 ng/mlDDU (0-234) H 03/09/21 05:17 Sodium 141 mmol/L (137-145) D 03/14/21 10:22 Potassium 4.3 mmol/L (3.6-5.0) 03/14/21 10:22 Chloride 96.0 mmol/L (98-107) L 03/14/21 10:22 Carbon Dioxide 26 mmol/L (22-30) 03/14/21 10:22 Anion Gap 23 mmol/L 03/14/21 10:22 BUN 32 mg/dL (7-17) H 03/14/21 10:22 Creatinine 5.4 mg/dL (0.6-1.2) H 03/14/21 10:22 Estimated GFR 8 ml/min 03/14/21 10:22 BUN/Creatinine Ratio 6 % 03/14/21 10:22 Glucose 77 mg/dL (65-100) 03/14/21 10:22 POC Glucose 94 mg/dL (70-105) 03/14/21 12:18 Hemoglobin A1c 5.1 % (4-6) 03/09/21 10:43 Lactic Acid 1.20 mmol/L (0.7-2.0) 03/09/21 07:37 Calcium 9.5 mg/dL (8.4-10.2) 03/14/21 10:22 Phosphorus 7.10 mg/dL (2.5-4.5) H 03/14/21 10:22 Magnesium 2.00 mg/dL (1.7-2.3) 03/14/21 10:22 Ferritin 2210.0 ng/mL (10.0-200.0) H 03/09/21 05:17 Total Bilirubin 0.40 mg/dL (0.1-1.2) 03/14/21 10:22 AST 14 units/L (5-40) 03/14/21 10:22 ALT 9 units/L (7-56) 03/14/21 10:22 Alkaline Phosphatase 75 units/L (35-129) 03/14/21 10:22 Ammonia 20.0 umol/L (25-60) L 03/12/21 07:54 Lactate Dehydrogenase 300 units/L (91-180) H 03/09/21 05:17 Total Creatine Kinase 57 units/L (30-135) 03/09/21 10:43 CK-MB (CK-2) 2.3 ng/mL (0.0-4.0) 03/09/21 10:43 CK-MB (CK-2) Rel Index 4.0 (0-4) 03/09/21 10:43 Troponin T 0.129 ng/mL (0.00-0.029) H* 03/09/21 05:17 C-Reactive Protein 1.10 mg/dL (0.00-1.30) 03/09/21 05:17 Total Protein 8.2 g/dL (6.3-8.2) 03/14/21 10:22 Albumin 3.8 g/dL (3.9-5) L 03/14/21 10:22 Albumin/Globulin Ratio 0.9 % 03/14/21 10:22 Triglycerides 133 mg/dL (2-149) 03/09/21 03:34 Cholesterol 158 mg/dL (50-199) 03/09/21 03:34 LDL Cholesterol Direct 105 mg/dL (50-130) 03/09/21 03:34 HDL Cholesterol 37 mg/dL (40-59) L 03/09/21 03:34 Cholesterol/HDL Ratio 4.27 % 03/09/21 03:34 Procalcitonin 0.71 ng/mL (<0.15) 03/09/21 05:17 Random Vancomycin 25.0 ug/mL (0-40.0) 03/12/21 13:44 Coronavirus (PCR) Negative (Negative) 03/09/21 08:40 Hepatitis A IgM Ab Non-reactive (NonReactive) 03/09/21 07:37 Hep Bs Antigen Nonreactive (Negative) 03/09/21 07:37 Hep B Core IgM Ab Non-reactive (NonReactive) 03/09/21 07:37 Hepatitis C Antibody Non-reactive (NonReactive) 03/09/21 07:37 Microbiology: Microbiology 03/09/21 05:17 Peripheral/Venous Blood Culture - Final NO GROWTH AFTER 5 DAYS 03/09/21 06:06 Peripheral/Venous Blood Culture - Preliminary Coag Negative Staphylococcus Persaud/IV: Voiding Method Incontinent Active Medications - Current Medications Current Medications: Generic Name Dose Route Start Last Admin Trade Name Freq PRN Reason Stop Dose Admin Acetaminophen 650 mg 03/09/21 05:56 Acetaminophen 325 Mg Tab PO Q6H PRN Pain MILD(1-3)/Fever >100.5/ALMODOVAR Lipase/Protease/Amylase 1 each 03/14/21 11:12 Lipase 10,500/Protease 25,000/Amylase 43,750 (Units) Dr [place] FEEDTUBE PRN PRN For Clogged Feeding Tube Carvedilol 12.5 mg 03/14/21 12:00 Carvedilol 12.5 Mg Tab PO BID BALAJI Heparin Sodium (Porcine) 5,000 unit 03/09/21 14:00 03/14/21 07:08 Heparin 5,000 Unit/1 Ml Vial SUB-Q 5,000 unit Q8HR BALAJI Administration Hydralazine HCl 25 mg 03/09/21 14:00 03/14/21 03:11 Hydralazine 25 Mg Tab PO 25 mg Q8HR BALAJI Administration Hydralazine HCl 10 mg 03/10/21 23:06 03/13/21 06:34 Hydralazine 20 Mg/1 Ml Inj IV 10 mg Q6HR PRN Administration Hypertension Sodium Chloride 100 mls @ 999 mls/hr 03/09/21 04:50 Nacl 0.9% IV FLAKO PRN Hypotension Cefepime HCl 1 gm in 100 mls @ 200 mls/hr 03/10/21 18:00 03/12/21 17:44 Cefepime/Ns 1 Gm/100 Ml IV 03/15/21 18:29 200 mls/hr QPM BALAJI Administration Insulin Human Regular 0 units 03/09/21 18:00 03/14/21 08:06 Insulin Regular, Human 100 Units/1 Ml SUB-Q Not Given ACHS [facility] Protocol Losartan Potassium 100 mg 03/14/21 10:00 03/14/21 10:22 Losartan 50 Mg Tab PO Not Given QDAY BALAJI Magnesium Hydroxide 30 ml 03/09/21 05:56 Magnesium Hydroxide (Mom) Oral Liqd Udc PO Q4H PRN Constipation Nifedipine 30 mg 03/14/21 12:00 Nifedipine Xl 30 Mg Tab PO QDAY BALAJI Senna 17.2 mg 03/09/21 22:00 03/14/21 03:13 Sennosides 8.6 Mg Tab PO 17.2 mg QHS BALAJI Administration Simple Syrup 15 ml 03/14/21 11:12 Simple Syrup 15 Ml FEEDTUBE PRN PRN Hypoglycemia Simple Syrup 30 ml 03/14/21 11:12 Simple Syrup 15 Ml FEEDTUBE PRN PRN Hypoglycemia Sodium Bicarbonate 325 mg 03/14/21 11:12 Sodium Bicarbonate 325 Mg Tab FEEDTUBE PRN PRN For Clogged Feeding Tube Sodium Chloride 10 ml 03/09/21 10:00 03/14/21 10:22 Sodium Chloride 0.9% 10 Ml Flush Syringe IV 10 ml BID BALAJI Administration Sodium Chloride 10 ml 03/09/21 05:56 03/11/21 05:56 Sodium Chloride 0.9% 10 Ml Flush Syringe IV 10 ml PRN PRN Administration LINE FLUSH Nutrition/Malnutrition Assess - Dietary Evaluation Nutrition/Malnutrition Findings: Nutrition Notes Start: 03/09/21 0 7:41 Freq: Status: Active Protocol: Document 03/14/21 10:46 (Rec: 03/14/21 11:12 [id number]) Nutrition Notes Need for Assessment generated from: MD Order Initial or Follow up Reassessment Current Diagnosis CKD (stage V CKD),Sepsis, Hypertension Other Pertinent Diagnosis on HD (MWF), s/p renal transplant Current Diet TF Nepro at 10ml/hour Labs/Tests reviewed Pertinent Medications reviewed Height 5 ft Weight 44.452 kg [place] Body Weight (kg) 45.45 BMI 19.1 Subjective/Other Information RD consulted for tube feed. #1 Nutrition Diagnosis Inadequate oral intake As Evidenced by Signs and Symptoms pt now on TF Diagnosis Progress(for reassessment Continues documentation) Is patient on ventilator? No Is Patient Ambulatory and/or Out of Bed No REE-([facility]-confined to bed) 1039.896 Kcal/Kg value to use for calculation 35 Approximate Energy Requirements Using 1556 kcal/Kg Calculation Used for Recommendations Kcal/kg Additional Notes Protein: (>1.2 g/kg) >53 g/day Fluid: 1-1.5 Liters /day Nutrition Intervention Nutrition Support: Nepro at 35 ml/hour 150 ml water flush q 4 hours Kcal 1,512 Protein (gm) 68 Fluid (mL) 611 Goal #1 TF tolerance Goal #2 TF to meet 80-100% energy and protein needs. Goal #3 Weight gain/maintenance Follow-Up By: 03/16/21 Additional Comments F/u for new TF
[2021-03-14 14:07] LABS: Total Cells Counted 100
[2021-03-14 14:08] LABS: Platelet Estimate Consistent w Auto; RBC Morphology Normal
--- NOTE | 2021-03-14 14:28 | XRay Report ---
XR abdomen 1V ap INDICATION / CLINICAL INFORMATION: feeding tube advance 68 cm to left nare COMPARISON: Same-day radiograph FINDINGS/IMPRESSION: Slight advancement of weighted tip feeding tube with guidewire in place. The distal tip of the tube i s coiled within the stomach, though this may be kinked in the region of the side port. Otherwise unch anged. Signer Name: Anjum Terry MD Signed: 03/14/2021 2:23 PM Workstation Name: [id number]
[2021-03-14] MEDS: FAMOTIDINE 10 MG TAB FEEDTUBE SCH (16:26)
[2021-03-14] MEDS: carvediloL 12.5 MG TAB PO SCH (16:27)
[2021-03-14] MEDS: CEFEPIME/NS 1 GM/100 ML 1 GM/100 ML BAG IV SCH ×3 (17:48→20:06)
--- NOTE | 2021-03-14 20:13 | Progress Note ---
Assessment and Plan 75-year-old female with known history of hypertension, end-stage renal disease on dialysis Mondays, Wednesdays and Fridays and also status post field renal transplant presents to the emergency room via EMS today complaining of shortness of breath. Daughter indicates that patient may not have had enough fluid taken off during dialysis on Tuesday. There has been no fever or chills, no nausea or vomiting, no abdominal pain, no headache or dizziness, no loss of taste or smell, no recent travel, no sick contacts and no contact with anyone with COVID-19. Upon arrival of EMS patient oxygen saturation was about 68% on room air and patient was placed on nonrebreather on the scene with improvement of oxygen saturation to about 98%. Patient follows up with Dr. 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 She has been admitted in the past before for fluid overload requiring BiPAP. Most of the history has been gotten from daughter as patient does not speak [place]. Upon arrival in the emergency room patient was quite hypertensive with systolic in the 200s and diastolic in the low 100s. Patient subsequently started on a nitroglycerin drip. Senior Web Analyst on-call was consulted . Patient promptly given dialysis. Patient has had nebulizer treatment, insulin and glucose for the hyperkalemia. She is also started on empiric IV antibiotics for sepsis. Patient sleeping . On O2 4 litres. O2 saturation 99%. No acute respiratory distress. Patient speaks only [place]. Unable to get history from her. Most of the history obtained from the chart. Patient is running low grade temp at times. BP 120/71. HR: 105. Has mild leukocytosis, Troponin was slightly elevated at 0.123. COVID negative. chest x-ray (03/09/21) showed mild patchy multifocal airspace disease. Patient is currently on Cefepime and S/C heparin. - Patient Problems (1) Acute pulmonary edema Current Visit: Yes Status: Acute Plan to address problem: Patient is on dialysis. (2) ESRD needing dialysis Current Visit: Yes Status: Acute Plan to address problem: Management as per nephrology. (3) Hypertensive emergency Current Visit: Yes Status: Acute Plan to address problem: Improved. Managent as per primary care. (4) Person under investigation for COVID-19 Current Visit: Yes Status: Acute Plan to address problem: Patients Rick virus PCR negative. (5) Sepsis Current Visit: Yes Status: Acute Plan to address problem: Patient is on cefepime. (6) Hyponatremia Current Visit: No Status: Acute Plan to address problem: Improved. last Na+ level 141 (7) Metabolic acidosis Current Visit: No Status: Acute Plan to address problem: Anion gap 23. Could be secondary to renal failure. Subjective Date of service: 03/14/21 Principal diagnosis: HTNsive Emergency; bacteremia; Ac Hypoxemic Resp Failure; AV-fistula malfxn Interval history: 75-year-old female with known history of hypertension, end-stage renal disease on dialysis Mondays, Wednesdays and Fridays and also status post field renal transplant presents to the emergency room via EMS today complaining of shortness of breath. Daughter indicates that patient may not have had enough fluid taken off during dialysis on Tuesday. There has been no fever or chills, no nausea or vomiting, no abdominal pain, no headache or dizziness, no loss of taste or smell, no recent travel, no sick contacts and no contact with anyone with COVID-19. Upon arrival of EMS patient oxygen saturation was about 68% on room air and patient was placed on nonrebreather on the scene with improvement of oxygen saturation to about 98%. Patient follows up with Dr. 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 She has been admitted in the past before for fluid overload requiring BiPAP. Most of the history has been gotten from daughter as patient does not speak [place]. Upon arrival in the emergency room patient was quite hypertensive with systolic in the 200s and diastolic in the low 100s. Patient subsequently started on a nitroglycerin drip. Senior Web Analyst on-call was consulted . Patient promptly given dialysis. Patient has had nebulizer treatment, insulin and glucose for the hyperkalemia. She is also started on empiric IV antibiotics for sepsis. Patient sleeping . On O2 4 litres. O2 saturation 99%. No acute respiratory distress. Patient speaks only [place]. Unable to get history from her. Most of the history obtained from the chart. Patient is running low grade temp at times. BP 120/71. HR: 105. Has mild leukocytosis, Troponin was slightly elevated at 0.123. COVID negative. chest x-ray (03/09/21) showed mild patchy multifocal airspace disease. Patient is currently on Cefepime and S/C heparin. Objective Vital Signs - 12hr 03/14/21 03/14/21 03/14/21 10:22 12:21 16:23 Temperature 97.5 F L Pulse Rate 113 H 109 H 109 H Respiratory 18 Rate Blood Pressure 147/78 145/79 145/79 O2 Sat by Pulse 94 99 Oximetry 03/14/21 03/14/21 16:27 17:06 Temperature 99.0 F Pulse Rate 109 H 105 H Respiratory 18 Rate Blood Pressure 145/79 120/71 O2 Sat by Pulse 99 Oximetry Constitutional: no acute distress, asleep, other (elderly thin male with normal respiratory effort at rest) Eyes: non-icteric ENT: oropharynx moist Neck: supple, no lymphadenopathy Effort: normal Ascultation: Bilateral: diminished breath sounds Percussion: Bilateral: not dull Cardiovascular: regular rate and rhythm Gastrointestinal: normoactive bowel sounds, soft, non-tender, non-distended Integumentary: normal Extremities: no cyanosis, no edema, pink and warm, pulses normal Neurologic: non-focal exam (grossly), pupils equal and round, unable to assess Psychiatric: other (Patient speaks only [place]. Can not asses mood or effect.Patient sleeping at this time.) CBC and BMP: 03/14/21 10:22 03/14/21 10:22 ABG, PT/INR, D-dimer: PT/INR, D-dimer PT 13.6 Sec. (12.2-14.9) 03/10/21 04:49 INR 0.99 (0.87-1.13) 03/10/21 04:49 D-Dimer 1098.77 ng/mlDDU (0-234) H 03/09/21 05:17 Abnormal lab findings: Abnormal Labs 03/09/21 03/09/21 03/09/21 03:34 03:34 03:34 WBC 20.7 H RBC 3.57 L Hgb Hct MCV MCH RDW 16.5 H Lymph % (Auto) [place] % (Auto) Lymph # (Auto) [place] # (Auto) Seg Neutrophils % Seg Neuts % (Manual) 84.0 H Lymphocytes % (Manual) 6.0 L Monocytes % (Manual) Seg Neutrophils # Seg Neutrophils # Man 17.4 H Monocytes # (Manual) D-Dimer Sodium 133 L Potassium 6.1 H* Chloride 93.6 L Carbon Dioxide BUN 62 H Creatinine 8.2 H Glucose 137 H POC Glucose Phosphorus Ferritin Ammonia Lactate Dehydrogenase Troponin T 0.123 H* Total Protein Albumin HDL Cholesterol 37 L 03/09/21 03/09/21 03/09/21 05:17 05:17 05:17 WBC RBC Hgb Hct MCV MCH RDW Lymph % (Auto) [place] % (Auto) Lymph # (Auto) [place] # (Auto) Seg Neutrophils % Seg Neuts % (Manual) Lymphocytes % (Manual) Monocytes % (Manual) Seg Neutrophils # Seg Neutrophils # Man Monocytes # (Manual) D-Dimer 1098.77 H Sodium Potassium Chloride Carbon Dioxide BUN Creatinine Glucose 123 H POC Glucose Phosphorus Ferritin Ammonia Lactate Dehydrogenase 300 H Troponin T 0.129 H* Total Protein Albumin HDL Cholesterol 03/09/21 03/09/21 03/09/21 05:17 14:21 17:01 WBC RBC Hgb Hct MCV MCH RDW Lymph % (Auto) [place] % (Auto) Lymph # (Auto) [place] # (Auto) Seg Neutrophils % Seg Neuts % (Manual) Lymphocytes % (Manual) Monocytes % (Manual) Seg Neutrophils # Seg Neutrophils # Man Monocytes # (Manual) D-Dimer Sodium 133 L Potassium 5.2 H Chloride 94.3 L Carbon Dioxide BUN 23 H Creatinine 4.3 H Glucose 246 H POC Glucose 201 H Phosphorus Ferritin 2210.0 H Ammonia Lactate Dehydrogenase Troponin T Total Protein Albumin HDL Cholesterol 03/09/21 03/10/21 03/10/21 22:07 04:49 04:49 WBC RBC 3.54 L Hgb Hct MCV MCH RDW 16.4 H Lymph % (Auto) [place] % (Auto) 11.4 H Lymph # (Auto) [place] # (Auto) 1.0 H Seg Neutrophils % Seg Neuts % (Manual) Lymphocytes % (Manual) Monocytes % (Manual) Seg Neutrophils # Seg Neutrophils # Man Monocytes # (Manual) D-Dimer Sodium 134 L Potassium 5.2 H Chloride 93.0 L Carbon Dioxide BUN 45 H Creatinine 5.9 H Glucose 112 H POC Glucose 128 H Phosphorus Ferritin Ammonia Lactate Dehydrogenase Troponin T Total Protein Albumin HDL Cholesterol 03/10/21 03/11/21 03/11/21 23:24 08:41 08:41 WBC 12.0 H RBC Hgb Hct MCV MCH RDW 15.6 H Lymph % (Auto) [place] % (Auto) 15.3 H Lymph # (Auto) [place] # (Auto) 1.8 H Seg Neutrophils % Seg Neuts % (Manual) Lymphocytes % (Manual) Monocytes % (Manual) Seg Neutrophils # Seg Neutrophils # Man Monocytes # (Manual) D-Dimer Sodium 134 L Potassium Chloride 91.6 L Carbon Dioxide BUN 32 H Creatinine 4.8 H Glucose 119 H POC Glucose 284 H Phosphorus Ferritin Ammonia Lactate Dehydrogenase Troponin T Total Protein 9.1 H Albumin HDL Cholesterol 03/12/21 03/12/21 03/12/21 06:30 06:30 07:54 WBC 11.3 H RBC 3.44 L Hgb 8.3 L D Hct 26.7 L D MCV 78 L MCH 24 L RDW 19.1 H Lymph % (Auto) 7.0 L [place] % (Auto) Lymph # (Auto) 0.8 L [place] # (Auto) Seg Neutrophils % 89.3 H Seg Neuts % (Manual) Lymphocytes % (Manual) Monocytes % (Manual) Seg Neutrophils # 10.1 H Seg Neutrophils # Man Monocytes # (Manual) D-Dimer Sodium Potassium 5.2 H D Chloride Carbon Dioxide BUN 47 H Creatinine Glucose 339 H POC Glucose Phosphorus Ferritin Ammonia 20.0 L Lactate Dehydrogenase Troponin T Total Protein 5.7 L D Albumin 2.3 L HDL Cholesterol 03/12/21 03/12/21 03/12/21 08:21 11:28 13:44 WBC RBC Hgb Hct MCV MCH RDW Lymph % (Auto) [place] % (Auto) Lymph # (Auto) [place] # (Auto) Seg Neutrophils % Seg Neuts % (Manual) Lymphocytes % (Manual) Monocytes % (Manual) Seg Neutrophils # Seg Neutrophils # Man Monocytes # (Manual) D-Dimer Sodium Potassium Chloride Carbon Dioxide BUN Creatinine 5.0 H D Glucose POC Glucose 108 H 108 H Phosphorus Ferritin Ammonia Lactate Dehydrogenase Troponin T Total Protein Albumin HDL Cholesterol 03/12/21 03/13/21 03/13/21 21:17 07:44 07:44 WBC RBC Hgb Hct MCV MCH RDW 15.8 H Lymph % (Auto) [place] % (Auto) Lymph # (Auto) [place] # (Auto) Seg Neutrophils % Seg Neuts % (Manual) 74.0 H Lymphocytes % (Manual) 12.0 L Monocytes % (Manual) 12.0 H Seg Neutrophils # Seg Neutrophils # Man Monocytes # (Manual) 1.2 H D-Dimer Sodium 133 L Potassium Chloride 94.4 L Carbon Dioxide 20 L BUN 42 H Creatinine 6.8 H Glucose POC Glucose 110 H Phosphorus Ferritin Ammonia Lactate Dehydrogenase Troponin T Total Protein Albumin 3.2 L HDL Cholesterol 03/14/21 03/14/21 10:22 10:22 WBC 12.6 H RBC Hgb Hct MCV MCH RDW 16.2 H Lymph % (Auto) [place] % (Auto) Lymph # (Auto) [place] # (Auto) Seg Neutrophils % Seg Neuts % (Manual) 73.0 H Lymphocytes % (Manual) 10.0 L Monocytes % (Manual) 9.0 H Seg Neutrophils # Seg Neutrophils # Man 9.2 H Monocytes # (Manual) 1.1 H D-Dimer Sodium Potassium Chloride 96.0 L Carbon Dioxide BUN 32 H Creatinine 5.4 H Glucose POC Glucose Phosphorus 7.10 H Ferritin Ammonia Lactate Dehydrogenase Troponin T Total Protein Albumin 3.8 L HDL Cholesterol Allied health notes reviewed: nursing
[2021-03-14] MEDS ORDERED: FAMOTIDINE 20 MG TAB FEEDTUBE SCH (22:00)
[2021-03-15] MEDS: carvediloL 12.5 MG TAB PO SCH ×3 (00:21→23:03)
[2021-03-15] MEDS: HEPARIN 5,000 UNIT/1 ML VIAL SUB-Q SCH ×4 (00:21→23:05)
[2021-03-15] MEDS: FAMOTIDINE 10 MG TAB FEEDTUBE SCH ×3 (00:22→23:04)
[2021-03-15] MEDS: SENNOSIDES 8.6 MG TAB PO SCH ×2 (00:23→23:04)
[2021-03-15] MEDS: INSULIN REGULAR, HUMAN 100 UNITS/1 ML SUB-Q SCH ×5 (00:27→23:40)
[2021-03-15] MEDS: hydrALAZINE 25 MG TAB PO SCH ×2 (00:45→06:37)
[2021-03-15 07:18] LABS: Basophils % (Auto) 0.3 % (0.0-1.8); Eosinophils # (Auto) 0.3 K/mm3 (0.0-0.4); Eosinophils % (Auto) 2.1 % (0.0-4.3); Hematocrit 30.4 % (30.3-42.9); Lymphocytes # (Auto) 2.2 K/mm3 (1.2-5.4); Mean Corpuscular HGB Conc 33 % (30-34); Mean Corpuscular Volume 89 fl (79-97); Monocytes # (Auto) 2.2 K/mm3 (0.0-0.8); Platelet Count 259 K/mm3 (140-440); Red Blood Count 3.42 M/mm3 (3.65-5.03)
[2021-03-15 07:33] LABS: Albumin 3.6 g/dL (3.9-5); Calcium 9.8 mg/dL (8.4-10.2)
[2021-03-15] MEDS ORDERED: NIFEdipine XL 30 MG TAB PO SCH (08:38)
--- NOTE | 2021-03-15 08:41 | Progress Note ---
Subjective Principal diagnosis: HTNsive Emergency; bacteremia; Ac Hypoxemic Resp Failure; AV-fistula malfxn Interval history: Patient was seen today for follow-up of multiple renal related issues No complaints of any chest pain pressure or shortness of breath currently dialysis Tuesday and Tuesday Interdisciplinary notes that also reviewed Events of 24 hours vitals labs intake output medications were reviewed Past medical history: Reviewed Family history: Reviewed Social history: Reviewed Allergies: Reviewed Physical examination: Vitals: Reviewed HEENT: No pallor or icterus oral mucosa moist Neck: Supple no JVD no thyromegaly Chest: Bilateral clear to auscultation anteriorly Heart: Regular rate and rhythm S1-S2 heard no S3-S4 Abdomen: Soft nontender no voluntary guarding rigidity rebound Extremity: Dry skin less than 1+ peripheral edema Psychiatric: No evidence of agitation and aggression noted Dermatology: No petechial rashes Labs and x-rays: Reviewed from today Assessment and plan end-stage renal disease continue with maintenance him dialysis on Tuesday and Tuesday schedule Discontinue magnesium oxide, can result in toxicity with a dialysis patient Discontinue hydralazine, Increase Procardia to 60 mg once a day continue with losartan 100 mg once a day, Start the patient on calcium acetate 2 capsule 3 times a day #Multifocal pneumonia Covid negative, currently being followed by infectious disease, coagulase negative staph bacteremia 1 out of 4 likely contaminant #hypertension tachycardia currently improving, blood pressure medication has been readjusted today #Diet and nutrition start on Nephrocaps, will start the patient on erythropoietin weekly #Time spent in patient care is 33 minutes #Mild tachycardia, reduce nifedipine, discontinue hydralazine We'll continue to follow and make recommendation for renal standpoint Objective - Vital Signs Vital signs: Vital Signs - 12hr 03/14/21 03/15/21 03/15/21 22:18 00:21 04:07 Temperature 98.9 F 98.0 F Pulse Rate 64 64 90 Respiratory 20 20 Rate Blood Pressure 114/68 114/68 137/64 O2 Sat by Pulse 100 100 Oximetry 03/15/21 03/15/21 05:00 06:37 Temperature Pulse Rate 90 Respiratory Rate Blood Pressure 137/64 O2 Sat by Pulse 100 Oximetry - Lab 03/15/21 06:31 03/15/21 06:31 Most recent lab results Calcium 9.8 mg/dL (8.4-10.2) 03/15/21 06:31 Phosphorus 7.10 mg/dL (2.5-4.5) H 03/14/21 10:22 Magnesium 2.00 mg/dL (1.7-2.3) 03/14/21 10:22 Medications & Allergies - Medications Allergies/Adverse Reactions: Allergies No Known Allergies Allergy (Unverified 07/09/20 12:47) Home Medications: Home Medications Medication Instructions Recorded Confirmed Last Taken Type NIFEdipine XL [Procardia Xl] 30 mg PO QDAY #30 tablet 11/12/20 03/13/21 Unknown Rx carvediloL [Coreg] 6.25 mg PO BID #60 tablet 11/12/20 03/13/21 Unknown Rx hydrALAZINE [Apresoline TAB] 25 mg PO Q8HR #90 tab 11/12/20 03/13/21 Unknown Rx Active Medications: Generic Name Dose Route Start Last Admin Trade Name Freq PRN Reason Stop Dose Admin Acetaminophen 650 mg 03/09/21 05:56 Acetaminophen 325 Mg Tab PO Q6H PRN Pain MILD(1-3)/Fever >100.5/ALMODOVAR Lipase/Protease/Amylase 1 each 03/14/21 11:12 Lipase 10,500/Protease 25,000/Amylase 43,750 (Units) Dr [place]ona FEEDTUBE PRN PRN For Clogged Feeding Tube Calcium Acetate 667 mg 03/15/21 14:00 Calcium Acetate 667 Mg Cap PO TID BALAJI Carvedilol 12.5 mg 03/14/21 12:00 03/15/21 00:21 Carvedilol 12.5 Mg Tab PO 12.5 mg BID BALAJI Administration Famotidine 10 mg 03/14/21 13:00 03/15/21 00:22 Famotidine 10 Mg Tab FEEDTUBE 10 mg BID BALAJI Administration Heparin Sodium (Porcine) 5,000 unit 03/09/21 14:00 03/15/21 06:38 Heparin 5,000 Unit/1 Ml Vial SUB-Q 5,000 unit Q8HR BALAJI Administration Hydralazine HCl 10 mg 03/10/21 23:06 03/13/21 06:34 Hydralazine 20 Mg/1 Ml Inj IV 10 mg Q6HR PRN Administration Hypertension Sodium Chloride 100 mls @ 999 mls/hr 03/09/21 04:50 Nacl 0.9% IV FLAKO PRN Hypotension Cefepime HCl 1 gm in 100 mls @ 200 mls/hr 03/10/21 18:00 03/14/21 20:06 Cefepime/Ns 1 Gm/100 Ml IV 03/15/21 18:29 Not Given QPM [facility] Insulin Human Regular 0 units 03/09/21 18:00 03/15/21 00:27 Insulin Regular, Human 100 Units/1 Ml SUB-Q Not Given ACHS [facility] Protocol Losartan Potassium 100 mg 03/14/21 10:00 03/14/21 10:22 Losartan 50 Mg Tab PO Not Given QDAY [facility] Multivitamins/Iron 1 each 03/15/21 10:00 Fe Fumarate/Fa/Mv, Min Comb#15 Cap (Hemocyte Plus) PO QDAY [facility] Nifedipine 60 mg 03/15/21 08:38 Nifedipine Xl 30 Mg Tab PO QDAY [facility] Senna 17.2 mg 03/09/21 22:00 03/15/21 00:23 Sennosides 8.6 Mg Tab PO 17.2 mg QHS [facility] Administration Simple Syrup 15 ml 03/14/21 11:12 Simple Syrup 15 Ml FEEDTUBE PRN PRN Hypoglycemia Simple Syrup 30 ml 03/14/21 11:12 Simple Syrup 15 Ml FEEDTUBE PRN PRN Hypoglycemia Sodium Bicarbonate 325 mg 03/14/21 11:12 Sodium Bicarbonate 325 Mg Tab FEEDTUBE PRN PRN For Clogged Feeding Tube Sodium Chloride 10 ml 03/09/21 10:00 03/15/21 00:23 Sodium Chloride 0.9% 10 Ml Flush Syringe IV 10 ml BID BALAJI Administration Sodium Chloride 10 ml 03/09/21 05:56 03/11/21 05:56 Sodium Chloride 0.9% 10 Ml Flush Syringe IV 10 ml PRN PRN Administration LINE FLUSH
[2021-03-15] MEDS: LOSARTAN 50 MG TAB PO SCH (09:14)
[2021-03-15] MEDS: NIFEdipine XL 60 MG TAB PO SCH (09:17)
--- NOTE | 2021-03-15 09:21 | Progress Note ---
Assessment and Plan Assessment and plan: 1. Metabolic encephalopathy Confusion on a.m. encounter of 03/10, this is new per RN who stated the patient was more conversational yesterday Etiology unclear. Differential includes infectious versus neurological. Discussed with nephrology 03/10 regarding extra hemodialysis treatment, follow- up after hemodialysis today -CT brain on 03/10: Negative Ammonia level: Nonelevated -No improvement post HD. Discontinue all sedating medication and opioid narcotics Several days of altered mentation. Will place NG to give patient nutrition -MRI brain, EEG, neurology consultation 2. Sepsis -Leukocytosis, tachycardia secondary to pneumonia WBC 20.7 on admission Covid PCR negative Blood culture positive 1 out of 2 bottles CXR on admission: Mild patchy multifocal airspace disease. Vancomycin IV now dc, cefepime IV x 8 days (renally adjusted) per ID. Infectious disease following 3. Multifocal pneumonia Covid negative, elevated procalcitonin -Currently on nasal cannula NC 1L , will wean as tolerated Antibiotics as above Pulmonology following 4. GPC bacteremia 1 out of 4 bottles, staph species isolated. Still suspect contaminant. Follow for speciation and sensitivities Antibiotics as above for now Infectious disease following 5. ESRD on HD On HD Avoid nephrotoxic agents Renally adjust medications (Vanc/Cefepime) Nephrology following 6. Hypertensive emergency - 221/107 on admission, repeat today 135/87 Resume home hydralazine, carvedilol, Procardia XL 7. Persons under investigation for COVID-19 -Negative PCR 8. Secondary hyperparathyroidism Continue phosphate binders 9. Anemia of CKD - continue to monitor H/H 10. Hyponatremia - monitor Na 11. Hyperkalemia - monitor K, last 5.2 - correct with HD 12.hypertension Elevated blood pressure in last 24 hours Procardia increased by nephrology Discontinued hydralazine, Losartan initiated Hospital Course to date 03/10: Paged by ED RN regarding patient mental status change. Per RN, exam yesterday demonstrated alert and talkative patient yesterday who was able to communicated, via physical scientist service. Today patient is alert, protecting airway, however, she appears more confused. She does not acknowledge medical staff in room but does not attempt to communicate or respond or follow commands when spoken to. stat CT brain was ordered which was negative. 03/11: Recieved HD yesterday, no improvement in mentation on Am encounter. Will order MRI brain, EEG, neurology consultation. 03/12: Could not have MRI completed yesterday due to movement in MRI scanner. We will coordinate with manager staffing to complete today with on-call Ativan on board. EEG pending. Pending full neuro evaluation underway. Will call winston Farfan today ([phone]). 03/13: MRI completed- appears to be inconclusive. Will await neuro input. LP was unable to be completed. Plan for tuesday. EEG pending. D/c vancomycin, only cefepime IV x 8 days per ID. 03/14: Patient will need nutrition however due to mental status will need to insert NG tube. She can be started on Nepro tube goal 25 cc/h feeds with free water flushes 100 cc every 4 hours. Start Pepcid 20 twice daily EEG is still pending and LP will be completed Tuesday. 03/15: Patient appears to be more alert. Had pulled NG tube out from yesterday, new NG tube was placed today. Since she is more alert we will consider a bedside swallow eval and consider DC of NG with daughter or language line translating all of our instructions. History Interval history: On encounter, patient was in restraints and had second NG tube in place after pulling out the first. It appeared as though her mentation had significantly improved. Albeit very momentary and minimal, she attempted to phonate words to me today. She acknowledge my presence in the room and note was nodding her head yes to my presence there. Discussed plan with nurse at bedside about attempting a bedside swallow eval to see if patient can eat. Advised RN to call winston Farfan while evaluation took place so that she can coordinate in [place]. However if this is not an option, instructed her to use language line. Should patient be able to communicate, can eat and is oriented, we will discontinue restraints and NG tube. Hospitalist Physical - Physical exam Narrative exam: Physical Exam: Constitutional: More alert than yesterday. Unclear if patient is still confused however acknowledging physicians presents in room. No acute distress, thin elderly [place] female. Head, Ears, Nose: Normocephalic, atraumatic. External ears, nose normal Eyes: Conjunctivae/corneas clear. No icterus. No ptosis. Neck: Supple, no meningeal signs Oral: dentition fair, no thrush Cardiovascular: S1, S2 normal. Respiratory: Good air entry, clear to auscultation bilaterally, protecting airway GI: Soft, non-tender; bowel sounds normal. No peritoneal signs. Musculoskeletal: No pedal edema, no cyanosis. Skin: No rash or abscess Hem/Lymphatic: No palpable cervical or supraclavicular nodes. No lymphangitis Psych: Affect normal, however not tracking with medical staff, appears confused. Neurological: More alert , withdraws to painful stimuli. - Constitutional Vitals: Temp Pulse Resp BP Pulse Ox 98.0 F 92 H 20 150/71 100 03/15/21 04:07 03/15/21 09:14 03/15/21 04:07 03/15/21 09:14 03/15/21 05:00 General appearance: Present: mild distress, well-nourished HEART Score - HEART Score Troponin: Troponin T 0.129 ng/mL (0.00-0.029) H* 03/09/21 05:17 Results - Labs CBC & Chem 7: 03/15/21 06:31 03/15/21 06:31 Labs: Laboratory Last Values WBC 14.7 K/mm3 (4.5-11.0) H 03/15/21 06:31 RBC 3.42 M/mm3 (3.65-5.03) L 03/15/21 06:31 Hgb 10.0 gm/dl (10.1-14.3) L 03/15/21 06:31 Hct 30.4 % (30.3-42.9) 03/15/21 06:31 MCV 89 fl (79-97) 03/15/21 06:31 MCH 29 pg (28-32) 03/15/21 06:31 MCHC 33 % (30-34) 03/15/21 06:31 RDW 16.0 % (13.2-15.2) H 03/15/21 06:31 Plt Count 259 K/mm3 (140-440) 03/15/21 06:31 Lymph % (Auto) 15.0 % (13.4-35.0) 03/15/21 06:31 [place] % (Auto) 15.0 % (0.0-7.3) H 03/15/21 06:31 Eos % (Auto) 2.1 % (0.0-4.3) 03/15/21 06:31 Baso % (Auto) 0.3 % (0.0-1.8) 03/15/21 06:31 Lymph # (Auto) 2.2 K/mm3 (1.2-5.4) 03/15/21 06:31 [place] # (Auto) 2.2 K/mm3 (0.0-0.8) H 03/15/21 06:31 Eos # (Auto) 0.3 K/mm3 (0.0-0.4) 03/15/21 06:31 Baso # (Auto) 0.0 K/mm3 (0.0-0.1) 03/15/21 06:31 Add Manual Diff Complete 03/14/21 10:22 Total Counted 100 03/14/21 10:22 Seg Neutrophils % 67.6 % (40.0-70.0) 03/15/21 06:31 Seg Neuts % (Manual) 73.0 % (40.0-70.0) H 03/14/21 10:22 Band Neutrophils % 4.0 % 03/09/21 03:34 Lymphocytes % (Manual) 10.0 % (13.4-35.0) L 03/14/21 10:22 Reactive Lymphs % (Man) 6.0 % 03/14/21 10:22 Monocytes % (Manual) 9.0 % (0.0-7.3) H 03/14/21 10:22 Eosinophils % (Manual) 2.0 % (0.0-4.3) 03/14/21 10:22 Metamyelocytes % 1.0 % 03/09/21 03:34 Nucleated RBC % Not Reportable 03/14/21 10:22 Seg Neutrophils # 9.9 K/mm3 (1.8-7.7) H 03/15/21 06:31 Seg Neutrophils # Man 9.2 K/mm3 (1.8-7.7) H 03/14/21 10:22 Band Neutrophils # 0.0 K/mm3 03/14/21 10:22 Lymphocytes # (Manual) 1.3 K/mm3 (1.2-5.4) 03/14/21 10:22 Abs React Lymphs (Man) 0.8 K/mm3 03/14/21 10:22 Monocytes # (Manual) 1.1 K/mm3 (0.0-0.8) H 03/14/21 10:22 Eosinophils # (Manual) 0.3 K/mm3 (0.0-0.4) 03/14/21 10:22 Basophils # (Manual) 0.0 K/mm3 (0.0-0.1) 03/14/21 10:22 Metamyelocytes # 0.0 K/mm3 03/14/21 10:22 Myelocytes # 0.0 K/mm3 03/14/21 10:22 Promyelocytes # 0.0 K/mm3 03/14/21 10:22 Blast Cells # 0.0 K/mm3 03/14/21 10:22 WBC Morphology Not Reportable 03/14/21 10:22 WBC Morphology TNR 03/14/21 10:22 Hypersegmented Neuts Not Reportable 03/14/21 10:22 Hyposegmented Neuts Not Reportable 03/14/21 10:22 Hypogranular Neuts Not Reportable 03/14/21 10:22 Smudge Cells Not Reportable 03/14/21 10:22 Toxic Granulation Not Reportable 03/14/21 10:22 Toxic Vacuolation Not Reportable 03/14/21 10:22 Dohle Bodies Not Reportable 03/14/21 10:22 Pelger-Huet Anomaly Not Reportable 03/14/21 10:22 Kecia Rods Not Reportable 03/14/21 10:22 Platelet Estimate Consistent w auto 03/14/21 10:22 Clumped Platelets Not Reportable 03/14/21 10:22 Plt Clumps, EDTA Not Reportable 03/14/21 10:22 Large Platelets Not Reportable 03/14/21 10:22 Giant Platelets Not Reportable 03/14/21 10:22 Platelet Satelliting Not Reportable 03/14/21 10:22 Plt Morphology Comment Not Reportable 03/14/21 10:22 RBC Morphology Normal 03/14/21 10:22 Dimorphic RBCs Not Reportable 03/14/21 10:22 Polychromasia Not Reportable 03/14/21 10:22 Hypochromasia Not Reportable 03/14/21 10:22 Poikilocytosis Not Reportable 03/14/21 10:22 Anisocytosis Not Reportable 03/14/21 10:22 Microcytosis Not Reportable 03/14/21 10:22 Macrocytosis Not Reportable 03/14/21 10:22 Spherocytes Not Reportable 03/14/21 10:22 Pappenheimer Bodies Not Reportable 03/14/21 10:22 Sickle Cells Not Reportable 03/14/21 10:22 Target Cells Not Reportable 03/14/21 10:22 Tear Drop Cells Not Reportable 03/14/21 10:22 Ovalocytes Not Reportable 03/14/21 10:22 Helmet Cells Not Reportable 03/14/21 10:22 [place] Bodies Not Reportable 03/14/21 10:22 [place] Rings Not Reportable 03/14/21 10:22 [place] Cells Not Reportable 03/14/21 10:22 Bite Cells Not Reportable 03/14/21 10:22 Crenated Cell Not Reportable 03/14/21 10:22 Elliptocytes Not Reportable 03/14/21 10:22 Acanthocytes (Spur) Not Reportable 03/14/21 10:22 Rouleaux Not Reportable 03/14/21 10:22 Hemoglobin C Crystals Not Reportable 03/14/21 10:22 Schistocytes Not Reportable 03/14/21 10:22 Malaria parasites Not Reportable 03/14/21 10:22 Ren Bodies Not Reportable 03/14/21 10:22 Hem Pathologist Commnt No 03/14/21 10:22 PT 13.6 Sec. (12.2-14.9) 03/10/21 04:49 INR 0.99 (0.87-1.13) 03/10/21 04:49 APTT 33.2 Sec. (24.2-36.6) 03/09/21 03:34 D-Dimer 1098.77 ng/mlDDU (0-234) H 03/09/21 05:17 Sodium 139 mmol/L (137-145) 03/15/21 06:31 Potassium 4.8 mmol/L (3.6-5.0) 03/15/21 06:31 Chloride 95.0 mmol/L (98-107) L 03/15/21 06:31 Carbon Dioxide 24 mmol/L (22-30) 03/15/21 06:31 Anion Gap 25 mmol/L 03/15/21 06:31 BUN 61 mg/dL (7-17) H 03/15/21 06:31 Creatinine 7.0 mg/dL (0.6-1.2) H 03/15/21 06:31 Estimated GFR 6 ml/min 03/15/21 06:31 BUN/Creatinine Ratio 9 % 03/15/21 06:31 Glucose 140 mg/dL (65-100) H 03/15/21 06:31 POC Glucose 140 mg/dL (70-105) H 03/15/21 07:42 Hemoglobin A1c 5.1 % (4-6) 03/09/21 10:43 Lactic Acid 1.20 mmol/L (0.7-2.0) 03/09/21 07:37 Calcium 9.8 mg/dL (8.4-10.2) 03/15/21 06:31 Phosphorus 7.10 mg/dL (2.5-4.5) H 03/14/21 10:22 Magnesium 2.00 mg/dL (1.7-2.3) 03/14/21 10:22 Ferritin 2210.0 ng/mL (10.0-200.0) H 03/09/21 05:17 Total Bilirubin 0.30 mg/dL (0.1-1.2) 03/15/21 06:31 AST 14 units/L (5-40) 03/15/21 06:31 ALT 9 units/L (7-56) 03/15/21 06:31 Alkaline Phosphatase 70 units/L (35-129) 03/15/21 06:31 Ammonia 20.0 umol/L (25-60) L 03/12/21 07:54 Lactate Dehydrogenase 300 units/L (91-180) H 03/09/21 05:17 Total Creatine Kinase 57 units/L (30-135) 03/09/21 10:43 CK-MB (CK-2) 2.3 ng/mL (0.0-4.0) 03/09/21 10:43 CK-MB (CK-2) Rel Index 4.0 (0-4) 03/09/21 10:43 Troponin T 0.129 ng/mL (0.00-0.029) H* 03/09/21 05:17 C-Reactive Protein 1.10 mg/dL (0.00-1.30) 03/09/21 05:17 Total Protein 7.6 g/dL (6.3-8.2) 03/15/21 06:31 Albumin 3.6 g/dL (3.9-5) L 03/15/21 06:31 Albumin/Globulin Ratio 0.9 % 03/15/21 06:31 Triglycerides 133 mg/dL (2-149) 03/09/21 03:34 Cholesterol 158 mg/dL (50-199) 03/09/21 03:34 LDL Cholesterol Direct 105 mg/dL (50-130) 03/09/21 03:34 HDL Cholesterol 37 mg/dL (40-59) L 03/09/21 03:34 Cholesterol/HDL Ratio 4.27 % 03/09/21 03:34 Procalcitonin 0.71 ng/mL (<0.15) 03/09/21 05:17 Random Vancomycin 25.0 ug/mL (0-40.0) 03/12/21 13:44 Coronavirus (PCR) Negative (Negative) 03/09/21 08:40 Hepatitis A IgM Ab Non-reactive (NonReactive) 03/09/21 07:37 Hep Bs Antigen Nonreactive (Negative) 03/09/21 07:37 Hep B Core IgM Ab Non-reactive (NonReactive) 03/09/21 07:37 Hepatitis C Antibody Non-reactive (NonReactive) 03/09/21 07:37 Microbiology: Microbiology 03/09/21 05:17 Peripheral/Venous Blood Culture - Final NO GROWTH AFTER 5 DAYS Persaud/IV: Voiding Method Incontinent Active Medications - Current Medications Current Medications: Generic Name Dose Route Start Last Admin Trade Name Freq PRN Reason Stop Dose Admin Acetaminophen 650 mg 03/09/21 05:56 Acetaminophen 325 Mg Tab PO Q6H PRN Pain MILD(1-3)/Fever >100.5/ALMODOVAR Lipase/Protease/Amylase 1 each 03/14/21 11:12 Lipase 10,500/Protease 25,000/Amylase 43,750 (Units) Cap FEEDTUBE PRN PRN For Clogged Feeding Tube Calcium Acetate 667 mg 03/15/21 14:00 Calcium Acetate 667 Mg Cap PO TID BALAJI Carvedilol 12.5 mg 03/14/21 12:00 03/15/21 09:17 Carvedilol 12.5 Mg Tab PO 12.5 mg BID BALAJI Administration Famotidine 10 mg 03/14/21 13:00 03/15/21 09:17 Famotidine 10 Mg Tab FEEDTUBE 10 mg BID BALAJI Administration Heparin Sodium (Porcine) 5,000 unit 03/09/21 14:00 03/15/21 06:38 Heparin 5,000 Unit/1 Ml Vial SUB-Q 5,000 unit Q8HR BALAJI Administration Hydralazine HCl 10 mg 03/10/21 23:06 03/13/21 06:34 Hydralazine 20 Mg/1 Ml Inj IV 10 mg Q6HR PRN Administration Hypertension Sodium Chloride 100 mls @ 999 mls/hr 03/09/21 04:50 Nacl 0.9% IV FLAKO PRN Hypotension Cefepime HCl 1 gm in 100 mls @ 200 mls/hr 03/10/21 18:00 03/14/21 20:06 Cefepime/Ns 1 Gm/100 Ml IV 03/15/21 18:29 Not Given QPM [facility] Insulin Human Regular 0 units 03/09/21 18:00 03/15/21 00:27 Insulin Regular, Human 100 Units/1 Ml SUB-Q Not Given ACHS [facility] Protocol Losartan Potassium 100 mg 03/14/21 10:00 03/15/21 09:14 Losartan 50 Mg Tab PO 100 mg QDAY BALAJI Administration Multivitamins/Iron 1 each 03/15/21 10:00 Fe Fumarate/Fa/Mv, Min Comb#15 Cap (Hemocyte Plus) PO QDAY BALAJI Nifedipine 60 mg 03/15/21 10:00 03/15/21 09:17 Nifedipine Xl 60 Mg Tab PO 60 mg QDAY BALAJI Administration Senna 17.2 mg 03/09/21 22:00 03/15/21 00:23 Sennosides 8.6 Mg Tab PO 17.2 mg QHS BALAJI Administration Simple Syrup 15 ml 03/14/21 11:12 Simple Syrup 15 Ml FEEDTUBE PRN PRN Hypoglycemia Simple Syrup 30 ml 03/14/21 11:12 Simple Syrup 15 Ml FEEDTUBE PRN PRN Hypoglycemia Sodium Bicarbonate 325 mg 03/14/21 11:12 Sodium Bicarbonate 325 Mg Tab FEEDTUBE PRN PRN For Clogged Feeding Tube Sodium Chloride 10 ml 03/09/21 10:00 03/15/21 09:18 Sodium Chloride 0.9% 10 Ml Flush Syringe IV 10 ml BID BALAJI Administration Sodium Chloride 10 ml 03/09/21 05:56 03/11/21 05:56 Sodium Chloride 0.9% 10 Ml Flush Syringe IV 10 ml PRN PRN Administration LINE FLUSH Nutrition/Malnutrition Assess - Dietary Evaluation Nutrition/Malnutrition Findings: Nutrition Notes Start: 03/09/21 07:41 Freq: Status: Active Protocol: Document 03/14/21 10:46 SG (Rec: 03/14/21 11:12 SG [id number]) Nutrition Notes Need for Assessment generated from: MD Order Initial or Follow up Reassessment Current Diagnosis CKD (stage V CKD),Sepsis, Hypertension Other Pertinent Diagnosis on HD (MWF), s/p renal transplant Current Diet TF Nepro at 10ml/hour Labs/Tests reviewed Pertinent Medications reviewed Height 5 ft Weight 44.452 kg [place] Body Weight (kg) 45.45 BMI 19.1 Subjective/Other Information RD consulted for tube feed. #1 Nutrition Diagnosis Inadequate oral intake As Evidenced by Signs and Symptoms pt now on TF Diagnosis Progress(for reassessment Continues documentation) Is patient on ventilator? No Is Patient Ambulatory and/or Out of Bed No REE-([facility]-confined to bed) 1039.896 Kcal/Kg value to use for calculation 35 Approximate Energy Requirements Using 1556 kcal/Kg Calculation Used for Recommendations Kcal/kg Additional Notes Protein: (>1.2 g/kg) >53 g/day Fluid: 1-1.5 Liters /day Nutrition Intervention Nutrition Support: Nepro at 35 ml/hour 150 ml water flush q 4 hours Kcal 1,512 Protein (gm) 68 Fluid (mL) 611 Goal #1 TF tolerance Goal #2 TF to meet 80-100% energy and protein needs. Goal #3 Weight gain/maintenance Follow-Up By: 03/16/21 Additional Comments F/u for new TF
[2021-03-15] MEDS ORDERED: EPOETIN ALFA-EPBX 20,000 UNIT/1 ML VIAL SUB-Q ONE (11:00)
[2021-03-15] MEDS: FE FUMARATE/FA/MV, MIN COMB#15 CAP (HEMOCYTE PLUS) PO SCH (13:07)
[2021-03-15] MEDS: CALCIUM ACETATE 667 MG CAP PO SCH ×2 (13:09→23:02)
--- NOTE | 2021-03-15 16:04 | XRay Report ---
XR abdomen 1V ap INDICATION / CLINICAL INFORMATION: tube placement COMPARISON: 03/14/2021 FINDINGS/IMPRESSION: Weighted tip catheter terminates in the stomach. The tip of the catheter no longer appears kinked. Gu idewire remains in place. Otherwise unchanged. Signer Name: Anjum Terry MD Signed: 03/15/2021 4:00 PM Workstation Name: [email or web address]
--- NOTE | 2021-03-15 16:43 | XRay Report ---
ABDOMEN 1 VIEW INDICATION / CLINICAL INFORMATION: Dobbhoff placement. COMPARISON: Radiograph performed earlier in the day. FINDINGS: TUBES / LINES: Weighted feeding tube tip is in the proximal stomach. BOWEL GAS PATTERN: No significant abnormality. FREE AIR / EXTRALUMINAL GAS: None seen. ADDITIONAL FINDINGS: Severe atherosclerotic plaque of the abdominal aorta. IMPRESSION: 1. Weighted feeding tube tip is in the proximal stomach and needs to be advanced transpyloric for opt imal positioning. Signer Name: Zay Mason MD Signed: 03/15/2021 4:39 PM Workstation Name: [id number]
--- NOTE | 2021-03-15 17:14 | Progress Note ---
Assessment and Plan 75-year-old female with known history of hypertension, end-stage renal disease on dialysis Mondays, Wednesdays and Fridays and also status post field renal transplant presents to the emergency room via EMS today complaining of shortness of breath. Daughter indicates that patient may not have had enough fluid taken off during dialysis on Tuesday. There has been no fever or chills, no nausea or vomiting, no abdominal pain, no headache or dizziness, no loss of taste or smell, no recent travel, no sick contacts and no contact with anyone with COVID-19. Upon arrival of EMS patient oxygen saturation was about 68% on room air and patient was placed on nonrebreather on the scene with improvement of oxygen saturation to about 98%. Patient follows up with Dr. 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 She has been admitted in the past before for fluid overload requiring BiPAP. Most of the history has been gotten from daughter as patient does not speak [place]ian. Upon arrival in the emergency room patient was quite hypertensive with systolic in the 200s and diastolic in the low 100s. Patient subsequently started on a nitroglycerin drip. Forming Press Operator on-call was consulted . Patient promptly given dialysis. Patient has had nebulizer treatment, insulin and glucose for the hyperkalemia. She is also started on empiric IV antibiotics for sepsis. atient awake. On O2 3 litres. O2 saturation 100%. No acute respiratory distress. Patient speaks only [place]. Unable to get history from her. Most of the history obtained from the chart. Patient is running low grade temp at times. BP 120/71. HR: 105. Has mild leukocytosis, Troponin was slightly elevated at 0.123. COVID negative. chest x-ray (03/09/21) showed mild patchy multifocal airspace disease. Patient is on S/C heparin. Patient just started on tube feeding to day. - Patient Problems (1) Acute pulmonary edema Current Visit: Yes Status: Acute Plan to address problem: Patient is on dialysis. (2) ESRD needing dialysis Current Visit: Yes Status: Acute Plan to address problem: Management as per nephrology. (3) Hypertensive emergency Current Visit: Yes Status: Acute Plan to address problem: Improved. Managent as per primary care. (4) Person under investigation for COVID-19 Current Visit: Yes Status: Acute Plan to address problem: Patients Rick virus PCR negative. (5) Sepsis Current Visit: Yes Status: Acute Plan to address problem: Patient was on cefepime. (6) Hyponatremia Current Visit: No Status: Acute Plan to address problem: Improved. last Na+ level 139 (7) Metabolic acidosis Current Visit: No Status: Acute Plan to address problem: Anion gap 25. Could be secondary to renal failure. Subjective Date of service: 03/15/21 Principal diagnosis: HTNsive Emergency; bacteremia; Ac Hypoxemic Resp Failure; AV-fistula malfxn Interval history: 75-year-old female with known history of hypertension, end-stage renal disease on dialysis Mondays, Wednesdays and Fridays and also status post field renal transplant presents to the emergency room via EMS today complaining of shortness of breath. Daughter indicates that patient may not have had enough fluid taken off during dialysis on Tuesday. There has been no fever or chills, no nausea or vomiting, no abdominal pain, no headache or dizziness, no loss of taste or smell, no recent travel, no sick contacts and no contact with anyone with COVID-19. Upon arrival of EMS patient oxygen saturation was about 68% on room air and patient was placed on nonrebreather on the scene with improvement of oxygen saturation to about 98%. Patient follows up with Dr. 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 She has been admitted in the past before for fluid overload requiring BiPAP. Most of the history has been gotten from daughter as patient does not speak [place]ian. Upon arrival in the emergency room patient was quite hypertensive with systolic in the 200s and diastolic in the low 100s. Patient subsequently started on a nitroglycerin drip. Forming Press Operator on-call was consulted . Patient promptly given dialysis. Patient has had nebulizer treatment, insulin and glucose for the hyperkalemia. She is also started on empiric IV antibiotics for sepsis. Patient awake. On O2 3 litres. O2 saturation 100%. No acute respiratory distress. Patient speaks only [place]. Unable to get history from her. Most of the history obtained from the chart. Patient is running low grade temp at times. BP 120/71. HR: 105. Has mild leukocytosis, Troponin was slightly elevated at 0.123. COVID negative. chest x-ray (03/09/21) showed mild patchy multifocal airspace disease. Patient is on S/C heparin. Patient just started on tube feeding to day. Objective Vital Signs - 12hr 03/15/21 03/15/21 03/15/21 06:37 09:14 10:00 Temperature Pulse Rate 90 92 H Respiratory Rate Blood Pressure 137/64 150/71 O2 Sat by Pulse 94 Oximetry 03/15/21 03/15/21 03/15/21 11:09 11:21 11:22 Temperature 94.3 F L Pulse Rate 90 90 Respiratory 20 Rate Blood Pressure 144/69 O2 Sat by Pulse 100 94 93 Oximetry 03/15/21 11:24 Temperature Pulse Rate 51 L Respiratory Rate Blood Pressure O2 Sat by Pulse 100 Oximetry Constitutional: no acute distress, alert, other (elderly thin male with normal respiratory effort at rest) Eyes: non-icteric ENT: oropharynx moist Neck: supple, no lymphadenopathy Effort: normal Ascultation: Bilateral: diminished breath sounds Percussion: Bilateral: not dull Cardiovascular: regular rate and rhythm Gastrointestinal: normoactive bowel sounds, soft, non-tender, non-distended Integumentary: normal Extremities: no cyanosis, no edema, pink and warm, pulses normal Neurologic: non-focal exam (grossly), pupils equal and round, unable to assess Psychiatric: depressed, other (Patient speaks only vitnam. Can not asses mood or effect.Patient sleeping at this time.) CBC and BMP: 03/15/21 06:31 03/15/21 06:31 ABG, PT/INR, D-dimer: PT/INR, D-dimer PT 13.6 Sec. (12.2-14.9) 03/10/21 04:49 INR 0.99 (0.87-1.13) 03/10/21 04:49 D-Dimer 1098.77 ng/mlDDU (0-234) H 03/09/21 05:17 Abnormal lab findings: Abnormal Labs 03/09/21 03/09/21 03/09/21 03:34 03:34 03:34 WBC 20.7 H RBC 3.57 L Hgb Hct MCV MCH RDW 16.5 H Lymph % (Auto) [place] % (Auto) Lymph # (Auto) [place] # (Auto) Seg Neutrophils % Seg Neuts % (Manual) 84.0 H Lymphocytes % (Manual) 6.0 L Monocytes % (Manual) Seg Neutrophils # Seg Neutrophils # Man 17.4 H Monocytes # (Manual) D-Dimer Sodium 133 L Potassium 6.1 H* Chloride 93.6 L Carbon Dioxide BUN 62 H Creatinine 8.2 H Glucose 137 H POC Glucose Phosphorus Ferritin Ammonia Lactate Dehydrogenase Troponin T 0.123 H* Total Protein Albumin HDL Cholesterol 37 L 03/09/21 03/09/21 03/09/21 05:17 05:17 05:17 WBC RBC Hgb Hct MCV MCH RDW Lymph % (Auto) [place] % (Auto) Lymph # (Auto) [place] # (Auto) Seg Neutrophils % Seg Neuts % (Manual) Lymphocytes % (Manual) Monocytes % (Manual) Seg Neutrophils # Seg Neutrophils # Man Monocytes # (Manual) D-Dimer 1098.77 H Sodium Potassium Chloride Carbon Dioxide BUN Creatinine Glucose 123 H POC Glucose Phosphorus Ferritin Ammonia Lactate Dehydrogenase 300 H Troponin T 0.129 H* Total Protein Albumin HDL Cholesterol 03/09/21 03/09/21 03/09/21 05:17 14:21 17:01 WBC RBC Hgb Hct MCV MCH RDW Lymph % (Auto) [place] % (Auto) Lymph # (Auto) [place] # (Auto) Seg Neutrophils % Seg Neuts % (Manual) Lymphocytes % (Manual) Monocytes % (Manual) Seg Neutrophils # Seg Neutrophils # Man Monocytes # (Manual) D-Dimer Sodium 133 L Potassium 5.2 H Chloride 94.3 L Carbon Dioxide BUN 23 H Creatinine 4.3 H Glucose 246 H POC Glucose 201 H Phosphorus Ferritin 2210.0 H Ammonia Lactate Dehydrogenase Troponin T Total Protein Albumin HDL Cholesterol 03/09/21 03/10/21 03/10/21 22:07 04:49 04:49 WBC RBC 3.54 L Hgb Hct MCV MCH RDW 16.4 H Lymph % (Auto) [place] % (Auto) 11.4 H Lymph # (Auto) [place] # (Auto) 1.0 H Seg Neutrophils % Seg Neuts % (Manual) Lymphocytes % (Manual) Monocytes % (Manual) Seg Neutrophils # Seg Neutrophils # Man Monocytes # (Manual) D-Dimer Sodium 134 L Potassium 5.2 H Chloride 93.0 L Carbon Dioxide BUN 45 H Creatinine 5.9 H Glucose 112 H POC Glucose 128 H Phosphorus Ferritin Ammonia Lactate Dehydrogenase Troponin T Total Protein Albumin HDL Cholesterol 03/10/21 03/11/21 03/11/21 23:24 08:41 08:41 WBC 12.0 H RBC Hgb Hct MCV MCH RDW 15.6 H Lymph % (Auto) [place] % (Auto) 15.3 H Lymph # (Auto) [place] # (Auto) 1.8 H Seg Neutrophils % Seg Neuts % (Manual) Lymphocytes % (Manual) Monocytes % (Manual) Seg Neutrophils # Seg Neutrophils # Man Monocytes # (Manual) D-Dimer Sodium 134 L Potassium Chloride 91.6 L Carbon Dioxide BUN 32 H Creatinine 4.8 H Glucose 119 H POC Glucose 284 H Phosphorus Ferritin Ammonia Lactate Dehydrogenase Troponin T Total Protein 9.1 H Albumin HDL Cholesterol 03/12/21 03/12/21 03/12/21 06:30 06:30 07:54 WBC 11.3 H RBC 3.44 L Hgb 8.3 L D Hct 26.7 L D MCV 78 L MCH 24 L RDW 19.1 H Lymph % (Auto) 7.0 L [place] % (Auto) Lymph # (Auto) 0.8 L [place] # (Auto) Seg Neutrophils % 89.3 H Seg Neuts % (Manual) Lymphocytes % (Manual) Monocytes % (Manual) Seg Neutrophils # 10.1 H Seg Neutrophils # Man Monocytes # (Manual) D-Dimer Sodium Potassium 5.2 H D Chloride Carbon Dioxide BUN 47 H Creatinine Glucose 339 H POC Glucose Phosphorus Ferritin Ammonia 20.0 L Lactate Dehydrogenase Troponin T Total Protein 5.7 L D Albumin 2.3 L HDL Cholesterol 03/12/21 03/12/21 03/12/21 08:21 11:28 13:44 WBC RBC Hgb Hct MCV MCH RDW Lymph % (Auto) [place] % (Auto) Lymph # (Auto) [place] # (Auto) Seg Neutrophils % Seg Neuts % (Manual) Lymphocytes % (Manual) Monocytes % (Manual) Seg Neutrophils # Seg Neutrophils # Man Monocytes # (Manual) D-Dimer Sodium Potassium Chloride Carbon Dioxide BUN Creatinine 5.0 H D Glucose POC Glucose 108 H 108 H Phosphorus Ferritin Ammonia Lactate Dehydrogenase Troponin T Total Protein Albumin HDL Cholesterol 03/12/21 03/13/21 03/13/21 21:17 07:44 07:44 WBC RBC Hgb Hct MCV MCH RDW 15.8 H Lymph % (Auto) [place] % (Auto) Lymph # (Auto) [place] # (Auto) Seg Neutrophils % Seg Neuts % (Manual) 74.0 H Lymphocytes % (Manual) 12.0 L Monocytes % (Manual) 12.0 H Seg Neutrophils # Seg Neutrophils # Man Monocytes # (Manual) 1.2 H D-Dimer Sodium 133 L Potassium Chloride 94.4 L Carbon Dioxide 20 L BUN 42 H Creatinine 6.8 H Glucose POC Glucose 110 H Phosphorus Ferritin Ammonia Lactate Dehydrogenase Troponin T Total Protein Albumin 3.2 L HDL Cholesterol 03/14/21 03/14/21 03/15/21 10:22 10:22 06:31 WBC 12.6 H 14.7 H RBC 3.42 L Hgb 10.0 L Hct MCV MCH RDW 16.2 H 16.0 H Lymph % (Auto) [place] % (Auto) 15.0 H Lymph # (Auto) [place] # (Auto) 2.2 H Seg Neutrophils % Seg Neuts % (Manual) 73.0 H Lymphocytes % (Manual) 10.0 L Monocytes % (Manual) 9.0 H Seg Neutrophils # 9.9 H Seg Neutrophils # Man 9.2 H Monocytes # (Manual) 1.1 H D-Dimer Sodium Potassium Chloride 96.0 L Carbon Dioxide BUN 32 H Creatinine 5.4 H Glucose POC Glucose Phosphorus 7.10 H Ferritin Ammonia Lactate Dehydrogenase Troponin T Total Protein Albumin 3.8 L HDL Cholesterol 03/15/21 03/15/21 03/15/21 06:31 07:42 09:21 WBC RBC Hgb Hct MCV MCH RDW Lymph % (Auto) [place] % (Auto) Lymph # (Auto) [place] # (Auto) Seg Neutrophils % Seg Neuts % (Manual) Lymphocytes % (Manual) Monocytes % (Manual) Seg Neutrophils # Seg Neutrophils # Man Monocytes # (Manual) D-Dimer Sodium Potassium Chloride 95.0 L Carbon Dioxide BUN 61 H Creatinine 7.0 H Glucose 140 H POC Glucose 140 H 139 H Phosphorus Ferritin Ammonia Lactate Dehydrogenase Troponin T Total Protein Albumin 3.6 L HDL Cholesterol 03/15/21 11:18 WBC RBC Hgb Hct MCV MCH RDW Lymph % (Auto) [place] % (Auto) Lymph # (Auto) [place] # (Auto) Seg Neutrophils % Seg Neuts % (Manual) Lymphocytes % (Manual) Monocytes % (Manual) Seg Neutrophils # Seg Neutrophils # Man Monocytes # (Manual) D-Dimer Sodium Potassium Chloride Carbon Dioxide BUN Creatinine Glucose POC Glucose 141 H Phosphorus Ferritin Ammonia Lactate Dehydrogenase Troponin T Total Protein Albumin HDL Cholesterol Allied health notes reviewed: nursing
--- NOTE | 2021-03-15 17:38 | XRay Report ---
ABDOMEN 1 VIEW INDICATION / CLINICAL INFORMATION: tube placement. COMPARISON: 03/15/2021 FINDINGS: TUBES / LINES: Weighted feeding tube is been advanced with tip projecting in the proximal duodenum. BOWEL GAS PATTERN: No significant abnormality. FREE AIR / EXTRALUMINAL GAS: None seen. ADDITIONAL FINDINGS: No significant additional findings. IMPRESSION: 1. Feeding tube in acceptable position. Signer Name: Zay Mason MD Signed: 03/15/2021 5:34 PM Workstation Name: [id number]
[2021-03-15] MEDS: CEFEPIME/NS 1 GM/100 ML 1 GM/100 ML BAG IV SCH (18:18)
[2021-03-16] MEDS: INSULIN REGULAR, HUMAN 100 UNITS/1 ML SUB-Q SCH ×4 (07:30→22:21)
[2021-03-16] MEDS: carvediloL 12.5 MG TAB PO SCH ×2 (10:00→22:13)
--- NOTE | 2021-03-16 12:21 | Progress Note ---
Assessment and Plan end-stage renal disease continue with maintenance him dialysis on Tuesday and Tuesday schedule Discontinued magnesium oxide, can result in toxicity with a dialysis patient Discontinued hydralazine, Increased Procardia to 60 mg once a day continue with losartan 100 mg once a day, Continue the patient on calcium acetate 2 capsule 3 times a day #Multifocal pneumonia Covid negative, currently being followed by infectious disease, coagulase negative staph bacteremia 1 out of 4 likely contaminant #hypertension tachycardia currently improving, blood pressure medication has been readjusted #Diet and nutrition start on Nephrocaps, continue on erythropoietin weekly We'll continue to follow and make recommendation for renal standpoint Subjective Date of service: 03/16/21 Principal diagnosis: HTNsive Emergency; bacteremia; Ac Hypoxemic Resp Failure; AV-fistula malfxn Interval history: Seen during dialysis, tolerating without complications Objective - Exam Narrative Exam: General: No acute distress HEENT: Oral mucosa moist Neck: Supple, no JVD Chest: Clear to auscultation bilaterally Heart: RRR, S1 and S2, no pericardial rub Abdomen: Soft, nontender, no renal bruit Extremity: No peripheral cyanosis, edema Neurological: Alert, awake, no asterixis Dermatology: No skin rash Psych: No agitation Musculoskeletal: No joint effusion - Vital Signs Vital signs: Vital Signs - 12hr 03/16/21 04:29 Temperature 97.3 F L Pulse Rate 81 Respiratory 16 Rate Blood Pressure 111/57 O2 Sat by Pulse 96 Oximetry - Lab 03/15/21 06:31 03/15/21 06:31 Most recent lab results Calcium 9.8 mg/dL (8.4-10.2) 03/15/21 06:31 Phosphorus 7.10 mg/dL (2.5-4.5) H 03/14/21 10:22 Magnesium 2.00 mg/dL (1.7-2.3) 03/14/21 10:22 Medications & Allergies - Medications Allergies/Adverse Reactions: Allergies No Known Allergies Allergy (Unverified 07/09/20 12:47) Home Medications: Home Medications Medication Instructions Recorded Confirmed Last Taken Type NIFEdipine XL [Procardia Xl] 30 mg PO QDAY #30 tablet 11/12/20 03/13/21 Unknown Rx carvediloL [Coreg] 6.25 mg PO BID #60 tablet 11/12/20 03/13/21 Unknown Rx hydrALAZINE [Apresoline TAB] 25 mg PO Q8HR #90 tab 11/12/20 03/13/21 Unknown Rx Active Medications: Generic Name Dose Route Start Last Admin Trade Name Freq PRN Reason Stop Dose Admin Acetaminophen 650 mg 03/09/21 05:56 Acetaminophen 325 Mg Tab PO Q6H PRN Pain MILD(1-3)/Fever >100.5/ALMODOVAR Lipase/Protease/Amylase 1 each 03/14/21 11:12 Lipase 10,500/Protease 25,000/Amylase 43,750 (Units) Dr Cap FEEDTUBE PRN PRN For Clogged Feeding Tube Calcium Acetate 667 mg 03/16/21 12:30 Calcium Acetate 667 Mg Cap PO TIDWM BALAJI Carvedilol 12.5 mg 03/14/21 12:00 03/15/21 23:03 Carvedilol 12.5 Mg Tab PO Not Given BID BALAJI Famotidine 10 mg 03/14/21 13:00 03/15/21 23:04 Famotidine 10 Mg Tab FEEDTUBE 10 mg BID BALAJI Administration Heparin Sodium (Porcine) 5,000 unit 03/09/21 14:00 03/15/21 23:05 Heparin 5,000 Unit/1 Ml Vial SUB-Q 5,000 unit Q8HR BALAJI Administration Hydralazine HCl 10 mg 03/10/21 23:06 03/13/21 06:34 Hydralazine 20 Mg/1 Ml Inj IV 10 mg Q6HR PRN Administration Hypertension Sodium Chloride 100 mls @ 999 mls/hr 03/09/21 04:50 Nacl 0.9% IV FLAKO PRN Hypotension Insulin Human Regular 0 units 03/09/21 18:00 03/15/21 23:40 Insulin Regular, Human 100 Units/1 Ml SUB-Q 2 units ACHS BALAJI Administration Protocol Losartan Potassium 100 mg 03/14/21 10:00 03/15/21 09:14 Losartan 50 Mg Tab PO 100 mg QDAY BALAJI Administration Multivitamins/Iron 1 each 03/15/21 10:00 03/15/21 13:07 Fe Fumarate/Fa/Mv, Min Comb#15 Cap (Hemocyte Plus) PO 1 each QDAY BALAJI Administration Nifedipine 60 mg 03/15/21 10:00 03/15/21 09:17 Nifedipine Xl 60 Mg Tab PO 60 mg QDAY BALAJI Administration Senna 17.2 mg 03/09/21 22:00 03/15/21 23:04 Sennosides 8.6 Mg Tab PO 17.2 mg QHS BALAJI Administration Simple Syrup 15 ml 03/14/21 11:12 Simple Syrup 15 Ml FEEDTUBE PRN PRN Hypoglycemia Simple Syrup 30 ml 03/14/21 11:12 Simple Syrup 15 Ml FEEDTUBE PRN PRN Hypoglycemia Sodium Bicarbonate 325 mg 03/14/21 11:12 Sodium Bicarbonate 325 Mg Tab FEEDTUBE PRN PRN For Clogged Feeding Tube Sodium Chloride 10 ml 03/09/21 10:00 03/15/21 23:04 Sodium Chloride 0.9% 10 Ml Flush Syringe IV 10 ml BID BALAJI Administration Sodium Chloride 10 ml 03/09/21 05:56 03/11/21 05:56 Sodium Chloride 0.9% 10 Ml Flush Syringe IV 10 ml PRN PRN Administration LINE FLUSH
--- NOTE | 2021-03-16 12:39 | Progress Note ---
Assessment and Plan 1. Metabolic encephalopathy Confusion on a.m. encounter of 03/10, this is new per RN who stated the patient was more conversational yesterday Etiology unclear. Differential includes infectious versus neurological. Discussed with nephrology 03/10 regarding extra hemodialysis treatment, follow- up after hemodialysis today -CT brain on 03/10: Negative Ammonia level: Nonelevated -No improvement post HD. Discontinue all sedating medication and opioid narcotics Several days of altered mentation. Will place NG to give patient nutrition -MRI brain, EEG, neurology consultation 2. Sepsis -Leukocytosis, tachycardia secondary to pneumonia WBC 20.7 on admission Covid PCR negative Blood culture positive 1 out of 2 bottles CXR on admission: Mild patchy multifocal airspace disease. Vancomycin IV now dc, cefepime IV x 8 days (renally adjusted) per ID. Infectious disease following 3. Multifocal pneumonia Covid negative, elevated procalcitonin -Currently on nasal cannula NC 1L , will wean as tolerated Antibiotics as above Pulmonology following 4. GPC bacteremia 1 out of 4 bottles, staph species isolated. Still suspect contaminant. Follow for speciation and sensitivities Antibiotics as above for now Infectious disease following 5. ESRD on HD On HD Avoid nephrotoxic agents Renally adjust medications (Vanc/Cefepime) Nephrology following 6. Hypertensive emergency - 221/107 on admission, repeat today 135/87 Resume home hydralazine, carvedilol, Procardia XL 7. Persons under investigation for COVID-19 -Negative PCR 8. Secondary hyperparathyroidism Continue phosphate binders 9. Anemia of CKD - continue to monitor H/H 10. Hyponatremia - monitor Na 11. Hyperkalemia - monitor K, last 5.2 - correct with HD 12.hypertension Elevated blood pressure in last 24 hours Procardia increased by nephrology Discontinued hydralazine, Losartan initiated Hospital Course to date 03/10: Paged by ED RN regarding patient mental status change. Per RN, exam yesterday demonstrated alert and talkative patient yesterday who was able to communicated, via blower feeder dyed raw stock service. Today patient is alert, protecting airway, however, she appears more confused. She does not acknowledge medical staff in room but does not attempt to communicate or respond or follow commands when spoken to. stat CT brain was ordered which was negative. 03/11: Recieved HD yesterday, no improvement in mentation on Am encounter. Will order MRI brain, EEG, neurology consultation. 03/12: Could not have MRI completed yesterday due to movement in MRI scanner. We will coordinate with air liaison and special staff to complete today with on-call [employer] on board. EEG pending. Pending full neuro evaluation underway. Will call daughter Naheed today ([phone]). 03/13: MRI completed- appears to be inconclusive. Will await neuro input. LP was unable to be completed. Plan for tuesday. EEG pending. D/c vancomycin, only cef epime IV x 8 days per ID. 03/14: Patient will need nutrition however due to mental status will need to insert NG tube. She can be started on Nepro tube goal 25 cc/h feeds with free water flushes 100 cc every 4 hours. Start Pepcid 20 twice daily EEG is still pending and LP will be completed Tuesday. 03/15: Patient appears to be more alert. Had pulled NG tube out from yesterday, new NG tube was placed today. Since she is more alert we will consider a bedside swallow eval and consider DC of NG with daughter or language line translating all of our instructions. 03/16: Patient still appears more alert. Can tolerate p.o. after discussion with RN. Restraints and NG tube were discontinued. Getting hemodialysis today. Physical therapy consulted now the patient will be able to participate. Will recommend to them to have language line or her daughter available to translate. Spoke with daughter who is able to converse with patient. Patient had told her that she was feeling very weak. Daughter said that mentation of patient was consistent with her baseline. Canceled lumbar puncture and EEG as these do not appear necessary anymore. Avoid all opioid narcotics in this patient. Suspect medications were the initial inciting event for encephalopathy. Plan for discharge in next 1 to 2 days. Subjective Principal diagnosis: HTNsive Emergency; bacteremia; Ac Hypoxemic Resp Failure; AV-fistula malfxn Interval history: Improved mentation on encounter. Patient able to converse with daughter Naheed on the phone. She is able to follow commands and states that she is feeling weak. Called daughter Naheed and explained to her that medically speaking she has made significant progress and thus we will not complete EEG and lumbar puncture as this is likely not necessary anymore. Discussed plan for physical therapy and likely placement to rehab facility. RN also aware of plan. Objective - Exam Narrative Exam: Physical Exam: Constitutional: NAD, alert, elderly [place] female. Resting comfortably. waves hi to staff. Head, Ears, Nose: Normocephalic, atraumatic. External ears, nose normal Eyes: Conjunctivae/corneas clear. No icterus. No ptosis. Neck: Supple, no meningeal signs Oral: dentition fair, no thrush Cardiovascular: S1, S2 normal. Respiratory: Good air entry, clear to auscultation bilaterally, protecting airway GI: Soft, non-tender; bowel sounds normal. No peritoneal signs. Musculoskeletal: No pedal edema, no cyanosis. Skin: No rash or abscess Hem/Lymphatic: No palpable cervical or supraclavicular nodes. No lymphangitis Psych: Affect normal, however not tracking with medical staff, appears confused. Neurological: alert, weak UE and LE. oriened x 3 per daughter. - Constitutional Vitals: Vital Signs - 12hr 03/16/21 03/16/21 04:29 09:00 Temperature 97.3 F L 98.2 F Pulse Rate 81 81 Respiratory 16 16 Rate Blood Pressure 111/57 124/54 O2 Sat by Pulse 96 Oximetry O2 Sat by Pulse 96 Oximetry [ Bilateral] - Labs CBC & Chem 7: 03/15/21 06:31 03/15/21 06:31 Labs: Abnormal lab results 03/15/21 Range/Units 22:05 POC Glucose 175 H (70-105) mg/dL HEART Score - HEART Score Troponin: Troponin T 0.129 ng/mL (0.00-0.029) H* 03/09/21 05:17
--- NOTE | 2021-03-16 14:04 | Progress Note ---
Assessment and Plan 75-year-old female with known history of hypertension, end-stage renal disease on dialysis Mondays, Wednesdays and Fridays and also status post field renal transplant presents to the emergency room via EMS today complaining of shortness of breath. Daughter indicates that patient may not have had enough fluid taken off during dialysis on Tuesday. There has been no fever or chills, no nausea or vomiting, no abdominal pain, no headache or dizziness, no loss of taste or smell, no recent travel, no sick contacts and no contact with anyone with COVID-19. Upon arrival of EMS patient oxygen saturation was about 68% on room air and patient was placed on nonrebreather on the scene with improvement of oxygen saturation to about 98%. 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 She has been admitted in the past before for fluid overload requiring BiPAP. Most of the history has been gotten from daughter as patient does not speak [place]. Upon arrival in the emergency room patient was quite hypertensive with systolic in the 200s and diastolic in the low 100s. Patient subsequently started on a nitroglycerin drip. Media Professional on-call was consulted . Patient promptly given dialysis. Patient has had nebulizer treatment, insulin and glucose for the hyperkalemia. She is also started on empiric IV antibiotics for sepsis. atient awake. On O2 3 litres. O2 saturation 100%. No acute respiratory distress. Patient speaks only [place]. Unable to get history from her. Most of the history obtained from the chart. Patient is running low grade temp at times. BP 120/71. HR: 105. Has mild leukocytosis, Troponin was slightly elevated at 0.123. COVID negative. chest x-ray (03/09/21) showed mild patchy multifocal airspace disease. Patient is on S/C heparin. Patient just started on tube feeding to day. - Patient Problems (1) Acute pulmonary edema Current Visit: Yes Status: Acute Plan to address problem: Patient is on dialysis. (2) ESRD needing dialysis Current Visit: Yes Status: Acute Plan to address problem: Management as per nephrology. (3) Hypertensive emergency Current Visit: Yes Status: Acute Plan to address problem: Improved. Managent as per primary care. (4) Person under investigation for COVID-19 Current Visit: Yes Status: Acute Plan to address problem: Patients Rick virus PCR negative. (5) Sepsis Current Visit: Yes Status: Acute Plan to address problem: Patient was on cefepime. (6) Hyponatremia Current Visit: No Status: Acute Plan to address problem: Improved. last Na+ level 139 (7) Metabolic acidosis Current Visit: No Status: Acute Plan to address problem: Anion gap 25. Could be secondary to renal failure. Subjective Date of service: 03/16/21 Principal diagnosis: HTNsive Emergency; bacteremia; Ac Hypoxemic Resp Failure; AV-fistula malfxn Interval history: 75-year-old female with known history of hypertension, end-stage renal disease on dialysis Mondays, Wednesdays and Fridays and also status post field renal transplant presents to the emergency room via EMS today complaining of shortness of breath. Daughter indicates that patient may not have had enough fluid taken off during dialysis on Tuesday. There has been no fever or chills, no nausea or vomiting, no abdominal pain, no headache or dizziness, no loss of taste or smell, no recent travel, no sick contacts and no contact with anyone with COVID-19. Upon arrival of EMS patient oxygen saturation was about 68% on room air and patient was placed on nonrebreather on the scene with improvement of oxygen saturation to about 98%. 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 She has been admitted in the past before for fluid overload requiring BiPAP. Most of the history has been gotten from daughter as patient does not speak [place]. Upon arrival in the emergency room patient was quite hypertensive with systolic in the 200s and diastolic in the low 100s. Patient subsequently started on a nitroglycerin drip. Media Professional on-call was consulted . Patient promptly given dialysis. Patient has had nebulizer treatment, insulin and glucose for the hyperkalemia. She is also started on empiric IV antibiotics for sepsis. Patient awake. On O2 3 litres. O2 saturation 100%. No acute respiratory distress. Patient speaks only [place]. Unable to get history from her. Most of the history obtained from the chart. Patient is running low grade temp at times. BP 120/71. HR: 105. Has mild leukocytosis, Troponin was slightly elevated at 0.123. COVID negative. chest x-ray (03/09/21) showed mild patchy multifocal airspace disease. Patient is on S/C heparin. Patient just started on tube feeding to day. Objective Vital Signs - 12hr 03/16/21 03/16/21 03/16/21 04:29 09:00 09:15 Temperature 97.3 F L 98.2 F Pulse Rate 81 81 77 Respiratory 16 16 Rate Blood Pressure 111/57 124/54 118/57 O2 Sat by Pulse 96 Oximetry O2 Sat by Pulse 96 Oximetry [ Bilateral] 03/16/21 03/16/21 03/16/21 09:30 09:45 10:00 Temperature Pulse Rate 81 89 94 H Respiratory Rate Blood Pressure 123/62 130/65 133/79 O2 Sat by Pulse Oximetry O2 Sat by Pulse Oximetry [ Bilateral] 03/16/21 03/16/21 03/16/21 10:15 10:30 10:45 Temperature Pulse Rate 93 H 96 H 78 Respiratory Rate Blood Pressure 130/68 135/71 130/73 O2 Sat by Pulse Oximetry O2 Sat by Pulse Oximetry [ Bilateral] 03/16/21 03/16/21 03/16/21 11:00 11:15 11:30 Temperature Pulse Rate 96 H 94 H 97 H Respiratory Rate Blood Pressure 116/64 143/70 129/63 O2 Sat by Pulse Oximetry O2 Sat by Pulse Oximetry [ Bilateral] 03/16/21 03/16/21 11:45 12:00 Temperature Pulse Rate 98 H 99 H Respiratory Rate Blood Pressure 105/64 95/61 O2 Sat by Pulse Oximetry O2 Sat by Pulse Oximetry [ Bilateral] Constitutional: no acute distress, alert, other (elderly thin male with normal respiratory effort at rest) Eyes: non-icteric ENT: oropharynx moist Neck: supple, no lymphadenopathy Effort: normal Ascultation: Bilateral: diminished breath sounds Percussion: Bilateral: not dull Cardiovascular: regular rate and rhythm Gastrointestinal: normoactive bowel sounds, soft, non-tender, non-distended Integumentary: normal Extremities: no cyanosis, no edema, pink and warm, pulses normal Neurologic: non-focal exam (grossly), pupils equal and round, unable to assess Psychiatric: depressed, other (Patient speaks only [place]. Can not asses mood or effect.Patient sleeping at this time.) CBC and BMP: 03/15/21 06:31 03/15/21 06:31 ABG, PT/INR, D-dimer: PT/INR, D-dimer PT 13.6 Sec. (12.2-14.9) 03/10/21 04:49 INR 0.99 (0.87-1.13) 03/10/21 04:49 D-Dimer 1098.77 ng/mlDDU (0-234) H 03/09/21 05:17 Abnormal lab findings: Abnormal Labs 03/09/21 03/09/21 03/09/21 03:34 03:34 03:34 WBC 20.7 H RBC 3.57 L Hgb Hct MCV MCH RDW 16.5 H Lymph % (Auto) [place] % (Auto) Lymph # (Auto) [place] # (Auto) Seg Neutrophils % Seg Neuts % (Manual) 84.0 H Lymphocytes % (Manual) 6.0 L Monocytes % (Manual) Seg Neutrophils # Seg Neutrophils # Man 17.4 H Monocytes # (Manual) D-Dimer Sodium 133 L Potassium 6.1 H* Chloride 93.6 L Carbon Dioxide BUN 62 H Creatinine 8.2 H Glucose 137 H POC Glucose Phosphorus Ferritin Ammonia Lactate Dehydrogenase Troponin T 0.123 H* Total Protein Albumin HDL Cholesterol 37 L 03/09/21 03/09/21 03/09/21 05:17 05:17 05:17 WBC RBC Hgb Hct MCV MCH RDW Lymph % (Auto) [place] % (Auto) Lymph # (Auto) [place] # (Auto) Seg Neutrophils % Seg Neuts % (Manual) Lymphocytes % (Manual) Monocytes % (Manual) Seg Neutrophils # Seg Neutrophils # Man Monocytes # (Manual) D-Dimer 1098.77 H Sodium Potassium Chloride Carbon Dioxide BUN Creatinine Glucose 123 H POC Glucose Phosphorus Ferritin Ammonia Lactate Dehydrogenase 300 H Troponin T 0.129 H* Total Protein Albumin HDL Cholesterol 03/09/21 03/09/21 03/09/21 05:17 14:21 17:01 WBC RBC Hgb Hct MCV MCH RDW Lymph % (Auto) [place] % (Auto) Lymph # (Auto) [place] # (Auto) Seg Neutrophils % Seg Neuts % (Manual) Lymphocytes % (Manual) Monocytes % (Manual) Seg Neutrophils # Seg Neutrophils # Man Monocytes # (Manual) D-Dimer Sodium 133 L Potassium 5.2 H Chloride 94.3 L Carbon Dioxide BUN 23 H Creatinine 4.3 H Glucose 246 H POC Glucose 201 H Phosphorus Ferritin 2210.0 H Ammonia Lactate Dehydrogenase Troponin T Total Protein Albumin HDL Cholesterol 03/09/21 03/10/21 03/10/21 22:07 04:49 04:49 WBC RBC 3.54 L Hgb Hct MCV MCH RDW 16.4 H Lymph % (Auto) [place] % (Auto) 11.4 H Lymph # (Auto) [place] # (Auto) 1.0 H Seg Neutrophils % Seg Neuts % (Manual) Lymphocytes % (Manual) Monocytes % (Manual) Seg Neutrophils # Seg Neutrophils # Man Monocytes # (Manual) D-Dimer Sodium 134 L Potassium 5.2 H Chloride 93.0 L Carbon Dioxide BUN 45 H Creatinine 5.9 H Glucose 112 H POC Glucose 128 H Phosphorus Ferritin Ammonia Lactate Dehydrogenase Troponin T Total Protein Albumin HDL Cholesterol 03/10/21 03/11/21 03/11/21 23:24 08:41 08:41 WBC 12.0 H RBC Hgb Hct MCV MCH RDW 15.6 H Lymph % (Auto) [place] % (Auto) 15.3 H Lymph # (Auto) [place] # (Auto) 1.8 H Seg Neutrophils % Seg Neuts % (Manual) Lymphocytes % (Manual) Monocytes % (Manual) Seg Neutrophils # Seg Neutrophils # Man Monocytes # (Manual) D-Dimer Sodium 134 L Potassium Chloride 91.6 L Carbon Dioxide BUN 32 H Creatinine 4.8 H Glucose 119 H POC Glucose 284 H Phosphorus Ferritin Ammonia Lactate Dehydrogenase Troponin T Total Protein 9.1 H Albumin HDL Cholesterol 03/12/21 03/12/21 03/12/21 06:30 06:30 07:54 WBC 11.3 H RBC 3.44 L Hgb 8.3 L D Hct 26.7 L D MCV 78 L MCH 24 L RDW 19.1 H Lymph % (Auto) 7.0 L [place] % (Auto) Lymph # (Auto) 0.8 L [place] # (Auto) Seg Neutrophils % 89.3 H Seg Neuts % (Manual) Lymphocytes % (Manual) Monocytes % (Manual) Seg Neutrophils # 10.1 H Seg Neutrophils # Man Monocytes # (Manual) D-Dimer Sodium Potassium 5.2 H D Chloride Carbon Dioxide BUN 47 H Creatinine Glucose 339 H POC Glucose Phosphorus Ferritin Ammonia 20.0 L Lactate Dehydrogenase Troponin T Total Protein 5.7 L D Albumin 2.3 L HDL Cholesterol 03/12/21 03/12/21 03/12/21 08:21 11:28 13:44 WBC RBC Hgb Hct MCV MCH RDW Lymph % (Auto) [place] % (Auto) Lymph # (Auto) [place] # (Auto) Seg Neutrophils % Seg Neuts % (Manual) Lymphocytes % (Manual) Monocytes % (Manual) Seg Neutrophils # Seg Neutrophils # Man Monocytes # (Manual) D-Dimer Sodium Potassium Chloride Carbon Dioxide BUN Creatinine 5.0 H D Glucose POC Glucose 108 H 108 H Phosphorus Ferritin Ammonia Lactate Dehydrogenase Troponin T Total Protein Albumin HDL Cholesterol 03/12/21 03/13/21 03/13/21 21:17 07:44 07:44 WBC RBC Hgb Hct MCV MCH RDW 15.8 H Lymph % (Auto) [place] % (Auto) Lymph # (Auto) [place] # (Auto) Seg Neutrophils % Seg Neuts % (Manual) 74.0 H Lymphocytes % (Manual) 12.0 L Monocytes % (Manual) 12.0 H Seg Neutrophils # Seg Neutrophils # Man Monocytes # (Manual) 1.2 H D-Dimer Sodium 133 L Potassium Chloride 94.4 L Carbon Dioxide 20 L BUN 42 H Creatinine 6.8 H Glucose POC Glucose 110 H Phosphorus Ferritin Ammonia Lactate Dehydrogenase Troponin T Total Protein Albumin 3.2 L HDL Cholesterol 03/14/21 03/14/21 03/15/21 10:22 10:22 06:31 WBC 12.6 H 14.7 H RBC 3.42 L Hgb 10.0 L Hct MCV MCH RDW 16.2 H 16.0 H Lymph % (Auto) [place] % (Auto) 15.0 H Lymph # (Auto) [place] # (Auto) 2.2 H Seg Neutrophils % Seg Neuts % (Manual) 73.0 H Lymphocytes % (Manual) 10.0 L Monocytes % (Manual) 9.0 H Seg Neutrophils # 9.9 H Seg Neutrophils # Man 9.2 H Monocytes # (Manual) 1.1 H D-Dimer Sodium Potassium Chloride 96.0 L Carbon Dioxide BUN 32 H Creatinine 5.4 H Glucose POC Glucose Phosphorus 7.10 H Ferritin Ammonia Lactate Dehydrogenase Troponin T Total Protein Albumin 3.8 L HDL Cholesterol 03/15/21 03/15/21 03/15/21 06:31 07:42 09:21 WBC RBC Hgb Hct MCV MCH RDW Lymph % (Auto) [place] % (Auto) Lymph # (Auto) [place] # (Auto) Seg Neutrophils % Seg Neuts % (Manual) Lymphocytes % (Manual) Monocytes % (Manual) Seg Neutrophils # Seg Neutrophils # Man Monocytes # (Manual) D-Dimer Sodium Potassium Chloride 95.0 L Carbon Dioxide BUN 61 H Creatinine 7.0 H Glucose 140 H POC Glucose 140 H 139 H Phosphorus Ferritin Ammonia Lactate Dehydrogenase Troponin T Total Protein Albumin 3.6 L HDL Cholesterol 03/15/21 03/15/21 11:18 22:05 WBC RBC Hgb Hct MCV MCH RDW Lymph % (Auto) [place] % (Auto) Lymph # (Auto) [place] # (Auto) Seg Neutrophils % Seg Neuts % (Manual) Lymphocytes % (Manual) Monocytes % (Manual) Seg Neutrophils # Seg Neutrophils # Man Monocytes # (Manual) D-Dimer Sodium Potassium Chloride Carbon Dioxide BUN Creatinine Glucose POC Glucose 141 H 175 H Phosphorus Ferritin Ammonia Lactate Dehydrogenase Troponin T Total Protein Albumin HDL Cholesterol Allied health notes reviewed: nursing
[2021-03-16] MEDS: HEPARIN 5,000 UNIT/1 ML VIAL SUB-Q SCH ×3 (14:34→22:19)
[2021-03-16] MEDS: FAMOTIDINE 10 MG TAB FEEDTUBE SCH ×2 (14:36→22:14)
[2021-03-16] MEDS: CALCIUM ACETATE 667 MG CAP PO SCH ×2 (14:38→16:17)
[2021-03-16] MEDS: LOSARTAN 50 MG TAB PO SCH ×2 (15:09→15:31)
[2021-03-16] MEDS: NIFEdipine XL 60 MG TAB PO SCH ×2 (15:09→15:31)
[2021-03-16] MEDS: FE FUMARATE/FA/MV, MIN COMB#15 CAP (HEMOCYTE PLUS) PO SCH (15:10)
[2021-03-16] MEDS: SENNOSIDES 8.6 MG TAB PO SCH (22:14)
[2021-03-17] MEDS: HEPARIN 5,000 UNIT/1 ML VIAL SUB-Q SCH ×2 (05:32→21:46)
[2021-03-17] MEDS: NIFEdipine XL 60 MG TAB PO SCH (09:13)
[2021-03-17] MEDS: FAMOTIDINE 10 MG TAB FEEDTUBE SCH ×2 (09:13→21:46)
[2021-03-17] MEDS: carvediloL 12.5 MG TAB PO SCH ×2 (09:14→21:49)
[2021-03-17] MEDS: FE FUMARATE/FA/MV, MIN COMB#15 CAP (HEMOCYTE PLUS) PO SCH (09:15)
[2021-03-17] MEDS: LOSARTAN 50 MG TAB PO SCH (09:15)
[2021-03-17] MEDS: CALCIUM ACETATE 667 MG CAP PO SCH (09:15)
--- NOTE | 2021-03-17 09:30 | Progress Note ---
Assessment and Plan Assessment and plan: 1. Metabolic encephalopathy Confusion on a.m. encounter of 03/10, this is new per RN who stated the patient was more conversational yesterday Etiology unclear. Differential includes infectious versus neurological. Discussed with nephrology 03/10 regarding extra hemodialysis treatment, follow- up after hemodialysis today -CT brain on 03/10: Negative Ammonia level: Nonelevated -No improvement post HD. Discontinue all sedating medication and opioid narcotics Several days of altered mentation. Will place NG to give patient nutrition -MRI brain, EEG, neurology consultation 2. Sepsis -Leukocytosis, tachycardia secondary to pneumonia WBC 20.7 on admission Covid PCR negative Blood culture positive 1 out of 2 bottles CXR on admission: Mild patchy multifocal airspace disease. Vancomycin IV now dc, cefepime IV x 8 days (renally adjusted) per ID. Infectious disease following 3. Multifocal pneumonia Covid negative, elevated procalcitonin -Currently on nasal cannula NC 1L , will wean as tolerated Antibiotics as above Pulmonology following 4. GPC bacteremia 1 out of 4 bottles, staph species isolated. Still suspect contaminant. Follow for speciation and sensitivities Antibiotics as above for now Infectious disease following 5. ESRD on HD On HD Avoid nephrotoxic agents Renally adjust medications (Vanc/Cefepime) Nephrology following 6. Hypertensive emergency - 221/107 on admission, repeat today 135/87 Resume home hydralazine, carvedilol, Procardia XL 7. Persons under investigation for COVID-19 -Negative PCR 8. Secondary hyperparathyroidism Continue phosphate binders 9. Anemia of CKD - continue to monitor H/H 10. Hyponatremia - monitor Na 11. Hyperkalemia - monitor K, last 5.2 - correct with HD 12.hypertension Elevated blood pressure in last 24 hours Procardia increased by nephrology Discontinued hydralazine, Losartan initiated Hospital Course to date 03/10: Paged by ED RN regarding patient mental status change. Per RN, exam yesterday demonstrated alert and talkative patient yesterday who was able to communicated, via technical writing lead/mgr service. Today patient is alert, protecting airway, however, she appears more confused. She does not acknowledge medical staff in room but does not attempt to communicate or respond or follow commands when spoken to. stat CT brain was ordered which was negative. 03/11: Recieved HD yesterday, no improvement in mentation on Am encounter. Will order MRI brain, EEG, neurology consultation. 03/12: Could not have MRI completed yesterday due to movement in MRI scanner. We will coordinate with medical staff coordinator to complete today with on-call Ativan on board. EEG pending. Pending full neuro evaluation underway. Will call daughter Naheed today ([phone]). 03/13: MRI completed- appears to be inconclusive. Will await neuro input. LP was unable to be completed. Plan for tuesday. EEG pending. D/c vancomycin, only cefepime IV x 8 days per ID. 03/14: Patient will need nutrition however due to mental status will need to insert NG tube. She can be started on Nepro tube goal 25 cc/h feeds with free water flushes 100 cc every 4 hours. Start Pepcid 20 twice daily EEG is still pending and LP will be completed Tuesday. 03/15: Patient appears to be more alert. Had pulled NG tube out from yesterday, new NG tube was placed today. Since she is more alert we will consider a bedside swallow eval and consider DC of NG with daughter or language line translating all of our instructions. 03/16: Patient still appears more alert. Can tolerate p.o. after discussion with RN. Restraints and NG tube were discontinued. Getting hemodialysis today. Physical therapy consulted now the patient will be able to participate. Will recommend to them to have language line or her daughter available to translate. Spoke with daughter who is able to converse with patient. Patient had told her that she was feeling very weak. Daughter said that mentation of patient was consistent with her baseline. Canceled lumbar puncture and EEG as these do not appear necessary anymore. Avoid all opioid narcotics in this patient. Suspect medications were the initial inciting event for encephalopathy. Plan for discharge in next 1 to 2 days. 03/17/2021; patient with sepsis and multifocal pneumonia, receiving IV antibiotics [employer] recommendations noted and appreciated History Interval history: I have seen and examined patient at the bedside Patient's chart and medications reviewed No new events reported by the nursing staff Vital signs noted Hospitalist Physical - Constitutional Vitals: Temp Pulse Resp BP Pulse Ox 98.3 F 85 18 110/62 97 03/17/21 04:32 03/17/21 09:15 03/17/21 04:32 03/17/21 04:32 03/17/21 04:32 General appearance: Present: mild distress, well-nourished - EENT Eyes: Present: PERRL, EOM intact - Neck Neck: Present: supple, normal ROM - Respiratory Respiratory effort: normal Respiratory: bilateral: diminished, negative: rales, rhonchi, wheezing - Cardiovascular Rhythm: regular Heart Sounds: Present: S1 & S2 - Extremities Extremities: no ischemia, No edema - Abdominal General gastrointestinal: soft, non-tender, non-distended, normal bowel sounds - Integumentary Integumentary: Present: clear, warm - Psychiatric Psychiatric: appropriate mood/affect, cooperative - Neurologic Neurologic: CNII-XII intact, moves all extremities HEART Score - HEART Score Troponin: Troponin T 0.129 ng/mL (0.00-0.029) H* 03/09/21 05:17 Results - Labs CBC & Chem 7: 03/15/21 06:31 03/15/21 06:31 Labs: Laboratory Last Values WBC 14.7 K/mm3 (4.5-11.0) H 03/15/21 06:31 RBC 3.42 M/mm3 (3.65-5.03) L 03/15/21 06:31 Hgb 10.0 gm/dl (10.1-14.3) L 03/15/21 06:31 Hct 30.4 % (30.3-42.9) 03/15/21 06:31 MCV 89 fl (79-97) 03/15/21 06:31 MCH 29 pg (28-32) 03/15/21 06:31 MCHC 33 % (30-34) 03/15/21 06:31 RDW 16.0 % (13.2-15.2) H 03/15/21 06:31 Plt Count 259 K/mm3 (140-440) 03/15/21 06:31 Lymph % (Auto) 15.0 % (13.4-35.0) 03/15/21 06:31 [place] % (Auto) 15.0 % (0.0-7.3) H 03/15/21 06:31 Eos % (Auto) 2.1 % (0.0-4.3) 03/15/21 06:31 Baso % (Auto) 0.3 % (0.0-1.8) 03/15/21 06:31 Lymph # (Auto) 2.2 K/mm3 (1.2-5.4) 03/15/21 06:31 [place] # (Auto) 2.2 K/mm3 (0.0-0.8) H 03/15/21 06:31 Eos # (Auto) 0.3 K/mm3 (0.0-0.4) 03/15/21 06:31 Baso # (Auto) 0.0 K/mm3 (0.0-0.1) 03/15/21 06:31 Add Manual Diff Complete 03/14/21 10:22 Total Counted 100 03/14/21 10:22 Seg Neutrophils % 67.6 % (40.0-70.0) 03/15/21 06:31 Seg Neuts % (Manual) 73.0 % (40.0-70.0) H 03/14/21 10:22 Band Neutrophils % 4.0 % 03/09/21 03:34 Lymphocytes % (Manual) 10.0 % (13.4-35.0) L 03/14/21 10:22 Reactive Lymphs % (Man) 6.0 % 03/14/21 10:22 Monocytes % (Manual) 9.0 % (0.0-7.3) H 03/14/21 10:22 Eosinophils % (Manual) 2.0 % (0.0-4.3) 03/14/21 10:22 Metamyelocytes % 1.0 % 03/09/21 03:34 Nucleated RBC % Not Reportable 03/14/21 10:22 Seg Neutrophils # 9.9 K/mm3 (1.8-7.7) H 03/15/21 06:31 Seg Neutrophils # Man 9.2 K/mm3 (1.8-7.7) H 03/14/21 10:22 Band Neutrophils # 0.0 K/mm3 03/14/21 10:22 Lymphocytes # (Manual) 1.3 K/mm3 (1.2-5.4) 03/14/21 10:22 Abs React Lymphs (Man) 0.8 K/mm3 03/14/21 10:22 Monocytes # (Manual) 1.1 K/mm3 (0.0-0.8) H 03/14/21 10:22 Eosinophils # (Manual) 0.3 K/mm3 (0.0-0.4) 03/14/21 10:22 Basophils # (Manual) 0.0 K/mm3 (0.0-0.1) 03/14/21 10:22 Metamyelocytes # 0.0 K/mm3 03/14/21 10:22 Myelocytes # 0.0 K/mm3 03/14/21 10:22 Promyelocytes # 0.0 K/mm3 03/14/21 10:22 Blast Cells # 0.0 K/mm3 03/14/21 10:22 WBC Morphology Not Reportable 03/14/21 10:22 WBC Morphology TNR 03/14/21 10:22 Hypersegmented Neuts Not Reportable 03/14/21 10:22 Hyposegmented Neuts Not Reportable 03/14/21 10:22 Hypogranular Neuts Not Reportable 03/14/21 10:22 Smudge Cells Not Reportable 03/14/21 10:22 Toxic Granulation Not Reportable 03/14/21 10:22 Toxic Vacuolation Not Reportable 03/14/21 10:22 Dohle Bodies Not Reportable 03/14/21 10:22 Pelger-Huet Anomaly Not Reportable 03/14/21 10:22 Kecia Rods Not Reportable 03/14/21 10:22 Platelet Estimate Consistent w auto 03/14/21 10:22 Clumped Platelets Not Reportable 03/14/21 10:22 Plt Clumps, EDTA Not Reportable 03/14/21 10:22 Large Platelets Not Reportable 03/14/21 10:22 Giant Platelets Not Reportable 03/14/21 10:22 Platelet Satelliting Not Reportable 03/14/21 10:22 Plt Morphology Comment Not Reportable 03/14/21 10:22 RBC Morphology Normal 03/14/21 10:22 Dimorphic RBCs Not Reportable 03/14/21 10:22 Polychromasia Not Reportable 03/14/21 10:22 Hypochromasia Not Reportable 03/14/21 10:22 Poikilocytosis Not Reportable 03/14/21 10:22 Anisocytosis Not Reportable 03/14/21 10:22 Microcytosis Not Reportable 03/14/21 10:22 Macrocytosis Not Reportable 03/14/21 10:22 Spherocytes Not Reportable 03/14/21 10:22 Pappenheimer Bodies Not Reportable 03/14/21 10:22 Sickle Cells Not Reportable 03/14/21 10:22 Target Cells Not Reportable 03/14/21 10:22 Tear Drop Cells Not Reportable 03/14/21 10:22 Ovalocytes Not Reportable 03/14/21 10:22 Helmet Cells Not Reportable 03/14/21 10:22 [place] Bodies Not Reportable 03/14/21 10:22 [place] Rings Not Reportable 03/14/21 10:22 [place] Cells Not Reportable 03/14/21 10:22 Bite Cells Not Reportable 03/14/21 10:22 Crenated Cell Not Reportable 03/14/21 10:22 Elliptocytes Not Reportable 03/14/21 10:22 Acanthocytes (Spur) Not Reportable 03/14/21 10:22 Rouleaux Not Reportable 03/14/21 10:22 Hemoglobin C Crystals Not Reportable 03/14/21 10:22 Schistocytes Not Reportable 03/14/21 10:22 Malaria parasites Not Reportable 03/14/21 10:22 Ren Bodies Not Reportable 03/14/21 10:22 Hem Pathologist Commnt No 03/14/21 10:22 PT 13.6 Sec. (12.2-14.9) 03/10/21 04:49 INR 0.99 (0.87-1.13) 03/10/21 04:49 APTT 33.2 Sec. (24.2-36.6) 03/09/21 03:34 D-Dimer 1098.77 ng/mlDDU (0-234) H 03/09/21 05:17 Sodium 139 mmol/L (137-145) 03/15/21 06:31 Potassium 4.8 mmol/L (3.6-5.0) 03/15/21 06:31 Chloride 95.0 mmol/L (98-107) L 03/15/21 06:31 Carbon Dioxide 24 mmol/L (22-30) 03/15/21 06:31 Anion Gap 25 mmol/L 03/15/21 06:31 BUN 61 mg/dL (7-17) H 03/15/21 06:31 Creatinine 7.0 mg/dL (0.6-1.2) H 03/15/21 06:31 Estimated GFR 6 ml/min 03/15/21 06:31 BUN/Creatinine Ratio 9 % 03/15/21 06:31 Glucose 140 mg/dL (65-100) H 03/15/21 06:31 POC Glucose 91 mg/dL (70-105) 03/17/21 08:47 Hemoglobin A1c 5.1 % (4-6) 03/09/21 10:43 Lactic Acid 1.20 mmol/L (0.7-2.0) 03/09/21 07:37 Calcium 9.8 mg/dL (8.4-10.2) 03/15/21 06:31 Phosphorus 7.10 mg/dL (2.5-4.5) H 03/14/21 10:22 Magnesium 2.00 mg/dL (1.7-2.3) 03/14/21 10:22 Ferritin 2210.0 ng/mL (10.0-200.0) H 03/09/21 05:17 Total Bilirubin 0.30 mg/dL (0.1-1.2) 03/15/21 06:31 AST 14 units/L (5-40) 03/15/21 06:31 ALT 9 units/L (7-56) 03/15/21 06:31 Alkaline Phosphatase 70 units/L (35-129) 03/15/21 06:31 Ammonia 20.0 umol/L (25-60) L 03/12/21 07:54 Lactate Dehydrogenase 300 units/L (91-180) H 03/09/21 05:17 Total Creatine Kinase 57 units/L (30-135) 03/09/21 10:43 CK-MB (CK-2) 2.3 ng/mL (0.0-4.0) 03/09/21 10:43 CK-MB (CK-2) Rel Index 4.0 (0-4) 03/09/21 10:43 Troponin T 0.129 ng/mL (0.00-0.029) H* 03/09/21 05:17 C-Reactive Protein 1.10 mg/dL (0.00-1.30) 03/09/21 05:17 Total Protein 7.6 g/dL (6.3-8.2) 03/15/21 06:31 Albumin 3.6 g/dL (3.9-5) L 03/15/21 06:31 Albumin/Globulin Ratio 0.9 % 03/15/21 06:31 Triglycerides 133 mg/dL (2-149) 03/09/21 03:34 Cholesterol 158 mg/dL (50-199) 03/09/21 03:34 LDL Cholesterol Direct 105 mg/dL (50-130) 03/09/21 03:34 HDL Cholesterol 37 mg/dL (40-59) L 03/09/21 03:34 Cholesterol/HDL Ratio 4.27 % 03/09/21 03:34 Procalcitonin 0.71 ng/mL (<0.15) 03/09/21 05:17 Random Vancomycin 25.0 ug/mL (0-40.0) 03/12/21 13:44 Coronavirus (PCR) Negative (Negative) 03/09/21 08:40 Hepatitis A IgM Ab Non-reactive (NonReactive) 03/09/21 07:37 Hep Bs Antigen Nonreactive (Negative) 03/09/21 07:37 Hep B Core IgM Ab Non-reactive (NonReactive) 03/09/21 07:37 Hepatitis C Antibody Non-reactive (NonReactive) 03/09/21 07:37 Persaud/IV: Voiding Method Incontinent Active Medications - Current Medications Current Medications: Generic Name Dose Route Start Last Admin Trade Name Freq PRN Reason Stop Dose Admin Acetaminophen 650 mg 03/09/21 05:56 Acetaminophen 325 Mg Tab PO Q6H PRN Pain MILD(1-3)/Fever >100.5/ALMODOVAR Lipase/Protease/Amylase 1 each 03/14/21 11:12 Lipase 10,500/Protease 25,000/Amylase 43,750 (Units) Dr [place] FEEDTUBE PRN PRN For Clogged Feeding Tube Calcium Acetate 667 mg 03/16/21 12:30 03/17/21 09:15 Calcium Acetate 667 Mg Cap PO 667 mg TIDWM BALAJI Administration Carvedilol 12.5 mg 03/14/21 12:00 03/17/21 09:14 Carvedilol 12.5 Mg Tab PO 12.5 mg BID BALAJI Administration Famotidine 10 mg 03/14/21 13:00 03/17/21 09:13 Famotidine 10 Mg Tab FEEDTUBE 10 mg BID BALAJI Administration Heparin Sodium (Porcine) 5,000 unit 03/09/21 14:00 03/17/21 05:32 Heparin 5,000 Unit/1 Ml Vial SUB-Q 5,000 unit Q8HR BALAJI Administration Hydralazine HCl 10 mg 03/10/21 23:06 03/13/21 06:34 Hydralazine 20 Mg/1 Ml Inj IV 10 mg Q6HR PRN Administration Hypertension Sodium Chloride 100 mls @ 999 mls/hr 03/09/21 04:50 Nacl 0.9% IV FLAKO PRN Hypotension Insulin Human Regular 0 units 03/09/21 18:00 03/16/21 22:21 Insulin Regular, Human 100 Units/1 Ml SUB-Q Not Given ACHS [facility] Protocol Losartan Potassium 100 mg 03/14/21 10:00 03/17/21 09:15 Losartan 50 Mg Tab PO 100 mg QDAY BALAJI Administration Multivitamins/Iron 1 each 03/15/21 10:00 03/17/21 09:15 Fe Fumarate/Fa/Mv, Min Comb#15 Cap (Hemocyte Plus) PO 1 each QDAY BALAJI Administration Nifedipine 60 mg 03/15/21 10:00 03/17/21 09:13 Nifedipine Xl 60 Mg Tab PO 60 mg QDAY BALAJI Administration Senna 17.2 mg 03/09/21 22:00 03/16/21 22:14 Sennosides 8.6 Mg Tab PO 17.2 mg QHS BALAJI Administration Simple Syrup 15 ml 03/14/21 11:12 Simple Syrup 15 Ml FEEDTUBE PRN PRN Hypoglycemia Simple Syrup 30 ml 03/14/21 11:12 Simple Syrup 15 Ml FEEDTUBE PRN PRN Hypoglycemia Sodium Bicarbonate 325 mg 03/14/21 11:12 Sodium Bicarbonate 325 Mg Tab FEEDTUBE PRN PRN For Clogged Feeding Tube Sodium Chloride 10 ml 03/09/21 10:00 03/17/21 09:15 Sodium Chloride 0.9% 10 Ml Flush Syringe IV 10 ml BID BALAJI Administration Sodium Chloride 10 ml 03/09/21 05:56 03/11/21 05:56 Sodium Chloride 0.9% 10 Ml Flush Syringe IV 10 ml PRN PRN Administration LINE FLUSH Nutrition/Malnutrition Assess - Dietary Evaluation Nutrition/Malnutrition Findings: Nutrition Notes Start: 03/09/21 07:41 Freq: Status: Active Protocol: Document 03/16/21 15:21 LAURA (Rec: 03/16/21 15:24 NHALL [id number]) Nutrition Notes Initial or Follow up Brief Note Current Diet [facility] soft Subjective/Other Information NGT/TF d/c'ed. Pt tolerating PO diet. Nutrition Intervention Follow-Up By: 03/18/21 Additional Comments F/U: intakes, need for ONS
--- NOTE | 2021-03-17 13:03 | Progress Note ---
Assessment and Plan 75-year-old female with known history of hypertension, end-stage renal disease on dialysis Mondays, Wednesdays and Fridays and also status post field renal transplant presents to the emergency room via EMS today complaining of shortness of breath. Daughter indicates that patient may not have had enough fluid taken off during dialysis on Tuesday. There has been no fever or chills, no nausea or vomiting, no abdominal pain, no headache or dizziness, no loss of taste or smell, no recent travel, no sick contacts and no contact with anyone with COVID-19. Upon arrival of EMS patient oxygen saturation was about 68% on room air and patient was placed on nonrebreather on the scene with improvement of oxygen saturation to about 98%. Patient follows up with Dr. Luis with her personal driver. She has been admitted in the past before for fluid overload requiring BiPAP. Most of the history has been gotten from daughter as patient does not speak [place]. Upon arrival in the emergency room patient was quite hypertensive with systolic in the 200s and diastolic in the low 100s. Patient subsequently started on a nitroglycerin drip. Outside Sales on-call was consulted . Patient promptly given dialysis. Patient has had nebulizer treatment, insulin and glucose for the hyperkalemia. She is also started on empiric IV antibiotics for sepsis. atient awake. On O2 3 litres. O2 saturation 100%. No acute respiratory distress. Patient speaks only [place]. Unable to get history from her. Most of the history obtained from the chart. Patient is running low grade temp at times. BP 120/71. HR: 105. Has mild leukocytosis, Troponin was slightly elevated at 0.123. COVID negative. chest x-ray (03/09/21) showed mild patchy multifocal airspace disease. Patient is on S/C heparin. Patient just started on tube feeding to day. - Patient Problems (1) Acute pulmonary edema Current Visit: Yes Status: Acute Plan to address problem: Patient is on dialysis. (2) ESRD needing dialysis Current Visit: Yes Status: Acute Plan to address problem: Management as per nephrology. (3) Hypertensive emergency Current Visit: Yes Status: Acute Plan to address problem: Improved. Managent as per primary care. (4) Person under investigation for COVID-19 Current Visit: Yes Status: Acute Plan to address problem: Patients Rick virus PCR negative. (5) Sepsis Current Visit: Yes Status: Acute Plan to address problem: Patient was on cefepime. (6) Hyponatremia Current Visit: No Status: Acute Plan to address problem: Improved. last Na+ level 139 (7) Metabolic acidosis Current Visit: No Status: Acute Plan to address problem: Anion gap 25. Could be secondary to renal failure. Subjective Date of service: 03/17/21 Principal diagnosis: HTNsive Emergency; bacteremia; Ac Hypoxemic Resp Failure; AV-fistula malfxn Interval history: 75-year-old female with known history of hypertension, end-stage renal disease on dialysis Mondays, Wednesdays and Fridays and also status post field renal transplant presents to the emergency room via EMS today complaining of shortness of breath. Daughter indicates that patient may not have had enough fluid taken off during dialysis on Tuesday. There has been no fever or chills, no nausea or vomiting, no abdominal pain, no headache or dizziness, no loss of taste or smell, no recent travel, no sick contacts and no contact with anyone with COVID-19. Upon arrival of EMS patient oxygen saturation was about 68% on room air and patient was placed on nonrebreather on the scene with improvement of oxygen saturation to about 98%. Patient follows up with Dr. Luis with her personal driver. She has been admitted in the past before for fluid overload requiring BiPAP. Most of the history has been gotten from daughter as patient does not speak [place]. Upon arrival in the emergency room patient was quite hypertensive with systolic in the 200s and diastolic in the low 100s. Patient subsequently started on a nitroglycerin drip. Outside Sales on-call was consulted . Patient promptly given dialysis. Patient has had nebulizer treatment, insulin and glucose for the hyperkalemia. She is also started on empiric IV antibiotics for sepsis. Patient awake. On O2 2 litres. O2 saturation 97%. No acute respiratory distress. Patient speaks only [place]. Unable to get history from her. Most of the history obtained from the chart. Patient afebrile.. BP 110/62. HR: 85. Has mild leukocytosis, Troponin was slightly elevated at 0.123. COVID negative. chest x-ray (03/09/21) showed mild patchy multifocal airspace disease. Patient is on S/C heparin. Patient started on tube feeding . Objective Vital Signs - 12hr 03/17/21 03/17/21 03/17/21 04:32 09:14 09:15 Temperature 98.3 F Pulse Rate 85 85 85 Respiratory 18 Rate Blood Pressure 110/62 O2 Sat by Pulse 97 Oximetry 03/17/21 11:53 Temperature Pulse Rate Respiratory Rate Blood Pressure O2 Sat by Pulse 92 Oximetry Constitutional: no acute distress, alert, other (elderly thin male with normal respiratory effort at rest) Eyes: non-icteric ENT: oropharynx moist Neck: supple, no lymphadenopathy Effort: normal Ascultation: Bilateral: diminished breath sounds Percussion: Bilateral: not dull Cardiovascular: regular rate and rhythm Gastrointestinal: normoactive bowel sounds, soft, non-tender, non-distended Integumentary: normal Extremities: no cyanosis, no edema, pink and warm, pulses normal Neurologic: non-focal exam (grossly), pupils equal and round, unable to assess Psychiatric: depressed, other (Patient speaks only [place]. Can not asses mood or effect.Patient sleeping at this time.) CBC and BMP: 03/15/21 06:31 03/15/21 06:31 ABG, PT/INR, D-dimer: PT/INR, D-dimer PT 13.6 Sec. (12.2-14.9) 03/10/21 04:49 INR 0.99 (0.87-1.13) 03/10/21 04:49 D-Dimer 1098.77 ng/mlDDU (0-234) H 03/09/21 05:17 Abnormal lab findings: Abnormal Labs 03/09/21 03/09/21 03/09/21 03:34 03:34 03:34 WBC 20.7 H RBC 3.57 L Hgb Hct MCV MCH RDW 16.5 H Lymph % (Auto) Bland % (Auto) Lymph # (Auto) Bland # (Auto) Seg Neutrophils % Seg Neuts % (Manual) 84.0 H Lymphocytes % (Manual) 6.0 L Monocytes % (Manual) Seg Neutrophils # Seg Neutrophils # Man 17.4 H Monocytes # (Manual) D-Dimer Sodium 133 L Potassium 6.1 H* Chloride 93.6 L Carbon Dioxide BUN 62 H Creatinine 8.2 H Glucose 137 H POC Glucose Phosphorus Ferritin Ammonia Lactate Dehydrogenase Troponin T 0.123 H* Total Protein Albumin HDL Cholesterol 37 L 03/09/21 03/09/21 03/09/21 05:17 05:17 05:17 WBC RBC Hgb Hct MCV MCH RDW Lymph % (Auto) Bland % (Auto) Lymph # (Auto) Bland # (Auto) Seg Neutrophils % Seg Neuts % (Manual) Lymphocytes % (Manual) Monocytes % (Manual) Seg Neutrophils # Seg Neutrophils # Man Monocytes # (Manual) D-Dimer 1098.77 H Sodium Potassium Chloride Carbon Dioxide BUN Creatinine Glucose 123 H POC Glucose Phosphorus Ferritin Ammonia Lactate Dehydrogenase 300 H Troponin T 0.129 H* Total Protein Albumin HDL Cholesterol 03/09/21 03/09/21 03/09/21 05:17 14:21 17:01 WBC RBC Hgb Hct MCV MCH RDW Lymph % (Auto) Bland % (Auto) Lymph # (Auto) Bland # (Auto) Seg Neutrophils % Seg Neuts % (Manual) Lymphocytes % (Manual) Monocytes % (Manual) Seg Neutrophils # Seg Neutrophils # Man Monocytes # (Manual) D-Dimer Sodium 133 L Potassium 5.2 H Chloride 94.3 L Carbon Dioxide BUN 23 H Creatinine 4.3 H Glucose 246 H POC Glucose 201 H Phosphorus Ferritin 2210.0 H Ammonia Lactate Dehydrogenase Troponin T Total Protein Albumin HDL Cholesterol 03/09/21 03/10/21 03/10/21 22:07 04:49 04:49 WBC RBC 3.54 L Hgb Hct MCV MCH RDW 16.4 H Lymph % (Auto) Bland % (Auto) 11.4 H Lymph # (Auto) Bland # (Auto) 1.0 H Seg Neutrophils % Seg Neuts % (Manual) Lymphocytes % (Manual) Monocytes % (Manual) Seg Neutrophils # Seg Neutrophils # Man Monocytes # (Manual) D-Dimer Sodium 134 L Potassium 5.2 H Chloride 93.0 L Carbon Dioxide BUN 45 H Creatinine 5.9 H Glucose 112 H POC Glucose 128 H Phosphorus Ferritin Ammonia Lactate Dehydrogenase Troponin T Total Protein Albumin HDL Cholesterol 03/10/21 03/11/21 03/11/21 23:24 08:41 08:41 WBC 12.0 H RBC Hgb Hct MCV MCH RDW 15.6 H Lymph % (Auto) Bland % (Auto) 15.3 H Lymph # (Auto) Bland # (Auto) 1.8 H Seg Neutrophils % Seg Neuts % (Manual) Lymphocytes % (Manual) Monocytes % (Manual) Seg Neutrophils # Seg Neutrophils # Man Monocytes # (Manual) D-Dimer Sodium 134 L Potassium Chloride 91.6 L Carbon Dioxide BUN 32 H Creatinine 4.8 H Glucose 119 H POC Glucose 284 H Phosphorus Ferritin Ammonia Lactate Dehydrogenase Troponin T Total Protein 9.1 H Albumin HDL Cholesterol 03/12/21 03/12/21 03/12/21 06:30 06:30 07:54 WBC 11.3 H RBC 3.44 L Hgb 8.3 L D Hct 26.7 L D MCV 78 L MCH 24 L RDW 19.1 H Lymph % (Auto) 7.0 L Bland % (Auto) Lymph # (Auto) 0.8 L Bland # (Auto) Seg Neutrophils % 89.3 H Seg Neuts % (Manual) Lymphocytes % (Manual) Monocytes % (Manual) Seg Neutrophils # 10.1 H Seg Neutrophils # Man Monocytes # (Manual) D-Dimer Sodium Potassium 5.2 H D Chloride Carbon Dioxide BUN 47 H Creatinine Glucose 339 H POC Glucose Phosphorus Ferritin Ammonia 20.0 L Lactate Dehydrogenase Troponin T Total Protein 5.7 L D Albumin 2.3 L HDL Cholesterol 03/12/21 03/12/21 03/12/21 08:21 11:28 13:44 WBC RBC Hgb Hct MCV MCH RDW Lymph % (Auto) Bland % (Auto) Lymph # (Auto) Bland # (Auto) Seg Neutrophils % Seg Neuts % (Manual) Lymphocytes % (Manual) Monocytes % (Manual) Seg Neutrophils # Seg Neutrophils # Man Monocytes # (Manual) D-Dimer Sodium Potassium Chloride Carbon Dioxide BUN Creatinine 5.0 H D Glucose POC Glucose 108 H 108 H Phosphorus Ferritin Ammonia Lactate Dehydrogenase Troponin T Total Protein Albumin HDL Cholesterol 03/12/21 03/13/21 03/13/21 21:17 07:44 07:44 WBC RBC Hgb Hct MCV MCH RDW 15.8 H Lymph % (Auto) Bland % (Auto) Lymph # (Auto) Bland # (Auto) Seg Neutrophils % Seg Neuts % (Manual) 74.0 H Lymphocytes % (Manual) 12.0 L Monocytes % (Manual) 12.0 H Seg Neutrophils # Seg Neutrophils # Man Monocytes # (Manual) 1.2 H D-Dimer Sodium 133 L Potassium Chloride 94.4 L Carbon Dioxide 20 L BUN 42 H Creatinine 6.8 H Glucose POC Glucose 110 H Phosphorus Ferritin Ammonia Lactate Dehydrogenase Troponin T Total Protein Albumin 3.2 L HDL Cholesterol 03/14/21 03/14/21 03/15/21 10:22 10:22 06:31 WBC 12.6 H 14.7 H RBC 3.42 L Hgb 10.0 L Hct MCV MCH RDW 16.2 H 16.0 H Lymph % (Auto) Bland % (Auto) 15.0 H Lymph # (Auto) Bland # (Auto) 2.2 H Seg Neutrophils % Seg Neuts % (Manual) 73.0 H Lymphocytes % (Manual) 10.0 L Monocytes % (Manual) 9.0 H Seg Neutrophils # 9.9 H Seg Neutrophils # Man 9.2 H Monocytes # (Manual) 1.1 H D-Dimer Sodium Potassium Chloride 96.0 L Carbon Dioxide BUN 32 H Creatinine 5.4 H Glucose POC Glucose Phosphorus 7.10 H Ferritin Ammonia Lactate Dehydrogenase Troponin T Total Protein Albumin 3.8 L HDL Cholesterol 03/15/21 03/15/21 03/15/21 06:31 07:42 09:21 WBC RBC Hgb Hct MCV MCH RDW Lymph % (Auto) Bland % (Auto) Lymph # (Auto) Bland # (Auto) Seg Neutrophils % Seg Neuts % (Manual) Lymphocytes % (Manual) Monocytes % (Manual) Seg Neutrophils # Seg Neutrophils # Man Monocytes # (Manual) D-Dimer Sodium Potassium Chloride 95.0 L Carbon Dioxide BUN 61 H Creatinine 7.0 H Glucose 140 H POC Glucose 140 H 139 H Phosphorus Ferritin Ammonia Lactate Dehydrogenase Troponin T Total Protein Albumin 3.6 L HDL Cholesterol 03/15/21 03/15/21 03/16/21 11:18 22:05 17:18 WBC RBC Hgb Hct MCV MCH RDW Lymph % (Auto) Bland % (Auto) Lymph # (Auto) Bland # (Auto) Seg Neutrophils % Seg Neuts % (Manual) Lymphocytes % (Manual) Monocytes % (Manual) Seg Neutrophils # Seg Neutrophils # Man Monocytes # (Manual) D-Dimer Sodium Potassium Chloride Carbon Dioxide BUN Creatinine Glucose POC Glucose 141 H 175 H 181 H Phosphorus Ferritin Ammonia Lactate Dehydrogenase Troponin T Total Protein Albumin HDL Cholesterol 03/17/21 12:48 WBC RBC Hgb Hct MCV MCH RDW Lymph % (Auto) Bland % (Auto) Lymph # (Auto) Bland # (Auto) Seg Neutrophils % Seg Neuts % (Manual) Lymphocytes % (Manual) Monocytes % (Manual) Seg Neutrophils # Seg Neutrophils # Man Monocytes # (Manual) D-Dimer Sodium Potassium Chloride Carbon Dioxide BUN Creatinine Glucose POC Glucose 169 H Phosphorus Ferritin Ammonia Lactate Dehydrogenase Troponin T Total Protein Albumin HDL Cholesterol Allied health notes reviewed: nursing
--- NOTE | 2021-03-17 16:38 | Progress Note ---
Assessment and Plan End-stage renal disease continue with maintenance hemodialysis on Tuesday and Tuesday schedule Discontinued magnesium oxide, can result in toxicity with a dialysis patient Discontinued hydralazine, increased Procardia to 60 mg once a day, continue with losartan 100 mg once a day, Continue the patient on calcium acetate 2 capsule 3 times a day #Multifocal pneumonia Covid negative, currently being followed by infectious disease, coagulase negative staph bacteremia 1 out of 4 likely contaminant #Hypertension, improving, blood pressure medication has been readjusted #Diet and nutrition start on Nephrocaps, continue on erythropoietin weekly We'll continue to follow and make recommendation for renal standpoint Subjective Date of service: 03/17/21 Principal diagnosis: HTNsive Emergency; bacteremia; Ac Hypoxemic Resp Failure; AV-fistula malfxn Interval history: Somnolent but awakens to stimuli. Objective - Exam Narrative Exam: General: No acute distress HEENT: Oral mucosa moist Neck: Supple, no JVD Chest: Clear to auscultation bilaterally Heart: RRR, S1 and S2, no pericardial rub Abdomen: Soft, nontender, no renal bruit Extremity: No peripheral cyanosis, edema Neurological: Somnolent, awakens to stimuli Dermatology: No skin rash Psych: No agitation Musculoskeletal: No joint effusion - Vital Signs Vital signs: Vital Signs - 12hr 03/17/21 03/17/21 03/17/21 04:32 09:14 09:15 Temperature 98.3 F Pulse Rate 85 85 85 Respiratory 18 Rate Blood Pressure 110/62 O2 Sat by Pulse 97 Oximetry 03/17/21 03/17/21 11:53 12:45 Temperature 97.6 F Pulse Rate 82 Respiratory 18 Rate Blood Pressure 74/46 O2 Sat by Pulse 92 96 Oximetry - Lab 03/15/21 06:31 03/15/21 06:31 Most recent lab results Calcium 9.8 mg/dL (8.4-10.2) 03/15/21 06:31 Phosphorus 7.10 mg/dL (2.5-4.5) H 03/14/21 10:22 Magnesium 2.00 mg/dL (1.7-2.3) 03/14/21 10:22 Medications & Allergies - Medications Allergies/Adverse Reactions: Allergies No Known Allergies Allergy (Unverified 07/09/20 12:47) Home Medications: Home Medications Medication Instructions Recorded Confirmed Last Taken Type NIFEdipine XL [Procardia Xl] 30 mg PO QDAY #30 tablet 11/12/20 03/13/21 Unknown Rx carvediloL [Coreg] 6.25 mg PO BID #60 tablet 11/12/20 03/13/21 Unknown Rx hydrALAZINE [Apresoline TAB] 25 mg PO Q8HR #90 tab 11/12/20 03/13/21 Unknown Rx Active Medications: Generic Name Dose Route Start Last Admin Trade Name Freq PRN Reason Stop Dose Admin Acetaminophen 650 mg 03/09/21 05:56 Acetaminophen 325 Mg Tab PO Q6H PRN Pain MILD(1-3)/Fever >100.5/ALMODOVAR Lipase/Protease/Amylase 1 each 03/14/21 11:12 Lipase 10,500/Protease 25,000/Amylase 43,750 (Units) Dr Corona FEEDTUBE PRN PRN For Clogged Feeding Tube Calcium Acetate 667 mg 03/16/21 12:30 03/17/21 09:15 Calcium Acetate 667 Mg Cap PO 667 mg TIDWM BALAJI Administration Carvedilol 12.5 mg 03/14/21 12:00 03/17/21 09:14 Carvedilol 12.5 Mg Tab PO 12.5 mg BID BALAJI Administration Famotidine 10 mg 03/14/21 13:00 03/17/21 09:13 Famotidine 10 Mg Tab FEEDTUBE 10 mg BID BALAJI Administration Heparin Sodium (Porcine) 5,000 unit 03/09/21 14:00 03/17/21 05:32 Heparin 5,000 Unit/1 Ml Vial SUB-Q 5,000 unit Q8HR BALAJI Administration Hydralazine HCl 10 mg 03/10/21 23:06 03/13/21 06:34 Hydralazine 20 Mg/1 Ml Inj IV 10 mg Q6HR PRN Administration Hypertension Sodium Chloride 100 mls @ 999 mls/hr 03/09/21 04:50 Nacl 0.9% IV FLAKO PRN Hypotension Insulin Human Regular 0 units 03/09/21 18:00 03/16/21 22:21 Insulin Regular, Human 100 Units/1 Ml SUB-Q Not Given [facility]S [facility] Protocol Losartan Potassium 100 mg 03/14/21 10:00 03/17/21 09:15 Losartan 50 Mg Tab PO 100 mg QDAY BALAJI Administration Multivitamins/Iron 1 each 03/15/21 10:00 03/17/21 09:15 Fe Fumarate/Fa/Mv, Min Comb#15 Cap (Hemocyte Plus) PO 1 each QDAY BALAJI Administration Nifedipine 60 mg 03/15/21 10:00 03/17/21 09:13 Nifedipine Xl 60 Mg Tab PO 60 mg QDAY BALAJI Administration Senna 17.2 mg 03/09/21 22:00 03/16/21 22:14 Sennosides 8.6 Mg Tab PO 17.2 mg QHS BALAJI Administration Simple Syrup 15 ml 03/14/21 11:12 Simple Syrup 15 Ml FEEDTUBE PRN PRN Hypoglycemia Simple Syrup 30 ml 03/14/21 11:12 Simple Syrup 15 Ml FEEDTUBE PRN PRN Hypoglycemia Sodium Bicarbonate 325 mg 03/14/21 11:12 Sodium Bicarbonate 325 Mg Tab FEEDTUBE PRN PRN For Clogged Feeding Tube Sodium Chloride 10 ml 03/09/21 10:00 03/17/21 09:15 Sodium Chloride 0.9% 10 Ml Flush Syringe IV 10 ml BID BALAJI Administration Sodium Chloride 10 ml 03/09/21 05:56 03/11/21 05:56 Sodium Chloride 0.9% 10 Ml Flush Syringe IV 10 ml PRN PRN Administration LINE FLUSH
[2021-03-17] MEDS: SENNOSIDES 8.6 MG TAB PO SCH (21:47)
[2021-03-18] MEDS: HEPARIN 5,000 UNIT/1 ML VIAL SUB-Q SCH ×4 (06:42→22:24)
--- NOTE | 2021-03-18 09:54 | Progress Note ---
Assessment and Plan Assessment and plan: COVID-19 test negative --Toxic metabolic encephalopathy; present on admission Due to underlying sepsis due to multifocal pneumonia CT brain on 03/10: Negative MRI brain; no acute abnormality Treat underlying cause, continue supportive care --Sepsis; due to multifocal pneumonia COVID-19 test negative CXR on admission: Mild patchy multifocal airspace disease. Continue vancomycin IV now dc, cefepime IV x 8 days (renally adjusted) per ID. ID following -Multifocal pneumonia Covid negative, elevated procalcitonin Continue nasal cannula oxygen Continue antibiotics per ID --GPC bacteremia 1 out of 4 bottles, staph species isolated. Still suspect contaminant. Follow for speciation and sensitivities Follow ID recommendations --ESRD on HD Nephrology following, HD per schedule Renally adjusted dose of antibiotics Vanco and cefepime --Hypertensive emergency; on admission Blood pressure is better controlled, continue current antihypertensives As needed medications --Secondary hyperparathyroidism; in the setting of ESRD Continue phosphate binders --Anemia of CKD Procrit during dialysis, follow H&H, transfuse as needed -- Hyponatremia/due to fluid overload Resolved, sodium levels within normal limits --Hyperkalemia; Resolved, HD per schedule Monitor electrolytes --DVT prophylaxis; Heparin renal dose --Full CODE STATUS We will closely monitor the patient and adjust the management as needed Plan of care reviewed with the patient and her daughter Ms. Farfan Consultants and recommendations noted and appreciated Hospital Course to date 03/10: Paged by ED RN regarding patient mental status change. 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 Today patient is alert, protecting airway, however, she appears more confused. She does not acknowledge medical staff in room but does not attempt to communicate or respond or follow commands when spoken to. stat CT brain was ordered which was negative. 03/11: Recieved HD yesterday, no improvement in mentation on Am encounter. Will order MRI brain, EEG, neurology consultation. 03/12: Could not have MRI completed yesterday due to movement in MRI scanner. We will coordinate with staff consultant to complete today with on-call Ativan on board. EEG pending. Pending full neuro evaluation underway. Will call winston Farfan today ([phone]). 03/13: MRI completed- appears to be inconclusive. Will await neuro input. LP was unable to be completed. Plan for tuesday. EEG pending. D/c vancomycin, only cefepime IV x 8 days per ID. 03/14: Patient will need nutrition however due to mental status will need to insert NG tube. She can be started on Nepro tube goal 25 cc/h feeds with free water flushes 100 cc every 4 hours. Start Pepcid 20 twice daily EEG is still pending and LP will be completed Tuesday. 03/15: Patient appears to be more alert. Had pulled NG tube out from yesterday, new NG tube was placed today. Since she is more alert we will consider a bedside swallow eval and consider DC of NG with daughter or language line translating all of our instructions. 03/16: Patient still appears more alert. Can tolerate p.o. after discussion with RN. Restraints and NG tube were discontinued. Getting hemodialysis today. Physical therapy consulted now the patient will be able to participate. Will recommend to them to have language line or her daughter available to translate. Spoke with daughter who is able to converse with patient. Patient had told her that she was feeling very weak. Daughter said that mentation of patient was consistent with her baseline. Canceled lumbar puncture and EEG as these do not appear necessary anymore. Avoid all opioid narcotics in this patient. Suspect medications were the initial inciting event for encephalopathy. Plan for discharge in next 1 to 2 days. 03/17/2021; patient with sepsis and multifocal pneumonia, receiving IV antibiotics Hardware Engineering Manager recommendations noted and appreciated 03/18/2021; spoke with patient's daughter Ms. Farfan at [phone] and updated patient's condition treatment and discharge planning. She had many questions answered all of them, Possible discharge tomorrow if stable and cleared by all the consultants History Interval history: I have seen and examined the patient at the bedside Patient's chart and medications reviewed No new complaints Vital signs noted Hospitalist Physical - Constitutional Vitals: Temp Pulse Resp BP Pulse Ox 98.3 F 80 20 117/58 100 03/18/21 05:09 03/18/21 05:09 03/18/21 05:09 03/18/21 05:09 03/18/21 05:09 General appearance: Present: no acute distress, well-nourished, cachectic, other - EENT Eyes: Present: PERRL (Emaciated), EOM intact - Neck Neck: Present: supple, normal ROM - Respiratory Respiratory effort: normal Respiratory: bilateral: diminished, rhonchi, negative: rales, wheezing - Cardiovascular Rhythm: regular Heart Sounds: Present: S1 & S2 - Extremities Extremities: no ischemia, No edema - Abdominal General gastrointestinal: soft, non-tender, non-distended, normal bowel sounds - Integumentary Integumentary: Present: clear, warm - Psychiatric Psychiatric: appropriate mood/affect, cooperative - Neurologic Neurologic: CNII-XII intact, moves all extremities HEART Score - HEART Score Troponin: Troponin T 0.129 ng/mL (0.00-0.029) H* 03/09/21 05:17 Results - Labs CBC & Chem 7: 03/15/21 06:31 03/15/21 06:31 Labs: Laboratory Last Values WBC 14.7 K/mm3 (4.5-11.0) H 03/15/21 06:31 RBC 3.42 M/mm3 (3.65-5.03) L 03/15/21 06:31 Hgb 10.0 gm/dl (10.1-14.3) L 03/15/21 06:31 Hct 30.4 % (30.3-42.9) 03/15/21 06:31 MCV 89 fl (79-97) 03/15/21 06:31 MCH 29 pg (28-32) 03/15/21 06:31 MCHC 33 % (30-34) 03/15/21 06:31 RDW 16.0 % (13.2-15.2) H 03/15/21 06:31 Plt Count 259 K/mm3 (140-440) 03/15/21 06:31 Lymph % (Auto) 15.0 % (13.4-35.0) 03/15/21 06:31 Kaufman % (Auto) 15.0 % (0.0-7.3) H 03/15/21 06:31 Eos % (Auto) 2.1 % (0.0-4.3) 03/15/21 06:31 Baso % (Auto) 0.3 % (0.0-1.8) 03/15/21 06:31 Lymph # (Auto) 2.2 K/mm3 (1.2-5.4) 03/15/21 06:31 Kaufman # (Auto) 2.2 K/mm3 (0.0-0.8) H 03/15/21 06:31 Eos # (Auto) 0.3 K/mm3 (0.0-0.4) 03/15/21 06:31 Baso # (Auto) 0.0 K/mm3 (0.0-0.1) 03/15/21 06:31 Add Manual Diff Complete 03/14/21 10:22 Total Counted 100 03/14/21 10:22 Seg Neutrophils % 67.6 % (40.0-70.0) 03/15/21 06:31 Seg Neuts % (Manual) 73.0 % (40.0-70.0) H 03/14/21 10:22 Band Neutrophils % 4.0 % 03/09/21 03:34 Lymphocytes % (Manual) 10.0 % (13.4-35.0) L 03/14/21 10:22 Reactive Lymphs % (Man) 6.0 % 03/14/21 10:22 Monocytes % (Manual) 9.0 % (0.0-7.3) H 03/14/21 10:22 Eosinophils % (Manual) 2.0 % (0.0-4.3) 03/14/21 10:22 Metamyelocytes % 1.0 % 03/09/21 03:34 Nucleated RBC % Not Reportable 03/14/21 10:22 Seg Neutrophils # 9.9 K/mm3 (1.8-7.7) H 03/15/21 06:31 Seg Neutrophils # Man 9.2 K/mm3 (1.8-7.7) H 03/14/21 10:22 Band Neutrophils # 0.0 K/mm3 03/14/21 10:22 Lymphocytes # (Manual) 1.3 K/mm3 (1.2-5.4) 03/14/21 10:22 Abs React Lymphs (Man) 0.8 K/mm3 03/14/21 10:22 Monocytes # (Manual) 1.1 K/mm3 (0.0-0.8) H 03/14/21 10:22 Eosinophils # (Manual) 0.3 K/mm3 (0.0-0.4) 03/14/21 10:22 Basophils # (Manual) 0.0 K/mm3 (0.0-0.1) 03/14/21 10:22 Metamyelocytes # 0.0 K/mm3 03/14/21 10:22 Myelocytes # 0.0 K/mm3 03/14/21 10:22 Promyelocytes # 0.0 K/mm3 03/14/21 10:22 Blast Cells # 0.0 K/mm3 03/14/21 10:22 WBC Morphology Not Reportable 03/14/21 10:22 WBC Morphology TNR 03/14/21 10:22 Hypersegmented Neuts Not Reportable 03/14/21 10:22 Hyposegmented Neuts Not Reportable 03/14/21 10:22 Hypogranular Neuts Not Reportable 03/14/21 10:22 Smudge Cells Not Reportable 03/14/21 10:22 Toxic Granulation Not Reportable 03/14/21 10:22 Toxic Vacuolation Not Reportable 03/14/21 10:22 Dohle Bodies Not Reportable 03/14/21 10:22 Pelger-Huet Anomaly Not Reportable 03/14/21 10:22 Kecia Rods Not Reportable 03/14/21 10:22 Platelet Estimate Consistent w auto 03/14/21 10:22 Clumped Platelets Not Reportable 03/14/21 10:22 Plt Clumps, EDTA Not Reportable 03/14/21 10:22 Large Platelets Not Reportable 03/14/21 10:22 Giant Platelets Not Reportable 03/14/21 10:22 Platelet Satelliting Not Reportable 03/14/21 10:22 Plt Morphology Comment Not Reportable 03/14/21 10:22 RBC Morphology Normal 03/14/21 10:22 Dimorphic RBCs Not Reportable 03/14/21 10:22 Polychromasia Not Reportable 03/14/21 10:22 Hypochromasia Not Reportable 03/14/21 10:22 Poikilocytosis Not Reportable 03/14/21 10:22 Anisocytosis Not Reportable 03/14/21 10:22 Microcytosis Not Reportable 03/14/21 10:22 Macrocytosis Not Reportable 03/14/21 10:22 Spherocytes Not Reportable 03/14/21 10:22 Pappenheimer Bodies Not Reportable 03/14/21 10:22 Sickle Cells Not Reportable 03/14/21 10:22 Target Cells Not Reportable 03/14/21 10:22 Tear Drop Cells Not Reportable 03/14/21 10:22 Ovalocytes Not Reportable 03/14/21 10:22 Helmet Cells Not Reportable 03/14/21 10:22 [place] Bodies Not Reportable 03/14/21 10:22 Atkinson Rings Not Reportable 03/14/21 10:22 [place] Cells Not Reportable 03/14/21 10:22 Bite Cells Not Reportable 03/14/21 10:22 Crenated Cell Not Reportable 03/14/21 10:22 Elliptocytes Not Reportable 03/14/21 10:22 Acanthocytes (Spur) Not Reportable 03/14/21 10:22 Rouleaux Not Reportable 03/14/21 10:22 Hemoglobin C Crystals Not Reportable 03/14/21 10:22 Schistocytes Not Reportable 03/14/21 10:22 Malaria parasites Not Reportable 03/14/21 10:22 Ren Bodies Not Reportable 03/14/21 10:22 Hem Pathologist Commnt No 03/14/21 10:22 PT 13.6 Sec. (12.2-14.9) 03/10/21 04:49 INR 0.99 (0.87-1.13) 03/10/21 04:49 APTT 33.2 Sec. (24.2-36.6) 03/09/21 03:34 D-Dimer 1098.77 ng/mlDDU (0-234) H 03/09/21 05:17 Sodium 139 mmol/L (137-145) 03/15/21 06:31 Potassium 4.8 mmol/L (3.6-5.0) 03/15/21 06:31 Chloride 95.0 mmol/L (98-107) L 03/15/21 06:31 Carbon Dioxide 24 mmol/L (22-30) 03/15/21 06:31 Anion Gap 25 mmol/L 03/15/21 06:31 BUN 61 mg/dL (7-17) H 03/15/21 06:31 Creatinine 7.0 mg/dL (0.6-1.2) H 03/15/21 06:31 Estimated GFR 6 ml/min 03/15/21 06:31 BUN/Creatinine Ratio 9 % 03/15/21 06:31 Glucose 140 mg/dL (65-100) H 03/15/21 06:31 POC Glucose 102 mg/dL (70-105) 03/18/21 07:56 Hemoglobin A1c 5.1 % (4-6) 03/09/21 10:43 Lactic Acid 1.20 mmol/L (0.7-2.0) 03/09/21 07:37 Calcium 9.8 mg/dL (8.4-10.2) 03/15/21 06:31 Phosphorus 7.10 mg/dL (2.5-4.5) H 03/14/21 10:22 Magnesium 2.00 mg/dL (1.7-2.3) 03/14/21 10:22 Ferritin 2210.0 ng/mL (10.0-200.0) H 03/09/21 05:17 Total Bilirubin 0.30 mg/dL (0.1-1.2) 03/15/21 06:31 AST 14 units/L (5-40) 03/15/21 06:31 ALT 9 units/L (7-56) 03/15/21 06:31 Alkaline Phosphatase 70 units/L (35-129) 03/15/21 06:31 Ammonia 20.0 umol/L (25-60) L 03/12/21 07:54 Lactate Dehydrogenase 300 units/L (91-180) H 03/09/21 05:17 Total Creatine Kinase 57 units/L (30-135) 03/09/21 10:43 CK-MB (CK-2) 2.3 ng/mL (0.0-4.0) 03/09/21 10:43 CK-MB (CK-2) Rel Index 4.0 (0-4) 03/09/21 10:43 Troponin T 0.129 ng/mL (0.00-0.029) H* 03/09/21 05:17 C-Reactive Protein 1.10 mg/dL (0.00-1.30) 03/09/21 05:17 Total Protein 7.6 g/dL (6.3-8.2) 03/15/21 06:31 Albumin 3.6 g/dL (3.9-5) L 03/15/21 06:31 Albumin/Globulin Ratio 0.9 % 03/15/21 06:31 Triglycerides 133 mg/dL (2-149) 03/09/21 03:34 Cholesterol 158 mg/dL (50-199) 03/09/21 03:34 LDL Cholesterol Direct 105 mg/dL (50-130) 03/09/21 03:34 HDL Cholesterol 37 mg/dL (40-59) L 03/09/21 03:34 Cholesterol/HDL Ratio 4.27 % 03/09/21 03:34 Procalcitonin 0.71 ng/mL (<0.15) 03/09/21 05:17 Random Vancomycin 25.0 ug/mL (0-40.0) 03/12/21 13:44 Coronavirus (PCR) Negative (Negative) 03/09/21 08:40 Hepatitis A IgM Ab Non-reactive (NonReactive) 03/09/21 07:37 Hep Bs Antigen Nonreactive (Negative) 03/09/21 07:37 Hep B Core IgM Ab Non-reactive (NonReactive) 03/09/21 07:37 Hepatitis C Antibody Non-reactive (NonReactive) 03/09/21 07:37 Persaud/IV: Voiding Method Incontinent Active Medications - Current Medications Current Medications: Generic Name Dose Route Start Last Admin Trade Name Freq PRN Reason Stop Dose Admin Acetaminophen 650 mg 03/09/21 05:56 Acetaminophen 325 Mg Tab PO Q6H PRN Pain MILD(1-3)/Fever >100.5/ALMODOVAR Lipase/Protease/Amylase 1 each 03/14/21 11:12 Lipase 10,500/Protease 25,000/Amylase 43,750 (Units) Cap FEEDTUBE PRN PRN For Clogged Feeding Tube Calcium Acetate 667 mg 03/16/21 12:30 03/17/21 09:15 Calcium Acetate 667 Mg Cap PO 667 mg TIDWM BALAJI Administration Carvedilol 12.5 mg 03/14/21 12:00 03/17/21 21:49 Carvedilol 12.5 Mg Tab PO Not Given BID BALAJI Famotidine 10 mg 03/14/21 13:00 03/17/21 21:46 Famotidine 10 Mg Tab FEEDTUBE 10 mg BID BALAJI Administration Heparin Sodium (Porcine) 5,000 unit 03/09/21 14:00 03/18/21 06:42 Heparin 5,000 Unit/1 Ml Vial SUB-Q 5,000 unit Q8HR BALAJI Administration Hydralazine HCl 10 mg 03/10/21 23:06 03/13/21 06:34 Hydralazine 20 Mg/1 Ml Inj IV 10 mg Q6HR PRN Administration Hypertension Sodium Chloride 100 mls @ 999 mls/hr 03/09/21 04:50 Nacl 0.9% IV FLAKO PRN Hypotension Insulin Human Regular 0 units 03/09/21 18:00 03/16/21 22:21 Insulin Regular, Human 100 Units/1 Ml SUB-Q Not Given ACHS [facility] Protocol Losartan Potassium 100 mg 03/14/21 10:00 03/17/21 09:15 Losartan 50 Mg Tab PO 100 mg QDAY BALAJI Administration Multivitamins/Iron 1 each 03/15/21 10:00 03/17/21 09:15 Fe Fumarate/Fa/Mv, Min Comb#15 Cap (Hemocyte Plus) PO 1 each QDAY BALAJI Administration Nifedipine 60 mg 03/15/21 10:00 03/17/21 09:13 Nifedipine Xl 60 Mg Tab PO 60 mg QDAY BALAJI Administration Senna 17.2 mg 03/09/21 22:00 03/17/21 21:47 Sennosides 8.6 Mg Tab PO 17.2 mg QHS BALAJI Administration Simple Syrup 15 ml 03/14/21 11:12 Simple Syrup 15 Ml FEEDTUBE PRN PRN Hypoglycemia Simple Syrup 30 ml 03/14/21 11:12 Simple Syrup 15 Ml FEEDTUBE PRN PRN Hypoglycemia Sodium Bicarbonate 325 mg 03/14/21 11:12 Sodium Bicarbonate 325 Mg Tab FEEDTUBE PRN PRN For Clogged Feeding Tube Sodium Chloride 10 ml 03/09/21 10:00 03/17/21 21:49 Sodium Chloride 0.9% 10 Ml Flush Syringe IV 10 ml BID BALAJI Administration Sodium Chloride 10 ml 03/09/21 05:56 03/11/21 05:56 Sodium Chloride 0.9% 10 Ml Flush Syringe IV 10 ml PRN PRN Administration LINE FLUSH Nutrition/Malnutrition Assess - Dietary Evaluation Nutrition/Malnutrition Findings: Nutrition Notes Start: 03/09/21 07:41 Freq: Status: Active Protocol: Document 03/16/21 15:21 [facility] (Rec: 03/16/21 15:24 [facility] [id number]) Nutrition Notes Initial or Follow up Brief Note Current Diet Mec soft Subjective/Other Information NGT/TF d/c'ed. Pt tolerating PO diet. Nutrition Intervention Follow-Up By: 03/18/21 Additional Comments F/U: intakes, need for ONS
--- NOTE | 2021-03-18 12:49 | Progress Note ---
Assessment and Plan End-stage renal disease continue with maintenance hemodialysis on Tuesday and Tuesday schedule Discontinued magnesium oxide, can result in toxicity with a dialysis patient Discontinued hydralazine, discontinued Procardia, continue with losartan 100 mg once a day. Monitor bp, may need further downtitration Continue the patient on calcium acetate 2 capsule 3 times a day Check labs #Multifocal pneumonia Covid negative, seen by infectious disease this admission #Hypertension, improving, blood pressure medication has been readjusted #Diet and nutrition start on Nephrocaps, continue on erythropoietin weekly We'll continue to follow and make recommendation for renal standpoint Subjective Date of service: 03/18/21 Principal diagnosis: HTNsive Emergency; bacteremia; Ac Hypoxemic Resp Failure; AV-fistula malfxn Interval history: Seen during dialysis, tolerating without complications. Mental status unchanged. Objective - Exam Narrative Exam: General: No acute distress HEENT: Oral mucosa moist Neck: Supple, no JVD Chest: Clear to auscultation bilaterally Heart: RRR, S1 and S2, no pericardial rub Abdomen: Soft, nontender, no renal bruit Extremity: No peripheral cyanosis, edema Neurological: Somnolent, awakens to stimuli Dermatology: No skin rash Psych: No agitation Musculoskeletal: No joint effusion - Vital Signs Vital signs: Vital Signs - 12hr 03/18/21 03/18/21 05:09 10:10 Temperature 98.3 F 97.2 F L Pulse Rate 80 76 Respiratory 20 16 Rate Blood Pressure 117/58 107/63 O2 Sat by Pulse 100 Oximetry O2 Sat by Pulse 98 Oximetry [ Bilateral] - Lab 03/15/21 06:31 03/15/21 06:31 Most recent lab results Calcium 9.8 mg/dL (8.4-10.2) 03/15/21 06:31 Phosphorus 7.10 mg/dL (2.5-4.5) H 03/14/21 10:22 Magnesium 2.00 mg/dL (1.7-2.3) 03/14/21 10:22 Medications & Allergies - Medications Allergies/Adverse Reactions: Allergies No Known Allergies Allergy (Unverified 07/09/20 12:47) Home Medications: Home Medications Medication Instructions Recorded Confirmed Last Taken Type NIFEdipine XL [Procardia Xl] 30 mg PO QDAY #30 tablet 11/12/20 03/13/21 Unknown Rx carvediloL [Coreg] 6.25 mg PO BID #60 tablet 11/12/20 03/13/21 Unknown Rx hydrALAZINE [Apresoline TAB] 25 mg PO Q8HR #90 tab 11/12/20 03/13/21 Unknown Rx Active Medications: Generic Name Dose Route Start Last Admin Trade Name Freq PRN Reason Stop Dose Admin Acetaminophen 650 mg 03/09/21 05:56 Acetaminophen 325 Mg Tab PO Q6H PRN Pain MILD(1-3)/Fever >100.5/ALMODOVAR Lipase/Protease/Amylase 1 each 03/14/21 11:12 Lipase 10,500/Protease 25,000/Amylase 43,750 (Units) Dr [place] FEEDTUBE PRN PRN For Clogged Feeding Tube Calcium Acetate 667 mg 03/16/21 12:30 03/17/21 09:15 Calcium Acetate 667 Mg Cap PO 667 mg TIDWM BALAJI Administration Carvedilol 12.5 mg 03/14/21 12:00 03/17/21 21:49 Carvedilol 12.5 Mg Tab PO Not Given BID BALAJI Famotidine 10 mg 03/14/21 13:00 03/17/21 21:46 Famotidine 10 Mg Tab FEEDTUBE 10 mg BID BALAJI Administration Heparin Sodium (Porcine) 5,000 unit 03/09/21 14:00 03/18/21 06:42 Heparin 5,000 Unit/1 Ml Vial SUB-Q 5,000 unit Q8HR BALAJI Administration Hydralazine HCl 10 mg 03/10/21 23:06 03/13/21 06:34 Hydralazine 20 Mg/1 Ml Inj IV 10 mg Q6HR PRN Administration Hypertension Sodium Chloride 100 mls @ 999 mls/hr 03/09/21 04:50 Nacl 0.9% IV FLAKO PRN Hypotension Insulin Human Regular 0 units 03/09/21 18:00 03/16/21 22:21 Insulin Regular, Human 100 Units/1 Ml SUB-Q Not Given ACHS [facility] Protocol Losartan Potassium 100 mg 03/14/21 10:00 03/17/21 09:15 Losartan 50 Mg Tab PO 100 mg QDAY BALAJI Administration Multivitamins/Iron 1 each 03/15/21 10:00 03/17/21 09:15 Fe Fumarate/Fa/Mv, Min Comb#15 Cap (Hemocyte Plus) PO 1 each QDAY BALAJI Administration Nifedipine 60 mg 03/15/21 10:00 03/17/21 09:13 Nifedipine Xl 60 Mg Tab PO 60 mg QDAY BALAJI Administration Senna 17.2 mg 03/09/21 22:00 03/17/21 21:47 Sennosides 8.6 Mg Tab PO 17.2 mg QHS BALAJI Administration Simple Syrup 15 ml 03/14/21 11:12 Simple Syrup 15 Ml FEEDTUBE PRN PRN Hypoglycemia Simple Syrup 30 ml 03/14/21 11:12 Simple Syrup 15 Ml FEEDTUBE PRN PRN Hypoglycemia Sodium Bicarbonate 325 mg 03/14/21 11:12 Sodium Bicarbonate 325 Mg Tab FEEDTUBE PRN PRN For Clogged Feeding Tube Sodium Chloride 10 ml 03/09/21 10:00 03/17/21 21:49 Sodium Chloride 0.9% 10 Ml Flush Syringe IV 10 ml BID BALAJI Administration Sodium Chloride 10 ml 03/09/21 05:56 03/11/21 05:56 Sodium Chloride 0.9% 10 Ml Flush Syringe IV 10 ml PRN PRN Administration LINE FLUSH
[2021-03-18] MEDS: INSULIN REGULAR, HUMAN 100 UNITS/1 ML SUB-Q SCH ×5 (15:22→22:34)
[2021-03-18] MEDS: CALCIUM ACETATE 667 MG CAP PO SCH ×4 (15:23→18:22)
[2021-03-18] MEDS: carvediloL 12.5 MG TAB PO SCH ×2 (15:23→22:24)
[2021-03-18] MEDS: FE FUMARATE/FA/MV, MIN COMB#15 CAP (HEMOCYTE PLUS) PO SCH (15:23)
[2021-03-18] MEDS: LOSARTAN 50 MG TAB PO SCH (15:23)
[2021-03-18] MEDS: FAMOTIDINE 10 MG TAB FEEDTUBE SCH ×2 (15:24→22:24)
[2021-03-18] MEDS: NIFEdipine XL 60 MG TAB PO SCH (15:26)
--- NOTE | 2021-03-18 19:26 | Progress Note ---
Assessment and Plan 75-year-old female with known history of hypertension, end-stage renal disease on dialysis Mondays, Wednesdays and Fridays and also status post field renal transplant presents to the emergency room via EMS today complaining of shortness of breath. Daughter indicates that patient may not have had enough fluid taken off during dialysis on Tuesday. There has been no fever or chills, no nausea or vomiting, no abdominal pain, no headache or dizziness, no loss of taste or smell, no recent travel, no sick contacts and no contact with anyone with COVID-19. Upon arrival of EMS patient oxygen saturation was about 68% on room air and patient was placed on nonrebreather on the scene with improvement of oxygen saturation to about 98%. Patient follows up with Dr. Luis with her gas refrigerator servicer. She has been admitted in the past before for fluid overload requiring BiPAP. Most of the history has been gotten from daughter as patient does not speak Green[place]ic. Upon arrival in the emergency room patient was quite hypertensive with systolic in the 200s and diastolic in the low 100s. Patient subsequently started on a nitroglycerin drip. Shower Enclosure Installer on-call was consulted . Patient promptly given dialysis. Patient has had nebulizer treatment, insulin and glucose for the hyperkalemia. She is also started on empiric IV antibiotics for sepsis. Patient awake. Not using her O2. She is supposed to be on O2 2 litres. O2 saturation 98%. No acute respiratory distress. Patient speaks only su[place]ese. Unable to get history from her. Most of the history obtained from the chart. Patient afebrile.. BP 127/63. HR: 78. Has mild leukocytosis, Troponin was slightly elevated at 0.123. COVID negative. chest x-ray (03/09/21) showed mild patchy multifocal airspace disease. Patient is on S/C heparin and Pepcid Patient is on tube feeding. - Patient Problems (1) Acute pulmonary edema Current Visit: Yes Status: Acute Plan to address problem: Patient is on dialysis. (2) ESRD needing dialysis Current Visit: Yes Status: Acute Plan to address problem: Management as per nephrology. (3) Hypertensive emergency Current Visit: Yes Status: Acute Plan to address problem: Improved. Managent as per primary care. (4) Person under investigation for COVID-19 Current Visit: Yes Status: Acute Plan to address problem: Patients Rick virus PCR negative. (5) Sepsis Current Visit: Yes Status: Acute Plan to address problem: Patient was on cefepime. (6) Hyponatremia Current Visit: No Status: Acute Plan to address problem: Improved. last Na+ level 136 (7) Metabolic acidosis Current Visit: No Status: Acute Plan to address problem: Anion gap 19. Could be secondary to renal failure. Subjective Date of service: 03/18/21 Principal diagnosis: HTNsive Emergency; bacteremia; Ac Hypoxemic Resp Failure; AV-fistula malfxn Interval history: 75-year-old female with known history of hypertension, end-stage renal disease on dialysis Mondays, Wednesdays and Fridays and also status post field renal transplant presents to the emergency room via EMS today complaining of shortness of breath. Daughter indicates that patient may not have had enough fluid taken off during dialysis on Tuesday. There has been no fever or chills, no nausea or vomiting, no abdominal pain, no headache or dizziness, no loss of taste or smell, no recent travel, no sick contacts and no contact with anyone with COVID-19. Upon arrival of EMS patient oxygen saturation was about 68% on room air and patient was placed on nonrebreather on the scene with improvement of oxygen saturation to about 98%. Patient follows up with Dr. Luis with her gas refrigerator servicer. She has been admitted in the past before for fluid overload requiring BiPAP. Most of the history has been gotten from daughter as patient does not speak [place]ic. Upon arrival in the emergency room patient was quite hypertensive with systolic in the 200s and diastolic in the low 100s. Patient subsequently started on a nitroglycerin drip. Shower Enclosure Installer on-call was consulted . Patient promptly given dialysis. Patient has had nebulizer treatment, insulin and glucose for the hyperkalemia. She is also started on empiric IV antibiotics for sepsis. Patient awake. Not using her O2. She is supposed to be on O2 2 litres. O2 saturation 98%. No acute respiratory distress. Patient speaks only su[place]ese. Unable to get history from her. Most of the history obtained from the chart. Patient afebrile.. BP 127/63. HR: 78. Has mild leukocytosis, Troponin was slightly elevated at 0.123. COVID negative. chest x-ray (03/09/21) showed mild patchy multifocal airspace disease. Patient is on S/C heparin and Pepcid Patient is on tube feeding. Objective Vital Signs - 12hr 03/18/21 03/18/21 03/18/21 10:10 10:20 10:30 Temperature 97.2 F L Pulse Rate 76 84 81 Respiratory 16 Rate Blood Pressure 107/63 107/51 134/72 O2 Sat by Pulse Oximetry O2 Sat by Pulse 98 Oximetry [ Bilateral] 03/18/21 03/18/21 03/18/21 10:45 11:00 11:15 Temperature Pulse Rate 89 90 93 H Respiratory Rate Blood Pressure 146/73 149/73 146/73 O2 Sat by Pulse Oximetry O2 Sat by Pulse Oximetry [ Bilateral] 03/18/21 03/18/21 03/18/21 11:30 11:45 12:00 Temperature Pulse Rate 99 H 95 H 97 H Respiratory Rate Blood Pressure 122/73 120/65 122/62 O2 Sat by Pulse Oximetry O2 Sat by Pulse Oximetry [ Bilateral] 03/18/21 03/18/21 03/18/21 12:15 12:30 12:45 Temperature Pulse Rate 94 H 91 H 98 H Respiratory Rate Blood Pressure 103/56 107/60 98/54 O2 Sat by Pulse Oximetry O2 Sat by Pulse Oximetry [ Bilateral] 03/18/21 03/18/21 03/18/21 13:00 13:15 13:50 Temperature 97.9 F Pulse Rate 97 H 78 78 Respiratory 18 Rate Blood Pressure 116/42 127/63 127/63 O2 Sat by Pulse Oximetry O2 Sat by Pulse 98 Oximetry [ Bilateral] 03/18/21 16:30 Temperature Pulse Rate Respiratory Rate Blood Pressure O2 Sat by Pulse 98 Oximetry O2 Sat by Pulse Oximetry [ Bilateral] Constitutional: no acute distress, alert, other (elderly thin female with normal respiratory effort at rest) Eyes: non-icteric ENT: oropharynx moist Neck: supple, no lymphadenopathy Effort: normal Ascultation: Bilateral: diminished breath sounds Percussion: Bilateral: not dull Cardiovascular: regular rate and rhythm Gastrointestinal: normoactive bowel sounds, soft, non-tender, non-distended Integumentary: normal Extremities: no cyanosis, no edema, pink and warm, pulses normal Neurologic: non-focal exam (grossly), pupils equal and round, unable to assess Psychiatric: depressed, other (Patient speaks only vitnam. Can not asses mood or effect.Patient sleeping at this time.) CBC and BMP: 03/18/21 21:22 03/18/21 21:22 ABG, PT/INR, D-dimer: PT/INR, D-dimer PT 13.6 Sec. (12.2-14.9) 03/10/21 04:49 INR 0.99 (0.87-1.13) 03/10/21 04:49 D-Dimer 1098.77 ng/mlDDU (0-234) H 03/09/21 05:17 Abnormal lab findings: Abnormal Labs 03/09/21 03/09/21 03/09/21 03:34 03:34 03:34 WBC 20.7 H RBC 3.57 L Hgb Hct MCV MCH RDW 16.5 H Lymph % (Auto) [place] % (Auto) Lymph # (Auto) [place] # (Auto) Seg Neutrophils % Seg Neuts % (Manual) 84.0 H Lymphocytes % (Manual) 6.0 L Monocytes % (Manual) Seg Neutrophils # Seg Neutrophils # Man 17.4 H Monocytes # (Manual) D-Dimer Sodium 133 L Potassium 6.1 H* Chloride 93.6 L Carbon Dioxide BUN 62 H Creatinine 8.2 H Glucose 137 H POC Glucose Phosphorus Ferritin Ammonia Lactate Dehydrogenase Troponin T 0.123 H* Total Protein Albumin HDL Cholesterol 37 L 03/09/21 03/09/21 03/09/21 05:17 05:17 05:17 WBC RBC Hgb Hct MCV MCH RDW Lymph % (Auto) [place] % (Auto) Lymph # (Auto) [place] # (Auto) Seg Neutrophils % Seg Neuts % (Manual) Lymphocytes % (Manual) Monocytes % (Manual) Seg Neutrophils # Seg Neutrophils # Man Monocytes # (Manual) D-Dimer 1098.77 H Sodium Potassium Chloride Carbon Dioxide BUN Creatinine Glucose 123 H POC Glucose Phosphorus Ferritin Ammonia Lactate Dehydrogenase 300 H Troponin T 0.129 H* Total Protein Albumin HDL Cholesterol 03/09/21 03/09/21 03/09/21 05:17 14:21 17:01 WBC RBC Hgb Hct MCV MCH RDW Lymph % (Auto) [place] % (Auto) Lymph # (Auto) [place] # (Auto) Seg Neutrophils % Seg Neuts % (Manual) Lymphocytes % (Manual) Monocytes % (Manual) Seg Neutrophils # Seg Neutrophils # Man Monocytes # (Manual) D-Dimer Sodium 133 L Potassium 5.2 H Chloride 94.3 L Carbon Dioxide BUN 23 H Creatinine 4.3 H Glucose 246 H POC Glucose 201 H Phosphorus Ferritin 2210.0 H Ammonia Lactate Dehydrogenase Troponin T Total Protein Albumin HDL Cholesterol 03/09/21 03/10/21 03/10/21 22:07 04:49 04:49 WBC RBC 3.54 L Hgb Hct MCV MCH RDW 16.4 H Lymph % (Auto) [place] % (Auto) 11.4 H Lymph # (Auto) [place] # (Auto) 1.0 H Seg Neutrophils % Seg Neuts % (Manual) Lymphocytes % (Manual) Monocytes % (Manual) Seg Neutrophils # Seg Neutrophils # Man Monocytes # (Manual) D-Dimer Sodium 134 L Potassium 5.2 H Chloride 93.0 L Carbon Dioxide BUN 45 H Creatinine 5.9 H Glucose 112 H POC Glucose 128 H Phosphorus Ferritin Ammonia Lactate Dehydrogenase Troponin T Total Protein Albumin HDL Cholesterol 03/10/21 03/11/21 03/11/21 23:24 08:41 08:41 WBC 12.0 H RBC Hgb Hct MCV MCH RDW 15.6 H Lymph % (Auto) [place] % (Auto) 15.3 H Lymph # (Auto) [place] # (Auto) 1.8 H Seg Neutrophils % Seg Neuts % (Manual) Lymphocytes % (Manual) Monocytes % (Manual) Seg Neutrophils # Seg Neutrophils # Man Monocytes # (Manual) D-Dimer Sodium 134 L Potassium Chloride 91.6 L Carbon Dioxide BUN 32 H Creatinine 4.8 H Glucose 119 H POC Glucose 284 H Phosphorus Ferritin Ammonia Lactate Dehydrogenase Troponin T Total Protein 9.1 H Albumin HDL Cholesterol 03/12/21 03/12/21 03/12/21 06:30 06:30 07:54 WBC 11.3 H RBC 3.44 L Hgb 8.3 L D Hct 26.7 L D MCV 78 L MCH 24 L RDW 19.1 H Lymph % (Auto) 7.0 L [place] % (Auto) Lymph # (Auto) 0.8 L [place] # (Auto) Seg Neutrophils % 89.3 H Seg Neuts % (Manual) Lymphocytes % (Manual) Monocytes % (Manual) Seg Neutrophils # 10.1 H Seg Neutrophils # Man Monocytes # (Manual) D-Dimer Sodium Potassium 5.2 H D Chloride Carbon Dioxide BUN 47 H Creatinine Glucose 339 H POC Glucose Phosphorus Ferritin Ammonia 20.0 L Lactate Dehydrogenase Troponin T Total Protein 5.7 L D Albumin 2.3 L HDL Cholesterol 03/12/21 03/12/21 03/12/21 08:21 11:28 13:44 WBC RBC Hgb Hct MCV MCH RDW Lymph % (Auto) [place] % (Auto) Lymph # (Auto) [place] # (Auto) Seg Neutrophils % Seg Neuts % (Manual) Lymphocytes % (Manual) Monocytes % (Manual) Seg Neutrophils # Seg Neutrophils # Man Monocytes # (Manual) D-Dimer Sodium Potassium Chloride Carbon Dioxide BUN Creatinine 5.0 H D Glucose POC Glucose 108 H 108 H Phosphorus Ferritin Ammonia Lactate Dehydrogenase Troponin T Total Protein Albumin HDL Cholesterol 03/12/21 03/13/21 03/13/21 21:17 07:44 07:44 WBC RBC Hgb Hct MCV MCH RDW 15.8 H Lymph % (Auto) [place] % (Auto) Lymph # (Auto) [place] # (Auto) Seg Neutrophils % Seg Neuts % (Manual) 74.0 H Lymphocytes % (Manual) 12.0 L Monocytes % (Manual) 12.0 H Seg Neutrophils # Seg Neutrophils # Man Monocytes # (Manual) 1.2 H D-Dimer Sodium 133 L Potassium Chloride 94.4 L Carbon Dioxide 20 L BUN 42 H Creatinine 6.8 H Glucose POC Glucose 110 H Phosphorus Ferritin Ammonia Lactate Dehydrogenase Troponin T Total Protein Albumin 3.2 L HDL Cholesterol 03/14/21 03/14/21 03/15/21 10:22 10:22 06:31 WBC 12.6 H 14.7 H RBC 3.42 L Hgb 10.0 L Hct MCV MCH RDW 16.2 H 16.0 H Lymph % (Auto) [place] % (Auto) 15.0 H Lymph # (Auto) [place] # (Auto) 2.2 H Seg Neutrophils % Seg Neuts % (Manual) 73.0 H Lymphocytes % (Manual) 10.0 L Monocytes % (Manual) 9.0 H Seg Neutrophils # 9.9 H Seg Neutrophils # Man 9.2 H Monocytes # (Manual) 1.1 H D-Dimer Sodium Potassium Chloride 96.0 L Carbon Dioxide BUN 32 H Creatinine 5.4 H Glucose POC Glucose Phosphorus 7.10 H Ferritin Ammonia Lactate Dehydrogenase Troponin T Total Protein Albumin 3.8 L HDL Cholesterol 03/15/21 03/15/21 03/15/21 06:31 07:42 09:21 WBC RBC Hgb Hct MCV MCH RDW Lymph % (Auto) [place] % (Auto) Lymph # (Auto) [place] # (Auto) Seg Neutrophils % Seg Neuts % (Manual) Lymphocytes % (Manual) Monocytes % (Manual) Seg Neutrophils # Seg Neutrophils # Man Monocytes # (Manual) D-Dimer Sodium Potassium Chloride 95.0 L Carbon Dioxide BUN 61 H Creatinine 7.0 H Glucose 140 H POC Glucose 140 H 139 H Phosphorus Ferritin Ammonia Lactate Dehydrogenase Troponin T Total Protein Albumin 3.6 L HDL Cholesterol 03/15/21 03/15/21 03/16/21 11:18 22:05 17:18 WBC RBC Hgb Hct MCV MCH RDW Lymph % (Auto) [place] % (Auto) Lymph # (Auto) [place] # (Auto) Seg Neutrophils % Seg Neuts % (Manual) Lymphocytes % (Manual) Monocytes % (Manual) Seg Neutrophils # Seg Neutrophils # Man Monocytes # (Manual) D-Dimer Sodium Potassium Chloride Carbon Dioxide BUN Creatinine Glucose POC Glucose 141 H 175 H 181 H Phosphorus Ferritin Ammonia Lactate Dehydrogenase Troponin T Total Protein Albumin HDL Cholesterol 03/17/21 03/17/21 03/17/21 12:48 17:50 22:28 WBC RBC Hgb Hct MCV MCH RDW Lymph % (Auto) [place] % (Auto) Lymph # (Auto) [place] # (Auto) Seg Neutrophils % Seg Neuts % (Manual) Lymphocytes % (Manual) Monocytes % (Manual) Seg Neutrophils # Seg Neutrophils # Man Monocytes # (Manual) D-Dimer Sodium Potassium Chloride Carbon Dioxide BUN Creatinine Glucose POC Glucose 169 H 69 L 175 H Phosphorus Ferritin Ammonia Lactate Dehydrogenase Troponin T Total Protein Albumin HDL Cholesterol 03/18/21 03/18/21 14:03 17:29 WBC RBC Hgb Hct MCV MCH RDW Lymph % (Auto) [place] % (Auto) Lymph # (Auto) [place] # (Auto) Seg Neutrophils % Seg Neuts % (Manual) Lymphocytes % (Manual) Monocytes % (Manual) Seg Neutrophils # Seg Neutrophils # Man Monocytes # (Manual) D-Dimer Sodium Potassium Chloride Carbon Dioxide BUN Creatinine Glucose POC Glucose 207 H 144 H Phosphorus Ferritin Ammonia Lactate Dehydrogenase Troponin T Total Protein Albumin HDL Cholesterol Allied health notes reviewed: nursing
[2021-03-18 22:23] LABS: Hematocrit 30.3 % (30.3-42.9); Mean Corpuscular HGB Conc 33 % (30-34); Mean Corpuscular Volume 91 fl (79-97); Platelet Count 315 K/mm3 (140-440); Red Blood Count 3.34 M/mm3 (3.65-5.03); Red Cell Distribution Width 15.9 % (13.2-15.2)
[2021-03-18] MEDS: SENNOSIDES 8.6 MG TAB PO SCH (22:24)
[2021-03-18 22:27] LABS: Calcium 9.4 mg/dL (8.4-10.2)
[2021-03-19 00:09] LABS: RBC Morphology Normal; Total Cells Counted 100
[2021-03-19] MEDS: HEPARIN 5,000 UNIT/1 ML VIAL SUB-Q SCH ×3 (06:11→22:30)
--- NOTE | 2021-03-19 09:09 | Progress Note ---
Subjective Date of service: 03/19/21 Principal diagnosis: HTNsive Emergency; bacteremia; Ac Hypoxemic Resp Failure; AV-fistula malfxn Objective - Vital Signs Vital signs: Vital Signs - 12hr 03/18/21 03/18/21 03/18/21 21:31 22:00 22:24 Temperature 98.9 F Pulse Rate 91 H 91 H 91 H Respiratory 18 Rate Blood Pressure 101/55 101/55 O2 Sat by Pulse 94 98 Oximetry 03/19/21 05:46 Temperature 98.4 F Pulse Rate 85 Respiratory 18 Rate Blood Pressure 120/65 O2 Sat by Pulse 96 Oximetry - Lab 03/18/21 21:22 03/18/21 21:22 Most recent lab results Calcium 9.4 mg/dL (8.4-10.2) 03/18/21 21:22 Phosphorus 7.10 mg/dL (2.5-4.5) H 03/14/21 10:22 Magnesium 2.00 mg/dL (1.7-2.3) 03/14/21 10:22 Medications & Allergies - Medications Allergies/Adverse Reactions: Allergies No Known Allergies Allergy (Unverified 07/09/20 12:47) Home Medications: Home Medications Medication Instructions Recorded Confirmed Last Taken Type NIFEdipine XL [Procardia Xl] 30 mg PO QDAY #30 tablet 11/12/20 03/13/21 Unknown Rx carvediloL [Coreg] 6.25 mg PO BID #60 tablet 11/12/20 03/13/21 Unknown Rx hydrALAZINE [Apresoline TAB] 25 mg PO Q8HR #90 tab 11/12/20 03/13/21 Unknown Rx Active Medications: Generic Name Dose Route Start Last Admin Trade Name Freq PRN Reason Stop Dose Admin Acetaminophen 650 mg 03/09/21 05:56 Acetaminophen 325 Mg Tab PO Q6H PRN Pain MILD(1-3)/Fever >100.5/ALMODOVAR Lipase/Protease/Amylase 1 each 03/14/21 11:12 Lipase 10,500/Protease 25,000/Amylase 43,750 (Units) Dr [place] FEEDTUBE PRN PRN For Clogged Feeding Tube Calcium Acetate 667 mg 03/16/21 12:30 03/18/21 18:22 Calcium Acetate 667 Mg Cap PO Not Given TIDWM BALAJI Carvedilol 12.5 mg 03/14/21 12:00 03/18/21 22:24 Carvedilol 12.5 Mg Tab PO Not Given BID BALAJI Famotidine 10 mg 03/14/21 13:00 03/18/21 22:24 Famotidine 10 Mg Tab FEEDTUBE 10 mg BID BALAJI Administration Heparin Sodium (Porcine) 5,000 unit 03/09/21 14:00 03/19/21 06:11 Heparin 5,000 Unit/1 Ml Vial SUB-Q 5,000 unit Q8HR BALAJI Administration Hydralazine HCl 10 mg 03/10/21 23:06 03/13/21 06:34 Hydralazine 20 Mg/1 Ml Inj IV 10 mg Q6HR PRN Administration Hypertension Sodium Chloride 100 mls @ 999 mls/hr 03/09/21 04:50 Nacl 0.9% IV FLAKO PRN Hypotension Insulin Human Regular 0 units 03/09/21 18:00 03/18/21 22:34 Insulin Regular, Human 100 Units/1 Ml SUB-Q Not Given ACHS [facility] Protocol Losartan Potassium 100 mg 03/14/21 10:00 03/18/21 15:23 Losartan 50 Mg Tab PO Not Given QDAY [facility] Multivitamins/Iron 1 each 03/15/21 10:00 03/18/21 15:23 Fe Fumarate/Fa/Mv, Min Comb#15 Cap (Hemocyte Plus) PO Not Given QDAY [facility] Senna 17.2 mg 03/09/21 22:00 03/18/21 22:24 Sennosides 8.6 Mg Tab PO 17.2 mg QHS BALAJI Administration Simple Syrup 15 ml 03/14/21 11:12 Simple Syrup 15 Ml FEEDTUBE PRN PRN Hypoglycemia Simple Syrup 30 ml 03/14/21 11:12 Simple Syrup 15 Ml FEEDTUBE PRN PRN Hypoglycemia Sodium Bicarbonate 325 mg 03/14/21 11:12 Sodium Bicarbonate 325 Mg Tab FEEDTUBE PRN PRN For Clogged Feeding Tube Sodium Chloride 10 ml 03/09/21 10:00 03/18/21 22:25 Sodium Chloride 0.9% 10 Ml Flush Syringe IV Not Given BID BALAJI Sodium Chloride 10 ml 03/09/21 05:56 03/11/21 05:56 Sodium Chloride 0.9% 10 Ml Flush Syringe IV 10 ml PRN PRN Administration LINE FLUSH
[2021-03-19] MEDS: FE FUMARATE/FA/MV, MIN COMB#15 CAP (HEMOCYTE PLUS) PO SCH (10:29)
[2021-03-19] MEDS: carvediloL 12.5 MG TAB PO SCH ×2 (10:29→22:30)
[2021-03-19] MEDS: INSULIN REGULAR, HUMAN 100 UNITS/1 ML SUB-Q SCH ×4 (10:29→22:29)
[2021-03-19] MEDS: FAMOTIDINE 10 MG TAB FEEDTUBE SCH ×2 (10:29→22:29)
[2021-03-19] MEDS: CALCIUM ACETATE 667 MG CAP PO SCH ×3 (10:29→16:48)
[2021-03-19] MEDS: LOSARTAN 50 MG TAB PO SCH (10:30)
--- NOTE | 2021-03-19 12:26 | Progress Note ---
Assessment and Plan Acute Hypoxemic Respiratory Failuire Hypertensive emergency Acute pulmonary edema ESRD needing dialysis Person under investigation for COVID-19 Sepsis Hemorrhage of arteriovenous fistula Hyponatremia Metabolic acidosis - doing better - aspiration precautions - continue to wean supplemental oxygen to keep O2 sats > 90% - continue bronchodilators (ERUM ) with pulm hygiene per RT - continue HD/UF per nephrology prescription for toxin and volume clearance - adjust oral antihypertensives for target BP - continue to avoid nephrotoxins, renally dose all medications - continue mobility protocols to prevent pressure ulcers - PT/OT as tolerated - Wound care per RN/WCT - continue accuchecks with glycemic control per SSI for target blood glucose < 180 mg/dL - home oxygen evaluation at discharge - GI & VTE prophylaxis - Flu & pneumovax per protocol - Pulmonary out patient follow up for PFTs and optimization of respiratory status - continue other care per attending / other consultants - prn analgesia per pain score ... re-evaluate in am & prn Subjective Date of service: 03/19/21 Principal diagnosis: HTNsive Emergency; bacteremia; Ac Hypoxemic Resp Failure; AV-fistula malfxn Interval history: Patient is seen today for: Hypertensive Emergency; gm +ve bacteremia; Acute Hypoxemic Respiratory Failuire; ESRD; Hemorrhage of AV-fistula Seen and examined at bedside; 24hour events reviewed; nursing and respiratory care staff consulted; no adverse overnight events reported to me; resting in bed; more alert; No N/V/F/C Objective Vital Signs - 12hr 03/19/21 03/19/21 03/19/21 05:46 10:00 10:40 Temperature 98.4 F Pulse Rate 85 90 Respiratory 18 17 Rate Blood Pressure 120/65 Blood Pressure 131/69 [Right] O2 Sat by Pulse 96 95 96 Oximetry Constitutional: no acute distress, other (elderly thin female with normal respiratory effort at rest) Eyes: non-icteric ENT: oropharynx moist Neck: supple, no lymphadenopathy Effort: normal Ascultation: Bilateral: diminished breath sounds Percussion: Bilateral: not dull Cardiovascular: regular rate and rhythm Gastrointestinal: normoactive bowel sounds, soft, non-tender, non-distended Integumentary: normal Extremities: no cyanosis, no edema, pink and warm, pulses normal Neurologic: non-focal exam (grossly), pupils equal and round, unable to assess Psychiatric: other (Patient speaks only vitnam. Can not asses mood or effect.) CBC and BMP: 03/18/21 21:22 03/18/21 21:22 ABG, PT/INR, D-dimer: PT/INR, D-dimer PT 13.6 Sec. (12.2-14.9) 03/10/21 04:49 INR 0.99 (0.87-1.13) 03/10/21 04:49 D-Dimer 1098.77 ng/mlDDU (0-234) H 03/09/21 05:17 Abnormal lab findings: Abnormal Labs 03/09/21 03/09/21 03/09/21 03:34 03:34 03:34 WBC 20.7 H RBC 3.57 L Hgb Hct MCV MCH RDW 16.5 H Lymph % (Auto) [place] % (Auto) Lymph # (Auto) [place] # (Auto) Seg Neutrophils % Seg Neuts % (Manual) 84.0 H Lymphocytes % (Manual) 6.0 L Monocytes % (Manual) Seg Neutrophils # Seg Neutrophils # Man 17.4 H Monocytes # (Manual) D-Dimer Sodium 133 L Potassium 6.1 H* Chloride 93.6 L Carbon Dioxide BUN 62 H Creatinine 8.2 H Glucose 137 H POC Glucose Phosphorus Ferritin Ammonia Lactate Dehydrogenase Troponin T 0.123 H* Total Protein Albumin HDL Cholesterol 37 L 03/09/21 03/09/21 03/09/21 05:17 05:17 05:17 WBC RBC Hgb Hct MCV MCH RDW Lymph % (Auto) [place] % (Auto) Lymph # (Auto) [place] # (Auto) Seg Neutrophils % Seg Neuts % (Manual) Lymphocytes % (Manual) Monocytes % (Manual) Seg Neutrophils # Seg Neutrophils # Man Monocytes # (Manual) D-Dimer 1098.77 H Sodium Potassium Chloride Carbon Dioxide BUN Creatinine Glucose 123 H POC Glucose Phosphorus Ferritin Ammonia Lactate Dehydrogenase 300 H Troponin T 0.129 H* Total Protein Albumin HDL Cholesterol 03/09/21 03/09/21 03/09/21 05:17 14:21 17:01 WBC RBC Hgb Hct MCV MCH RDW Lymph % (Auto) [place] % (Auto) Lymph # (Auto) [place] # (Auto) Seg Neutrophils % Seg Neuts % (Manual) Lymphocytes % (Manual) Monocytes % (Manual) Seg Neutrophils # Seg Neutrophils # Man Monocytes # (Manual) D-Dimer Sodium 133 L Potassium 5.2 H Chloride 94.3 L Carbon Dioxide BUN 23 H Creatinine 4.3 H Glucose 246 H POC Glucose 201 H Phosphorus Ferritin 2210.0 H Ammonia Lactate Dehydrogenase Troponin T Total Protein Albumin HDL Cholesterol 03/09/21 03/10/21 03/10/21 22:07 04:49 04:49 WBC RBC 3.54 L Hgb Hct MCV MCH RDW 16.4 H Lymph % (Auto) [place] % (Auto) 11.4 H Lymph # (Auto) [place] # (Auto) 1.0 H Seg Neutrophils % Seg Neuts % (Manual) Lymphocytes % (Manual) Monocytes % (Manual) Seg Neutrophils # Seg Neutrophils # Man Monocytes # (Manual) D-Dimer Sodium 134 L Potassium 5.2 H Chloride 93.0 L Carbon Dioxide BUN 45 H Creatinine 5.9 H Glucose 112 H POC Glucose 128 H Phosphorus Ferritin Ammonia Lactate Dehydrogenase Troponin T Total Protein Albumin HDL Cholesterol 03/10/21 03/11/21 03/11/21 23:24 08:41 08:41 WBC 12.0 H RBC Hgb Hct MCV MCH RDW 15.6 H Lymph % (Auto) [place] % (Auto) 15.3 H Lymph # (Auto) [place] # (Auto) 1.8 H Seg Neutrophils % Seg Neuts % (Manual) Lymphocytes % (Manual) Monocytes % (Manual) Seg Neutrophils # Seg Neutrophils # Man Monocytes # (Manual) D-Dimer Sodium 134 L Potassium Chloride 91.6 L Carbon Dioxide BUN 32 H Creatinine 4.8 H Glucose 119 H POC Glucose 284 H Phosphorus Ferritin Ammonia Lactate Dehydrogenase Troponin T Total Protein 9.1 H Albumin HDL Cholesterol 03/12/21 03/12/21 03/12/21 06:30 06:30 07:54 WBC 11.3 H RBC 3.44 L Hgb 8.3 L D Hct 26.7 L D MCV 78 L MCH 24 L RDW 19.1 H Lymph % (Auto) 7.0 L [place] % (Auto) Lymph # (Auto) 0.8 L [place] # (Auto) Seg Neutrophils % 89.3 H Seg Neuts % (Manual) Lymphocytes % (Manual) Monocytes % (Manual) Seg Neutrophils # 10.1 H Seg Neutrophils # Man Monocytes # (Manual) D-Dimer Sodium Potassium 5.2 H D Chloride Carbon Dioxide BUN 47 H Creatinine Glucose 339 H POC Glucose Phosphorus Ferritin Ammonia 20.0 L Lactate Dehydrogenase Troponin T Total Protein 5.7 L D Albumin 2.3 L HDL Cholesterol 03/12/21 03/12/21 03/12/21 08:21 11:28 13:44 WBC RBC Hgb Hct MCV MCH RDW Lymph % (Auto) [place] % (Auto) Lymph # (Auto) [place] # (Auto) Seg Neutrophils % Seg Neuts % (Manual) Lymphocytes % (Manual) Monocytes % (Manual) Seg Neutrophils # Seg Neutrophils # Man Monocytes # (Manual) D-Dimer Sodium Potassium Chloride Carbon Dioxide BUN Creatinine 5.0 H D Glucose POC Glucose 108 H 108 H Phosphorus Ferritin Ammonia Lactate Dehydrogenase Troponin T Total Protein Albumin HDL Cholesterol 03/12/21 03/13/21 03/13/21 21:17 07:44 07:44 WBC RBC Hgb Hct MCV MCH RDW 15.8 H Lymph % (Auto) [place] % (Auto) Lymph # (Auto) [place] # (Auto) Seg Neutrophils % Seg Neuts % (Manual) 74.0 H Lymphocytes % (Manual) 12.0 L Monocytes % (Manual) 12.0 H Seg Neutrophils # Seg Neutrophils # Man Monocytes # (Manual) 1.2 H D-Dimer Sodium 133 L Potassium Chloride 94.4 L Carbon Dioxide 20 L BUN 42 H Creatinine 6.8 H Glucose POC Glucose 110 H Phosphorus Ferritin Ammonia Lactate Dehydrogenase Troponin T Total Protein Albumin 3.2 L HDL Cholesterol 03/14/21 03/14/21 03/15/21 10:22 10:22 06:31 WBC 12.6 H 14.7 H RBC 3.42 L Hgb 10.0 L Hct MCV MCH RDW 16.2 H 16.0 H Lymph % (Auto) [place] % (Auto) 15.0 H Lymph # (Auto) [place] # (Auto) 2.2 H Seg Neutrophils % Seg Neuts % (Manual) 73.0 H Lymphocytes % (Manual) 10.0 L Monocytes % (Manual) 9.0 H Seg Neutrophils # 9.9 H Seg Neutrophils # Man 9.2 H Monocytes # (Manual) 1.1 H D-Dimer Sodium Potassium Chloride 96.0 L Carbon Dioxide BUN 32 H Creatinine 5.4 H Glucose POC Glucose Phosphorus 7.10 H Ferritin Ammonia Lactate Dehydrogenase Troponin T Total Protein Albumin 3.8 L HDL Cholesterol 03/15/21 03/15/21 03/15/21 06:31 07:42 09:21 WBC RBC Hgb Hct MCV MCH RDW Lymph % (Auto) [place] % (Auto) Lymph # (Auto) [place] # (Auto) Seg Neutrophils % Seg Neuts % (Manual) Lymphocytes % (Manual) Monocytes % (Manual) Seg Neutrophils # Seg Neutrophils # Man Monocytes # (Manual) D-Dimer Sodium Potassium Chloride 95.0 L Carbon Dioxide BUN 61 H Creatinine 7.0 H Glucose 140 H POC Glucose 140 H 139 H Phosphorus Ferritin Ammonia Lactate Dehydrogenase Troponin T Total Protein Albumin 3.6 L HDL Cholesterol 03/15/21 03/15/21 03/16/21 11:18 22:05 17:18 WBC RBC Hgb Hct MCV MCH RDW Lymph % (Auto) [place] % (Auto) Lymph # (Auto) [place] # (Auto) Seg Neutrophils % Seg Neuts % (Manual) Lymphocytes % (Manual) Monocytes % (Manual) Seg Neutrophils # Seg Neutrophils # Man Monocytes # (Manual) D-Dimer Sodium Potassium Chloride Carbon Dioxide BUN Creatinine Glucose POC Glucose 141 H 175 H 181 H Phosphorus Ferritin Ammonia Lactate Dehydrogenase Troponin T Total Protein Albumin HDL Cholesterol 03/17/21 03/17/21 03/17/21 12:48 17:50 22:28 WBC RBC Hgb Hct MCV MCH RDW Lymph % (Auto) [place] % (Auto) Lymph # (Auto) [place] # (Auto) Seg Neutrophils % Seg Neuts % (Manual) Lymphocytes % (Manual) Monocytes % (Manual) Seg Neutrophils # Seg Neutrophils # Man Monocytes # (Manual) D-Dimer Sodium Potassium Chloride Carbon Dioxide BUN Creatinine Glucose POC Glucose 169 H 69 L 175 H Phosphorus Ferritin Ammonia Lactate Dehydrogenase Troponin T Total Protein Albumin HDL Cholesterol 03/18/21 03/18/21 03/18/21 14:03 17:29 21:22 WBC RBC Hgb Hct MCV MCH RDW Lymph % (Auto) [place] % (Auto) Lymph # (Auto) [place] # (Auto) Seg Neutrophils % Seg Neuts % (Manual) Lymphocytes % (Manual) Monocytes % (Manual) Seg Neutrophils # Seg Neutrophils # Man Monocytes # (Manual) D-Dimer Sodium 136 L Potassium Chloride 92.5 L Carbon Dioxide BUN 23 H Creatinine 4.2 H Glucose POC Glucose 207 H 144 H Phosphorus Ferritin Ammonia Lactate Dehydrogenase Troponin T Total Protein Albumin HDL Cholesterol 03/18/21 21:22 WBC 11.4 H RBC 3.34 L Hgb 10.0 L Hct MCV MCH RDW 15.9 H Lymph % (Auto) [place] % (Auto) Lymph # (Auto) [place] # (Auto) Seg Neutrophils % Seg Neuts % (Manual) Lymphocytes % (Manual) Monocytes % (Manual) 16.0 H Seg Neutrophils # Seg Neutrophils # Man Monocytes # (Manual) 1.8 H D-Dimer Sodium Potassium Chloride Carbon Dioxide BUN Creatinine Glucose POC Glucose Phosphorus Ferritin Ammonia Lactate Dehydrogenase Troponin T Total Protein Albumin HDL Cholesterol Allied health notes reviewed: nursing
--- NOTE | 2021-03-19 16:02 | Progress Note ---
Assessment and Plan End-stage renal disease continue with maintenance hemodialysis on Tuesday and Tuesday schedule Discontinued magnesium oxide, can result in toxicity with a dialysis patient Discontinued hydralazine, discontinued Procardia, continue with losartan 100 mg once a day. Monitor bp, may need further downtitration Continue the patient on calcium acetate 2 capsule 3 times a day Monitor labs #Multifocal pneumonia Covid negative, seen by infectious disease this admission #Hypertension, improving, blood pressure medication has been readjusted #Diet and nutrition start on Nephrocaps, continue on erythropoietin weekly We'll continue to follow and make recommendation for renal standpoint Subjective Date of service: 03/19/21 Principal diagnosis: HTNsive Emergency; bacteremia; Ac Hypoxemic Resp Failure; AV-fistula malfxn Interval history: Resting in bed. Communicative today. Objective - Exam Narrative Exam: General: No acute distress HEENT: Oral mucosa moist Neck: Supple, no JVD Chest: Clear to auscultation bilaterally Heart: RRR, S1 and S2, no pericardial rub Abdomen: Soft, nontender, no renal bruit Extremity: No peripheral cyanosis, edema Neurological: Somnolent, awakens to stimuli Dermatology: No skin rash Psych: No agitation Musculoskeletal: No joint effusion - Vital Signs Vital signs: Vital Signs - 12hr 03/19/21 03/19/21 03/19/21 05:46 10:00 10:40 Temperature 98.4 F Pulse Rate 85 90 Respiratory 18 17 Rate Blood Pressure 120/65 Blood Pressure 131/69 [Right] O2 Sat by Pulse 96 95 96 Oximetry - Lab 03/18/21 21:22 03/18/21 21:22 Most recent lab results Calcium 9.4 mg/dL (8.4-10.2) 03/18/21 21:22 Phosphorus 7.10 mg/dL (2.5-4.5) H 03/14/21 10:22 Magnesium 2.00 mg/dL (1.7-2.3) 03/14/21 10:22 Medications & Allergies - Medications Allergies/Adverse Reactions: Allergies No Known Allergies Allergy (Unverified 07/09/20 12:47) Home Medications: Home Medications Medication Instructions Recorded Confirmed Last Taken Type NIFEdipine XL [Procardia Xl] 30 mg PO QDAY #30 tablet 11/12/20 03/13/21 Unknown Rx carvediloL [Coreg] 6.25 mg PO BID #60 tablet 11/12/20 03/13/21 Unknown Rx hydrALAZINE [Apresoline TAB] 25 mg PO Q8HR #90 tab 11/12/20 03/13/21 Unknown Rx Active Medications: Generic Name Dose Route Start Last Admin Trade Name Freq PRN Reason Stop Dose Admin Acetaminophen 650 mg 03/09/21 05:56 Acetaminophen 325 Mg Tab PO Q6H PRN Pain MILD(1-3)/Fever >100.5/ALMODOVAR Lipase/Protease/Amylase 1 each 03/14/21 11:12 Lipase 10,500/Protease 25,000/Amylase 43,750 (Units) Dr [place] FEEDTUBE PRN PRN For Clogged Feeding Tube Calcium Acetate 667 mg 03/16/21 12:30 03/19/21 13:27 Calcium Acetate 667 Mg Cap PO 667 mg TIDWM BALAJI Administration Carvedilol 12.5 mg 03/14/21 12:00 03/19/21 10:29 Carvedilol 12.5 Mg Tab PO 12.5 mg BID BALAJI Administration Famotidine 10 mg 03/14/21 13:00 03/19/21 10:29 Famotidine 10 Mg Tab FEEDTUBE 10 mg BID BALAJI Administration Heparin Sodium (Porcine) 5,000 unit 03/09/21 14:00 03/19/21 13:27 Heparin 5,000 Unit/1 Ml Vial SUB-Q 5,000 unit Q8HR BALAJI Administration Hydralazine HCl 10 mg 03/10/21 23:06 03/13/21 06:34 Hydralazine 20 Mg/1 Ml Inj IV 10 mg Q6HR PRN Administration Hypertension Sodium Chloride 100 mls @ 999 mls/hr 03/09/21 04:50 Nacl 0.9% IV FLAKO PRN Hypotension Insulin Human Regular 0 units 03/09/21 18:00 03/19/21 12:58 Insulin Regular, Human 100 Units/1 Ml SUB-Q Not Given ACHS [facility] Protocol Losartan Potassium 100 mg 03/14/21 10:00 03/19/21 10:30 Losartan 50 Mg Tab PO 100 mg QDAY BALAJI Administration Multivitamins/Iron 1 each 03/15/21 10:00 03/19/21 10:29 Fe Fumarate/Fa/Mv, Min Comb#15 Cap (Hemocyte Plus) PO 1 each QDAY BALAJI Administration Senna 17.2 mg 03/09/21 22:00 03/18/21 22:24 Sennosides 8.6 Mg Tab PO 17.2 mg QHS BALAJI Administration Simple Syrup 15 ml 03/14/21 11:12 Simple Syrup 15 Ml FEEDTUBE PRN PRN Hypoglycemia Simple Syrup 30 ml 03/14/21 11:12 Simple Syrup 15 Ml FEEDTUBE PRN PRN Hypoglycemia Sodium Bicarbonate 325 mg 03/14/21 11:12 Sodium Bicarbonate 325 Mg Tab FEEDTUBE PRN PRN For Clogged Feeding Tube Sodium Chloride 10 ml 03/09/21 10:00 03/19/21 10:30 Sodium Chloride 0.9% 10 Ml Flush Syringe IV 10 ml BID BALAJI Administration Sodium Chloride 10 ml 03/09/21 05:56 03/11/21 05:56 Sodium Chloride 0.9% 10 Ml Flush Syringe IV 10 ml PRN PRN Administration LINE FLUSH
--- NOTE | 2021-03-19 21:08 | Progress Note ---
Assessment and Plan Assessment and plan: COVID-19 test negative --Toxic metabolic encephalopathy; present on admission Due to underlying sepsis due to multifocal pneumonia CT brain on 03/10: Negative MRI brain; no acute abnormality Treat underlying cause, continue supportive care --Sepsis; due to multifocal pneumonia COVID-19 test negative CXR on admission: Mild patchy multifocal airspace disease. Continue vancomycin IV now dc, cefepime IV x 8 days (renally adjusted) per ID. ID following -Multifocal pneumonia Covid negative, elevated procalcitonin Continue nasal cannula oxygen Continue antibiotics per ID --GPC bacteremia 1 out of 4 bottles, staph species isolated. Still suspect contaminant. Follow for speciation and sensitivities Follow ID recommendations --ESRD on HD Nephrology following, HD per schedule Renally adjusted dose of antibiotics Vanco and cefepime --Hypertensive emergency; on admission Blood pressure is better controlled, continue current antihypertensives As needed medications --Secondary hyperparathyroidism; in the setting of ESRD Continue phosphate binders --Anemia of CKD Procrit during dialysis, follow H&H, transfuse as needed -- Hyponatremia/due to fluid overload Resolved, sodium levels within normal limits --Hyperkalemia; Resolved, HD per schedule Monitor electrolytes --DVT prophylaxis; Heparin renal dose --Full CODE STATUS We will closely monitor the patient and adjust the management as needed Plan of care reviewed with the patient and her daughter Ms. Farfan Consultants and recommendations noted and appreciated Hospital Course to date 03/10: Paged by ED RN regarding patient mental status change. Per RN, exam yesterday demonstrated alert and talkative patient yesterday who was able to communicated, via dredging inspector service. Today patient is alert, protecting airway, however, she appears more confused. She does not acknowledge medical staff in room but does not attempt to communicate or respond or follow commands when spoken to. stat CT brain was ordered which was negative. 03/11: Recieved HD yesterday, no improvement in mentation on Am encounter. Will order MRI brain, EEG, neurology consultation. 03/12: Could not have MRI completed yesterday due to movement in MRI scanner. We will coordinate with staff development coordinator to complete today with on-call Ativan on board. EEG pending. Pending full neuro evaluation underway. Will call winston Farfan today ([phone]). 03/13: MRI completed- appears to be inconclusive. Will await neuro input. LP was unable to be completed. Plan for tuesday. EEG pending. D/c vancomycin, only cefepime IV x 8 days per ID. 03/14: Patient will need nutrition however due to mental status will need to insert NG tube. She can be started on Nepro tube goal 25 cc/h feeds with free water flushes 100 cc every 4 hours. Start Pepcid 20 twice daily EEG is still pending and LP will be completed Tuesday. 03/15: Patient appears to be more alert. Had pulled NG tube out from yesterday, new NG tube was placed today. Since she is more alert we will consider a bedside swallow eval and consider DC of NG with daughter or language line translating all of our instructions. 03/16: Patient still appears more alert. Can tolerate p.o. after discussion with RN. Restraints and NG tube were discontinued. Getting hemodialysis today. Physical therapy consulted now the patient will be able to participate. Will recommend to them to have language line or her daughter available to translate. Spoke with daughter who is able to converse with patient. Patient had told her that she was feeling very weak. Daughter said that mentation of patient was consistent with her baseline. Canceled lumbar puncture and EEG as these do not appear necessary anymore. Avoid all opioid narcotics in this patient. Suspect medications were the initial inciting event for encephalopathy. Plan for discharge in next 1 to 2 days. 03/17/2021; patient with sepsis and multifocal pneumonia, receiving IV antibiotics Certified Professional Controller recommendations noted and appreciated 03/18/2021; spoke with patient's daughter Ms. Farfan at [phone] and updated patient's condition treatment and discharge planning. She had many questions answered all of them, Possible discharge tomorrow if stable and cleared by all the consultants 03/19 ; sepsis, multifocal pneumonia, antibiotics during dialysis Room air O2 sats normal, discharge when cleared by pulmonary and nephrology/possible discharge tomorrow Home with home health home PT x-ray History Interval history: I seen and examined the patient at the bedside Patient's chart and medications reviewed Patient is chronically ill looking emaciated cachectic In mild distress, vital signs noted Hospitalist Physical - Constitutional Vitals: Temp Pulse Resp BP Pulse Ox 97.8 F 78 18 110/73 97 03/19/21 16:48 03/19/21 16:48 03/19/21 16:48 03/19/21 16:48 03/19/21 16:48 General appearance: Present: no acute distress, well-nourished, cachectic, other - EENT Eyes: Present: PERRL, EOM intact - Neck Neck: Present: supple, normal ROM - Respiratory Respiratory effort: normal Respiratory: bilateral: diminished, negative: rales, rhonchi, wheezing - Cardiovascular Rhythm: regular Heart Sounds: Present: S1 & S2 - Extremities Extremities: no ischemia, No edema - Abdominal General gastrointestinal: soft, non-tender, non-distended, normal bowel sounds - Integumentary Integumentary: Present: clear, warm - Psychiatric Psychiatric: other (Confused cachectic) - Neurologic Neurologic: moves all extremities HEART Score - HEART Score Troponin: Troponin T 0.129 ng/mL (0.00-0.029) H* 03/09/21 05:17 Results - Labs CBC & Chem 7: 03/18/21 21:22 03/18/21 21:22 Labs: Laboratory Last Values WBC 11.4 K/mm3 (4.5-11.0) H 03/18/21 21:22 RBC 3.34 M/mm3 (3.65-5.03) L 03/18/21 21:22 Hgb 10.0 gm/dl (10.1-14.3) L 03/18/21 21:22 Hct 30.3 % (30.3-42.9) 03/18/21 21:22 MCV 91 fl (79-97) 03/18/21 21:22 MCH 30 pg (28-32) 03/18/21 21:22 MCHC 33 % (30-34) 03/18/21 21:22 RDW 15.9 % (13.2-15.2) H 03/18/21 21:22 Plt Count 315 K/mm3 (140-440) 03/18/21 21:22 Lymph % (Auto) 15.0 % (13.4-35.0) 03/15/21 06:31 [place] % (Auto) Inpatient Care Manager Rn 03/18/21 21:22 Eos % (Auto) 2.1 % (0.0-4.3) 03/15/21 06:31 Baso % (Auto) 0.3 % (0.0-1.8) 03/15/21 06:31 Lymph # (Auto) 2.2 K/mm3 (1.2-5.4) 03/15/21 06:31 [place] # (Auto) 2.2 K/mm3 (0.0-0.8) H 03/15/21 06:31 Eos # (Auto) 0.3 K/mm3 (0.0-0.4) 03/15/21 06:31 Baso # (Auto) 0.0 K/mm3 (0.0-0.1) 03/15/21 06:31 Add Manual Diff Complete 03/18/21 21:22 Total Counted 100 03/18/21 21:22 Seg Neutrophils % 67.6 % (40.0-70.0) 03/15/21 06:31 Seg Neuts % (Manual) 50.0 % (40.0-70.0) 03/18/21 21:22 Band Neutrophils % 4.0 % 03/09/21 03:34 Lymphocytes % (Manual) 34.0 % (13.4-35.0) 03/18/21 21:22 Reactive Lymphs % (Man) 6.0 % 03/14/21 10:22 Monocytes % (Manual) 16.0 % (0.0-7.3) H 03/18/21 21:22 Eosinophils % (Manual) 2.0 % (0.0-4.3) 03/14/21 10:22 Metamyelocytes % 1.0 % 03/09/21 03:34 Nucleated RBC % Not Reportable 03/18/21 21:22 Seg Neutrophils # 9.9 K/mm3 (1.8-7.7) H 03/15/21 06:31 Seg Neutrophils # Man 5.7 K/mm3 (1.8-7.7) 03/18/21 21:22 Band Neutrophils # 0.0 K/mm3 03/18/21 21:22 Lymphocytes # (Manual) 3.9 K/mm3 (1.2-5.4) 03/18/21 21:22 Abs React Lymphs (Man) 0.0 K/mm3 03/18/21 21:22 Monocytes # (Manual) 1.8 K/mm3 (0.0-0.8) H 03/18/21 21:22 Eosinophils # (Manual) 0.0 K/mm3 (0.0-0.4) 03/18/21 21:22 Basophils # (Manual) 0.0 K/mm3 (0.0-0.1) 03/18/21 21:22 Metamyelocytes # 0.0 K/mm3 03/18/21 21:22 Myelocytes # 0.0 K/mm3 03/18/21 21:22 Promyelocytes # 0.0 K/mm3 03/18/21 21:22 Blast Cells # 0.0 K/mm3 03/18/21 21:22 WBC Morphology Not Reportable 03/18/21 21:22 Hypersegmented Neuts Not Reportable 03/18/21 21:22 Hyposegmented Neuts Not Reportable 03/18/21 21:22 Hypogranular Neuts Not Reportable 03/18/21 21:22 Smudge Cells Not Reportable 03/18/21 21:22 Toxic Granulation Not Reportable 03/18/21 21:22 Toxic Vacuolation Not Reportable 03/18/21 21:22 Dohle Bodies Not Reportable 03/18/21 21:22 Pelger-Huet Anomaly Not Reportable 03/18/21 21:22 Kecia Rods Not Reportable 03/18/21 21:22 Platelet Estimate Not Reportable 03/18/21 21:22 Clumped Platelets Not Reportable 03/18/21 21:22 Plt Clumps, EDTA Not Reportable 03/18/21 21:22 Large Platelets Not Reportable 03/18/21 21:22 Giant Platelets Not Reportable 03/18/21 21:22 Platelet Satelliting Not Reportable 03/18/21 21:22 Plt Morphology Comment Not Reportable 03/18/21 21:22 RBC Morphology Normal 03/18/21 21:22 Dimorphic RBCs Not Reportable 03/18/21 21:22 Polychromasia Not Reportable 03/18/21 21:22 Hypochromasia Not Reportable 03/18/21 21:22 Poikilocytosis Not Reportable 03/18/21 21:22 Anisocytosis Not Reportable 03/18/21 21:22 Microcytosis Not Reportable 03/18/21 21:22 Macrocytosis Not Reportable 03/18/21 21:22 Spherocytes Not Reportable 03/18/21 21:22 Pappenheimer Bodies Not Reportable 03/18/21 21:22 Sickle Cells Not Reportable 03/18/21 21:22 Target Cells Not Reportable 03/18/21 21:22 Tear Drop Cells Not Reportable 03/18/21 21:22 Ovalocytes Not Reportable 03/18/21 21:22 Helmet Cells Not Reportable 03/18/21 21:22 [place] Bodies Not Reportable 03/18/21 21:22 [place] Rings Not Reportable 03/18/21 21:22 Maria De Jesus Cells Not Reportable 03/18/21 21:22 Bite Cells Not Reportable 03/18/21 21:22 Crenated Cell Not Reportable 03/18/21 21:22 Elliptocytes Not Reportable 03/18/21 21:22 Acanthocytes (Spur) Not Reportable 03/18/21 21:22 Rouleaux Not Reportable 03/18/21 21:22 Hemoglobin C Crystals Not Reportable 03/18/21 21:22 Schistocytes Not Reportable 03/18/21 21:22 Malaria parasites Not Reportable 03/18/21 21:22 Ren Bodies Not Reportable 03/18/21 21:22 Hem Pathologist Commnt No 03/18/21 21:22 PT 13.6 Sec. (12.2-14.9) 03/10/21 04:49 INR 0.99 (0.87-1.13) 03/10/21 04:49 APTT 33.2 Sec. (24.2-36.6) 03/09/21 03:34 D-Dimer 1098.77 ng/mlDDU (0-234) H 03/09/21 05:17 Sodium 136 mmol/L (137-145) L 03/18/21 21:22 Potassium 3.9 mmol/L (3.6-5.0) 03/18/21 21:22 Chloride 92.5 mmol/L (98-107) L 03/18/21 21:22 Carbon Dioxide 28 mmol/L (22-30) 03/18/21 21:22 Anion Gap 19 mmol/L 03/18/21 21:22 BUN 23 mg/dL (7-17) H 03/18/21 21:22 Creatinine 4.2 mg/dL (0.6-1.2) H 03/18/21 21:22 Estimated GFR 10 ml/min 03/18/21 21:22 BUN/Creatinine Ratio 5 % 03/18/21 21:22 Glucose 80 mg/dL (65-100) 03/18/21 21:22 POC Glucose 100 mg/dL (70-105) 03/19/21 17:20 Hemoglobin A1c 5.1 % (4-6) 03/09/21 10:43 Lactic Acid 1.20 mmol/L (0.7-2.0) 03/09/21 07:37 Calcium 9.4 mg/dL (8.4-10.2) 03/18/21 21:22 Phosphorus 7.10 mg/dL (2.5-4.5) H 03/14/21 10:22 Magnesium 2.00 mg/dL (1.7-2.3) 03/14/21 10:22 Ferritin 2210.0 ng/mL (10.0-200.0) H 03/09/21 05:17 Total Bilirubin 0.30 mg/dL (0.1-1.2) 03/15/21 06:31 AST 14 units/L (5-40) 03/15/21 06:31 ALT 9 units/L (7-56) 03/15/21 06:31 Alkaline Phosphatase 70 units/L (35-129) 03/15/21 06:31 Ammonia 20.0 umol/L (25-60) L 03/12/21 07:54 Lactate Dehydrogenase 300 units/L (91-180) H 03/09/21 05:17 Total Creatine Kinase 57 units/L (30-135) 03/09/21 10:43 CK-MB (CK-2) 2.3 ng/mL (0.0-4.0) 03/09/21 10:43 CK-MB (CK-2) Rel Index 4.0 (0-4) 03/09/21 10:43 Troponin T 0.129 ng/mL (0.00-0.029) H* 03/09/21 05:17 C-Reactive Protein 1.10 mg/dL (0.00-1.30) 03/09/21 05:17 Total Protein 7.6 g/dL (6.3-8.2) 03/15/21 06:31 Albumin 3.6 g/dL (3.9-5) L 03/15/21 06:31 Albumin/Globulin Ratio 0.9 % 03/15/21 06:31 Triglycerides 133 mg/dL (2-149) 03/09/21 03:34 Cholesterol 158 mg/dL (50-199) 03/09/21 03:34 LDL Cholesterol Direct 105 mg/dL (50-130) 03/09/21 03:34 HDL Cholesterol 37 mg/dL (40-59) L 03/09/21 03:34 Cholesterol/HDL Ratio 4.27 % 03/09/21 03:34 Procalcitonin 0.71 ng/mL (<0.15) 03/09/21 05:17 Random Vancomycin 25.0 ug/mL (0-40.0) 03/12/21 13:44 Coronavirus (PCR) Negative (Negative) 03/09/21 08:40 Hepatitis A IgM Ab Non-reactive (NonReactive) 03/09/21 07:37 Hep Bs Antigen Nonreactive (Negative) 03/09/21 07:37 Hep B Core IgM Ab Non-reactive (NonReactive) 03/09/21 07:37 Hepatitis C Antibody Non-reactive (NonReactive) 03/09/21 07:37 Persaud/IV: Voiding Method Incontinent Active Medications - Current Medications Current Medications: Generic Name Dose Route Start Last Admin Trade Name Freq PRN Reason Stop Dose Admin Acetaminophen 650 mg 03/09/21 05:56 Acetaminophen 325 Mg Tab PO Q6H PRN Pain MILD(1-3)/Fever >100.5/ALMODOVAR Lipase/Protease/Amylase 1 each 03/14/21 11:12 Lipase 10,500/Protease 25,000/Amylase 43,750 (Units) Cap FEEDTUBE PRN PRN For Clogged Feeding Tube Calcium Acetate 667 mg 03/16/21 12:30 03/19/21 16:48 Calcium Acetate 667 Mg Cap PO 667 mg TIDWM BALAJI Administration Carvedilol 12.5 mg 03/14/21 12:00 03/19/21 10:29 Carvedilol 12.5 Mg Tab PO 12.5 mg BID BALAJI Administration Famotidine 10 mg 03/14/21 13:00 03/19/21 10:29 Famotidine 10 Mg Tab FEEDTUBE 10 mg BID BALAJI Administration Heparin Sodium (Porcine) 5,000 unit 03/09/21 14:00 03/19/21 13:27 Heparin 5,000 Unit/1 Ml Vial SUB-Q 5,000 unit Q8HR BALAJI Administration Hydralazine HCl 10 mg 03/10/21 23:06 03/13/21 06:34 Hydralazine 20 Mg/1 Ml Inj IV 10 mg Q6HR PRN Administration Hypertension Sodium Chloride 100 mls @ 999 mls/hr 03/09/21 04:50 Nacl 0.9% IV FLAKO PRN Hypotension Insulin Human Regular 0 units 03/09/21 18:00 03/19/21 17:31 Insulin Regular, Human 100 Units/1 Ml SUB-Q Not Given ACHS BALAJI Protocol Losartan Potassium 100 mg 03/14/21 10:00 03/19/21 10:30 Losartan 50 Mg Tab PO 100 mg QDAY BALAJI Administration Multivitamins/Iron 1 each 03/15/21 10:00 03/19/21 10:29 Fe Fumarate/Fa/Mv, Min Comb#15 Cap (Hemocyte Plus) PO 1 each QDAY BALAJI Administration Senna 17.2 mg 03/09/21 22:00 03/18/21 22:24 Sennosides 8.6 Mg Tab PO 17.2 mg QHS BALAJI Administration Simple Syrup 15 ml 03/14/21 11:12 Simple Syrup 15 Ml FEEDTUBE PRN PRN Hypoglycemia Simple Syrup 30 ml 03/14/21 11:12 Simple Syrup 15 Ml FEEDTUBE PRN PRN Hypoglycemia Sodium Bicarbonate 325 mg 03/14/21 11:12 Sodium Bicarbonate 325 Mg Tab FEEDTUBE PRN PRN For Clogged Feeding Tube Sodium Chloride 10 ml 03/09/21 10:00 03/19/21 10:30 Sodium Chloride 0.9% 10 Ml Flush Syringe IV 10 ml BID BALAJI Administration Sodium Chloride 10 ml 03/09/21 05:56 03/11/21 05:56 Sodium Chloride 0.9% 10 Ml Flush Syringe IV 10 ml PRN PRN Administration LINE FLUSH Nutrition/Malnutrition Assess - Dietary Evaluation Nutrition/Malnutrition Findings: Nutrition Notes Start: 03/09/21 07:41 Freq: Status: Active Protocol: Document 03/18/21 15:33 EB (Rec: 03/18/21 15:50 EB [id number]) Nutrition Notes Initial or Follow up Reassessment Current Diagnosis CKD (stage V CKD),Sepsis, Hypertension Other Pertinent Diagnosis PUI covid, on HD (MWF), DVT Current Diet [facility] soft Labs/Tests Reviewed Pertinent Medications Insulin MVI Height 4 ft 11.84 in Weight 40.8 kg Madeline Body Weight (kg) 45.09 BMI 17.6 Subjective/Other Information Spoke with nurse at 3:39 pm. Per nurse, pt is consuming only about 25% of each meal and is very slow at eating each meal. RN suggested that the pt may possibly drink an ONS if ordered. Pt continues HD MWF. Percent of energy/protein needs met: 33%/45% Burn Absent Trauma Absent Current % PO Poor (25-49%) #2 Nutrition Diagnosis Inadequate energy intake Etiology acute illness and advanced age As Evidenced by Signs and Symptoms Pt slow to eat and low appetite. Only consuming about 25% of each meal #1 Nutrition Diagnosis Inadequate oral intake As Evidenced by Signs and Symptoms Pt d/c on TF. Tolerating PO diet, although only 25%. Diagnosis Progress(for reassessment Resolved documentation) Is patient on ventilator? No Is Patient Ambulatory and/or Out of Bed No REE-([facility]-confined to bed) 993.108 Kcal/Kg value to use for calculation 35 Approximate Energy Requirements Using 1428 kcal/Kg Calculation Used for Recommendations Kcal/kg Additional Notes Protein: (>1.2 g/kg) >53 g/day Fluid: 1-1.5 Liters /day Nutrition Intervention Change Diet Order: Continue current diet. Add ONS Add Supplement/Snack (indicate name/kcal Nepro BID /protein ) Provides kCal: 850 Provides Protein (gm) 38 Goal #1 Meet at least 75% shital and protein needs via PO and ONS intake Goal #2 Wt gain/maintenance Anticipated Discharge Needs: Renal, consistent CHO Follow-Up By: 03/20/21 Additional Comments F/u: intakes, ONS intake
[2021-03-19] MEDS: SENNOSIDES 8.6 MG TAB PO SCH (22:29)
[2021-03-20] MEDS: HEPARIN 5,000 UNIT/1 ML VIAL SUB-Q SCH ×3 (05:43→22:51)
[2021-03-20] MEDS: INSULIN REGULAR, HUMAN 100 UNITS/1 ML SUB-Q SCH ×4 (08:27→22:52)
[2021-03-20] MEDS: LOSARTAN 50 MG TAB PO SCH (10:44)
[2021-03-20] MEDS: CALCIUM ACETATE 667 MG CAP PO SCH ×3 (10:44→17:27)
[2021-03-20] MEDS: FE FUMARATE/FA/MV, MIN COMB#15 CAP (HEMOCYTE PLUS) PO SCH (10:44)
[2021-03-20] MEDS: FAMOTIDINE 10 MG TAB FEEDTUBE SCH ×2 (10:44→22:51)
[2021-03-20] MEDS: carvediloL 12.5 MG TAB PO SCH ×2 (10:45→22:53)
--- NOTE | 2021-03-20 12:45 | Progress Note ---
Assessment and Plan Acute Hypoxemic Respiratory Failuire Hypertensive emergency Acute pulmonary edema ESRD needing dialysis Person under investigation for COVID-19 Sepsis Hemorrhage of arteriovenous fistula Hyponatremia Metabolic acidosis - doing better, discharge planning ok pulmonary-ojeda - continue care as below otherwise; - aspiration precautions - continue to wean supplemental oxygen to keep O2 sats > 90% - continue bronchodilators (ERUM ) with pulm hygiene per RT - continue HD/UF per nephrology prescription for toxin and volume clearance - adjust oral antihypertensives for target BP - continue to avoid nephrotoxins, renally dose all medications - continue mobility protocols to prevent pressure ulcers - PT/OT as tolerated - Wound care per RN/WCT - continue accuchecks with glycemic control per SSI for target blood glucose < 180 mg/dL - home oxygen evaluation at discharge - GI & VTE prophylaxis - Flu & pneumovax per protocol - Pulmonary out patient follow up for PFTs and optimization of respiratory status - continue other care per attending / other consultants - prn analgesia per pain score ... re-evaluate in am & prn Subjective Date of service: 03/20/21 Principal diagnosis: HTNsive Emergency; bacteremia; Ac Hypoxemic Resp Failure; AV-fistula malfxn Interval history: Patient is seen today for: Hypertensive Emergency; gm +ve bacteremia; Acute Hypoxemic Respiratory Failuire; ESRD; Hemorrhage of AV-fistula Seen and examined at bedside; 24hour events reviewed; nursing and respiratory care staff consulted; no adverse overnight events reported to me; resting in bed; continues to do better; no N/V/F/C Objective Vital Signs - 12hr 03/20/21 03/20/21 03:43 10:00 Temperature 98.0 F Pulse Rate 85 85 Respiratory 18 Rate Blood Pressure 92/57 O2 Sat by Pulse 96 98 Oximetry Constitutional: no acute distress, other (elderly thin female with normal respiratory effort at rest) Eyes: non-icteric ENT: oropharynx moist Neck: supple, no lymphadenopathy Effort: normal Ascultation: Bilateral: diminished breath sounds Percussion: Bilateral: not dull Cardiovascular: regular rate and rhythm Gastrointestinal: normoactive bowel sounds, soft, non-tender, non-distended Integumentary: normal Extremities: no cyanosis, no edema, pink and warm, pulses normal Neurologic: non-focal exam (grossly), pupils equal and round, unable to assess Psychiatric: other (Patient speaks only vitnam. Can not asses mood or effect.) CBC and BMP: 03/18/21 21:22 03/18/21 21:22 ABG, PT/INR, D-dimer: PT/INR, D-dimer PT 13.6 Sec. (12.2-14.9) 03/10/21 04:49 INR 0.99 (0.87-1.13) 03/10/21 04:49 D-Dimer 1098.77 ng/mlDDU (0-234) H 03/09/21 05:17 Abnormal lab findings: Abnormal Labs 03/09/21 03/09/21 03/09/21 03:34 03:34 03:34 WBC 20.7 H RBC 3.57 L Hgb Hct MCV MCH RDW 16.5 H Lymph % (Auto) [place] % (Auto) Lymph # (Auto) [place] # (Auto) Seg Neutrophils % Seg Neuts % (Manual) 84.0 H Lymphocytes % (Manual) 6.0 L Monocytes % (Manual) Seg Neutrophils # Seg Neutrophils # Man 17.4 H Monocytes # (Manual) D-Dimer Sodium 133 L Potassium 6.1 H* Chloride 93.6 L Carbon Dioxide BUN 62 H Creatinine 8.2 H Glucose 137 H POC Glucose Phosphorus Ferritin Ammonia Lactate Dehydrogenase Troponin T 0.123 H* Total Protein Albumin HDL Cholesterol 37 L 03/09/21 03/09/21 03/09/21 05:17 05:17 05:17 WBC RBC Hgb Hct MCV MCH RDW Lymph % (Auto) [place] % (Auto) Lymph # (Auto) [place] # (Auto) Seg Neutrophils % Seg Neuts % (Manual) Lymphocytes % (Manual) Monocytes % (Manual) Seg Neutrophils # Seg Neutrophils # Man Monocytes # (Manual) D-Dimer 1098.77 H Sodium Potassium Chloride Carbon Dioxide BUN Creatinine Glucose 123 H POC Glucose Phosphorus Ferritin Ammonia Lactate Dehydrogenase 300 H Troponin T 0.129 H* Total Protein Albumin HDL Cholesterol 03/09/21 03/09/21 03/09/21 05:17 14:21 17:01 WBC RBC Hgb Hct MCV MCH RDW Lymph % (Auto) [place] % (Auto) Lymph # (Auto) [place] # (Auto) Seg Neutrophils % Seg Neuts % (Manual) Lymphocytes % (Manual) Monocytes % (Manual) Seg Neutrophils # Seg Neutrophils # Man Monocytes # (Manual) D-Dimer Sodium 133 L Potassium 5.2 H Chloride 94.3 L Carbon Dioxide BUN 23 H Creatinine 4.3 H Glucose 246 H POC Glucose 201 H Phosphorus Ferritin 2210.0 H Ammonia Lactate Dehydrogenase Troponin T Total Protein Albumin HDL Cholesterol 03/09/21 03/10/21 03/10/21 22:07 04:49 04:49 WBC RBC 3.54 L Hgb Hct MCV MCH RDW 16.4 H Lymph % (Auto) [place] % (Auto) 11.4 H Lymph # (Auto) [place] # (Auto) 1.0 H Seg Neutrophils % Seg Neuts % (Manual) Lymphocytes % (Manual) Monocytes % (Manual) Seg Neutrophils # Seg Neutrophils # Man Monocytes # (Manual) D-Dimer Sodium 134 L Potassium 5.2 H Chloride 93.0 L Carbon Dioxide BUN 45 H Creatinine 5.9 H Glucose 112 H POC Glucose 128 H Phosphorus Ferritin Ammonia Lactate Dehydrogenase Troponin T Total Protein Albumin HDL Cholesterol 03/10/21 03/11/21 03/11/21 23:24 08:41 08:41 WBC 12.0 H RBC Hgb Hct MCV MCH RDW 15.6 H Lymph % (Auto) [place] % (Auto) 15.3 H Lymph # (Auto) [place] # (Auto) 1.8 H Seg Neutrophils % Seg Neuts % (Manual) Lymphocytes % (Manual) Monocytes % (Manual) Seg Neutrophils # Seg Neutrophils # Man Monocytes # (Manual) D-Dimer Sodium 134 L Potassium Chloride 91.6 L Carbon Dioxide BUN 32 H Creatinine 4.8 H Glucose 119 H POC Glucose 284 H Phosphorus Ferritin Ammonia Lactate Dehydrogenase Troponin T Total Protein 9.1 H Albumin HDL Cholesterol 03/12/21 03/12/21 03/12/21 06:30 06:30 07:54 WBC 11.3 H RBC 3.44 L Hgb 8.3 L D Hct 26.7 L D MCV 78 L MCH 24 L RDW 19.1 H Lymph % (Auto) 7.0 L [place] % (Auto) Lymph # (Auto) 0.8 L [place] # (Auto) Seg Neutrophils % 89.3 H Seg Neuts % (Manual) Lymphocytes % (Manual) Monocytes % (Manual) Seg Neutrophils # 10.1 H Seg Neutrophils # Man Monocytes # (Manual) D-Dimer Sodium Potassium 5.2 H D Chloride Carbon Dioxide BUN 47 H Creatinine Glucose 339 H POC Glucose Phosphorus Ferritin Ammonia 20.0 L Lactate Dehydrogenase Troponin T Total Protein 5.7 L D Albumin 2.3 L HDL Cholesterol 03/12/21 03/12/21 03/12/21 08:21 11:28 13:44 WBC RBC Hgb Hct MCV MCH RDW Lymph % (Auto) [place] % (Auto) Lymph # (Auto) [place] # (Auto) Seg Neutrophils % Seg Neuts % (Manual) Lymphocytes % (Manual) Monocytes % (Manual) Seg Neutrophils # Seg Neutrophils # Man Monocytes # (Manual) D-Dimer Sodium Potassium Chloride Carbon Dioxide BUN Creatinine 5.0 H D Glucose POC Glucose 108 H 108 H Phosphorus Ferritin Ammonia Lactate Dehydrogenase Troponin T Total Protein Albumin HDL Cholesterol 03/12/21 03/13/21 03/13/21 21:17 07:44 07:44 WBC RBC Hgb Hct MCV MCH RDW 15.8 H Lymph % (Auto) [place] % (Auto) Lymph # (Auto) [place] # (Auto) Seg Neutrophils % Seg Neuts % (Manual) 74.0 H Lymphocytes % (Manual) 12.0 L Monocytes % (Manual) 12.0 H Seg Neutrophils # Seg Neutrophils # Man Monocytes # (Manual) 1.2 H D-Dimer Sodium 133 L Potassium Chloride 94.4 L Carbon Dioxide 20 L BUN 42 H Creatinine 6.8 H Glucose POC Glucose 110 H Phosphorus Ferritin Ammonia Lactate Dehydrogenase Troponin T Total Protein Albumin 3.2 L HDL Cholesterol 03/14/21 03/14/21 03/15/21 10:22 10:22 06:31 WBC 12.6 H 14.7 H RBC 3.42 L Hgb 10.0 L Hct MCV MCH RDW 16.2 H 16.0 H Lymph % (Auto) [place] % (Auto) 15.0 H Lymph # (Auto) [place] # (Auto) 2.2 H Seg Neutrophils % Seg Neuts % (Manual) 73.0 H Lymphocytes % (Manual) 10.0 L Monocytes % (Manual) 9.0 H Seg Neutrophils # 9.9 H Seg Neutrophils # Man 9.2 H Monocytes # (Manual) 1.1 H D-Dimer Sodium Potassium Chloride 96.0 L Carbon Dioxide BUN 32 H Creatinine 5.4 H Glucose POC Glucose Phosphorus 7.10 H Ferritin Ammonia Lactate Dehydrogenase Troponin T Total Protein Albumin 3.8 L HDL Cholesterol 03/15/21 03/15/21 03/15/21 06:31 07:42 09:21 WBC RBC Hgb Hct MCV MCH RDW Lymph % (Auto) [place] % (Auto) Lymph # (Auto) [place] # (Auto) Seg Neutrophils % Seg Neuts % (Manual) Lymphocytes % (Manual) Monocytes % (Manual) Seg Neutrophils # Seg Neutrophils # Man Monocytes # (Manual) D-Dimer Sodium Potassium Chloride 95.0 L Carbon Dioxide BUN 61 H Creatinine 7.0 H Glucose 140 H POC Glucose 140 H 139 H Phosphorus Ferritin Ammonia Lactate Dehydrogenase Troponin T Total Protein Albumin 3.6 L HDL Cholesterol 03/15/21 03/15/21 03/16/21 11:18 22:05 17:18 WBC RBC Hgb Hct MCV MCH RDW Lymph % (Auto) [place] % (Auto) Lymph # (Auto) [place] # (Auto) Seg Neutrophils % Seg Neuts % (Manual) Lymphocytes % (Manual) Monocytes % (Manual) Seg Neutrophils # Seg Neutrophils # Man Monocytes # (Manual) D-Dimer Sodium Potassium Chloride Carbon Dioxide BUN Creatinine Glucose POC Glucose 141 H 175 H 181 H Phosphorus Ferritin Ammonia Lactate Dehydrogenase Troponin T Total Protein Albumin HDL Cholesterol 03/17/21 03/17/21 03/17/21 12:48 17:50 22:28 WBC RBC Hgb Hct MCV MCH RDW Lymph % (Auto) [place] % (Auto) Lymph # (Auto) [place] # (Auto) Seg Neutrophils % Seg Neuts % (Manual) Lymphocytes % (Manual) Monocytes % (Manual) Seg Neutrophils # Seg Neutrophils # Man Monocytes # (Manual) D-Dimer Sodium Potassium Chloride Carbon Dioxide BUN Creatinine Glucose POC Glucose 169 H 69 L 175 H Phosphorus Ferritin Ammonia Lactate Dehydrogenase Troponin T Total Protein Albumin HDL Cholesterol 03/18/21 03/18/21 03/18/21 14:03 17:29 21:22 WBC RBC Hgb Hct MCV MCH RDW Lymph % (Auto) [place] % (Auto) Lymph # (Auto) [place] # (Auto) Seg Neutrophils % Seg Neuts % (Manual) Lymphocytes % (Manual) Monocytes % (Manual) Seg Neutrophils # Seg Neutrophils # Man Monocytes # (Manual) D-Dimer Sodium 136 L Potassium Chloride 92.5 L Carbon Dioxide BUN 23 H Creatinine 4.2 H Glucose POC Glucose 207 H 144 H Phosphorus Ferritin Ammonia Lactate Dehydrogenase Troponin T Total Protein Albumin HDL Cholesterol 03/18/21 21:22 WBC 11.4 H RBC 3.34 L Hgb 10.0 L Hct MCV MCH RDW 15.9 H Lymph % (Auto) [place] % (Auto) Lymph # (Auto) [place] # (Auto) Seg Neutrophils % Seg Neuts % (Manual) Lymphocytes % (Manual) Monocytes % (Manual) 16.0 H Seg Neutrophils # Seg Neutrophils # Man Monocytes # (Manual) 1.8 H D-Dimer Sodium Potassium Chloride Carbon Dioxide BUN Creatinine Glucose POC Glucose Phosphorus Ferritin Ammonia Lactate Dehydrogenase Troponin T Total Protein Albumin HDL Cholesterol Allied health notes reviewed: nursing
--- NOTE | 2021-03-20 18:32 | Progress Note ---
Assessment and Plan End-stage renal disease continue with maintenance hemodialysis on Tuesday and Tuesday schedule Discontinued magnesium oxide, can result in toxicity with a dialysis patient Discontinued hydralazine, discontinued Procardia, continue with losartan 100 mg once a day. Monitor bp, may need further downtitration Continue the patient on calcium acetate 2 capsule 3 times a day Monitor labs #Multifocal pneumonia Covid negative, seen by infectious disease this admission #Hypertension, improving, blood pressure medication has been readjusted #Diet and nutrition start on Nephrocaps, continue on erythropoietin weekly We'll continue to follow and make recommendation for renal standpoint Subjective Date of service: 03/20/21 Principal diagnosis: HTNsive Emergency; bacteremia; Ac Hypoxemic Resp Failure; AV-fistula malfxn Interval history: Seen during dialysis. Tolerating without complications. Objective - Exam Narrative Exam: General: No acute distress HEENT: Oral mucosa moist Neck: Supple, no JVD Chest: Clear to auscultation bilaterally Heart: RRR, S1 and S2, no pericardial rub Abdomen: Soft, nontender, no renal bruit Extremity: No peripheral cyanosis, edema Neurological: Somnolent, awakens to stimuli Dermatology: No skin rash Psych: No agitation Musculoskeletal: No joint effusion - Vital Signs Vital signs: Vital Signs - 12hr 03/20/21 03/20/21 03/20/21 08:25 09:00 09:15 Temperature 98.2 F Pulse Rate 84 75 81 Respiratory 18 Rate Blood Pressure 129/61 102/51 119/60 O2 Sat by Pulse Oximetry O2 Sat by Pulse 98 Oximetry [ Bilateral] 03/20/21 03/20/21 03/20/21 09:30 09:45 10:00 Temperature Pulse Rate 80 87 85 Respiratory Rate Blood Pressure 117/52 105/74 120/59 O2 Sat by Pulse 98 Oximetry O2 Sat by Pulse Oximetry [ Bilateral] 03/20/21 03/20/21 03/20/21 10:15 10:30 10:45 Temperature Pulse Rate 86 84 85 Respiratory Rate Blood Pressure 89/50 91/52 85/54 O2 Sat by Pulse Oximetry O2 Sat by Pulse Oximetry [ Bilateral] 03/20/21 03/20/21 03/20/21 11:00 11:15 11:30 Temperature Pulse Rate 86 90 86 Respiratory Rate Blood Pressure 107/58 116/59 125/57 O2 Sat by Pulse Oximetry O2 Sat by Pulse Oximetry [ Bilateral] 03/20/21 03/20/21 03/20/21 11:45 12:00 12:15 Temperature Pulse Rate 86 81 91 H Respiratory Rate Blood Pressure 121/66 96/54 117/57 O2 Sat by Pulse Oximetry O2 Sat by Pulse Oximetry [ Bilateral] 03/20/21 03/20/21 12:30 14:28 Temperature 36.5 F L Pulse Rate 83 87 Respiratory 18 Rate Blood Pressure 101/54 145/74 O2 Sat by Pulse Oximetry O2 Sat by Pulse 98 Oximetry [ Bilateral] - Lab 03/18/21 21:22 03/18/21 21:22 Most recent lab results Calcium 9.4 mg/dL (8.4-10.2) 03/18/21 21:22 Phosphorus 7.10 mg/dL (2.5-4.5) H 03/14/21 10:22 Magnesium 2.00 mg/dL (1.7-2.3) 03/14/21 10:22 Medications & Allergies - Medications Allergies/Adverse Reactions: Allergies No Known Allergies Allergy (Unverified 07/09/20 12:47) Home Medications: Home Medications Medication Instructions Recorded Confirmed Last Taken Type NIFEdipine XL [Procardia Xl] 30 mg PO QDAY #30 tablet 11/12/20 03/13/21 Unknown Rx carvediloL [Coreg] 6.25 mg PO BID #60 tablet 11/12/20 03/13/21 Unknown Rx hydrALAZINE [Apresoline TAB] 25 mg PO Q8HR #90 tab 11/12/20 03/13/21 Unknown Rx Active Medications: Generic Name Dose Route Start Last Admin Trade Name Freq PRN Reason Stop Dose Admin Acetaminophen 650 mg 03/09/21 05:56 Acetaminophen 325 Mg Tab PO Q6H PRN Pain MILD(1-3)/Fever >100.5/ALMODOVAR Lipase/Protease/Amylase 1 each 03/14/21 11:12 Lipase 10,500/Protease 25,000/Amylase 43,750 (Units) Dr [place] FEEDTUBE PRN PRN For Clogged Feeding Tube Calcium Acetate 667 mg 03/16/21 12:30 03/20/21 17:27 Calcium Acetate 667 Mg Cap PO Not Given TIDWM BALAJI Carvedilol 12.5 mg 03/14/21 12:00 03/20/21 10:45 Carvedilol 12.5 Mg Tab PO Not Given BID BALAJI Famotidine 10 mg 03/14/21 13:00 03/20/21 10:44 Famotidine 10 Mg Tab FEEDTUBE Not Given BID BALAJI Heparin Sodium (Porcine) 5,000 unit 03/09/21 14:00 03/20/21 15:29 Heparin 5,000 Unit/1 Ml Vial SUB-Q 5,000 unit Q8HR BALAJI Administration Hydralazine HCl 10 mg 03/10/21 23:06 03/13/21 06:34 Hydralazine 20 Mg/1 Ml Inj IV 10 mg Q6HR PRN Administration Hypertension Sodium Chloride 100 mls @ 999 mls/hr 03/09/21 04:50 Nacl 0.9% IV FLAKO PRN Hypotension Insulin Human Regular 0 units 03/09/21 18:00 03/20/21 17:27 Insulin Regular, Human 100 Units/1 Ml SUB-Q Not Given ACHS [facility] Protocol Losartan Potassium 100 mg 03/14/21 10:00 03/20/21 10:44 Losartan 50 Mg Tab PO Not Given QDAY [facility] Multivitamins/Iron 1 each 03/15/21 10:00 03/20/21 10:44 Fe Fumarate/Fa/Mv, Min Comb#15 Cap (Hemocyte Plus) PO Not Given QDAY [facility] Senna 17.2 mg 03/09/21 22:00 03/19/21 22:29 Sennosides 8.6 Mg Tab PO 17.2 mg QHS BALAJI Administration Simple Syrup 15 ml 03/14/21 11:12 Simple Syrup 15 Ml FEEDTUBE PRN PRN Hypoglycemia Simple Syrup 30 ml 03/14/21 11:12 Simple Syrup 15 Ml FEEDTUBE PRN PRN Hypoglycemia Sodium Bicarbonate 325 mg 03/14/21 11:12 Sodium Bicarbonate 325 Mg Tab FEEDTUBE PRN PRN For Clogged Feeding Tube Sodium Chloride 10 ml 03/09/21 10:00 03/20/21 10:44 Sodium Chloride 0.9% 10 Ml Flush Syringe IV Not Given BID BALAJI Sodium Chloride 10 ml 03/09/21 05:56 03/11/21 05:56 Sodium Chloride 0.9% 10 Ml Flush Syringe IV 10 ml PRN PRN Administration LINE FLUSH
--- NOTE | 2021-03-20 19:05 | Progress Note ---
Assessment and Plan - Patient Problems (1) Sepsis Current Visit: Yes Status: Resolved Plan to address problem: Resolved with current therapy, (2) Metabolic encephalopathy Current Visit: Yes Status: Acute Plan to address problem: Supportive care, aspiration precautions, fall precautions, neurochecks. (3) Uncontrolled hypertension Current Visit: Yes Status: Acute Plan to address problem: Monitor blood pressure every shift, continue medical management. (4) Debility Current Visit: Yes Status: Acute Plan to address problem: Physical therapy consulted, discharge planning with home PT. (5) ESRD on hemodialysis Current Visit: No Status: Acute Plan to address problem: Dialysis as per renal team. Outpatient dialysis schedule as per renal team. (6) DVT prophylaxis Current Visit: Yes Status: Acute Plan to address problem: SCDs bilateral lower extremities while in bed (7) Advance care planning Current Visit: Yes Status: Acute Plan to address problem: Disease education conducted, care plan discussed, prognosis discussed, patient family knowledges understanding agree with care plan, +30 minutes, DC planning in a.m. History Interval history: 75 YO Female HD #12 with Pneumonia, Sepsis, ESRD on HD, Metabolic Encephalopathy, Debility, Uncontrolled HTN. Patient resting comfortably in bed. Patient continues to have episodes of relative hypotension with concomitant hypertension. Losartan dose will require continued adjustment. Discharge planning home in a.m. No reported nursing events. Patient denies pain. Hospitalist Physical - Constitutional Vitals: Temp Pulse Resp BP Pulse Ox 36.5 F L 87 18 145/74 98 03/20/21 14:28 03/20/21 14:28 03/20/21 14:28 03/20/21 14:28 03/20/21 14:28 General appearance: Present: no acute distress, well-nourished, cachectic, other - EENT Eyes: Present: PERRL ENT: hearing intact, hearing decreased - Neck Neck: Present: supple - Respiratory Respiratory: bilateral: diminished - Cardiovascular Rhythm: regular Heart Sounds: Present: S1 & S2 - Extremities Extremities: no ischemia Peripheral Pulses: within normal limits - Abdominal General gastrointestinal: soft, non-tender, non-distended - Integumentary Integumentary: Present: clear, dry - Psychiatric Psychiatric: cooperative - Neurologic Neurologic: CNII-XII intact HEART Score - HEART Score Troponin: Troponin T 0.129 ng/mL (0.00-0.029) H* 03/09/21 05:17 Results - Labs CBC & Chem 7: 03/18/21 21:22 03/18/21 21:22 Labs: Laboratory Last Values WBC 11.4 K/mm3 (4.5-11.0) H 03/18/21 21:22 RBC 3.34 M/mm3 (3.65-5.03) L 03/18/21 21:22 Hgb 10.0 gm/dl (10.1-14.3) L 03/18/21 21:22 Hct 30.3 % (30.3-42.9) 03/18/21 21:22 MCV 91 fl (79-97) 03/18/21 21:22 MCH 30 pg (28-32) 03/18/21 21: MCHC 33 % (30-34) 03/18/21 21:22 RDW 15.9 % (13.2-15.2) H 03/18/21 21:22 Plt Count 315 K/mm3 (140-440) 03/18/21 21:22 Lymph % (Auto) 15.0 % (13.4-35.0) 03/15/21 06:31 [place] % (Auto) Site Supervisor 03/18/21 21:22 Eos % (Auto) 2.1 % (0.0-4.3) 03/15/21 06:31 Baso % (Auto) 0.3 % (0.0-1.8) 03/15/21 06:31 Lymph # (Auto) 2.2 K/mm3 (1.2-5.4) 03/15/21 06:31 [place] # (Auto) 2.2 K/mm3 (0.0-0.8) H 03/15/21 06:31 Eos # (Auto) 0.3 K/mm3 (0.0-0.4) 03/15/21 06:31 Baso # (Auto) 0.0 K/mm3 (0.0-0.1) 03/15/21 06:31 Add Manual Diff Complete 03/18/21 21:22 Total Counted 100 03/18/21 21:22 Seg Neutrophils % 67.6 % (40.0-70.0) 03/15/21 06:31 Seg Neuts % (Manual) 50.0 % (40.0-70.0) 03/18/21 21:22 Band Neutrophils % 4.0 % 03/09/21 03:34 Lymphocytes % (Manual) 34.0 % (13.4-35.0) 03/18/21 21:22 Reactive Lymphs % (Man) 6.0 % 03/14/21 10:22 Monocytes % (Manual) 16.0 % (0.0-7.3) H 03/18/21 21:22 Eosinophils % (Manual) 2.0 % (0.0-4.3) 03/14/21 10:22 Metamyelocytes % 1.0 % 03/09/21 03:34 Nucleated RBC % Not Reportable 03/18/21 21:22 Seg Neutrophils # 9.9 K/mm3 (1.8-7.7) H 03/15/21 06:31 Seg Neutrophils # Man 5.7 K/mm3 (1.8-7.7) 03/18/21 21:22 Band Neutrophils # 0.0 K/mm3 03/18/21 21:22 Lymphocytes # (Manual) 3.9 K/mm3 (1.2-5.4) 03/18/21 21:22 Abs React Lymphs (Man) 0.0 K/mm3 03/18/21 21:22 Monocytes # (Manual) 1.8 K/mm3 (0.0-0.8) H 03/18/21 21:22 Eosinophils # (Manual) 0.0 K/mm3 (0.0-0.4) 03/18/21 21:22 Basophils # (Manual) 0.0 K/mm3 (0.0-0.1) 03/18/21 21:22 Metamyelocytes # 0.0 K/mm3 03/18/21 21:22 Myelocytes # 0.0 K/mm3 03/18/21 21:22 Promyelocytes # 0.0 K/mm3 03/18/21 21:22 Blast Cells # 0.0 K/mm3 03/18/21 21:22 WBC Morphology Not Reportable 03/18/21 21:22 Hypersegmented Neuts Not Reportable 03/18/21 21:22 Hyposegmented Neuts Not Reportable 03/18/21 21:22 Hypogranular Neuts Not Reportable 03/18/21 21:22 Smudge Cells Not Reportable 03/18/21 21:22 Toxic Granulation Not Reportable 03/18/21 21:22 Toxic Vacuolation Not Reportable 03/18/21 21:22 Dohle Bodies Not Reportable 03/18/21 21:22 Pelger-Huet Anomaly Not Reportable 03/18/21 21:22 Kecia Rods Not Reportable 03/18/21 21:22 Platelet Estimate Not Reportable 03/18/21 21:22 Clumped Platelets Not Reportable 03/18/21 21:22 Plt Clumps, EDTA Not Reportable 03/18/21 21:22 Large Platelets Not Reportable 03/18/21 21:22 Giant Platelets Not Reportable 03/18/21 21:22 Platelet Satelliting Not Reportable 03/18/21 21:22 Plt Morphology Comment Not Reportable 03/18/21 21:22 RBC Morphology Normal 03/18/21 21:22 Dimorphic RBCs Not Reportable 03/18/21 21:22 Polychromasia Not Reportable 03/18/21 21:22 Hypochromasia Not Reportable 03/18/21 21:22 Poikilocytosis Not Reportable 03/18/21 21:22 Anisocytosis Not Reportable 03/18/21 21:22 Microcytosis Not Reportable 03/18/21 21:22 Macrocytosis Not Reportable 03/18/21 21:22 Spherocytes Not Reportable 03/18/21 21:22 Pappenheimer Bodies Not Reportable 03/18/21 21:22 Sickle Cells Not Reportable 03/18/21 21:22 Target Cells Not Reportable 03/18/21 21:22 Tear Drop Cells Not Reportable 03/18/21 21:22 Ovalocytes Not Reportable 03/18/21 21:22 Helmet Cells Not Reportable 03/18/21 21:22 [place]-Walters Bodies Not Reportable 03/18/21 21:22 [place] Rings Not Reportable 03/18/21 21:22 Maria De Jesus Cells Not Reportable 03/18/21 21:22 Bite Cells Not Reportable 03/18/21 21:22 Crenated Cell Not Reportable 03/18/21 21:22 Elliptocytes Not Reportable 03/18/21 21:22 Acanthocytes (Spur) Not Reportable 03/18/21 21:22 Rouleaux Not Reportable 03/18/21 21:22 Hemoglobin C Crystals Not Reportable 03/18/21 21:22 Schistocytes Not Reportable 03/18/21 21:22 Malaria parasites Not Reportable 03/18/21 21:22 Ren Bodies Not Reportable 03/18/21 21:22 Hem Pathologist Commnt No 03/18/21 21:22 PT 13.6 Sec. (12.2-14.9) 03/10/21 04:49 INR 0.99 (0.87-1.13) 03/10/21 04:49 APTT 33.2 Sec. (24.2-36.6) 03/09/21 03:34 D-Dimer 1098.77 ng/mlDDU (0-234) H 03/09/21 05:17 Sodium 136 mmol/L (137-145) L 03/18/21 21:22 Potassium 3.9 mmol/L (3.6-5.0) 03/18/21 21:22 Chloride 92.5 mmol/L (98-107) L 03/18/21 21:22 Carbon Dioxide 28 mmol/L (22-30) 03/18/21 21:22 Anion Gap 19 mmol/L 03/18/21 21:22 BUN 23 mg/dL (7-17) H 03/18/21 21:22 Creatinine 4.2 mg/dL (0.6-1.2) H 03/18/21 21:22 Estimated GFR 10 ml/min 03/18/21 21:22 BUN/Creatinine Ratio 5 % 03/18/21 21:22 Glucose 80 mg/dL (65-100) 03/18/21 21:22 POC Glucose 68 mg/dL (70-105) L 03/20/21 17:50 Hemoglobin A1c 5.1 % (4-6) 03/09/21 10:43 Lactic Acid 1.20 mmol/L (0.7-2.0) 03/09/21 07:37 Calcium 9.4 mg/dL (8.4-10.2) 03/18/21 21:22 Phosphorus 7.10 mg/dL (2.5-4.5) H 03/14/21 10:22 Magnesium 2.00 mg/dL (1.7-2.3) 03/14/21 10:22 Ferritin 2210.0 ng/mL (10.0-200.0) H 03/09/21 05:17 Total Bilirubin 0.30 mg/dL (0.1-1.2) 03/15/21 06:31 AST 14 units/L (5-40) 03/15/21 06:31 ALT 9 units/L (7-56) 03/15/21 06:31 Alkaline Phosphatase 70 units/L (35-129) 03/15/21 06:31 Ammonia 20.0 umol/L (25-60) L 03/12/21 07:54 Lactate Dehydrogenase 300 units/L (91-180) H 03/09/21 05:17 Total Creatine Kinase 57 units/L (30-135) 03/09/21 10:43 CK-MB (CK-2) 2.3 ng/mL (0.0-4.0) 03/09/21 10:43 CK-MB (CK-2) Rel Index 4.0 (0-4) 03/09/21 10:43 Troponin T 0.129 ng/mL (0.00-0.029) H* 03/09/21 05:17 C-Reactive Protein 1.10 mg/dL (0.00-1.30) 03/09/21 05:17 Total Protein 7.6 g/dL (6.3-8.2) 03/15/21 06:31 Albumin 3.6 g/dL (3.9-5) L 03/15/21 06:31 Albumin/Globulin Ratio 0.9 % 03/15/21 06:31 Triglycerides 133 mg/dL (2-149) 03/09/21 03:34 Cholesterol 158 mg/dL (50-199) 03/09/21 03:34 LDL Cholesterol Direct 105 mg/dL (50-130) 03/09/21 03:34 HDL Cholesterol 37 mg/dL (40-59) L 03/09/21 03:34 Cholesterol/HDL Ratio 4.27 % 03/09/21 03:34 Procalcitonin 0.71 ng/mL (<0.15) 03/09/21 05:17 Random Vancomycin 25.0 ug/mL (0-40.0) 03/12/21 13:44 Coronavirus (PCR) Negative (Negative) 03/09/21 08:40 Hepatitis A IgM Ab Non-reactive (NonReactive) 03/09/21 07:37 Hep Bs Antigen Nonreactive (Negative) 03/09/21 07:37 Hep B Core IgM Ab Non-reactive (NonReactive) 03/09/21 07:37 Hepatitis C Antibody Non-reactive (NonReactive) 03/09/21 07:37 Persaud/IV: Voiding Method Diaper Active Medications - Current Medications Current Medications: Generic Name Dose Route Start Last Admin Trade Name Freq PRN Reason Stop Dose Admin Acetaminophen 650 mg 03/09/21 05:56 Acetaminophen 325 Mg Tab PO Q6H PRN Pain MILD(1-3)/Fever >100.5/ALMODOVAR Lipase/Protease/Amylase 1 each 03/14/21 11:12 Lipase 10,500/Protease 25,000/Amylase 43,750 (Units) Dr [place]ona FEEDTUBE PRN PRN For Clogged Feeding Tube Calcium Acetate 667 mg 03/16/21 12:30 03/20/21 17:27 Calcium Acetate 667 Mg Cap PO Not Given TIDWM [facility] Carvedilol 12.5 mg 03/14/21 12:00 03/20/21 10:45 Carvedilol 12.5 Mg Tab PO Not Given BID BALAJI Famotidine 10 mg 03/14/21 13:00 03/20/21 10:44 Famotidine 10 Mg Tab FEEDTUBE Not Given BID BALAJI Heparin Sodium (Porcine) 5,000 unit 03/09/21 14:00 03/20/21 15:29 Heparin 5,000 Unit/1 Ml Vial SUB-Q 5,000 unit Q8HR BALAJI Administration Hydralazine HCl 10 mg 03/10/21 23:06 03/13/21 06:34 Hydralazine 20 Mg/1 Ml Inj IV 10 mg Q6HR PRN Administration Hypertension Sodium Chloride 100 mls @ 999 mls/hr 03/09/21 04:50 Nacl 0.9% IV FLAKO PRN Hypotension Insulin Human Regular 0 units 03/09/21 18:00 03/20/21 17:27 Insulin Regular, Human 100 Units/1 Ml SUB-Q Not Given ACHS [facility] Protocol Losartan Potassium 100 mg 03/14/21 10:00 03/20/21 10:44 Losartan 50 Mg Tab PO Not Given QDAY [facility] Multivitamins/Iron 1 each 03/15/21 10:00 03/20/21 10:44 Fe Fumarate/Fa/Mv, Min Comb#15 Cap (Hemocyte Plus) PO Not Given QDAY BALAJI Senna 17.2 mg 03/09/21 22:00 03/19/21 22:29 Sennosides 8.6 Mg Tab PO 17.2 mg QHS BALAJI Administration Simple Syrup 15 ml 03/14/21 11:12 Simple Syrup 15 Ml FEEDTUBE PRN PRN Hypoglycemia Simple Syrup 30 ml 03/14/21 11:12 Simple Syrup 15 Ml FEEDTUBE PRN PRN Hypoglycemia Sodium Bicarbonate 325 mg 03/14/21 11:12 Sodium Bicarbonate 325 Mg Tab FEEDTUBE PRN PRN For Clogged Feeding Tube Sodium Chloride 10 ml 03/09/21 10:00 03/20/21 10:44 Sodium Chloride 0.9% 10 Ml Flush Syringe IV Not Given BID BALAJI Sodium Chloride 10 ml 03/09/21 05:56 03/11/21 05:56 Sodium Chloride 0.9% 10 Ml Flush Syringe IV 10 ml PRN PRN Administration LINE FLUSH Nutrition/Malnutrition Assess - Dietary Evaluation Nutrition/Malnutrition Findings: Nutrition Notes Start: 03/09/21 07:41 Freq: Status: Active Protocol: Document 03/20/21 12:51 EB (Rec: 03/20/21 12:52 EB [id number]) Nutrition Notes Initial or Follow up Brief Note Subjective/Other Information Spoke with nurse tech who said pt has been gone to HD all morning and is not sure how much pt has been able to eat yet. Nutrition Intervention Follow-Up By: 03/21/21 Additional Comments F/u: intakes, ONS intake
[2021-03-20] MEDS: SENNOSIDES 8.6 MG TAB PO SCH (22:51)
[2021-03-21] MEDS: HEPARIN 5,000 UNIT/1 ML VIAL SUB-Q SCH ×3 (06:10→23:16)
[2021-03-21] MEDS: INSULIN REGULAR, HUMAN 100 UNITS/1 ML SUB-Q SCH ×4 (07:30→23:15)
[2021-03-21] MEDS: LOSARTAN 50 MG TAB PO SCH (10:05)
[2021-03-21] MEDS: carvediloL 12.5 MG TAB PO SCH ×2 (10:56→23:13)
[2021-03-21] MEDS: CALCIUM ACETATE 667 MG CAP PO SCH ×3 (11:27→16:26)
[2021-03-21] MEDS: FE FUMARATE/FA/MV, MIN COMB#15 CAP (HEMOCYTE PLUS) PO SCH (11:34)
[2021-03-21] MEDS: FAMOTIDINE 10 MG TAB FEEDTUBE SCH ×2 (11:34→23:13)
--- NOTE | 2021-03-21 13:00 | Progress Note ---
Assessment and Plan Acute Hypoxemic Respiratory Failuire Hypertensive emergency Acute pulmonary edema ESRD needing dialysis Person under investigation for COVID-19 Sepsis Hemorrhage of arteriovenous fistula Hyponatremia Metabolic acidosis - doing better, discharge planning ok pulmonary-ojeda - continue care as below otherwise; - aspiration precautions - continue to wean supplemental oxygen to keep O2 sats > 90% - continue bronchodilators (ERUM ) with pulm hygiene per RT - continue HD/UF per nephrology prescription for toxin and volume clearance - adjust oral antihypertensives for target BP - continue to avoid nephrotoxins, renally dose all medications - continue mobility protocols to prevent pressure ulcers - PT/OT as tolerated - Wound care per RN/WCT - continue accuchecks with glycemic control per SSI for target blood glucose < 180 mg/dL - home oxygen evaluation at discharge - GI & VTE prophylaxis - Flu & pneumovax per protocol - Pulmonary out patient follow up for PFTs and optimization of respiratory status - continue other care per attending / other consultants - prn analgesia per pain score ... re-evaluate in am & prn Subjective Date of service: 03/21/21 Principal diagnosis: HTNsive Emergency; bacteremia; Ac Hypoxemic Resp Failure; AV-fistula malfxn Interval history: Patient is seen today for: Hypertensive Emergency; gm +ve bacteremia; Acute Hypoxemic Respiratory Failuire; ESRD; Hemorrhage of AV-fistula Seen and examined at bedside; 24hour events reviewed; nursing and respiratory c are staff consulted; no adverse overnight events reported to me; resting in bed; HD/UF yesterday and tolerated well; awaiting placement Objective Vital Signs - 12hr 03/21/21 04:42 Temperature 98.2 F Pulse Rate 80 Respiratory 18 Rate Blood Pressure 114/49 O2 Sat by Pulse 95 Oximetry Constitutional: no acute distress, other (elderly thin female with normal respiratory effort at rest) Eyes: non-icteric ENT: oropharynx moist Neck: supple, no lymphadenopathy Effort: normal Ascultation: Bilateral: diminished breath sounds Percussion: Bilateral: not dull Cardiovascular: regular rate and rhythm Gastrointestinal: normoactive bowel sounds, soft, non-tender, non-distended Integumentary: normal Extremities: no cyanosis, no edema, pink and warm, pulses normal Neurologic: non-focal exam (grossly), pupils equal and round, unable to assess Psychiatric: other (Patient speaks only vitnam. Can not asses mood or effect.) CBC and BMP: 03/18/21 21:22 03/18/21 21:22 ABG, PT/INR, D-dimer: PT/INR, D-dimer PT 13.6 Sec. (12.2-14.9) 03/10/21 04:49 INR 0.99 (0.87-1.13) 03/10/21 04:49 D-Dimer 1098.77 ng/mlDDU (0-234) H 03/09/21 05:17 Abnormal lab findings: Abnormal Labs 03/09/21 03/09/21 03/09/21 03:34 03:34 03:34 WBC 20.7 H RBC 3.57 L Hgb Hct MCV MCH RDW 16.5 H Lymph % (Auto) [place] % (Auto) Lymph # (Auto) [place] # (Auto) Seg Neutrophils % Seg Neuts % (Manual) 84.0 H Lymphocytes % (Manual) 6.0 L Monocytes % (Manual) Seg Neutrophils # Seg Neutrophils # Man 17.4 H Monocytes # (Manual) D-Dimer Sodium 133 L Potassium 6.1 H* Chloride 93.6 L Carbon Dioxide BUN 62 H Creatinine 8.2 H Glucose 137 H POC Glucose Phosphorus Ferritin Ammonia Lactate Dehydrogenase Troponin T 0.123 H* Total Protein Albumin HDL Cholesterol 37 L 03/09/21 03/09/21 03/09/21 05:17 05:17 05:17 WBC RBC Hgb Hct MCV MCH RDW Lymph % (Auto) [place] % (Auto) Lymph # (Auto) [place] # (Auto) Seg Neutrophils % Seg Neuts % (Manual) Lymphocytes % (Manual) Monocytes % (Manual) Seg Neutrophils # Seg Neutrophils # Man Monocytes # (Manual) D-Dimer 1098.77 H Sodium Potassium Chloride Carbon Dioxide BUN Creatinine Glucose 123 H POC Glucose Phosphorus Ferritin Ammonia Lactate Dehydrogenase 300 H Troponin T 0.129 H* Total Protein Albumin HDL Cholesterol 03/09/21 03/09/21 03/09/21 05:17 14:21 17:01 WBC RBC Hgb Hct MCV MCH RDW Lymph % (Auto) [place] % (Auto) Lymph # (Auto) [place] # (Auto) Seg Neutrophils % Seg Neuts % (Manual) Lymphocytes % (Manual) Monocytes % (Manual) Seg Neutrophils # Seg Neutrophils # Man Monocytes # (Manual) D-Dimer Sodium 133 L Potassium 5.2 H Chloride 94.3 L Carbon Dioxide BUN 23 H Creatinine 4.3 H Glucose 246 H POC Glucose 201 H Phosphorus Ferritin 2210.0 H Ammonia Lactate Dehydrogenase Troponin T Total Protein Albumin HDL Cholesterol 03/09/21 03/10/21 03/10/21 22:07 04:49 04:49 WBC RBC 3.54 L Hgb Hct MCV MCH RDW 16.4 H Lymph % (Auto) [place] % (Auto) 11.4 H Lymph # (Auto) [place] # (Auto) 1.0 H Seg Neutrophils % Seg Neuts % (Manual) Lymphocytes % (Manual) Monocytes % (Manual) Seg Neutrophils # Seg Neutrophils # Man Monocytes # (Manual) D-Dimer Sodium 134 L Potassium 5.2 H Chloride 93.0 L Carbon Dioxide BUN 45 H Creatinine 5.9 H Glucose 112 H POC Glucose 128 H Phosphorus Ferritin Ammonia Lactate Dehydrogenase Troponin T Total Protein Albumin HDL Cholesterol 03/10/21 03/11/21 03/11/21 23:24 08:41 08:41 WBC 12.0 H RBC Hgb Hct MCV MCH RDW 15.6 H Lymph % (Auto) [place] % (Auto) 15.3 H Lymph # (Auto) [place] # (Auto) 1.8 H Seg Neutrophils % Seg Neuts % (Manual) Lymphocytes % (Manual) Monocytes % (Manual) Seg Neutrophils # Seg Neutrophils # Man Monocytes # (Manual) D-Dimer Sodium 134 L Potassium Chloride 91.6 L Carbon Dioxide BUN 32 H Creatinine 4.8 H Glucose 119 H POC Glucose 284 H Phosphorus Ferritin Ammonia Lactate Dehydrogenase Troponin T Total Protein 9.1 H Albumin HDL Cholesterol 03/12/21 03/12/21 03/12/21 06:30 06:30 07:54 WBC 11.3 H RBC 3.44 L Hgb 8.3 L D Hct 26.7 L D MCV 78 L MCH 24 L RDW 19.1 H Lymph % (Auto) 7.0 L [place] % (Auto) Lymph # (Auto) 0.8 L [place] # (Auto) Seg Neutrophils % 89.3 H Seg Neuts % (Manual) Lymphocytes % (Manual) Monocytes % (Manual) Seg Neutrophils # 10.1 H Seg Neutrophils # Man Monocytes # (Manual) D-Dimer Sodium Potassium 5.2 H D Chloride Carbon Dioxide BUN 47 H Creatinine Glucose 339 H POC Glucose Phosphorus Ferritin Ammonia 20.0 L Lactate Dehydrogenase Troponin T Total Protein 5.7 L D Albumin 2.3 L HDL Cholesterol 03/12/21 03/12/21 03/12/21 08:21 11:28 13:44 WBC RBC Hgb Hct MCV MCH RDW Lymph % (Auto) [place] % (Auto) Lymph # (Auto) [place] # (Auto) Seg Neutrophils % Seg Neuts % (Manual) Lymphocytes % (Manual) Monocytes % (Manual) Seg Neutrophils # Seg Neutrophils # Man Monocytes # (Manual) D-Dimer Sodium Potassium Chloride Carbon Dioxide BUN Creatinine 5.0 H D Glucose POC Glucose 108 H 108 H Phosphorus Ferritin Ammonia Lactate Dehydrogenase Troponin T Total Protein Albumin HDL Cholesterol 03/12/21 03/13/21 03/13/21 21:17 07:44 07:44 WBC RBC Hgb Hct MCV MCH RDW 15.8 H Lymph % (Auto) [place] % (Auto) Lymph # (Auto) [place] # (Auto) Seg Neutrophils % Seg Neuts % (Manual) 74.0 H Lymphocytes % (Manual) 12.0 L Monocytes % (Manual) 12.0 H Seg Neutrophils # Seg Neutrophils # Man Monocytes # (Manual) 1.2 H D-Dimer Sodium 133 L Potassium Chloride 94.4 L Carbon Dioxide 20 L BUN 42 H Creatinine 6.8 H Glucose POC Glucose 110 H Phosphorus Ferritin Ammonia Lactate Dehydrogenase Troponin T Total Protein Albumin 3.2 L HDL Cholesterol 03/14/21 03/14/21 03/15/21 10:22 10:22 06:31 WBC 12.6 H 14.7 H RBC 3.42 L Hgb 10.0 L Hct MCV MCH RDW 16.2 H 16.0 H Lymph % (Auto) [place] % (Auto) 15.0 H Lymph # (Auto) [place] # (Auto) 2.2 H Seg Neutrophils % Seg Neuts % (Manual) 73.0 H Lymphocytes % (Manual) 10.0 L Monocytes % (Manual) 9.0 H Seg Neutrophils # 9.9 H Seg Neutrophils # Man 9.2 H Monocytes # (Manual) 1.1 H D-Dimer Sodium Potassium Chloride 96.0 L Carbon Dioxide BUN 32 H Creatinine 5.4 H Glucose POC Glucose Phosphorus 7.10 H Ferritin Ammonia Lactate Dehydrogenase Troponin T Total Protein Albumin 3.8 L HDL Cholesterol 03/15/21 03/15/21 03/15/21 06:31 07:42 09:21 WBC RBC Hgb Hct MCV MCH RDW Lymph % (Auto) [place] % (Auto) Lymph # (Auto) [place] # (Auto) Seg Neutrophils % Seg Neuts % (Manual) Lymphocytes % (Manual) Monocytes % (Manual) Seg Neutrophils # Seg Neutrophils # Man Monocytes # (Manual) D-Dimer Sodium Potassium Chloride 95.0 L Carbon Dioxide BUN 61 H Creatinine 7.0 H Glucose 140 H POC Glucose 140 H 139 H Phosphorus Ferritin Ammonia Lactate Dehydrogenase Troponin T Total Protein Albumin 3.6 L HDL Cholesterol 03/15/21 03/15/21 03/16/21 11:18 22:05 17:18 WBC RBC Hgb Hct MCV MCH RDW Lymph % (Auto) [place] % (Auto) Lymph # (Auto) [place] # (Auto) Seg Neutrophils % Seg Neuts % (Manual) Lymphocytes % (Manual) Monocytes % (Manual) Seg Neutrophils # Seg Neutrophils # Man Monocytes # (Manual) D-Dimer Sodium Potassium Chloride Carbon Dioxide BUN Creatinine Glucose POC Glucose 141 H 175 H 181 H Phosphorus Ferritin Ammonia Lactate Dehydrogenase Troponin T Total Protein Albumin HDL Cholesterol 03/17/21 03/17/21 03/17/21 12:48 17:50 22:28 WBC RBC Hgb Hct MCV MCH RDW Lymph % (Auto) [place] % (Auto) Lymph # (Auto) [place] # (Auto) Seg Neutrophils % Seg Neuts % (Manual) Lymphocytes % (Manual) Monocytes % (Manual) Seg Neutrophils # Seg Neutrophils # Man Monocytes # (Manual) D-Dimer Sodium Potassium Chloride Carbon Dioxide BUN Creatinine Glucose POC Glucose 169 H 69 L 175 H Phosphorus Ferritin Ammonia Lactate Dehydrogenase Troponin T Total Protein Albumin HDL Cholesterol 03/18/21 03/18/21 03/18/21 14:03 17:29 21:22 WBC RBC Hgb Hct MCV MCH RDW Lymph % (Auto) [place] % (Auto) Lymph # (Auto) [place] # (Auto) Seg Neutrophils % Seg Neuts % (Manual) Lymphocytes % (Manual) Monocytes % (Manual) Seg Neutrophils # Seg Neutrophils # Man Monocytes # (Manual) D-Dimer Sodium 136 L Potassium Chloride 92.5 L Carbon Dioxide BUN 23 H Creatinine 4.2 H Glucose POC Glucose 207 H 144 H Phosphorus Ferritin Ammonia Lactate Dehydrogenase Troponin T Total Protein Albumin HDL Cholesterol 03/18/21 03/20/21 03/20/21 21:22 13:29 17:50 WBC 11.4 H RBC 3.34 L Hgb 10.0 L Hct MCV MCH RDW 15.9 H Lymph % (Auto) [place] % (Auto) Lymph # (Auto) [place] # (Auto) Seg Neutrophils % Seg Neuts % (Manual) Lymphocytes % (Manual) Monocytes % (Manual) 16.0 H Seg Neutrophils # Seg Neutrophils # Man Monocytes # (Manual) 1.8 H D-Dimer Sodium Potassium Chloride Carbon Dioxide BUN Creatinine Glucose POC Glucose 126 H 68 L Phosphorus Ferritin Ammonia Lactate Dehydrogenase Troponin T Total Protein Albumin HDL Cholesterol 03/20/21 03/21/21 21:16 11:24 WBC RBC Hgb Hct MCV MCH RDW Lymph % (Auto) [place] % (Auto) Lymph # (Auto) [place] # (Auto) Seg Neutrophils % Seg Neuts % (Manual) Lymphocytes % (Manual) Monocytes % (Manual) Seg Neutrophils # Seg Neutrophils # Man Monocytes # (Manual) D-Dimer Sodium Potassium Chloride Carbon Dioxide BUN Creatinine Glucose POC Glucose 144 H 208 H Phosphorus Ferritin Ammonia Lactate Dehydrogenase Troponin T Total Protein Albumin HDL Cholesterol Allied health notes reviewed: nursing
--- NOTE | 2021-03-21 17:53 | Progress Note ---
Assessment and Plan End-stage renal disease continue with maintenance hemodialysis on Tuesday and Tuesday schedule Discontinued magnesium oxide, can result in toxicity with a dialysis patient Discontinued hydralazine, discontinued Procardia, continue with losartan 100 mg once a day. Monitor bp, may need further downtitration Continue the patient on calcium acetate 2 capsule 3 times a day Monitor labs #Multifocal pneumonia Covid negative, seen by infectious disease this admission #Hypertension, improving, blood pressure medication has been readjusted #Diet and nutrition start on Nephrocaps, continue on erythropoietin weekly We'll continue to follow and make recommendation for renal standpoint Subjective Date of service: 03/21/21 Principal diagnosis: HTNsive Emergency; bacteremia; Ac Hypoxemic Resp Failure; AV-fistula malfxn Interval history: Resting in bed. No complications with HD yesterday. Objective - Exam Narrative Exam: General: No acute distress HEENT: Oral mucosa moist Neck: Supple, no JVD Chest: Clear to auscultation bilaterally Heart: RRR, S1 and S2, no pericardial rub Abdomen: Soft, nontender, no renal bruit Extremity: No peripheral cyanosis, edema Neurological: Somnolent, awakens to stimuli Dermatology: No skin rash Psych: No agitation Musculoskeletal: No joint effusion - Vital Signs Vital signs: Vital Signs - 12hr 03/21/21 03/21/21 03/21/21 10:00 10:05 10:56 Temperature Pulse Rate Respiratory Rate Blood Pressure 100/40 100/40 O2 Sat by Pulse 99 Oximetry 03/21/21 03/21/21 11:24 15:50 Temperature 99.2 F 98.4 F Pulse Rate 89 89 Respiratory 18 16 Rate Blood Pressure 104/54 112/63 O2 Sat by Pulse 95 97 Oximetry - Lab 03/18/21 21:22 03/18/21 21:22 Most recent lab results Calcium 9.4 mg/dL (8.4-10.2) 03/18/21 21:22 Phosphorus 7.10 mg/dL (2.5-4.5) H 03/14/21 10:22 Magnesium 2.00 mg/dL (1.7-2.3) 03/14/21 10:22 Medications & Allergies - Medications Allergies/Adverse Reactions: Allergies No Known Allergies Allergy (Unverified 07/09/20 12:47) Home Medications: Home Medications Medication Instructions Recorded Confirmed Last Taken Type NIFEdipine XL [Procardia Xl] 30 mg PO QDAY #30 tablet 11/12/20 03/13/21 Unknown Rx carvediloL [Coreg] 6.25 mg PO BID #60 tablet 11/12/20 03/13/21 Unknown Rx hydrALAZINE [Apresoline TAB] 25 mg PO Q8HR #90 tab 11/12/20 03/13/21 Unknown Rx Active Medications: Generic Name Dose Route Start Last Admin Trade Name Freq PRN Reason Stop Dose Admin Acetaminophen 650 mg 03/09/21 05:56 Acetaminophen 325 Mg Tab PO Q6H PRN Pain MILD(1-3)/Fever >100.5/ALMODOVAR Lipase/Protease/Amylase 1 each 03/14/21 11:12 Lipase 10,500/Protease 25,000/Amylase 43,750 (Units) Cap FEEDTUBE PRN PRN For Clogged Feeding Tube Calcium Acetate 667 mg 03/16/21 12:30 03/21/21 16:26 Calcium Acetate 667 Mg Cap PO Not Given TIDWM [facility] Carvedilol 12.5 mg 03/14/21 12:00 03/21/21 10:56 Carvedilol 12.5 Mg Tab PO Not Given BID BALAJI Famotidine 10 mg 03/14/21 13:00 03/21/21 11:34 Famotidine 10 Mg Tab FEEDTUBE 10 mg BID BALAJI Administration Heparin Sodium (Porcine) 5,000 unit 03/09/21 14:00 03/21/21 14:01 Heparin 5,000 Unit/1 Ml Vial SUB-Q 5,000 unit Q8HR BALAJI Administration Hydralazine HCl 10 mg 03/10/21 23:06 03/13/21 06:34 Hydralazine 20 Mg/1 Ml Inj IV 10 mg Q6HR PRN Administration Hypertension Sodium Chloride 100 mls @ 999 mls/hr 03/09/21 04:50 Nacl 0.9% IV FLAKO PRN Hypotension Insulin Human Regular 0 units 03/09/21 18:00 03/21/21 16:26 Insulin Regular, Human 100 Units/1 Ml SUB-Q Not Given ACHS [facility] Protocol Losartan Potassium 100 mg 03/14/21 10:00 03/21/21 10:05 Losartan 50 Mg Tab PO Not Given QDAY [facility] Multivitamins/Iron 1 each 03/15/21 10:00 03/21/21 11:34 Fe Fumarate/Fa/Mv, Min Comb#15 Cap (Hemocyte Plus) PO 1 each QDAY BALAJI Administration Senna 17.2 mg 03/09/21 22:00 03/20/21 22:51 Sennosides 8.6 Mg Tab PO 17.2 mg QHS BALAJI Administration Simple Syrup 15 ml 03/14/21 11:12 Simple Syrup 15 Ml FEEDTUBE PRN PRN Hypoglycemia Simple Syrup 30 ml 03/14/21 11:12 Simple Syrup 15 Ml FEEDTUBE PRN PRN Hypoglycemia Sodium Bicarbonate 325 mg 03/14/21 11:12 Sodium Bicarbonate 325 Mg Tab FEEDTUBE PRN PRN For Clogged Feeding Tube Sodium Chloride 10 ml 03/09/21 10:00 03/21/21 11:35 Sodium Chloride 0.9% 10 Ml Flush Syringe IV 10 ml BID BALAJI Administration Sodium Chloride 10 ml 03/09/21 05:56 03/11/21 05:56 Sodium Chloride 0.9% 10 Ml Flush Syringe IV 10 ml PRN PRN Administration LINE FLUSH
--- NOTE | 2021-03-21 20:32 | Progress Note ---
Assessment and Plan - Patient Problems (1) Sepsis Current Visit: Yes Status: Resolved Plan to address problem: Resolved with current therapy, (2) Metabolic encephalopathy Current Visit: Yes Status: Acute Plan to address problem: Supportive care, aspiration precautions, fall precautions, neurochecks. (3) Uncontrolled hypertension Current Visit: Yes Status: Acute Plan to address problem: Monitor blood pressure every shift, continue medical management. (4) Debility Current Visit: Yes Status: Acute Plan to address problem: Physical therapy consulted, discharge planning with home PT. (5) ESRD on hemodialysis Current Visit: No Status: Acute Plan to address problem: Dialysis as per renal team. Outpatient dialysis schedule as per renal team. (6) DVT prophylaxis Current Visit: Yes Status: Acute Plan to address problem: SCDs bilateral lower extremities while in bed (7) Advance care planning Current Visit: Yes Status: Acute Plan to address problem: Disease education conducted, care plan discussed, prognosis discussed, patient family knowledges understanding agree with care plan, +30 minutes, DC planning in a.m. History Interval history: 75 YO Female HD #13 with Pneumonia, Sepsis, ESRD on HD, Metabolic Encephalopathy, Debility, Uncontrolled HTN. Patient resting comfortably in bed. Patient continues to have episodes of relative hypotension with concomitant hypertension. Will discharge planning home in a.m. No reported nursing events. Patient denies pain. Hospitalist Physical - Constitutional Vitals: Temp Pulse Resp BP Pulse Ox 98.4 F 93 H 17 115/74 95 03/21/21 20:28 03/21/21 20:28 03/21/21 20:28 03/21/21 20:28 03/21/21 20:28 General appearance: Present: no acute distress, well-nourished, cachectic, other - EENT Eyes: Present: PERRL ENT: hearing intact - Neck Neck: Present: supple - Respiratory Respiratory effort: labored Respiratory: bilateral: diminished - Cardiovascular Rhythm: regular Heart Sounds: Present: S1 & S2 - Extremities Extremities: no ischemia Peripheral Pulses: within normal limits - Abdominal General gastrointestinal: soft, non-tender, non-distended - Integumentary Integumentary: Present: clear, dry - Psychiatric Psychiatric: cooperative - Neurologic Neurologic: CNII-XII intact HEART Score - HEART Score Troponin: Troponin T 0.129 ng/mL (0.00-0.029) H* 03/09/21 05:17 Results - Labs CBC & Chem 7: 03/18/21 21:22 03/18/21 21:22 Labs: Laboratory Last Values WBC 11.4 K/mm3 (4.5-11.0) H 03/18/21 21:22 RBC 3.34 M/mm3 (3.65-5.03) L 03/18/21 21:22 Hgb 10.0 gm/dl (10.1-14.3) L 03/18/21 21:22 Hct 30.3 % (30.3-42.9) 03/18/21 21:22 MCV 91 fl (79-97) 03/18/21 21:22 MCH 30 pg (28-32) 03/18/21 21: MCHC 33 % (30-34) 03/18/21 21:22 RDW 15.9 % (13.2-15.2) H 03/18/21 21:22 Plt Count 315 K/mm3 (140-440) 03/18/21 21:22 Lymph % (Auto) 15.0 % (13.4-35.0) 03/15/21 06:31 [place] % (Auto) [place] 03/18/21 21:22 Eos % (Auto) 2.1 % (0.0-4.3) 03/15/21 06:31 Baso % (Auto) 0.3 % (0.0-1.8) 03/15/21 06:31 Lymph # (Auto) 2.2 K/mm3 (1.2-5.4) 03/15/21 06:31 [place] # (Auto) 2.2 K/mm3 (0.0-0.8) H 03/15/21 06:31 Eos # (Auto) 0.3 K/mm3 (0.0-0.4) 03/15/21 06:31 Baso # (Auto) 0.0 K/mm3 (0.0-0.1) 03/15/21 06:31 Add Manual Diff Complete 03/18/21 21:22 Total Counted 100 03/18/21 21:22 Seg Neutrophils % 67.6 % (40.0-70.0) 03/15/21 06:31 Seg Neuts % (Manual) 50.0 % (40.0-70.0) 03/18/21 21:22 Band Neutrophils % 4.0 % 03/09/21 03:34 Lymphocytes % (Manual) 34.0 % (13.4-35.0) 03/18/21 21:22 Reactive Lymphs % (Man) 6.0 % 03/14/21 10:22 Monocytes % (Manual) 16.0 % (0.0-7.3) H 03/18/21 21:22 Eosinophils % (Manual) 2.0 % (0.0-4.3) 03/14/21 10:22 Metamyelocytes % 1.0 % 03/09/21 03:34 Nucleated RBC % Not Reportable 03/18/21 21:22 Seg Neutrophils # 9.9 K/mm3 (1.8-7.7) H 03/15/21 06:31 Seg Neutrophils # Man 5.7 K/mm3 (1.8-7.7) 03/18/21 21:22 Band Neutrophils # 0.0 K/mm3 03/18/21 21:22 Lymphocytes # (Manual) 3.9 K/mm3 (1.2-5.4) 03/18/21 21:22 Abs React Lymphs (Man) 0.0 K/mm3 03/18/21 21:22 Monocytes # (Manual) 1.8 K/mm3 (0.0-0.8) H 03/18/21 21:22 Eosinophils # (Manual) 0.0 K/mm3 (0.0-0.4) 03/18/21 21:22 Basophils # (Manual) 0.0 K/mm3 (0.0-0.1) 03/18/21 21:22 Metamyelocytes # 0.0 K/mm3 03/18/21 21:22 Myelocytes # 0.0 K/mm3 03/18/21 21:22 Promyelocytes # 0.0 K/mm3 03/18/21 21:22 Blast Cells # 0.0 K/mm3 03/18/21 21:22 WBC Morphology Not Reportable 03/18/21 21:22 Hypersegmented Neuts Not Reportable 03/18/21 21:22 Hyposegmented Neuts Not Reportable 03/18/21 21:22 Hypogranular Neuts Not Reportable 03/18/21 21:22 Smudge Cells Not Reportable 03/18/21 21:22 Toxic Granulation Not Reportable 03/18/21 21:22 Toxic Vacuolation Not Reportable 03/18/21 21:22 Dohle Bodies Not Reportable 03/18/21 21:22 Pelger-Huet Anomaly Not Reportable 03/18/21 21:22 Kecia Rods Not Reportable 03/18/21 21:22 Platelet Estimate Not Reportable 03/18/21 21:22 Clumped Platelets Not Reportable 03/18/21 21:22 Plt Clumps, EDTA Not Reportable 03/18/21 21:22 Large Platelets Not Reportable 03/18/21 21:22 Giant Platelets Not Reportable 03/18/21 21:22 Platelet Satelliting Not Reportable 03/18/21 21:22 Plt Morphology Comment Not Reportable 03/18/21 21:22 RBC Morphology Normal 03/18/21 21:22 Dimorphic RBCs Not Reportable 03/18/21 21:22 Polychromasia Not Reportable 03/18/21 21:22 Hypochromasia Not Reportable 03/18/21 21:22 Poikilocytosis Not Reportable 03/18/21 21:22 Anisocytosis Not Reportable 03/18/21 21:22 Microcytosis Not Reportable 03/18/21 21:22 Macrocytosis Not Reportable 03/18/21 21:22 Spherocytes Not Reportable 03/18/21 21:22 Pappenheimer Bodies Not Reportable 03/18/21 21:22 Sickle Cells Not Reportable 03/18/21 21:22 Target Cells Not Reportable 03/18/21 21:22 Tear Drop Cells Not Reportable 03/18/21 21:22 Ovalocytes Not Reportable 03/18/21 21:22 Helmet Cells Not Reportable 03/18/21 21:22 [place] Bodies Not Reportable 03/18/21 21:22 [place] Rings Not Reportable 03/18/21 21:22 [place] Cells Not Reportable 03/18/21 21:22 Bite Cells Not Reportable 03/18/21 21:22 Crenated Cell Not Reportable 03/18/21 21:22 Elliptocytes Not Reportable 03/18/21 21:22 Acanthocytes (Spur) Not Reportable 03/18/21 21:22 Rouleaux Not Reportable 03/18/21 21:22 Hemoglobin C Crystals Not Reportable 03/18/21 21:22 Schistocytes Not Reportable 03/18/21 21:22 Malaria parasites Not Reportable 03/18/21 21:22 Ren Bodies Not Reportable 03/18/21 21:22 Hem Pathologist Commnt No 03/18/21 21:22 PT 13.6 Sec. (12.2-14.9) 03/10/21 04:49 INR 0.99 (0.87-1.13) 03/10/21 04:49 APTT 33.2 Sec. (24.2-36.6) 03/09/21 03:34 D-Dimer 1098.77 ng/mlDDU (0-234) H 03/09/21 05:17 Sodium 136 mmol/L (137-145) L 03/18/21 21:22 Potassium 3.9 mmol/L (3.6-5.0) 03/18/21 21:22 Chloride 92.5 mmol/L (98-107) L 03/18/21 21:22 Carbon Dioxide 28 mmol/L (22-30) 03/18/21 21:22 Anion Gap 19 mmol/L 03/18/21 21:22 BUN 23 mg/dL (7-17) H 03/18/21 21:22 Creatinine 4.2 mg/dL (0.6-1.2) H 03/18/21 21:22 Estimated GFR 10 ml/min 03/18/21 21:22 BUN/Creatinine Ratio 5 % 03/18/21 21:22 Glucose 80 mg/dL (65-100) 03/18/21 21:22 POC Glucose 84 mg/dL (70-105) 03/21/21 15:52 Hemoglobin A1c 5.1 % (4-6) 03/09/21 10:43 Lactic Acid 1.20 mmol/L (0.7-2.0) 03/09/21 07:37 Calcium 9.4 mg/dL (8.4-10.2) 03/18/21 21:22 Phosphorus 7.10 mg/dL (2.5-4.5) H 03/14/21 10:22 Magnesium 2.00 mg/dL (1.7-2.3) 03/14/21 10:22 Ferritin 2210.0 ng/mL (10.0-200.0) H 03/09/21 05:17 Total Bilirubin 0.30 mg/dL (0.1-1.2) 03/15/21 06:31 AST 14 units/L (5-40) 03/15/21 06:31 ALT 9 units/L (7-56) 03/15/21 06:31 Alkaline Phosphatase 70 units/L (35-129) 03/15/21 06:31 Ammonia 20.0 umol/L (25-60) L 03/12/21 07:54 Lactate Dehydrogenase 300 units/L (91-180) H 03/09/21 05:17 Total Creatine Kinase 57 units/L (30-135) 03/09/21 10:43 CK-MB (CK-2) 2.3 ng/mL (0.0-4.0) 03/09/21 10:43 CK-MB (CK-2) Rel Index 4.0 (0-4) 03/09/21 10:43 Troponin T 0.129 ng/mL (0.00-0.029) H* 03/09/21 05:17 C-Reactive Protein 1.10 mg/dL (0.00-1.30) 03/09/21 05:17 Total Protein 7.6 g/dL (6.3-8.2) 03/15/21 06:31 Albumin 3.6 g/dL (3.9-5) L 03/15/21 06:31 Albumin/Globulin Ratio 0.9 % 03/15/21 06:31 Triglycerides 133 mg/dL (2-149) 03/09/21 03:34 Cholesterol 158 mg/dL (50-199) 03/09/21 03:34 LDL Cholesterol Direct 105 mg/dL (50-130) 03/09/21 03:34 HDL Cholesterol 37 mg/dL (40-59) L 03/09/21 03:34 Cholesterol/HDL Ratio 4.27 % 03/09/21 03:34 Procalcitonin 0.71 ng/mL (<0.15) 03/09/21 05:17 Random Vancomycin 25.0 ug/mL (0-40.0) 03/12/21 13:44 Coronavirus (PCR) Negative (Negative) 03/09/21 08:40 Hepatitis A IgM Ab Non-reactive (NonReactive) 03/09/21 07:37 Hep Bs Antigen Nonreactive (Negative) 03/09/21 07:37 Hep B Core IgM Ab Non-reactive (NonReactive) 03/09/21 07:37 Hepatitis C Antibody Non-reactive (NonReactive) 03/09/21 07:37 Persaud/IV: Voiding Method Incontinent Active Medications - Current Medications Current Medications: Generic Name Dose Route Start Last Admin Trade Name Freq PRN Reason Stop Dose Admin Acetaminophen 650 mg 03/09/21 05:56 Acetaminophen 325 Mg Tab PO Q6H PRN Pain MILD(1-3)/Fever >100.5/ALMODOVAR Lipase/Protease/Amylase 1 each 03/14/21 11:12 Lipase 10,500/Protease 25,000/Amylase 43,750 (Units) Dr [place] FEEDTUBE PRN PRN For Clogged Feeding Tube Calcium Acetate 667 mg 03/16/21 12:30 03/21/21 16:26 Calcium Acetate 667 Mg Cap PO Not Given TIDWM BALAJI Carvedilol 12.5 mg 03/14/21 12:00 03/21/21 10:56 Carvedilol 12.5 Mg Tab PO Not Given BID BALAJI Famotidine 10 mg 03/14/21 13:00 03/21/21 11:34 Famotidine 10 Mg Tab FEEDTUBE 10 mg BID BALAJI Administration Heparin Sodium (Porcine) 5,000 unit 03/09/21 14:00 03/21/21 14:01 Heparin 5,000 Unit/1 Ml Vial SUB-Q 5,000 unit Q8HR BALAJI Administration Hydralazine HCl 10 mg 03/10/21 23:06 03/13/21 06:34 Hydralazine 20 Mg/1 Ml Inj IV 10 mg Q6HR PRN Administration Hypertension Sodium Chloride 100 mls @ 999 mls/hr 03/09/21 04:50 Nacl 0.9% IV FLAKO PRN Hypotension Insulin Human Regular 0 units 03/09/21 18:00 03/21/21 16:26 Insulin Regular, Human 100 Units/1 Ml SUB-Q Not Given ACHS [facility] Protocol Losartan Potassium 100 mg 03/14/21 10:00 03/21/21 10:05 Losartan 50 Mg Tab PO Not Given QDAY BALAJI Multivitamins/Iron 1 each 03/15/21 10:00 03/21/21 11:34 Fe Fumarate/Fa/Mv, Min Comb#15 Cap (Hemocyte Plus) PO 1 each QDAY BALAJI Administration Senna 17.2 mg 03/09/21 22:00 03/20/21 22:51 Sennosides 8.6 Mg Tab PO 17.2 mg QHS BALAJI Administration Simple Syrup 15 ml 03/14/21 11:12 Simple Syrup 15 Ml FEEDTUBE PRN PRN Hypoglycemia Simple Syrup 30 ml 03/14/21 11:12 Simple Syrup 15 Ml FEEDTUBE PRN PRN Hypoglycemia Sodium Bicarbonate 325 mg 03/14/21 11:12 Sodium Bicarbonate 325 Mg Tab FEEDTUBE PRN PRN For Clogged Feeding Tube Sodium Chloride 10 ml 03/09/21 10:00 03/21/21 11:35 Sodium Chloride 0.9% 10 Ml Flush Syringe IV 10 ml BID BALAJI Administration Sodium Chloride 10 ml 03/09/21 05:56 03/11/21 05:56 Sodium Chloride 0.9% 10 Ml Flush Syringe IV 10 ml PRN PRN Administration LINE FLUSH Nutrition/Malnutrition Assess - Dietary Evaluation Nutrition/Malnutrition Findings: Nutrition Notes Start: 03/09/21 07:41 Freq: Status: Active Protocol: Document 03/20/21 12:51 EB (Rec: 03/20/21 12:52 EB [id number]) Nutrition Notes Initial or Follow up Brief Note Subjective/Other Information Spoke with nurse tech who said pt has been gone to HD all morning and is not sure how much pt has been able to eat yet. Nutrition Intervention Follow-Up By: 03/21/21 Additional Comments F/u: intakes, ONS intake
[2021-03-21] MEDS: SENNOSIDES 8.6 MG TAB PO SCH (23:13)
[2021-03-22] MEDS: HEPARIN 5,000 UNIT/1 ML VIAL SUB-Q SCH ×2 (05:50→18:41)
[2021-03-22] MEDS: INSULIN REGULAR, HUMAN 100 UNITS/1 ML SUB-Q SCH ×3 (08:29→18:38)
[2021-03-22] MEDS: CALCIUM ACETATE 667 MG CAP PO SCH ×3 (09:37→18:40)
--- NOTE | 2021-03-22 13:03 | Discharge Summary ---
Providers - Providers Date of Admission: 03/09/21 05:25 Attending physician: DAKOTA MONTANEZ 03/09/21 04:41 Consult to Physician [CONS] Urgent Comment: Dr. Kaur spoke with Dr. Perez @ [id number] Consulting Provider: SAMI PEREZ Physician Instructions: Reason For Exam: esrd, needing dialysis 03/09/21 06:00 Consult to Dietitian/Nutrition [CONS] Routine Physician Instructions: Reason For Exam: Reason for Consult: Diet education Consult to Physician [CONS] Routine Comment: Consulting Provider: ANDRE BRUMFIELD Physician Instructions: Reason For Exam: HYPERTENSIVE EMERGENCY,HYPERKALEMIA,ESRD,PULM.URI 03/09/21 07:20 Consult to Physician [CONS] Routine Comment: Consulting Provider: RUTH MCGILL Physician Instructions: Reason For Exam: covid 19 pui; pna 03/11/21 07:23 Consult to Physician [CONS] Routine Comment: Consulting Provider: THOMAS MILLIGAN Physician Instructions: Reason For Exam: encephalopathy 03/14/21 09:27 Consult to Dietitian/Nutrition [CONS] Routine Physician Instructions: Assess nutrtn needs, initiate, modify, manage TF Reason For Exam: Reason for Consult: Write/Manage Tube Feeding Reason for Consult: Write/Manage Tube Feeding 03/14/21 09:30 Consult to Dietitian/Nutrition [CONS] Routine Physician Instructions: weight 44.4 kg thanks Reason For Exam: nepro 30 ml goal, please adjust per recommendation Reason for Consult: Write/Manage Tube Feeding 03/16/21 07:31 Physical Therapy Evaluation and Treat [CONS] Routine Comment: Reason For Exam: eval and tx, weakness Primary care physician: MAYO BARRETT Hospitalization Condition: Stable Disposition: 30 STILL A PATIENT - Discharge Diagnoses (1) Sepsis Status: Resolved (2) Metabolic encephalopathy Status: Acute (3) Uncontrolled hypertension Status: Acute (4) Debility Status: Acute (5) ESRD on hemodialysis Status: Acute (6) DVT prophylaxis Status: Acute (7) Advance care planning Status: Acute Exam - Constitutional Vitals: Temp Pulse Resp BP Pulse Ox 98.5 F 84 16 127/69 93 03/22/21 04:28 03/22/21 04:28 03/22/21 04:28 03/22/21 04:28 03/22/21 04:28 Plan Follow up with: MAYO BARRETT MD [Primary Care Provider] - 3-5 Days Prescriptions: Losartan [Cozaar] 100 mg PO QDAY #30 tablet
[2021-03-22 13:09] VITALS: BP 132/61
[2021-03-22] MEDS: FAMOTIDINE 10 MG TAB FEEDTUBE SCH (13:10)
[2021-03-22] MEDS: carvediloL 12.5 MG TAB PO SCH (13:11)
[2021-03-22] MEDS: LOSARTAN 50 MG TAB PO SCH (13:13)
[2021-03-22] MEDS: FE FUMARATE/FA/MV, MIN COMB#15 CAP (HEMOCYTE PLUS) PO SCH (13:14)
--- NOTE | 2021-03-22 13:24 | Progress Note ---
Assessment and Plan Acute Hypoxemic Respiratory Failuire Hypertensive emergency Acute pulmonary edema ESRD needing dialysis Person under investigation for COVID-19 Sepsis Hemorrhage of arteriovenous fistula Hyponatremia Metabolic acidosis - doing better, discharge planning ok pulmonary-ojeda - continue care as below otherwise; - aspiration precautions - continue to wean supplemental oxygen to keep O2 sats > 90% - continue bronchodilators (ERUM ) with pulm hygiene per RT - continue HD/UF per nephrology prescription for toxin and volume clearance - adjust oral antihypertensives for target BP - continue to avoid nephrotoxins, renally dose all medications - continue mobility protocols to prevent pressure ulcers - PT/OT as tolerated - Wound care per RN/WCT - continue accuchecks with glycemic control per SSI for target blood glucose < 180 mg/dL - home oxygen evaluation at discharge - GI & VTE prophylaxis - Flu & pneumovax per protocol - Pulmonary out patient follow up for PFTs and optimization of respiratory status - continue other care per attending / other consultants - prn analgesia per pain score ... re-evaluate in am & prn Subjective Date of service: 03/22/21 Principal diagnosis: HTNsive Emergency; bacteremia; Ac Hypoxemic Resp Failure; AV-fistula malfxn Interval history: Patient is seen today for: Hypertensive Emergency; gm +ve bacteremia; Acute Hypoxemic Respiratory Failuire; ESRD; Hemorrhage of AV-fistula Seen and examined at bedside; 24hour events reviewed; nursing and respiratory c are staff consulted; no adverse overnight events reported to me; resting in bed; Objective Vital Signs - 12hr 03/22/21 03/22/21 03/22/21 04:28 12:11 13:11 Temperature 98.5 F 97.5 F L Pulse Rate 84 85 85 Respiratory 16 18 Rate Blood Pressure 127/69 132/61 132/61 O2 Sat by Pulse 93 97 Oximetry 03/22/21 13:13 Temperature Pulse Rate 85 Respiratory Rate Blood Pressure 132/61 O2 Sat by Pulse Oximetry Constitutional: no acute distress, other (elderly thin female with normal respiratory effort at rest) Eyes: non-icteric ENT: oropharynx moist Neck: supple, no lymphadenopathy Effort: normal Ascultation: Bilateral: diminished breath sounds Percussion: Bilateral: not dull Cardiovascular: regular rate and rhythm Gastrointestinal: normoactive bowel sounds, soft, non-tender, non-distended Integumentary: normal Extremities: no cyanosis, no edema, pink and warm, pulses normal Neurologic: non-focal exam (grossly), pupils equal and round, unable to assess Psychiatric: other (Patient speaks only vitnam. Can not asses mood or effect.) CBC and BMP: 03/18/21 21:22 03/18/21 21:22 ABG, PT/INR, D-dimer: PT/INR, D-dimer PT 13.6 Sec. (12.2-14.9) 03/10/21 04:49 INR 0.99 (0.87-1.13) 03/10/21 04:49 D-Dimer 1098.77 ng/mlDDU (0-234) H 03/09/21 05:17 Abnormal lab findings: Abnormal Labs 03/09/21 03/09/21 03/09/21 03:34 03:34 03:34 WBC 20.7 H RBC 3.57 L Hgb Hct MCV MCH RDW 16.5 H Lymph % (Auto) [place] % (Auto) Lymph # (Auto) [place] # (Auto) Seg Neutrophils % Seg Neuts % (Manual) 84.0 H Lymphocytes % (Manual) 6.0 L Monocytes % (Manual) Seg Neutrophils # Seg Neutrophils # Man 17.4 H Monocytes # (Manual) D-Dimer Sodium 133 L Potassium 6.1 H* Chloride 93.6 L Carbon Dioxide BUN 62 H Creatinine 8.2 H Glucose 137 H POC Glucose Phosphorus Ferritin Ammonia Lactate Dehydrogenase Troponin T 0.123 H* Total Protein Albumin HDL Cholesterol 37 L 03/09/21 03/09/21 03/09/21 05:17 05:17 05:17 WBC RBC Hgb Hct MCV MCH RDW Lymph % (Auto) [place] % (Auto) Lymph # (Auto) [place] # (Auto) Seg Neutrophils % Seg Neuts % (Manual) Lymphocytes % (Manual) Monocytes % (Manual) Seg Neutrophils # Seg Neutrophils # Man Monocytes # (Manual) D-Dimer 1098.77 H Sodium Potassium Chloride Carbon Dioxide BUN Creatinine Glucose 123 H POC Glucose Phosphorus Ferritin Ammonia Lactate Dehydrogenase 300 H Troponin T 0.129 H* Total Protein Albumin HDL Cholesterol 03/09/21 03/09/21 03/09/21 05:17 14:21 17:01 WBC RBC Hgb Hct MCV MCH RDW Lymph % (Auto) [place] % (Auto) Lymph # (Auto) [place] # (Auto) Seg Neutrophils % Seg Neuts % (Manual) Lymphocytes % (Manual) Monocytes % (Manual) Seg Neutrophils # Seg Neutrophils # Man Monocytes # (Manual) D-Dimer Sodium 133 L Potassium 5.2 H Chloride 94.3 L Carbon Dioxide BUN 23 H Creatinine 4.3 H Glucose 246 H POC Glucose 201 H Phosphorus Ferritin 2210.0 H Ammonia Lactate Dehydrogenase Troponin T Total Protein Albumin HDL Cholesterol 03/09/21 03/10/21 03/10/21 22:07 04:49 04:49 WBC RBC 3.54 L Hgb Hct MCV MCH RDW 16.4 H Lymph % (Auto) [place] % (Auto) 11.4 H Lymph # (Auto) [place] # (Auto) 1.0 H Seg Neutrophils % Seg Neuts % (Manual) Lymphocytes % (Manual) Monocytes % (Manual) Seg Neutrophils # Seg Neutrophils # Man Monocytes # (Manual) D-Dimer Sodium 134 L Potassium 5.2 H Chloride 93.0 L Carbon Dioxide BUN 45 H Creatinine 5.9 H Glucose 112 H POC Glucose 128 H Phosphorus Ferritin Ammonia Lactate Dehydrogenase Troponin T Total Protein Albumin HDL Cholesterol 03/10/21 03/11/21 03/11/21 23:24 08:41 08:41 WBC 12.0 H RBC Hgb Hct MCV MCH RDW 15.6 H Lymph % (Auto) [place] % (Auto) 15.3 H Lymph # (Auto) [place] # (Auto) 1.8 H Seg Neutrophils % Seg Neuts % (Manual) Lymphocytes % (Manual) Monocytes % (Manual) Seg Neutrophils # Seg Neutrophils # Man Monocytes # (Manual) D-Dimer Sodium 134 L Potassium Chloride 91.6 L Carbon Dioxide BUN 32 H Creatinine 4.8 H Glucose 119 H POC Glucose 284 H Phosphorus Ferritin Ammonia Lactate Dehydrogenase Troponin T Total Protein 9.1 H Albumin HDL Cholesterol 03/12/21 03/12/21 03/12/21 06:30 06:30 07:54 WBC 11.3 H RBC 3.44 L Hgb 8.3 L D Hct 26.7 L D MCV 78 L MCH 24 L RDW 19.1 H Lymph % (Auto) 7.0 L [place] % (Auto) Lymph # (Auto) 0.8 L [place] # (Auto) Seg Neutrophils % 89.3 H Seg Neuts % (Manual) Lymphocytes % (Manual) Monocytes % (Manual) Seg Neutrophils # 10.1 H Seg Neutrophils # Man Monocytes # (Manual) D-Dimer Sodium Potassium 5.2 H D Chloride Carbon Dioxide BUN 47 H Creatinine Glucose 339 H POC Glucose Phosphorus Ferritin Ammonia 20.0 L Lactate Dehydrogenase Troponin T Total Protein 5.7 L D Albumin 2.3 L HDL Cholesterol 03/12/21 03/12/21 03/12/21 08:21 11:28 13:44 WBC RBC Hgb Hct MCV MCH RDW Lymph % (Auto) [place] % (Auto) Lymph # (Auto) [place] # (Auto) Seg Neutrophils % Seg Neuts % (Manual) Lymphocytes % (Manual) Monocytes % (Manual) Seg Neutrophils # Seg Neutrophils # Man Monocytes # (Manual) D-Dimer Sodium Potassium Chloride Carbon Dioxide BUN Creatinine 5.0 H D Glucose POC Glucose 108 H 108 H Phosphorus Ferritin Ammonia Lactate Dehydrogenase Troponin T Total Protein Albumin HDL Cholesterol 03/12/21 03/13/21 03/13/21 21:17 07:44 07:44 WBC RBC Hgb Hct MCV MCH RDW 15.8 H Lymph % (Auto) [place] % (Auto) Lymph # (Auto) [place] # (Auto) Seg Neutrophils % Seg Neuts % (Manual) 74.0 H Lymphocytes % (Manual) 12.0 L Monocytes % (Manual) 12.0 H Seg Neutrophils # Seg Neutrophils # Man Monocytes # (Manual) 1.2 H D-Dimer Sodium 133 L Potassium Chloride 94.4 L Carbon Dioxide 20 L BUN 42 H Creatinine 6.8 H Glucose POC Glucose 110 H Phosphorus Ferritin Ammonia Lactate Dehydrogenase Troponin T Total Protein Albumin 3.2 L HDL Cholesterol 03/14/21 03/14/21 03/15/21 10:22 10:22 06:31 WBC 12.6 H 14.7 H RBC 3.42 L Hgb 10.0 L Hct MCV MCH RDW 16.2 H 16.0 H Lymph % (Auto) [place] % (Auto) 15.0 H Lymph # (Auto) [place] # (Auto) 2.2 H Seg Neutrophils % Seg Neuts % (Manual) 73.0 H Lymphocytes % (Manual) 10.0 L Monocytes % (Manual) 9.0 H Seg Neutrophils # 9.9 H Seg Neutrophils # Man 9.2 H Monocytes # (Manual) 1.1 H D-Dimer Sodium Potassium Chloride 96.0 L Carbon Dioxide BUN 32 H Creatinine 5.4 H Glucose POC Glucose Phosphorus 7.10 H Ferritin Ammonia Lactate Dehydrogenase Troponin T Total Protein Albumin 3.8 L HDL Cholesterol 03/15/21 03/15/21 03/15/21 06:31 07:42 09:21 WBC RBC Hgb Hct MCV MCH RDW Lymph % (Auto) [place] % (Auto) Lymph # (Auto) [place] # (Auto) Seg Neutrophils % Seg Neuts % (Manual) Lymphocytes % (Manual) Monocytes % (Manual) Seg Neutrophils # Seg Neutrophils # Man Monocytes # (Manual) D-Dimer Sodium Potassium Chloride 95.0 L Carbon Dioxide BUN 61 H Creatinine 7.0 H Glucose 140 H POC Glucose 140 H 139 H Phosphorus Ferritin Ammonia Lactate Dehydrogenase Troponin T Total Protein Albumin 3.6 L HDL Cholesterol 03/15/21 03/15/21 03/16/21 11:18 22:05 17:18 WBC RBC Hgb Hct MCV MCH RDW Lymph % (Auto) [place] % (Auto) Lymph # (Auto) [place] # (Auto) Seg Neutrophils % Seg Neuts % (Manual) Lymphocytes % (Manual) Monocytes % (Manual) Seg Neutrophils # Seg Neutrophils # Man Monocytes # (Manual) D-Dimer Sodium Potassium Chloride Carbon Dioxide BUN Creatinine Glucose POC Glucose 141 H 175 H 181 H Phosphorus Ferritin Ammonia Lactate Dehydrogenase Troponin T Total Protein Albumin HDL Cholesterol 03/17/21 03/17/21 03/17/21 12:48 17:50 22:28 WBC RBC Hgb Hct MCV MCH RDW Lymph % (Auto) [place] % (Auto) Lymph # (Auto) [place] # (Auto) Seg Neutrophils % Seg Neuts % (Manual) Lymphocytes % (Manual) Monocytes % (Manual) Seg Neutrophils # Seg Neutrophils # Man Monocytes # (Manual) D-Dimer Sodium Potassium Chloride Carbon Dioxide BUN Creatinine Glucose POC Glucose 169 H 69 L 175 H Phosphorus Ferritin Ammonia Lactate Dehydrogenase Troponin T Total Protein Albumin HDL Cholesterol 03/18/21 03/18/21 03/18/21 14:03 17:29 21:22 WBC RBC Hgb Hct MCV MCH RDW Lymph % (Auto) [place] % (Auto) Lymph # (Auto) [place] # (Auto) Seg Neutrophils % Seg Neuts % (Manual) Lymphocytes % (Manual) Monocytes % (Manual) Seg Neutrophils # Seg Neutrophils # Man Monocytes # (Manual) D-Dimer Sodium 136 L Potassium Chloride 92.5 L Carbon Dioxide BUN 23 H Creatinine 4.2 H Glucose POC Glucose 207 H 144 H Phosphorus Ferritin Ammonia Lactate Dehydrogenase Troponin T Total Protein Albumin HDL Cholesterol 03/18/21 03/20/21 03/20/21 21:22 13:29 17:50 WBC 11.4 H RBC 3.34 L Hgb 10.0 L Hct MCV MCH RDW 15.9 H Lymph % (Auto) [place] % (Auto) Lymph # (Auto) [place] # (Auto) Seg Neutrophils % Seg Neuts % (Manual) Lymphocytes % (Manual) Monocytes % (Manual) 16.0 H Seg Neutrophils # Seg Neutrophils # Man Monocytes # (Manual) 1.8 H D-Dimer Sodium Potassium Chloride Carbon Dioxide BUN Creatinine Glucose POC Glucose 126 H 68 L Phosphorus Ferritin Ammonia Lactate Dehydrogenase Troponin T Total Protein Albumin HDL Cholesterol 03/20/21 03/21/21 03/21/21 21:16 11:24 21:24 WBC RBC Hgb Hct MCV MCH RDW Lymph % (Auto) [place] % (Auto) Lymph # (Auto) [place] # (Auto) Seg Neutrophils % Seg Neuts % (Manual) Lymphocytes % (Manual) Monocytes % (Manual) Seg Neutrophils # Seg Neutrophils # Man Monocytes # (Manual) D-Dimer Sodium Potassium Chloride Carbon Dioxide BUN Creatinine Glucose POC Glucose 144 H 208 H 111 H Phosphorus Ferritin Ammonia Lactate Dehydrogenase Troponin T Total Protein Albumin HDL Cholesterol 03/22/21 12:10 WBC RBC Hgb Hct MCV MCH RDW Lymph % (Auto) [place] % (Auto) Lymph # (Auto) [place] # (Auto) Seg Neutrophils % Seg Neuts % (Manual) Lymphocytes % (Manual) Monocytes % (Manual) Seg Neutrophils # Seg Neutrophils # Man Monocytes # (Manual) D-Dimer Sodium Potassium Chloride Carbon Dioxide BUN Creatinine Glucose POC Glucose 133 H Phosphorus Ferritin Ammonia Lactate Dehydrogenase Troponin T Total Protein Albumin HDL Cholesterol Allied health notes reviewed: nursing
--- NOTE | 2021-03-22 18:19 | Progress Note ---
Assessment and Plan End-stage renal disease continue with maintenance hemodialysis on Tuesday and Tuesday schedule Discontinued magnesium oxide, can result in toxicity with a dialysis patient Discontinued hydralazine, discontinued Procardia, continue with losartan 100 mg once a day. Monitor bp, may need further downtitration Continue the patient on calcium acetate 2 capsule 3 times a day Monitor labs #Multifocal pneumonia Covid negative, seen by infectious disease this admission #Hypertension, improving, blood pressure medication has been readjusted #Diet and nutrition start on Nephrocaps, continue on erythropoietin weekly We'll continue to follow and make recommendation for renal standpoint Subjective Date of service: 03/22/21 Principal diagnosis: HTNsive Emergency; bacteremia; Ac Hypoxemic Resp Failure; AV-fistula malfxn Interval history: Resting in bed. Somnolent. Awakens to touch. Objective - Exam Narrative Exam: General: No acute distress HEENT: Oral mucosa moist Neck: Supple, no JVD Chest: Clear to auscultation bilaterally Heart: RRR, S1 and S2, no pericardial rub Abdomen: Soft, nontender, no renal bruit Extremity: No peripheral cyanosis, edema Neurological: Somnolent, awakens to stimuli Dermatology: No skin rash Psych: No agitation Musculoskeletal: No joint effusion - Vital Signs Vital signs: Vital Signs - 12hr 03/22/21 03/22/21 03/22/21 12:11 13:11 13:13 Temperature 97.5 F L Pulse Rate 85 85 85 Respiratory 18 Rate Blood Pressure 132/61 132/61 132/61 O2 Sat by Pulse 97 Oximetry - Lab 03/18/21 21:22 03/18/21 21:22 Most recent lab results Calcium 9.4 mg/dL (8.4-10.2) 03/18/21 21:22 Phosphorus 7.10 mg/dL (2.5-4.5) H 03/14/21 10:22 Magnesium 2.00 mg/dL (1.7-2.3) 03/14/21 10:22 Medications & Allergies - Medications Allergies/Adverse Reactions: Allergies No Known Allergies Allergy (Unverified 07/09/20 12:47) Home Medications: Home Medications Medication Instructions Recorded Confirmed Last Taken Type Losartan [Cozaar] 100 mg PO QDAY #30 tablet 03/21/21 Unknown Rx Calcium Acetate [Phoslo] 667 mg PO TID #90 capsule 03/22/21 Unknown Rx Active Medications: Generic Name Dose Route Start Last Admin Trade Name Freq PRN Reason Stop Dose Admin Acetaminophen 650 mg 03/09/21 05:56 Acetaminophen 325 Mg Tab PO Q6H PRN Pain MILD(1-3)/Fever >100.5/ALMODOVAR Lipase/Protease/Amylase 1 each 03/14/21 11:12 Lipase 10,500/Protease 25,000/Amylase 43,750 (Units) Dr [place]ona FEEDTUBE PRN PRN For Clogged Feeding Tube Calcium Acetate 667 mg 03/16/21 12:30 03/22/21 13:10 Calcium Acetate 667 Mg Cap PO 667 mg TIDWM BALAJI Administration Carvedilol 12.5 mg 03/14/21 12:00 03/22/21 13:11 Carvedilol 12.5 Mg Tab PO 12.5 mg BID BALAJI Administration Famotidine 10 mg 03/14/21 13:00 03/22/21 13:10 Famotidine 10 Mg Tab FEEDTUBE 10 mg BID BALAJI Administration Heparin Sodium (Porcine) 5,000 unit 03/09/21 14:00 03/22/21 05:50 Heparin 5,000 Unit/1 Ml Vial SUB-Q 5,000 unit Q8HR BALAJI Administration Hydralazine HCl 10 mg 03/10/21 23:06 03/13/21 06:34 Hydralazine 20 Mg/1 Ml Inj IV 10 mg Q6HR PRN Administration Hypertension Sodium Chloride 100 mls @ 999 mls/hr 03/09/21 04:50 Nacl 0.9% IV FLAKO PRN Hypotension Insulin Human Regular 0 units 03/09/21 18:00 03/22/21 13:15 Insulin Regular, Human 100 Units/1 Ml SUB-Q Not Given ACHS [facility] Protocol Losartan Potassium 100 mg 03/14/21 10:00 03/22/21 13:13 Losartan 50 Mg Tab PO 100 mg QDAY BALAJI Administration Multivitamins/Iron 1 each 03/15/21 10:00 03/22/21 13:14 Fe Fumarate/Fa/Mv, Min Comb#15 Cap (Hemocyte Plus) PO 1 each QDAY BALAJI Administration Senna 17.2 mg 03/09/21 22:00 03/21/21 23:13 Sennosides 8.6 Mg Tab PO 17.2 mg QHS BALAJI Administration Simple Syrup 15 ml 03/14/21 11:12 Simple Syrup 15 Ml FEEDTUBE PRN PRN Hypoglycemia Simple Syrup 30 ml 03/14/21 11:12 Simple Syrup 15 Ml FEEDTUBE PRN PRN Hypoglycemia Sodium Bicarbonate 325 mg 03/14/21 11:12 Sodium Bicarbonate 325 Mg Tab FEEDTUBE PRN PRN For Clogged Feeding Tube Sodium Chloride 10 ml 03/09/21 10:00 03/22/21 13:11 Sodium Chloride 0.9% 10 Ml Flush Syringe IV 10 ml BID BALAJI Administration Sodium Chloride 10 ml 03/09/21 05:56 03/11/21 05:56 Sodium Chloride 0.9% 10 Ml Flush Syringe IV 10 ml PRN PRN Administration LINE FLUSH
== END 2021-03-20 20:00 | disposition home health service (06) | DRG 871 ==
LOC: ED 03:02 → CC1 05:25 → 3A 12:53
PROVIDERS: ADMIT Internal Medicine Geriatric Medicine; ATTEND Internal Medicine
PROC: 5A09357 Assistance with Respiratory Ventilation, Less than 24 Consecutive Hours, Continuous Positive Airway Pressure (ICD-10-PCS; principal; 2021-03-09)
PROC: 5A1D70Z Performance of Urinary Filtration, Intermittent, Less than 6 Hours Per Day (ICD-10-PCS; 2021-03-09)
PROC: 5A1D70Z Performance of Urinary Filtration, Intermittent, Less than 6 Hours Per Day (ICD-10-PCS; 2021-03-10)
PROC: 5A1D70Z Performance of Urinary Filtration, Intermittent, Less than 6 Hours Per Day (ICD-10-PCS; 2021-03-11)
PROC: 5A1D70Z Performance of Urinary Filtration, Intermittent, Less than 6 Hours Per Day (ICD-10-PCS; 2021-03-13)
PROC: 5A1D70Z Performance of Urinary Filtration, Intermittent, Less than 6 Hours Per Day (ICD-10-PCS; 2021-03-16)
PROC: 5A1D70Z Performance of Urinary Filtration, Intermittent, Less than 6 Hours Per Day (ICD-10-PCS; 2021-03-18)
PROC: 5A1D80Z Performance of Urinary Filtration, Prolonged Intermittent, 6-18 hours Per Day (ICD-10-PCS; 2021-03-20)
DX: A41.9 Sepsis, unspecified organism (principal); J18.9 Pneumonia, unspecified organism; J81.0 Acute pulmonary edema; N18.6 End stage renal disease; G92 Toxic encephalopathy; I16.1 Hypertensive emergency; N25.81 Secondary hyperparathyroidism of renal origin; E87.1 Hypo-osmolality and hyponatremia; I12.0 Hypertensive chronic kidney disease with stage 5 chronic kidney disease or end stage renal disease; T82.838A Hemorrhage due to vascular prosthetic devices, implants and grafts, initial encounter; E87.5 Hyperkalemia; Z20.822 Contact with and (suspected) exposure to COVID-19; D63.1 Anemia in chronic kidney disease; E11.22 Type 2 diabetes mellitus with diabetic chronic kidney disease; R56.9 Unspecified convulsions; Y83.2 Surgical operation with anastomosis, bypass or graft as the cause of abnormal reaction of the patient, or of later complication, without mention of misadventure at the time of the procedure; R29.723 NIHSS score 23; R06.03 Acute respiratory distress; R53.81 Other malaise; Z79.899 Other long term (current) drug therapy; Y92.89 Other specified places as the place of occurrence of the external cause; Z99.2 Dependence on renal dialysis
CPT/HCPCS: 36415; 70450; 70551; 71045; 74018; 80048; 80053; 80061; 80074; 80202; 82140; 82550; 82553; 82565; 82728; 82947; 82962; 83036; 83615; 83735; 84100; 84145; 84484; 85007; 85025; 85379; 85610; 85730; 86140; 87040; 93005; 93306; 93970; 94644; 94760; 96365; G0378; J0360; J0610; J0692; J0885; J1100; J1644; J1815; J1940; J2060; J3370; U0003